=== PATIENT | female | born 1995 ===

== ENCOUNTER 2020-08-05 11:04 | Outpatient (REF) | payer MEDICAID, SELFPAY | END 2020-08-05 11:05 | disposition home or self-care (01) | LOC: HO.LAB 11:04 | PROVIDERS: Visit Provider Internal Medicine | DX: Z20.828 Contact with and (suspected) exposure to other viral communicable diseases (principal) | CPT/HCPCS: 87635 ==

== ENCOUNTER 2020-09-01 01:33 | Emergency (ER) | payer MEDICAID, SELFPAY ==
[2020-09-01 01:36] VITALS: BP 156/78; PULSE 78; RESP 18; TEMP 36.8; O2SAT 98; BMI 69.0
--- NOTE | 2020-09-01 01:43 | PC.NURSE ---
XRAY BEING OBTAINED AT BEDSIDE AT THIS TIME. AWAITING ED PROVIDER EVALUATION. ESCORTED TO ED BED 18 VIA WHEELCHAIR BY GABBY WHITESIDE. WILL CONTINUE TO MONITOR.
--- NOTE | 2020-09-01 01:45 | XR_ITS ---
EXAMINATION: XR ANKLE, RIGHT XR FOOT, RIGHT CLINICAL INFORMATION: Pain COMPARISON: None TECHNIQUE: 3 views of the right ankle. 3 views of the right foot. FINDINGS: There is anatomic alignment of the ankle and foot. No acute fracture is seen. There is soft tissue swelling at the ankle. XR/XR ankle RT min 3V IMPRESSION: No fracture identified. Soft tissue swelling at the ankle.
--- NOTE | 2020-09-01 01:46 | PC.NURSE ---
AT BEDSIDE FOR PRIMARY EVALUATION.
--- NOTE | 2020-09-01 01:50 | XR_ITS ---
EXAMINATION: XR ANKLE, RIGHT XR FOOT, RIGHT CLINICAL INFORMATION: Pain COMPARISON: None TECHNIQUE: 3 views of the right ankle. 3 views of the right foot. FINDINGS: There is anatomic alignment of the ankle and foot. No acute fracture is seen. There is soft tissue swelling at the ankle. XR/XR foot RT min 3V IMPRESSION: No fracture identified. Soft tissue swelling at the ankle.
--- NOTE | 2020-09-01 01:50 | ED.LOWEXIN ---
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) Injury: Right: ankle and foot Type of Injury: unknown (states she just moved it and felt a pop with pain) Place: home Severity: moderate Relieving factors: nothing Exacerbating factors: weight bearing and movement Context: other (states she moved it suddenly and felt a pop and it hurt) Associated symptoms: snap/pop sensation Other symptoms: none Related Data Home Medications Medication Instructions Recorded Confirmed albuterol sulfate 90 mcg/actuation 2 puff INHALATION Q6H PRN 07/14/20 07/14/20 aerosol inhaler atenolol 25 mg tablet 25 mg PO DAILY 07/14/20 07/14/20 blood sugar diagnostic #10 ea 07/14/20 07/14/20 enalapril maleate 20 mg tablet 25 mg PO DAILY tab 07/14/20 07/14/20 fluticasone propionate 110 1 puff INHALATION BID 07/14/20 07/14/20 mcg/actuation HFA aerosol inhaler lancets 28 gauge #100 ea 07/14/20 07/14/20 loratadine 10 mg tablet 10 mg PO DAILY 07/14/20 07/14/20 metformin 500 mg tablet 500 mg PO BID 07/14/20 07/14/20 omeprazole 20 mg capsule,delayed 20 mg PO DAILY 07/14/20 07/14/20 release Previous Rx's Medication Instructions Recorded cyclobenzaprine 10 mg PO TID PRN #14 tab 09/01/20 ibuprofen 600 mg PO Q6H PRN #30 tab 09/01/20 Allergies Allergy/AdvReac Type Severity Reaction Status Date / Time No Known Allergies Allergy Unverified 06/28/20 17:12 Review of Systems Review of Systems: Constitutional : No Fever, No Chills ENT/Mouth : No Ear Pain, No Hoarseness, No sore throat Eyes: No Eye Pain, No Swelling, No Redness, No Foreign Body Cardiovascular : No Chest Pain, No SOB Respiratory : No Cough, No Dyspnea Gastrointestinal : No Nausea, No Vomiting, No Diarrhea, No abdominal Pain Genitourinary : No Dysuria, No Hematuria Musculoskeletal : positive joint pain, No Myalgias, No Joint Swelling Skin : No Skin lacerations, No rash Neuro : No Weakness, No Numbness PMFSH Past Medical History Attestation statement: The following information was validated with the patient. Medical History Diabetes mellitus, type 2 Hypertension Social History Social History (Updated 09/01/20 @ 01:51 by Lilia Howard DO) Smoking Status: Never smoker Substance Use Type: Marijuana Advance Directives: No Physical Exam Vital Signs: Vital Signs: Last Vital Signs Temp 98.2 F 09/01/20 01:36 Pulse 78 09/01/20 01:36 Resp 18 09/01/20 01:36 BP 156/78 H 09/01/20 01:36 Pulse Ox 98 09/01/20 01:36 Body Mass Index 69.0 Appearance: Alert. Oriented X3. No acute distress. Eyes: Pupils equal, round and reactive to light. ENT: Pharynx normal. Neck: Normal inspection. Neck supple. CVS: Normal heart rate and rhythm. Pulses normal. Respiratory: No respiratory distress. Breath sounds normal. Abdomen: Soft and nontender. Skin: Skin warm and dry. Normal skin color. Normal skin turgor. Extremities: No lower extremity edema. No calf ttp R ankle ttp on lateral malleolus, ttp on dorrsum of foot mild swelling, no erythema, NV intact, BCR in all digits Neuro: Oriented X 3. No motor deficit. No sensory deficit. Procedures Orthopedic Splinting/Casting Injury #1: Side: right Lower Extremity Injury Location: ankle Lower Extremity Immobilizer: AirCast MDM - Extremity Injury (Lower) [facility] Narrative Medical decision making narrative: 25 yo female with RLE foot and ankle pain after moving it quickly and felt a pop - she is NV intact, xrays ordered, NSAIDs/flexeril air cast and crutches ordered Discharge Plan Discharge Clinical Impression: Ankle sprain and strain Foot sprain Qualifiers: Encounter type: initial encounter Laterality: right Qualified Code(s): S93.601A - Unspecified sprain of right foot, initial encounter Patient Disposition: Home, Self-Care Instructions: Foot Sprain (ED), Ankle Strain (ED) Additional Instructions: return to ED for any worsening symptoms or concerns use splint and crutches for the next 5 to 7 days, rest and ice area Prescriptions: New cyclobenzaprine 10 mg tablet 10 mg PO TID PRN (Reason: muscle spasm) Qty: 14 RF: 0 ibuprofen 600 mg tablet 600 mg PO Q6H PRN (Reason: pain) Qty: 30 RF: 0 No Action metformin 500 mg tablet 500 mg PO BID RF: 0 omeprazole 20 mg capsule,delayed release(DR/EC) 20 mg PO DAILY RF: 0 atenolol 25 mg tablet 25 mg PO DAILY RF: 0 loratadine [Claritin] 10 mg tablet 10 mg PO DAILY RF: 0 enalapril maleate 20 mg tablet 25 mg PO DAILY RF: 0 (DME) FreeStyle Lite Strips Strip See Rx Instructions .ROUTE .MEDSUPPLY Qty: 10 RF: 0 (DME) lancets [FreeStyle Lancets] 28 gauge misc See Rx Instructions .ROUTE .MEDSUPPLY Qty: 100 RF: 0 albuterol sulfate [ProAir HFA] 90 mcg/actuation HFA aerosol inhaler 2 puff inhalation Q6H PRNRF: 0 Flovent HFA 110 mcg/actuation HFA aerosol inhaler 1 puff inhalation BID RF: 0 Referrals: Physician,Unknown [Primary Care Provider] - 2 days (PCP if not better) Stand Alone Forms: Work/School Release
[2020-09-01] MEDS: Cyclobenzaprine HCl 10 MG TABLET PO (02:00)
[2020-09-01] MEDS: Ketorolac Tromethamine 60 MG/2 ML VIAL IM (02:01)
== END 2020-09-01 02:38 | disposition home or self-care (01) ==
LOC: HO.ED 01:55
PROVIDERS: Emergency Provider Emergency Medicine
DX: S93.401A Sprain of unspecified ligament of right ankle, initial encounter (principal); M25.571 Pain in right ankle and joints of right foot; F12.90 Cannabis use, unspecified, uncomplicated; I10 Essential (primary) hypertension; X50.1XXA Overexertion from prolonged static or awkward postures, initial encounter; Y93.9 Activity, unspecified; Y92.009 Unspecified place in unspecified non-institutional (private) residence as the place of occurrence of the external cause; Y99.9 Unspecified external cause status; Z79.899 Other long term (current) drug therapy
CPT/HCPCS: 29515; 73610; 73630; 96372; 99283; 99284; J1885

== ENCOUNTER 2020-09-24 22:04 | Emergency (ER) | payer MEDICAID, SELFPAY ==
[2020-09-24 22:06] VITALS: BP 158/86; PULSE 99; RESP 19; TEMP 36.8; O2SAT 98; BMI 69.0
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
[2020-09-24] MEDS: Acetaminophen 325 MG TABLET 975 MG PO (23:11)
== END 2020-09-24 23:58 | disposition home or self-care (01) ==
PROVIDERS: Emergency Provider Student in an Organized Health Care Education/Training Program
DX: S00.12XA Contusion of left eyelid and periocular area, initial encounter (principal); S01.112A Laceration without foreign body of left eyelid and periocular area, initial encounter; Y04.2XXA Assault by strike against or bumped into by another person, initial encounter; E11.9 Type 2 diabetes mellitus without complications; I10 Essential (primary) hypertension; F17.210 Nicotine dependence, cigarettes, uncomplicated; F12.90 Cannabis use, unspecified, uncomplicated; Y93.9 Activity, unspecified; Y92.9 Unspecified place or not applicable; Y99.9 Unspecified external cause status
CPT/HCPCS: 70486; 90471; 90715; 99284

== ENCOUNTER 2020-11-01 15:18 | Emergency (ER) | payer MEDICAID, SELFPAY ==
--- NOTE | 2020-11-01 15:25 | XR_ITS ---
EXAMINATION: XR CHEST CLINICAL INFORMATION: Chest wall pain COMPARISON: Chest radiographs 12/22/2019, 10/12/2019 TECHNIQUE: Portable upright AP view of the chest was obtained. FINDINGS: The lungs are clear. There is no pneumothorax, pleural reaction, airspace consolidation, or effusion. The heart is within limits of normal size. The hilar and mediastinal contours are normal. The vascularity is unremarkable. No visible acute bony abnormality. XR/XR chest 1V IMPRESSION: Unremarkable examination.
--- NOTE | 2020-11-01 15:25 | ECG_ITS ---
Test Reason : CHEST PAIN Blood Pressure : / mmHG Vent. Rate : 093 BPM Atrial Rate : 093 BPM P-R Int : 162 ms QRS Dur : 086 ms QT Int : 356 ms P-R-T Axes : 049 030 021 degrees QTc Int : 442 ms Normal sinus rhythm Normal ECG When compared with ECG of 04-FEB-2019 20:59, No significant change was found Referred By: Daron Humphrey Electronically Signed By:DEVIKA HENRY
[2020-11-01 15:29] VITALS: BP 164/94; BP 167/98; PULSE 100; PULSE 93; RESP 18; TEMP 36.9; O2SAT 100; O2SAT 97; BMI 69.0
--- NOTE | 2020-11-01 15:42 | ED.CHESTPAIN ---
HPI - Chest Pain General Chief Complaint: Chest Pain <Daron Humphrey NP - Last Filed: 11/01/20 20:40> Stated Complaint: chest pain anxiety <Daron Humphrey NP - Last Filed: 11/01/20 20:40> Time Seen by Provider: 11/01/20 15:25 <Daron Humphrey NP - Last Filed: 11/01/20 20:40> Source: EMS <Daron Humphrey NP - Last Filed: 11/01/20 20:40> Mode of arrival: EMS <Daron Humphrey NP - Last Filed: 11/01/20 20:40> Limitations: no limitations <Daron Humphrey NP - Last Filed: 11/01/20 20:40> History of Present Illness HPI narrative: Pleasant 25-year-old female with history of obesity, depression, anxiety, diabetes, hypertension, ADHD, history of costochondritis and chest pain who presents via EMS from home states since yesterday she has had this non producing left side chest pain with associated nausea. States she does have increase in her anxiety sometimes feels like her clonazepam does not work and unsure if the 2 are related but has had increased anxiety to nonspecific social stressors. She denies any recent illness, no cough, dizziness, palpitations, recent travel or prolonged stationary, no hormonal/ control use. <Daron Humphrey NP - Last Filed: 11/01/20 20:40> MD complaint: chest discomfort <Daron Humphrey NP - Last Filed: 11/01/20 20:40> Onset (ago): day(s) (1) <Daron Humphrey NP - Last Filed: 11/01/20 20:40> Timing of current episode: still present <Daron Humphrey NP - Last Filed: 11/01/20 20:40> Prior episodes: Yes <Daron Humphrey NP - Last Filed: 11/01/20 20:40> Quality: aching <Daron Humphrey NP - Last Filed: 11/01/20 20:40> Treatment prior to arrival: aspirin (She was given 324 aspirin by EMS) <Daron Humphrey NP - Last Filed: 11/01/20 20:40> Related Data Home Medications: Home Medications Medication Instructions Recorded Confirmed albuterol sulfate 90 mcg/actuation 2 puff INHALATION Q6H PRN 07/14/20 07/14/20 aerosol inhaler atenolol 25 mg tablet 25 mg PO DAILY 07/14/20 07/14/20 blood sugar diagnostic #10 ea 07/14/20 07/14/20 enalapril maleate 20 mg tablet 25 mg PO DAILY tab 07/14/20 07/14/20 fluticasone propionate 110 1 puff INHALATION BID 07/14/20 07/14/20 mcg/actuation HFA aerosol inhaler lancets 28 gauge #100 ea 07/14/20 07/14/20 loratadine 10 mg tablet 10 mg PO DAILY 07/14/20 07/14/20 metformin 500 mg tablet 500 mg PO BID 07/14/20 07/14/20 omeprazole 20 mg capsule,delayed 20 mg PO DAILY 07/14/20 07/14/20 release Previous Rx's Medication Instructions Recorded cyclobenzaprine 10 mg PO TID PRN #14 tab 09/01/20 ibuprofen 600 mg PO Q6H PRN #30 tab 09/01/20 <Daron Humphrey NP - Last Filed: 11/01/20 20:40> Allergies/Adverse Reactions: Allergies Allergy/AdvReac Type Severity Reaction Status Date / Time No Known Allergies Allergy Verified 11/01/20 15:33 <Daron Humphrey NP - Last Filed: 11/01/20 20:40> Review of Systems Review of Systems: Constitutional: No Weight loss, No Fever, No Chills, No Night Sweats, No Fatigue, No Malaise ENT/Mouth: No Hearing loss, No Ear Pain, No Nasal Congestion, No Sinus Pain, No Hoarseness, No sore throat, No Rhinorrhea, No Swallowing Difficulty Eyes: No Eye Pain, No Swelling, No Redness, No Foreign Body, No Discharge, No Vision Changes Cardiovascular: No SOB, No Dyspnea on Exertion, No Orthopnea, No Edema, No Palpitations Respiratory: No Cough, No Sputum, No Wheezing, No Smoke Exposure, No Dyspnea Gastrointestinal: + Nausea, No Vomiting, No Diarrhea, No Constipation, No abdominal Pain, No Hematochezia, No Melena Genitourinary: no irregular bleeding, No Dysuria, No Urinary Frequency, No Hematuria, No Urinary Incontinence, No Urgency, No Flank Pain, No Urinary Flow Changes, No Hesitancy Musculoskeletal: No joint pain, No Myalgias, No Joint Swelling Skin: No Skin Lesions, No rash Neuro: No Weakness, No Numbness, No Paresthesias, No Loss of Consciousness, No Dizziness, No Headache Psych: + Anxiety/Panic, No Depression, No SI/HI/AH/VH, No Social Issues Heme/Lymph: No Bruising, No Bleeding,No Lymphadenopathy Endocrine: No Polyuria, No Polydipsia, No Temperature Intolerance <Daron Humphrey NP - Last Filed: 11/01/20 20:40> Yes all other systems are reviewed and are negative <Daron Humphrey NP - Last Filed: 11/01/20 20:40> PMFSH Past Medical History Medical History: Medical History Diabetes mellitus, type 2 Hypertension <Daron Humphrey NP - Last Filed: 11/01/20 20:40> Social History Social History: Social History Alcohol intake: current Alcohol intake frequency: does not drink Smoking Status: Never smoker Substance Use Type: Marijuana Substance Use Frequency: Daily Advance Directives: No Advance Directives Information Provided: Yes <Daron Humphrey NP - Last Filed: 11/01/20 20:40> Physical Exam Vital Signs: Vital Signs: Last Vital Signs Temp 98.5 F 11/01/20 16:00 Pulse 89 11/01/20 16:00 Resp 16 11/01/20 16:00 BP 167/98 H 11/01/20 16:00 Pulse Ox 99 11/01/20 16:00 Body Mass Index 69.0 Reviewed <Daron Humphrey NP - Last Filed: 11/01/20 20:40> Vital Signs: Last Vital Signs Temp 98.5 F 11/01/20 16:00 Pulse 89 11/01/20 16:00 Resp 16 11/01/20 16:00 BP 167/98 H 11/01/20 16:00 Pulse Ox 99 11/01/20 16:00 Body Mass Index 69.0 <Zeke Escamilla MD - Last Filed: 11/12/20 16:51> Const: General: cooperative and healthy appearing; No acute distress or intoxicated appearing <Daron Humphrey NP - Last Filed: 11/01/20 20:40> Nutritional Appearance: average body habitus <Daron Humphrey NP - Last Filed: 11/01/20 20:40> Orientation/consciousness: patient oriented x3 <Daronglendy Humphrey NP - Last Filed: 11/01/20 20:40> HENMT: Head: Yes normal to inspection <[facility] VIRIDIANA Humphrey - Last Filed: 11/01/20 20:40> Ears: hearing grossly normal bilaterally <Daron VIRIDIANA Humphrey - Last Filed: 11/01/20 20:40> Eyes: General: appearance normal, both eyes and all related structures <Daronglendy Humphrey NP - Last Filed: 11/01/20 20:40> Visual Zendejas: normal visual zendejas by confrontation <Daronglendy Humphrey NP - Last Filed: 11/01/20 20:40> Neck: Neck: Yes normal visual inspection, No positive Brudzinski's sign, No positive Kernig's sign and No tender <Daronglendy Humphrey NP - Last Filed: 11/01/20 20:40> Thyroid: Thyroid normal <[facility] VIRIDIANA Humphrey - Last Filed: 11/01/20 20:40> Chest: Chest palpation & inspection: normal inspection of the chest <Daronglendy Humphrey NP - Last Filed: 11/01/20 20:40> Resp: Effort & Inspection: normal respiratory effort <Daronglendy Humphrey NP - Last Filed: 11/01/20 20:40> Auscultation: clear to auscultation bilaterally <Daron Humphrey NP - Last Filed: 11/01/20 20:40> Cardio: Jugular venous distension: no JVD <[facility] VIRIDIANA Humphrey - Last Filed: 11/01/20 20:40> Rate: regular rate <[facility] VIRIDIANA Humphrey - Last Filed: 11/01/20 20:40> Rhythm: regular rhythm <[facility] VIRIDIANA Humphrey - Last Filed: 11/01/20 20:40> Heart sounds: S1 normal heart sound present and S2 normal heart sound present <[facility] VIRIDIANA Humphrey - Last Filed: 11/01/20 20:40> GI: Inspection: Yes normal to inspection <Daronglendy Humphrey NP - Last Filed: 11/01/20 20:40> Percussion: Yes normal to percussion <Daron Humphrey NP - Last Filed: 11/01/20 20:40> Auscultation: normal bowel sounds <Daron Humphrey NP - Last Filed: 11/01/20 20:40> : General: Yes no CVA tenderness <Daron Humphrey NP - Last Filed: 11/01/20 20:40> Back/Spine/Pelvis: Back: no CVA tenderness <Daron Humphrey NP - Last Filed: 11/01/20 20:40> Skin: General skin exam: no rashes or lesions noted <Daron Humphrey NP - Last Filed: 11/01/20 20:40> Neuro: General: patient oriented x3 <Daron Humphrey NP - Last Filed: 11/01/20 20:40> Extrem: General: Yes normal to inspection <Daron Humphrey NP - Last Filed: 11/01/20 20:40> Course Course Course Narrative: I have reviewed the chart <Zeke Escamilla MD - Last Filed: 11/12/20 16:51> MDM - Chest Pain MDM Narrative Medical decision making narrative: Feels better after anti anxiety medication and GI cocktail. No pain or discomfort. Will continue taking her antianxiety medication follow-up with her primary care doctor for med adjustment. AP consistent with chest pain in setting of stressors which is consistent with her with question underlying GERD ran out of her PPI. Perc negative, heart score 1. Workup essentially unremarkable. Stable for discharge. <Daron Humphrey NP - Last Filed: 11/01/20 20:40> Differential Diagnosis Differential diagnosis: Likely atypical chest pain, costochondritis and chest pain; Unlikely fracture of rib, pneumothorax, stable angina, unstable angina pectoris, st elevation myocardial infarction and biliary colic <Daron Humphrey NP - Last Filed: 11/01/20 20:40> Medical Records Data Attestation: I reviewed the patient's medical records. <Daron Humphrey NP - Last Filed: 11/01/20 20:40> Lab Data Attestation: I reviewed the patient's lab results. <Daron Humphrey NP - Last Filed: 11/01/20 20:40> Result diagrams: : 11/01/20 15:46 11/01/20 15:46 <Daron HumphreyVIRIDIANA - Last Filed: 11/01/20 20:40> Labs: Lab Results 11/01/20 11/01/20 11/01/20 Range/Units 15:46 15:46 15:46 WBC 8.6 (4.8-10.8) X10*3/uL RBC 4.61 (4.20-5.50) X10*6/uL Hgb 12.5 (12.0-16.0) g/dl Hct 38.1 (37-47) % MCV 82.6 (80-98) fL MCH 27.1 (27.0-33.0) pg MCHC 32.8 (31.0-35.0) g/dl RDW 12.4 (11.0-16.0) % Plt Count 391 (160-400) X10*3/uL MPV 9.6 (9.4-12.3) fL Immature Gran % (Auto) 0.2 (0.0-0.4) % Neut % (Auto) 62.0 (45-73) % Lymph % (Auto) 30.5 (20-40) % Bailey % (Auto) 6.2 (2-11) % Eos % (Auto) 0.9 (0-4) % Baso % (Auto) 0.2 (0-2) % Lymph # (Auto) 2.6 (1.2-4.9) X10*3/uL Bailey # (Auto) 0.5 (0.1-1.2) X10*3/uL Eos # (Auto) 0.1 (0.0-0.4) X10*3/uL Baso # (Auto) 0.0 (0.0-0.2) X10*3/uL Abs Immat Gran (auto) 0.02 (0.00-0.03) X10*3/uL Absolute Neuts (auto) 5.3 (2.0-8.3) X10*3/uL Absolute Nucleated RBC 0.000 (0.0-0.012) X10*3/uL Nucleated RBC % (auto) 0.0 (0.0-0.2) /100WBC PT 11.8 (10.8-13.0) SEC INR 1.0 (0.9-1.1) APTT 35.8 (24.1-38.0) SEC Sodium 138 (135-145) mmol/L Potassium 4.2 (3.3-5.1) mmol/l Chloride 100 (96-108) mmol/L Carbon Dioxide 32 H (22-29) mmol/L Anion Gap 10 L (12-20) BUN 13 (9-16) mg/dL Creatinine 0.65 (0.5-1.4) mg/dL Estim Creat Clear Calc 211.6 Estimated GFR > 60 Random Glucose 206 H (60-115) mg/dL Calcium 9.4 (8.4-10.2) mg/dL Total Bilirubin < 0.2 (0.0-1.0) mg/dL AST 12 (5-31) U/L ALT 24 (0-31) U/L Alkaline Phosphatase 52 (39-117) U/L Troponin I High Sens (<3.5-17.0) ng/L Total Protein 7.1 (6.5-8.0) g/dL Albumin 4.2 (3.5-5.0) g/dL 11/01/20 Range/Units 15:46 WBC (4.8-10.8) X10*3/uL RBC (4.20-5.50) X10*6/uL Hgb (12.0-16.0) g/dl Hct (37-47) % MCV (80-98) fL MCH (27.0-33.0) pg MCHC (31.0-35.0) g/dl RDW (11.0-16.0) % Plt Count (160-400) X10*3/uL MPV (9.4-12.3) fL Immature Gran % (Auto) (0.0-0.4) % Neut % (Auto) (45-73) % Lymph % (Auto) (20-40) % Bailey % (Auto) (2-11) % Eos % (Auto) (0-4) % Baso % (Auto) (0-2) % Lymph # (Auto) (1.2-4.9) X10*3/uL Bailey # (Auto) (0.1-1.2) X10*3/uL Eos # (Auto) (0.0-0.4) X10*3/uL Baso # (Auto) (0.0-0.2) X10*3/uL Abs Immat Gran (auto) (0.00-0.03) X10*3/uL Absolute Neuts (auto) (2.0-8.3) X10*3/uL Absolute Nucleated RBC (0.0-0.012) X10*3/uL Nucleated RBC % (auto) (0.0-0.2) /100WBC PT (10.8-13.0) SEC INR (0.9-1.1) APTT (24.1-38.0) SEC Sodium (135-145) mmol/L Potassium (3.3-5.1) mmol/l Chloride (96-108) mmol/L Carbon Dioxide (22-29) mmol/L Anion Gap (12-20) BUN (9-16) mg/dL Creatinine (0.5-1.4) mg/dL Estim Creat Clear Calc Estimated GFR Random Glucose (60-115) mg/dL Calcium (8.4-10.2) mg/dL Total Bilirubin (0.0-1.0) mg/dL AST (5-31) U/L ALT (0-31) U/L Alkaline Phosphatase (39-117) U/L Troponin I High Sens 5.8 (<3.5-17.0) ng/L Total Protein (6.5-8.0) g/dL Albumin (3.5-5.0) g/dL <Daron Humphrey NP - Last Filed: 11/01/20 20:40> Lab Results 11/01/20 11/01/20 11/01/20 Range/Units 15:46 15:46 15:46 WBC 8.6 (4.8-10.8) X10*3/uL RBC 4.61 (4.20-5.50) X10*6/uL Hgb 12.5 (12.0-16.0) g/dl Hct 38.1 (37-47) % MCV 82.6 (80-98) fL MCH 27.1 (27.0-33.0) pg MCHC 32.8 (31.0-35.0) g/dl RDW 12.4 (11.0-16.0) % Plt Count 391 (160-400) X10*3/uL MPV 9.6 (9.4-12.3) fL Immature Gran % (Auto) 0.2 (0.0-0.4) % Neut % (Auto) 62.0 (45-73) % Lymph % (Auto) 30.5 (20-40) % Bailey % (Auto) 6.2 (2-11) % Eos % (Auto) 0.9 (0-4) % Baso % (Auto) 0.2 (0-2) % Lymph # (Auto) 2.6 (1.2-4.9) X10*3/uL Bailey # (Auto) 0.5 (0.1-1.2) X10*3/uL Eos # (Auto) 0.1 (0.0-0.4) X10*3/uL Baso # (Auto) 0.0 (0.0-0.2) X10*3/uL Abs Immat Gran (auto) 0.02 (0.00-0.03) X10*3/uL Absolute Neuts (auto) 5.3 (2.0-8.3) X10*3/uL Absolute Nucleated RBC 0.000 (0.0-0.012) X10*3/uL Nucleated RBC % (auto) 0.0 (0.0-0.2) /100WBC PT 11.8 (10.8-13.0) SEC INR 1.0 (0.9-1.1) APTT 35.8 (24.1-38.0) SEC Sodium 138 (135-145) mmol/L Potassium 4.2 (3.3-5.1) mmol/l Chloride 100 (96-108) mmol/L Carbon Dioxide 32 H (22-29) mmol/L Anion Gap 10 L (12-20) BUN 13 (9-16) mg/dL Creatinine 0.65 (0.5-1.4) mg/dL Estim Creat Clear Calc 211.6 Estimated GFR > 60 Random Glucose 206 H (60-115) mg/dL Calcium 9.4 (8.4-10.2) mg/dL Total Bilirubin < 0.2 (0.0-1.0) mg/dL AST 12 (5-31) U/L ALT 24 (0-31) U/L Alkaline Phosphatase 52 (39-117) U/L Troponin I High Sens (<3.5-17.0) ng/L Total Protein 7.1 (6.5-8.0) g/dL Albumin 4.2 (3.5-5.0) g/dL 11/01/20 Range/Units 15:46 WBC (4.8-10.8) X10*3/uL RBC (4.20-5.50) X10*6/uL Hgb (12.0-16.0) g/dl Hct (37-47) % MCV (80-98) fL MCH (27.0-33.0) pg MCHC (31.0-35.0) g/dl RDW (11.0-16.0) % Plt Count (160-400) X10*3/uL MPV (9.4-12.3) fL Immature Gran % (Auto) (0.0-0.4) % Neut % (Auto) (45-73) % Lymph % (Auto) (20-40) % Bailey % (Auto) (2-11) % Eos % (Auto) (0-4) % Baso % (Auto) (0-2) % Lymph # (Auto) (1.2-4.9) X10*3/uL Bailey # (Auto) (0.1-1.2) X10*3/uL Eos # (Auto) (0.0-0.4) X10*3/uL Baso # (Auto) (0.0-0.2) X10*3/uL Abs Immat Gran (auto) (0.00-0.03) X10*3/uL Absolute Neuts (auto) (2.0-8.3) X10*3/uL Absolute Nucleated RBC (0.0-0.012) X10*3/uL Nucleated RBC % (auto) (0.0-0.2) /100WBC PT (10.8-13.0) SEC INR (0.9-1.1) APTT (24.1-38.0) SEC Sodium (135-145) mmol/L Potassium (3.3-5.1) mmol/l Chloride (96-108) mmol/L Carbon Dioxide (22-29) mmol/L Anion Gap (12-20) BUN (9-16) mg/dL Creatinine (0.5-1.4) mg/dL Estim Creat Clear Calc Estimated GFR Random Glucose (60-115) mg/dL Calcium (8.4-10.2) mg/dL Total Bilirubin (0.0-1.0) mg/dL AST (5-31) U/L ALT (0-31) U/L Alkaline Phosphatase (39-117) U/L Troponin I High Sens 5.8 (<3.5-17.0) ng/L Total Protein (6.5-8.0) g/dL Albumin (3.5-5.0) g/dL <Zeke Escamilla MD - Last Filed: 11/12/20 16:51> Imaging Data Chest x-ray: Radiologist's impression: [address] [id number] ReportSigned Patient: Marium Ravi MMR#: [id number]: 1995Acct:[id number]/Sex: 25 / FADM Date: 11/01/20Loc: E[address] Dr: Ordering Physician: Daron Humphrey NP Date of Service: 11/01/20 Procedure(s): XR chest 1V Accession Number(s): [id number] cc: Daron Humphrey NP~ EXAMINATION: XR CHEST CLINICAL INFORMATION: Chest wall pain COMPARISON: Chest radiographs 12/22/2019, 10/12/2019 TECHNIQUE: Portable upright AP view of the chest was obtained. FINDINGS: The lungs are clear. There is no pneumothorax, pleural reaction, airspace consolidation, or effusion. The heart is within limits of normal size. The hilar and mediastinal contours are normal. The vascularity is unremarkable. No visible acute bony abnormality. XR/XR chest 1V IMPRESSION: Unremarkable examination. Dictated By:ZEKE ELIAS MDSigned By:<Electronically signed by ZEKE ELIAS MD in OV>11/01/20 1603 DD/ 1525TD/TT: Fish Smoker: GARCIA <Daron Humphrey NP - Last Filed: 11/01/20 20:40> ECG Data ECG #1: Interpretation: Normal sinus rhythm Normal ECG When compared with ECG of 04-FEB-2019 20:59, No significant change was found <Daron Humphrey NP - Last Filed: 11/01/20 20:40> Discharge Plan Discharge Clinical Impression: Atypical chest pain, Anxiety <Daron Humphrey NP - Last Filed: 11/01/20 20:40> Patient Disposition: Home, Self-Care <Daron Humphrey NP - Last Filed: 11/01/20 20:40> Instructions: Chest Pain (ED), Anxiety (ED) <Daron Humphrey NP - Last Filed: 11/01/20 20:40> Additional Instructions: Take medication prescribed [place] diet Stress reducing techniques as discussed Return if any concerns or symptoms otherwise follow up with her primary care doctor as discussed Thank you <Daron Humphrey NP - Last Filed: 11/01/20 20:40> Prescriptions: No Action cyclobenzaprine 10 mg tablet 10 mg PO TID PRN (Reason: muscle spasm) Qty: 14 RF: 0 ibuprofen 600 mg tablet 600 mg PO Q6H PRN (Reason: pain) Qty: 30 RF: 0 metformin 500 mg tablet 500 mg PO BID RF: 0 omeprazole 20 mg capsule,delayed release(DR/EC) 20 mg PO DAILY RF: 0 atenolol 25 mg tablet 25 mg PO DAILY RF: 0 loratadine [Claritin] 10 mg tablet 10 mg PO DAILY RF: 0 enalapril maleate 20 mg tablet 25 mg PO DAILY RF: 0 (DME) FreeStyle Lite Strips Strip See Rx Instructions .ROUTE .MEDSUPPLY Qty: 10 RF: 0 (DME) lancets [FreeStyle Lancets] 28 gauge misc See Rx Instructions .ROUTE .MEDSUPPLY Qty: 100 RF: 0 albuterol sulfate [ProAir HFA] 90 mcg/actuation HFA aerosol inhaler 2 puff inhalation Q6H PRNRF: 0 Flovent HFA 110 mcg/actuation HFA aerosol inhaler 1 puff inhalation BID RF: 0 <Daron Humphrey NP - Last Filed: 11/01/20 20:40> Referrals: Physician,Unknown [Primary Care Provider] - 1 week <Daron Humphrey NP - Last Filed: 11/01/20 20:40> Interventions: ED Discharge Assessment Last Done: 11/01/20 18:43 <Daron Humphrey NP - Last Filed: 11/01/20 20:40> Discharge Date/Time: 11/01/20 18:30 <Daron Humphrey NP - Last Filed: 11/01/20 20:40>
[2020-11-01] MEDS: ondansetron HCL 4 MG/2 ML VIAL IVPUSH (15:51)
[2020-11-01 15:52] LABS: Basophils Percent Auto 0.2 % (0-2); Eosinophils Absolute Auto 0.1 X10*3/uL (0.0-0.4); Eosinophils Percent Auto 0.9 % (0-4); Hematocrit 38.1 % (37-47); Hemoglobin 12.5 g/dl (12.0-16.0); Imm Gran Abs Auto 0.02 X10*3/uL (0.00-0.03); Imm Gran Pct Auto 0.2 % (0.0-0.4); Lymphocytes Absolute Auto 2.6 X10*3/uL (1.2-4.9); Lymphocytes Percent Auto 30.5 % (20-40); MANUAL DIFF FLAG NO; Mean Corpuscular HGB Conc 32.8 g/dl (31.0-35.0); Mean Corpuscular Hemoglobin 27.1 pg (27.0-33.0); Mean Corpuscular Volume 82.6 fL (80-98); Mean Platelet Volume 9.6 fL (9.4-12.3); Monocytes Absolute Auto 0.5 X10*3/uL (0.1-1.2); Monocytes Percent Auto 6.2 % (2-11); Neutrophils Absolute Auto 5.3 X10*3/uL (2.0-8.3); Platelet Count 391 X10*3/uL (160-400); Red Blood Count 4.61 X10*6/uL (4.20-5.50); Red Cell Distribution Width 12.4 % (11.0-16.0); White Blood Count 8.6 X10*3/uL (4.8-10.8)
[2020-11-01 16:00] VITALS: BP 167/98; PULSE 89; RESP 16; TEMP 36.9; O2SAT 99
[2020-11-01 16:18] LABS: Prothrombin Time 11.8 SEC (10.8-13.0)
[2020-11-01 16:21] LABS: Partial Thromboplastin Time 35.8 SEC (24.1-38.0)
[2020-11-01 16:23] LABS: Troponin-I High Sensitivity 5.8 ng/L (<3.5-17.0)
[2020-11-01 16:30] LABS: Alanine Aminotransferase 24 U/L (0-31); Albumin Level 4.2 g/dL (3.5-5.0); Alkaline Phosphatase 52 U/L (39-117); Anion Gap 10 (12-20); Aspartate Amino Transferase 12 U/L (5-31); Bilirubin Total < 0.2 mg/dL (0.0-1.0); Blood Urea Nitrogen 13 mg/dL (9-16); Calcium 9.4 mg/dL (8.4-10.2); Carbon Dioxide 32 mmol/L (22-29); Chloride 100 mmol/L (96-108); Creatinine Clr Calc Pharmacy 211.6; Estimated Glomerular Filt Rate > 60; Glucose Random 206 mg/dL (60-115); Potassium 4.2 mmol/l (3.3-5.1); Sodium 138 mmol/L (135-145); Total Protein 7.1 g/dL (6.5-8.0)
[2020-11-01] MEDS: Magnesium Hydrox/Alum Hydrox 30 ML ORAL.SUSP PO (17:27)
[2020-11-01] MEDS: Lidocaine HCl Viscous 2 % 15 ML SOLUTION 10 ML MUCOUS MEM (17:27)
--- NOTE | 2020-11-01 17:27 | PC.NURSE ---
PT REFUSING MOP. CP CURRENTLY DESCRIBED SUBSTERNAL BURNING PAIN. HX OF ACID REFLUX, NO LONGER TAKING PRILOSEC AT HOME. 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 PT MORE AGREEABLE TO RECEIVING ANTACIDS.
== END 2020-11-01 18:30 | disposition home or self-care (01) ==
PROVIDERS: Nurse Practitioner Primary Care; Emergency Provider Emergency Medicine
DX: R07.89 Other chest pain (principal); F41.1 Generalized anxiety disorder; F43.0 Acute stress reaction; Z79.899 Other long term (current) drug therapy
CPT/HCPCS: 36415; 71045; 80053; 84484; 85025; 85610; 85730; 93005; 96374; 96375; 99284; J2405

== ENCOUNTER 2020-12-14 10:37 | Outpatient (REF) | payer MEDICAID, SELFPAY | END 2020-12-14 10:38 | disposition home or self-care (01) | LOC: HO.LAB 10:37 | PROVIDERS: Visit Provider Internal Medicine | DX: Z20.822 Contact with and (suspected) exposure to COVID-19 (principal) | CPT/HCPCS: 36415; C9803; U0003; U0005 ==

== ENCOUNTER 2020-12-26 11:11 | Emergency (ER) | payer MEDICAID, SELFPAY ==
--- NOTE | ~2020-12-26 | XR_ITS ---
EXAMINATION: BILATERAL KNEES CLINICAL INFORMATION: Status post fall last night. Bilateral knee pain COMPARISON: None TECHNIQUE: 4 views each knee. FINDINGS: Left knee: There is mild.) Medial and lateral compartments with joint space maintain normal. There is no loose bodies, bony erosive changes or joint effusion seen. Right knee: There is mild loss of tricompartment joint space. Mild periarticular spurring of the medial and lateral compartment is visualized. No visible bodies or bony erosive changes seen. There is no joint effusion noted. XR/XR knee LT 4V IMPRESSION: Suspect mild early degenerative changes medial and lateral compartment both knees. There is no acute fracture, dislocation, bony erosive changes, loose bodies or joint effusion.
--- NOTE | ~2020-12-26 | XR_ITS ---
EXAMINATION: BILATERAL KNEES CLINICAL INFORMATION: Status post fall last night. Bilateral knee pain COMPARISON: None TECHNIQUE: 4 views each knee. FINDINGS: Left knee: There is mild.) Medial and lateral compartments with joint space maintain normal. There is no loose bodies, bony erosive changes or joint effusion seen. Right knee: There is mild loss of tricompartment joint space. Mild periarticular spurring of the medial and lateral compartment is visualized. No visible bodies or bony erosive changes seen. There is no joint effusion noted. XR/XR knee RT 4V IMPRESSION: Suspect mild early degenerative changes medial and lateral compartment both knees. There is no acute fracture, dislocation, bony erosive changes, loose bodies or joint effusion.
[2020-12-26 11:18] VITALS: BP 152/80; PULSE 100; RESP 16; TEMP 36.5; O2SAT 98; BMI 71.3
--- NOTE | 2020-12-26 12:52 | ED.LOWEXIN ---
HPI - Extremity Injury (Lower) General Chief Complaint: Extremity Injury, Lower Stated Complaint: toe numbness/knee pain Time Seen by Provider: 12/26/20 11:30 Source: patient Mode of arrival: ambulatory Limitations: no limitations History of Present Illness HPI Narrative: 25-year-old female with a past medical history of mental illness, depression, ADHD, obesity, sleep apnea, GERD, hyperlipidemia, hypertension and type 2 diabetes presenting to the ED after mechanical fall yesterday outside of her house where she tripped and fell landing on her bilateral knees with persistent pain to bilateral knees worse on the right than the left. Denies head injury or loss of consciousness or any other injuries complaints or concerns at this time. complaint: knee injury Onset (ago): day(s) (Yesterday) Type of Injury: blunt Place: home and street/outdoors Severity: moderate Relieving factors: nothing Exacerbating factors: weight bearing, movement and palpation Context: fall Associated symptoms: other (Pain) Other symptoms: none Related Data Home Medications Medication Instructions Recorded Confirmed albuterol sulfate 90 mcg/actuation 2 puff INHALATION Q6H PRN 07/14/20 07/14/20 aerosol inhaler atenolol 25 mg tablet 25 mg PO DAILY 07/14/20 07/14/20 blood sugar diagnostic #10 ea 07/14/20 07/14/20 enalapril maleate 20 mg tablet 25 mg PO DAILY tab 07/14/20 07/14/20 fluticasone propionate 110 1 puff INHALATION BID 07/14/20 07/14/20 mcg/actuation HFA aerosol inhaler lancets 28 gauge #100 ea 07/14/20 07/14/20 loratadine 10 mg tablet 10 mg PO DAILY 07/14/20 07/14/20 metformin 500 mg tablet 500 mg PO BID 07/14/20 07/14/20 omeprazole 20 mg capsule,delayed 20 mg PO DAILY 07/14/20 07/14/20 release Previous Rx's Medication Instructions Recorded cyclobenzaprine 10 mg PO TID PRN #14 tab 09/01/20 ibuprofen 600 mg PO Q6H PRN #30 tab 09/01/20 ibuprofen 800 mg PO Q8H PRN #14 tab 12/26/20 oxycodone-acetaminophen [Percocet] 1 tab PO Q6H PRN #10 tab 12/26/20 Allergies Allergy/AdvReac Type Severity Reaction Status Date / Time No Known Allergies Allergy Verified 11/01/20 15:33 Review of Systems Review of Systems: Constitutional : No changes in activity, No lethargy, No recent prior head injury, No agitation, No increased fussiness ENT/Mouth : No Ear Pain, No Nasal discharge/drainage Eyes: No Eye Pain, No Swelling, No Redness, No Foreign Body, No Vision Changes Cardiovascular : No Chest Pain, No SOB Respiratory : No Cough Gastrointestinal : No Nausea, No Vomiting, No abdominal Pain Genitourinary : No Dysuria, No Urinary Frequency, No Urinary Incontinence, No Urgency, No Flank Pain Musculoskeletal : + joint pain, No neck stiffness, No back pain/injury Skin : No lacerations Neuro : No unsteady gait, No Paresthesias, No Loss of Consciousness, No altered mental status, No Headache Yes all other systems are reviewed and are negative FOR[facility]LY [facility], [facility] Past Medical History Attestation statement: The following information was validated with the patient. Medical History Diabetes mellitus, type 2 Hypertension Social History Social History Alcohol intake: current Alcohol intake frequency: does not drink Smoking Status: Never smoker Substance Use Type: Marijuana Advance Directives: Yes Advance Directives Information Provided: Yes Advance Directives on File: No Physical Exam Vital Signs: Vital Signs: Last Vital Signs Temp 97.7 F 12/26/20 11:18 Pulse 100 12/26/20 11:18 Resp 16 12/26/20 11:18 BP 152/80 H 12/26/20 11:18 Pulse Ox 98 12/26/20 11:18 Body Mass Index 71.3 Vital signs have been reviewed as normal and appeared to be correct. Blood pressure normal. Heart rate normal. Respiration rate normal. Temperature normal. Oxygen saturation normal. Appearance: Alert. Orientedx3. No acute distress. Head: Normal external exam. Normocephalic. Atraumatic. Able to rotate head bilaterally. Eyes: PERRLA. EOMI. No nystagmus noted. Conjunctiva and sclera normal. Eyelids normal. Corneal reflex normal. ENT: Hearing normal. Pharynx normal. Uvula midline. tongue midline. Moist mucous membranes. Neck: Normal inspection. Neck supple. FROM. Nontender. CVS: Normal heart rate and rhythm. Heart sound normal. Pulses normal throughout. Respiratory: No respiratory distress. Painless inspiration. Breath sounds normal. No wheezes/rales/rhonchi noted. Chest nontender. Back: No tenderness noted. Full range of motion noted. Skin: Skin warm and dry. Normal skin color. Normal skin turgor. No rashes/lesions/lacerations noted. Extremities: Patient with tender to palpation to bilateral knees at the patellar aspect. No obvious deformities. No laxity noted. Full range of motion of bilateral knees. No signs of infection noted. Otherwise all other Extremities exhibit normal range of motion and nontender. Neuro: Oriented X 3. No motor deficit. No sensory deficit. Reflexes normal. Moving all extremities. No focal motor deficits. Speech normal. Gait normal. Strength 5/5 throughout. Muscle tone normal throughout. Course Course Course Narrative: 25-year-old female presenting to the ED after mechanical fall outside of her house yesterday injuring her bilateral knees. On exam patient has tender to palpation to patellar aspect of bilateral knees. No laxity noted. Normal steady gait. Will obtain x-rays if negative will DC home with symptomatic treatment along with instructions to return if any new or worsening symptoms to follow up with primary care provider. Patient understands agrees the plan. MDM - Extremity Injury (Lower) Medical Records Attestation: I reviewed the patient's medical records. Imaging Data Bilateral knees: Attestation: I personally reviewed and interpreted this imaging study as follows: Radiologist's impression: FINDINGS: Left knee: There is mild.) Medial and lateral compartments with joint space maintain normal. There is no loose bodies, bony erosive changes or joint effusion seen. Right knee: There is mild loss of tricompartment joint space. Mild periarticular spurring of the medial and lateral compartment is visualized. No visible bodies or bony erosive changes seen. There is no joint effusion noted. XR/XR knee LT 4V IMPRESSION: Suspect mild early degenerative changes medial and lateral compartment both knees. There is no acute fracture, dislocation, bony erosive changes, loose bodies or joint effusion. Discharge Plan Discharge Clinical Impression: Knee sprain, bilateral, Arthritis of knee Patient Disposition: Home, Self-Care Instructions: Knee Sprain (ED), Arthritis (ED) Prescriptions: New ibuprofen 800 mg tablet 800 mg PO Q8H PRN (Reason: pain) Qty: 14 RF: 0 oxycodone-acetaminophen [Percocet] 5-325 mg tablet 1 tab PO Q6H PRN (Reason: pain) Qty: 10 RF: 0 No Action cyclobenzaprine 10 mg tablet 10 mg PO TID PRN (Reason: muscle spasm) Qty: 14 RF: 0 ibuprofen 600 mg tablet 600 mg PO Q6H PRN (Reason: pain) Qty: 30 RF: 0 metformin 500 mg tablet 500 mg PO BID RF: 0 omeprazole 20 mg capsule,delayed release(DR/EC) 20 mg PO DAILY RF: 0 atenolol 25 mg tablet 25 mg PO DAILY RF: 0 loratadine [Claritin] 10 mg tablet 10 mg PO DAILY RF: 0 enalapril maleate 20 mg tablet 25 mg PO DAILY RF: 0 (DME) FreeStyle Lite Strips Strip See Rx Instructions .ROUTE .MEDSUPPLY Qty: 10 RF: 0 (DME) lancets [FreeStyle Lancets] 28 gauge misc See Rx Instructions .ROUTE .MEDSUPPLY Qty: 100 RF: 0 albuterol sulfate [ProAir HFA] 90 mcg/actuation HFA aerosol inhaler 2 puff inhalation Q6H PRNRF: 0 Flovent HFA 110 mcg/actuation HFA aerosol inhaler 1 puff inhalation BID RF: 0 Referrals: Physician,Unknown [Primary Care Provider] - 2 days (Your PCP) Print Language: Welsh
== END 2020-12-26 14:11 | disposition home or self-care (01) ==
PROVIDERS: Emergency Provider Internal Medicine
DX: S83.8X1A Sprain of other specified parts of right knee, initial encounter (principal); M25.562 Pain in left knee; M25.561 Pain in right knee; M17.0 Bilateral primary osteoarthritis of knee; F12.90 Cannabis use, unspecified, uncomplicated; W01.0XXA Fall on same level from slipping, tripping and stumbling without subsequent striking against object, initial encounter; Y93.01 Activity, walking, marching and hiking; Y92.009 Unspecified place in unspecified non-institutional (private) residence as the place of occurrence of the external cause; Y99.9 Unspecified external cause status; Z79.899 Other long term (current) drug therapy
CPT/HCPCS: 73564; 99284

== ENCOUNTER 2021-02-12 14:36 | Emergency (ER) | payer MEDICAID, SELFPAY ==
[2021-02-12 15:07] VITALS: BP 157/96; PULSE 104; RESP 18; TEMP 36.9; O2SAT 97; BMI 65.7
--- NOTE | 2021-02-12 16:04 | ED.SKABFB ---
HPI - Skin/Abscess/Foreign Bdy General Chief complaint: Skin/Abscess/Foreign Body Stated complaint: HAND INFECTION Time Seen by Provider: 02/12/21 16:04 Source: patient Mode of arrival: ambulatory Limitations: no limitations History of Present Illness HPI narrative: 25 y/o female with history of DM and obesity who presents to the ED with a guinea pig bite to her left pain that happened yesterday when she was trying to break up her guinea pigs fighting. She was bit a the base of her left index finger. She noticed this morning the area was red, swollen and she was able to drain pus from the wound. Given her history of DM she came to the ER for further evaluation. She has full ROM of her fingers and no redness streaking up her hand or arm. complaint: other (animal bite) Onset (ago): day(s) (1) Tetanus up to date: no Location: L hand Severity: moderate Severity scale (1-10): 5 Quality: aching Pain Consistency: intermittent Relieving factors: immobilization Exacerbating factors: palpation and movement Context: other (pet guinea pig bite) Treatments prior to arrival: attempted to drain pus at home Related Data Home Medications Medication Instructions Recorded Confirmed albuterol sulfate 90 mcg/actuation 2 puff INHALATION Q6H PRN 07/14/20 07/14/20 aerosol inhaler atenolol 25 mg tablet 25 mg PO DAILY 07/14/20 07/14/20 blood sugar diagnostic #10 ea 07/14/20 07/14/20 enalapril maleate 20 mg tablet 25 mg PO DAILY tab 07/14/20 07/14/20 fluticasone propionate 110 1 puff INHALATION BID 07/14/20 07/14/20 mcg/actuation HFA aerosol inhaler lancets 28 gauge #100 ea 07/14/20 07/14/20 loratadine 10 mg tablet 10 mg PO DAILY 07/14/20 07/14/20 metformin 500 mg tablet 500 mg PO BID 07/14/20 07/14/20 omeprazole 20 mg capsule,delayed 20 mg PO DAILY 07/14/20 07/14/20 release Previous Rx's Medication Instructions Recorded cyclobenzaprine 10 mg PO TID PRN #14 tab 09/01/20 ibuprofen 600 mg PO Q6H PRN #30 tab 09/01/20 ibuprofen 800 mg PO Q8H PRN #14 tab 12/26/20 oxycodone-acetaminophen [Percocet] 1 tab PO Q6H PRN #10 tab 12/26/20 amoxicillin-pot clavulanate 1 tab PO BID #14 tab 02/12/21 [Augmentin] ibuprofen 600 mg PO Q8H PRN #10 tab 02/12/21 Allergies Allergy/AdvReac Type Severity Reaction Status Date / Time No Known Allergies Allergy Verified 02/12/21 15:07 Review of Systems Review of Systems: Constitutional: No Fever, No Chills Cardiovascular: No Chest Pain, No SOB Respiratory: No Cough, No Sputum Gastrointestinal: No Nausea, No Vomiting Musculoskeletal: + joint pain, No Myalgias Skin: + Skin Lesions, No rash Neuro: No Weakness, No Numbness Heme/Lymph: No Bruising, No Lymphadenopathy PMFSH Past Medical History Attestation statement: The following information was validated with the patient. Medical History Diabetes mellitus, type 2 Hypertension Social History Social History Alcohol intake: never Smoking Status: Never smoker Substance Use Type: Marijuana Advance Directives: No Advance Directives Information Provided: No Physical Exam Vital Signs: Vital Signs: Last Vital Signs Temp 98.5 F 02/12/21 15:07 Pulse 104 H 02/12/21 15:07 Resp 18 02/12/21 15:07 BP 157/96 H 02/12/21 15:07 Pulse Ox 97 02/12/21 15:07 Body Mass Index 65.7 Appearance: Alert. Oriented X3. No acute distress. HEENT: normal inspection CVS: Normal heart rate and rhythm. Pulses normal. Respiratory: No respiratory distress. Skin: Skin warm and dry. Normal skin color. Normal skin turgor. No rashes. Extremities: left dorsal hand with 0.5cm puncture wound with mild surrounding erythema locally, unable to express any pus. normal ROM of the digits and wrist. NV intact distally. no red streaks. Neuro: Oriented X 3. No motor deficit. No sensory deficit. Course Course Course Narrative: 25 y/o female presenting with guinea pig bite 1 day ago. Reported drainge of pus at home. None here. Minimal redness on exam. Wound was cleaned with hydrogen peroxide. Doubt tenosynovitis given her reassuring examination. Will start PO abx and give TDAP now. Area was marked. She was instructed to come back to the ER if pain, swelling or redness worsen despite antibiotics. Stable for d/c. Discharge Plan Discharge Clinical Impression: Animal bite Patient Disposition: Home, Self-Care Instructions: Animal Bite (ED) Additional Instructions: Take the prescribed antibiotic as directed for 1 week. use Neosporin or Bacitracin to the area 2 times per day. Use warm compresses to the area several times per day. Follow up with your doctor this week. It is important to keep tight glucose control so your wound can heal properly. If you have worsening pain, redness, swelling or drainage of pus come back to the ER for further evaluation. Prescriptions: New amoxicillin-pot clavulanate [Augmentin] 875-125 mg tablet 1 tab PO BID Qty: 14 RF: 0 ibuprofen 600 mg tablet 600 mg PO Q8H PRN (Reason: pain) Qty: 10 RF: 0 No Action cyclobenzaprine 10 mg tablet 10 mg PO TID PRN (Reason: muscle spasm) Qty: 14 RF: 0 ibuprofen 600 mg tablet 600 mg PO Q6H PRN (Reason: pain) Qty: 30 RF: 0 ibuprofen 800 mg tablet 800 mg PO Q8H PRN (Reason: pain) Qty: 14 RF: 0 oxycodone-acetaminophen [Percocet] 5-325 mg tablet 1 tab PO Q6H PRN (Reason: pain) Qty: 10 RF: 0 metformin 500 mg tablet 500 mg PO BID RF: 0 omeprazole 20 mg capsule,delayed release(DR/EC) 20 mg PO DAILY RF: 0 atenolol 25 mg tablet 25 mg PO DAILY RF: 0 loratadine [Claritin] 10 mg tablet 10 mg PO DAILY RF: 0 enalapril maleate 20 mg tablet 25 mg PO DAILY RF: 0 (DME) FreeStyle Lite Strips Strip See Rx Instructions .ROUTE .MEDSUPPLY Qty: 10 RF: 0 (DME) lancets [FreeStyle Lancets] 28 gauge misc See Rx Instructions .ROUTE .MEDSUPPLY Qty: 100 RF: 0 albuterol sulfate [ProAir HFA] 90 mcg/actuation HFA aerosol inhaler 2 puff inhalation Q6H PRNRF: 0 Flovent HFA 110 mcg/actuation HFA aerosol inhaler 1 puff inhalation BID RF: 0 Interventions: ED Discharge Assessment Last Done: 02/12/21 16:45 Discharge Date/Time: 02/12/21 16:46
[2021-02-12] MEDS: Diphth,Pertus(ACell),Tet Adult 0.5 ML SYRINGE IM (16:37)
== END 2021-02-12 16:46 | disposition home or self-care (01) ==
PROVIDERS: Emergency Provider Emergency Medicine
DX: S61.452A Open bite of left hand, initial encounter (principal); W55.41XA Bitten by pig, initial encounter; Y93.9 Activity, unspecified; Y92.039 Unspecified place in apartment as the place of occurrence of the external cause; Y99.9 Unspecified external cause status
CPT/HCPCS: 90471; 90715; 99283; 99284

== ENCOUNTER 2021-09-08 16:04 | Emergency (ER) | payer MEDICAID, SELFPAY ==
--- NOTE | ~2021-09-08 | XR_ITS ---
EXAMINATION: XR CHEST CLINICAL INFORMATION: Upper respiratory infection. COMPARISON: Most recent chest radiograph dated 11/01/2020. TECHNIQUE: 2 views of the chest were obtained. FINDINGS: The lungs are clear. The cardiomediastinal silhouette is normal in size. There is no pleural effusion or pneumothorax. No acute osseous abnormality. XR/XR chest 2V IMPRESSION: No acute cardiopulmonary findings.
[2021-09-08 19:22] VITALS: BP 167/87; PULSE 96; RESP 20; TEMP 37.1; O2SAT 100; BMI 66.2
--- NOTE | 2021-09-08 19:53 | ED_ITS ---
HPI - General Adult General Chief complaint: General Medical Stated complaint: flu like Source: patient Mode of arrival: ambulatory Limitations: no limitations History of Present Illness HPI narrative: 26-year-old female presents with several days of upper respiratory symptoms, nasal congestion, cough, shortness of breath and headaches. She does have a history of asthma and ran out of her albuterol. Does not report any fevers, chills, or sick contacts. Onset (ago): day(s) (4) Location: head and chest Radiation: non-radiation Severity: moderate Severity scale (1-10): 5 Relieving factors: none Exacerbating factors: movement Associated symptoms: cough, headaches, malaise and shortness of breath Treatments prior to arrival: none Related Data Home Medications Medication Instructions Recorded Confirmed albuterol sulfate 90 mcg/actuation 2 puff INHALATION Q6H PRN 07/14/20 07/14/20 aerosol inhaler (ProAir HFA) atenolol 25 mg tablet 25 mg PO DAILY 07/14/20 07/14/20 blood sugar diagnostic (FreeStyle #10 ea 07/14/20 07/14/20 Lite Strips) enalapril maleate 20 mg tablet 25 mg PO DAILY tab 07/14/20 07/14/20 fluticasone propionate 110 1 puff INHALATION BID 07/14/20 07/14/20 mcg/actuation HFA aerosol inhaler (Flovent HFA) lancets 28 gauge (FreeStyle #100 ea 07/14/20 07/14/20 Lancets) loratadine 10 mg tablet (Claritin) 10 mg PO DAILY 07/14/20 07/14/20 metformin 500 mg tablet 500 mg PO BID 07/14/20 07/14/20 omeprazole 20 mg capsule,delayed 20 mg PO DAILY 07/14/20 07/14/20 release Previous Rx's Medication Instructions Recorded cyclobenzaprine 10 mg tablet 10 mg PO TID PRN #14 tab 09/01/20 ibuprofen 600 mg tablet 600 mg PO Q6H PRN #30 tab 09/01/20 ibuprofen 800 mg tablet 800 mg PO Q8H PRN #14 tab 12/26/20 oxycodone-acetaminophen 5 mg-325 1 tab PO Q6H PRN #10 tab 12/26/20 mg tablet (Percocet) amoxicillin 875 mg-potassium 1 tab PO BID #14 tab 02/12/21 clavulanate 125 mg tablet (Augmentin) ibuprofen 600 mg tablet 600 mg PO Q8H PRN #10 tab 02/12/21 albuterol sulfate 90 mcg/actuation 2 puff INHALATION Q4-6H PRN #8.5 g 09/08/21 aerosol inhaler Allergies Allergy/AdvReac Type Severity Reaction Status Date / Time No Known Allergies Allergy Verified 09/08/21 19:22 Review of Systems Review of Systems: Constitutional: No Fever, No Chills ENT/Mouth: No Hoarseness, No sore throat, No Rhinorrhea Eyes: No Redness, No Discharge, No Vision Changes Cardiovascular: No Chest Pain, positive SOB, positive Dyspnea on Exertion, No Edema Respiratory: positive Cough, No Sputum, positive Wheezing, Gastrointestinal: No Nausea, No Vomiting, No Diarrhea, No abdominal Pain Genitourinary: No Dysuria, No Hematuria Musculoskeletal: No joint pain, No Myalgias Skin: No rash Neuro: No Weakness, No Numbness, No Headache Psych: No anxiety, depression Heme/Lymph: No Bruising, No Bleeding Endocrine: No Polyuria, No Polydipsia Yes all other systems are reviewed and are negative [facility] Past Medical History Attestation statement: The following information was validated with the patient. Source: old records reviewed Medical History Diabetes mellitus, type 2 Hypertension Social History Social History Alcohol intake: never Substance Use Type: Marijuana Advance Directives: No Advance Directives Information Provided: No Physical Exam Vital Signs: Vital Signs: Last Vital Signs Temp 98.8 F 09/08/21 19:22 Pulse 96 09/08/21 19:22 Resp 20 09/08/21 19:22 BP 167/87 H 09/08/21 19:22 Pulse Ox 100 09/08/21 19:22 Body Mass Index 66.2 Appearance: Alert. Oriented X3. Mild distress. Eyes: Pupils equal, round and reactive to light. ENT: Pharynx normal. nasal congestion noted. Neck: Normal inspection. Neck supple. CVS: Normal heart rate and rhythm. Pulses normal. Respiratory: No respiratory distress. Expiratory wheezing noted throughout. Abdomen: Soft and nontender. Skin: Skin warm and dry. Normal skin color. Normal skin turgor. Extremities: No lower extremity edema. Neuro: No motor deficit. No sensory deficit. cranial nerves 2-12 intact. Course Course Course Narrative: 26-year-old female presents with upper respiratory symptoms. COVID test is pending. Will order x-ray. Will give albuterol and reassess. patient is COVID positive. X-rays are negative. Plan of care to discharge home with supportive measures. Patient verbalized understanding of and agrees plan of care discharge. Medical Decision Making Differential Diagnosis Differential Diagnosis: UR I, asthma exacerbation, pneumonia Medical Records Medical records reviewed: Yes I reviewed the patient's medical records. Lab Data Lab results reviewed: Yes I reviewed the patient's lab results. Labs: Lab Results 09/08/21 Range/Units 19:34 Influenza Type A (PCR) NEGATIVE (Negative) Influenza Type B (PCR) NEGATIVE (Negative) RSV RNA Qual (PCR) NEGATIVE (Negative) SARS-CoV-2 RNA (RT-PCR) POSITIVE A (Negative) Imaging Data Chest x-ray: Attestation: I personally reviewed and interpreted this imaging study as follows: Radiologist's impression: EXAMINATION: XR CHEST CLINICAL INFORMATION: Upper respiratory infection. COMPARISON: Most recent chest radiograph dated 11/01/2020. TECHNIQUE: 2 views of the chest were obtained. FINDINGS: The lungs are clear. The cardiomediastinal silhouette is normal in size. There is no pleural effusion or pneumothorax. No acute osseous abnormality. XR/XR chest 2V IMPRESSION: No acute cardiopulmonary findings. Discharge Plan Discharge Clinical Impression: Upper respiratory infection, viral, COVID-19 Patient Disposition: Home, Self-Care Instructions: Upper Respiratory Infection (ED), Viral Syndrome (ED), Wheezing (ED) Additional Instructions: you were evaluated for upper respiratory symptoms. Your COVID test results are pending. I will call you with your results. Thank you for choosing this emergency department for evaluation. Please follow-up with primary care physician as needed. Return to the emergency department for any new, concerning, or worsening symptoms. Prescriptions: New albuterol sulfate 90 mcg/actuation HFA aerosol inhaler 2 puff inhalation Q4-6H PRN (Reason: shortness of breath or wheezing) Qty: 8.5 RF: 0 No Action cyclobenzaprine 10 mg tablet 10 mg PO TID PRN (Reason: muscle spasm) Qty: 14 RF: 0 ibuprofen 600 mg tablet 600 mg PO Q6H PRN (Reason: pain) Qty: 30 RF: 0 ibuprofen 800 mg tablet 800 mg PO Q8H PRN (Reason: pain) Qty: 14 RF: 0 oxycodone-acetaminophen [Percocet] 5-325 mg tablet 1 tab PO Q6H PRN (Reason: pain) Qty: 10 RF: 0 amoxicillin-pot clavulanate [Augmentin] 875-125 mg tablet 1 tab PO BID Qty: 14 RF: 0 ibuprofen 600 mg tablet 600 mg PO Q8H PRN (Reason: pain) Qty: 10 RF: 0 metformin 500 mg tablet 500 mg PO BID RF: 0 omeprazole 20 mg capsule,delayed release(DR/EC) 20 mg PO DAILY RF: 0 atenolol 25 mg tablet 25 mg PO DAILY RF: 0 loratadine [Claritin] 10 mg tablet 10 mg PO DAILY RF: 0 enalapril maleate 20 mg tablet 25 mg PO DAILY RF: 0 (DME) FreeStyle Lite Strips Strip See Rx Instructions .ROUTE .MEDSUPPLY Qty: 10 RF: 0 (DME) lancets [FreeStyle Lancets] 28 gauge misc See Rx Instructions .ROUTE .MEDSUPPLY Qty: 100 RF: 0 albuterol sulfate [ProAir HFA] 90 mcg/actuation HFA aerosol inhaler 2 puff inhalation Q6H PRNRF: 0 Flovent HFA 110 mcg/actuation HFA aerosol inhaler 1 puff inhalation BID RF: 0 Stand Alone Forms: Work/School Release Interventions: ED Discharge Assessment Last Done: 09/08/21 21:04 Discharge Date/Time: 09/08/21 21:06
[2021-09-08 20:19] LABS: Influenza A PCR NEGATIVE (Negative); Influenza B PCR NEGATIVE (Negative); Resp Syncy Virus RNA Qual PCR NEGATIVE (Negative); SARS COV2 PCR INHOUSE POSITIVE (Negative)
[2021-09-08] MEDS: Albuterol Sulfate 90 MCG 8 GM INHALER 2 PUFF INHALE (20:59)
== END 2021-09-08 21:06 | disposition home or self-care (01) ==
PROVIDERS: Emergency Provider Internal Medicine; PCP Nurse Practitioner Family
DX: U07.1 COVID-19 (principal); J06.9 Acute upper respiratory infection, unspecified; E11.9 Type 2 diabetes mellitus without complications; I10 Essential (primary) hypertension; E78.5 Hyperlipidemia, unspecified; Z79.899 Other long term (current) drug therapy
CPT/HCPCS: 0241U; 36415; 71046; 99283; 99284

== ENCOUNTER 2021-11-21 13:18 | Outpatient (REF) | payer MEDICAID, SELFPAY ==
--- NOTE | ~2021-11-21 | US_ITS ---
EXAMINATION: US DIAGNOSTIC ULTRASOUND BREAST, RIGHT CLINICAL INFORMATION: 26-year-old with chronic burning symptoms inferior right breast. No erythema, palpable mass, or discharge. No prior breast imaging. COMPARISON: None. TECHNIQUE: Ultrasound right breast is targeted to the inferior breast 5:00 through 8:00 position. Grayscale imaging and color Doppler are performed without and with harmonics. FINDINGS: There is no focal suspicious finding. There is no cystic or solid mass, architectural abnormality, duct ectasia, or edema in the soft tissue planes. Results are discussed with the patient at time of visit. US/US breast RT limited IMPRESSION: Normal study. ASSESSMENT: BI-RADS 1: Negative RECOMMENDATION: 1. Patient's chronic inferior right breast pain should be managed based on the clinical impression. 2. Otherwise, routine annual screening mammography, beginning age 40, or earlier as clinical risk factors warrant.
== END 2021-11-21 13:19 | disposition home or self-care (01) ==
LOC: HO.MAMMO 13:18
PROVIDERS: Visit Provider Nurse Practitioner Family
DX: N64.4 Mastodynia (principal); N63.14 Unspecified lump in the right breast, lower inner quadrant
CPT/HCPCS: 76642

== ENCOUNTER 2021-12-20 14:02 | Emergency (ER) | payer MEDICAID, SELFPAY ==
--- NOTE | ~2021-12-20 | XR_ITS ---
EXAMINATION: XR CHEST CLINICAL INFORMATION: Left-sided chest wall pain. COMPARISON: Chest radiograph dated from 09/08/2021. TECHNIQUE: 2 views of the chest were obtained. FINDINGS: Stable cardiomediastinal silhouette. No focal airspace opacities, pleural effusions or pneumothorax. No acute osseous abnormalities. The visualized upper abdomen is within normal limits. XR/XR chest 2V IMPRESSION: No acute cardiopulmonary findings.
--- NOTE | 2021-12-20 14:15 | ECG_ITS ---
Test Reason : chest pain Blood Pressure : / mmHG Vent. Rate : 090 BPM Atrial Rate : 090 BPM P-R Int : 166 ms QRS Dur : 086 ms QT Int : 342 ms P-R-T Axes : 037 005 016 degrees QTc Int : 418 ms Normal sinus rhythm Normal ECG When compared with ECG of 01-NOV-2020 15:34, No significant change was found Referred By: Generic ED Physician Electronically Signed By:PEARL PARKS MD
[2021-12-20 14:20] VITALS: BP 148/80; PULSE 90; RESP 20; TEMP 37.2; O2SAT 98; BMI 65.5
--- NOTE | 2021-12-20 17:41 | ED.CHESTPAIN ---
HPI - Chest Pain General Chief Complaint: Chest Pain Stated Complaint: chest pain Time Seen by Provider: 12/20/21 17:24 Source: patient Limitations: no limitations History of Present Illness HPI narrative: This is a 26-year-old female whose girlfriend in other members of her household have been sick recently, her girlfriend has had the flu. The patient complains of some shortness of breath and lightheadedness when she takes a deep breath, as well as an intermittent headache, nausea, upper abdominal pain. Patient to go home COVID test that was negative. She has previously had COVID. She denies any pain or swelling in her legs, notes that her blood pressure and blood sugar have been under control. She denies any recent fever. Related Data Home Medications Medication Instructions Recorded Confirmed albuterol sulfate 90 mcg/actuation 2 puff INHALATION Q6H PRN 07/14/20 07/14/20 aerosol inhaler (ProAir HFA) atenolol 25 mg tablet 25 mg PO DAILY 07/14/20 07/14/20 blood sugar diagnostic (FreeStyle #10 ea 07/14/20 07/14/20 Lite Strips) enalapril maleate 20 mg tablet 25 mg PO DAILY tab 07/14/20 07/14/20 fluticasone propionate 110 1 puff INHALATION BID 07/14/20 07/14/20 mcg/actuation HFA aerosol inhaler (Flovent HFA) lancets 28 gauge (FreeStyle #100 ea 07/14/20 07/14/20 Lancets) loratadine 10 mg tablet (Claritin) 10 mg PO DAILY 07/14/20 07/14/20 metformin 500 mg tablet 500 mg PO BID 07/14/20 07/14/20 omeprazole 20 mg capsule,delayed 20 mg PO DAILY 07/14/20 07/14/20 release Previous Rx's Medication Instructions Recorded cyclobenzaprine 10 mg tablet 10 mg PO TID PRN #14 tab 09/01/20 ibuprofen 600 mg tablet 600 mg PO Q6H PRN #30 tab 09/01/20 ibuprofen 800 mg tablet 800 mg PO Q8H PRN #14 tab 12/26/20 oxycodone-acetaminophen 5 mg-325 1 tab PO Q6H PRN #10 tab 12/26/20 mg tablet (Percocet) amoxicillin 875 mg-potassium 1 tab PO BID #14 tab 02/12/21 clavulanate 125 mg tablet (Augmentin) ibuprofen 600 mg tablet 600 mg PO Q8H PRN #10 tab 02/12/21 albuterol sulfate 90 mcg/actuation 2 puff INHALATION Q4-6H PRN #8.5 g 09/08/21 aerosol inhaler albuterol sulfate 90 mcg/actuation 2 puff INHALATION Q4-6H PRN #8.5 g 12/20/21 aerosol inhaler ondansetron 4 mg disintegrating 4 mg PO Q6H PRN #10 tab 12/20/21 tablet Allergies Allergy/AdvReac Type Severity Reaction Status Date / Time No Known Allergies Allergy Verified 12/20/21 14:20 Review of Systems Review of Systems: Yes all other systems are reviewed and are negative Constitutional: Constitutional: Reports as per HPI, Denies fever(s) and Reports headache(s) Eyes: Eyes: Reports as per HPI and Reports no additional eye complaints ENT: Reports system reviewed and no additional complaints, except as documented, Reports as per HPI, Reports dizziness (Lightheaded), Reports headache(s), Denies nasal congestion, Denies nasal discharge and Denies sore throat Cardiovascular: Cardiovascular: Reports as per HPI, Reports chest pain and Reports dyspnea Respiratory: Respiratory: Reports as per HPI, Denies cough and Reports dyspnea Gastrointestinal: Gastrointestinal: Reports as per HPI, Reports abdominal pain, Reports diarrhea, Reports nausea and Denies vomiting Genitourinary: Genitourinary: Reports as per HPI, Denies hematuria, Denies urinary frequency and Denies dysuria Musculoskeletal: Musculoskeletal: Reports no additional musculoskeletal complaints and Denies numbness Integumentary/Breasts: Skin/Breast: Reports as per HPI and Denies rash Neurologic: Reports as per HPI, Reports dizziness (Lightheaded), Reports headache(s), Denies focal weakness and Denies numbness Psychiatric: Psychiatric: Reports no additional psychiatric complaints and Reports as per HPI Endocrine: Endocrine: Reports no additional endocrine complaints and Reports as per HPI Hematologic/Lymphatic: Hematologic/Lymphatic: Reports no additional hematologic/lymphatic complaints, Reports as per HPI and Reports other (No peripheral edema) PMFSH Past Medical History Medical History Diabetes mellitus, type 2 Hypertension Social History Social History Alcohol intake: never Substance Use Type: Marijuana Advance Directives: No Advance Directives Information Provided: No Physical Exam Vital Signs: Vital Signs: Last Vital Signs Temp 98.9 F 12/20/21 14:20 Pulse 90 12/20/21 14:20 Resp 20 12/20/21 14:20 BP 148/80 H 12/20/21 14:20 Pulse Ox 98 12/20/21 14:20 BMI result Body Mass Index 65.5 Const: Other: Patient morbidly obese, no distress, sitting up in the chair General: cooperative Orientation/consciousness: patient oriented x3 HENMT: Head: Yes normal to inspection Eyes: General: appearance normal, both eyes and all related structures Pupils: Equal, round and reactive pupils present Resp: Effort & Inspection: normal respiratory effort, able to speak in complete sentences, no audible wheezes and no cough Auscultation: clear to auscultation bilaterally Cardio: Rate: regular rate Rhythm: regular rhythm Heart sounds: S1 normal heart sound present, S2 normal heart sound present, no gallops, no murmurs and no rubs GI: Inspection: Yes obesity Palpation (GI): Soft to palpation and nontender Skin: Other: Warm and dry Neuro: General: patient oriented x3 Cranial nerves: Yes Equal, round and reactive pupils present Extrem: Other: No peripheral edema Psych: Appearance: grossly normal Speech and movement: Normal speech and movement present MDM - Chest Pain MDM Narrative Medical decision making narrative: Patient with multiple complaints including headache, abdominal pain, dizziness, shortness of breath. EKG normal. Chest x-ray normal. Vitals normal. Patient appears well clinically, sitting up, moving easily. Patient has had recent exposure to address with the flu. Patient has been symptomatic for a few weeks. Recommend supportive treatment Lab Data Attestation: I reviewed the patient's lab results. Imaging Data Chest x-ray: Attestation: I personally reviewed and interpreted this imaging study as follows: My impression: No acute pathology Radiologist's impression: No acute pathology ECG Data ECG #1: Attestation: I personally reviewed and interpreted this ECG as follows: ECG interpretation date: 12/20/21 ECG interpretation time: 17:49 Interpretation: Sinus rhythm with a rate of 90. No ST elevation or depression. Normal QRS axis. No ectopy. Normal EKG. Discharge Plan Discharge Clinical Impression: Post viral syndrome Patient Disposition: Home, Self-Care Instructions: Noncardiac Chest Pain (ED) Additional Instructions: Drink plenty of fluids. Use ondansetron as prescribed for nausea. If you have a cough cough, use your inhaler, and you can also use Robitussin DM as available at the pharmacy. Return for any new or worsened symptoms Prescriptions: New ondansetron 4 mg tablet,disintegrating 4 mg PO Q6H PRN (Reason: nausea and vomiting) Qty: 10 0RF albuterol sulfate 90 mcg/actuation HFA aerosol inhaler 2 puff inhalation Q4-6H PRN (Reason: shortness of breath or wheezing) Qty: 8.5 1RF No Action cyclobenzaprine 10 mg tablet 10 mg PO TID PRN (Reason: muscle spasm) Qty: 14 0RF ibuprofen 600 mg tablet 600 mg PO Q6H PRN (Reason: pain) Qty: 30 0RF ibuprofen 800 mg tablet 800 mg PO Q8H PRN (Reason: pain) Qty: 14 0RF oxycodone-acetaminophen [Percocet] 5-325 mg tablet 1 tab PO Q6H PRN (Reason: pain) Qty: 10 0RF amoxicillin-pot clavulanate [Augmentin] 875-125 mg tablet 1 tab PO BID Qty: 14 0RF ibuprofen 600 mg tablet 600 mg PO Q8H PRN (Reason: pain) Qty: 10 0RF albuterol sulfate 90 mcg/actuation HFA aerosol inhaler 2 puff inhalation Q4-6H PRN (Reason: shortness of breath or wheezing) Qty: 8.5 0RF metformin 500 mg tablet 500 mg PO BID 0RF omeprazole 20 mg capsule,delayed release(DR/EC) 20 mg PO DAILY 0RF atenolol 25 mg tablet 25 mg PO DAILY 0RF loratadine [Claritin] 10 mg tablet 10 mg PO DAILY 0RF enalapril maleate 20 mg tablet 25 mg PO DAILY 0RF (DME) FreeStyle Lite Strips Strip See Rx Instructions .ROUTE .MEDSUPPLY Qty: 10 0RF Rx Instructions: As directed (DME) lancets [FreeStyle Lancets] 28 gauge misc See Rx Instructions .ROUTE .MEDSUPPLY Qty: 100 0RF Rx Instructions: As directed albuterol sulfate [ProAir HFA] 90 mcg/actuation HFA aerosol inhaler 2 puff inhalation Q6H PRN0RF Flovent HFA 110 mcg/actuation HFA aerosol inhaler 1 puff inhalation BID 0RF Interventions: ED Discharge Assessment Last Done: 12/20/21 18:01 Discharge Date/Time: 12/20/21 18:01
== END 2021-12-20 18:01 | disposition home or self-care (01) ==
PROVIDERS: Emergency Provider Emergency Medicine
DX: G93.3 Postviral and related fatigue syndromes (principal); I10 Essential (primary) hypertension; E11.9 Type 2 diabetes mellitus without complications; E66.01 Morbid (severe) obesity due to excess calories
CPT/HCPCS: 71046; 93005; 99283

== ENCOUNTER 2022-02-18 07:42 | Emergency (ER) | payer MEDICAID, SELFPAY ==
[2022-02-18 07:58] VITALS: BP 144/80; PULSE 93; RESP 18; TEMP 36.8; O2SAT 98; BMI 67.4
--- NOTE | 2022-02-18 08:02 | ED.URI ---
HPI - URI/Sore Throat General Chief Complaint: Upper Respiratory Symptoms Stated Complaint: Cough/SOB Time Seen by Provider: 02/18/22 08:02 Source: patient Mode of arrival: ambulatory Limitations: no limitations History of Present Illness HPI Narrative: 2 days of URI symptoms, vaccinated MD elicited complaint: cough and sore throat Onset (ago): day(s) Consistency: constant Severity: mild Associated symptoms: cough Related Data Home Medications Medication Instructions Recorded Confirmed albuterol sulfate 90 mcg/actuation 2 puff INHALATION Q6H PRN 07/14/20 07/14/20 aerosol inhaler (ProAir HFA) atenolol 25 mg tablet 25 mg PO DAILY 07/14/20 07/14/20 blood sugar diagnostic (FreeStyle #10 ea 07/14/20 07/14/20 Lite Strips) enalapril maleate 20 mg tablet 25 mg PO DAILY tab 07/14/20 07/14/20 fluticasone propionate 110 1 puff INHALATION BID 07/14/20 07/14/20 mcg/actuation HFA aerosol inhaler (Flovent HFA) lancets 28 gauge (FreeStyle #100 ea 07/14/20 07/14/20 Lancets) loratadine 10 mg tablet (Claritin) 10 mg PO DAILY 07/14/20 07/14/20 metformin 500 mg tablet 500 mg PO BID 07/14/20 07/14/20 omeprazole 20 mg capsule,delayed 20 mg PO DAILY 07/14/20 07/14/20 release Previous Rx's Medication Instructions Recorded cyclobenzaprine 10 mg tablet 10 mg PO TID PRN #14 tab 09/01/20 ibuprofen 600 mg tablet 600 mg PO Q6H PRN #30 tab 09/01/20 ibuprofen 800 mg tablet 800 mg PO Q8H PRN #14 tab 12/26/20 oxycodone-acetaminophen 5 mg-325 1 tab PO Q6H PRN #10 tab 12/26/20 mg tablet (Percocet) amoxicillin 875 mg-potassium 1 tab PO BID #14 tab 02/12/21 clavulanate 125 mg tablet (Augmentin) ibuprofen 600 mg tablet 600 mg PO Q8H PRN #10 tab 02/12/21 albuterol sulfate 90 mcg/actuation 2 puff INHALATION Q4-6H PRN #8.5 g 09/08/21 aerosol inhaler albuterol sulfate 90 mcg/actuation 2 puff INHALATION Q4-6H PRN #8.5 g 12/20/21 aerosol inhaler ondansetron 4 mg disintegrating 4 mg PO Q6H PRN #10 tab 12/20/21 tablet fluticasone propionate 50 1 spray INTRANASAL BID #16 g 02/18/22 mcg/actuation nasal spray,suspension (Flonase Allergy Relief) Allergies Allergy/AdvReac Type Severity Reaction Status Date / Time No Known Allergies Allergy Verified 02/18/22 07:58 Review of Systems Constitutional: Constitutional: Reports no additional constitutional complaints Eyes: Eyes: Reports no additional eye complaints ENT: Denies dizziness Cardiovascular: Cardiovascular: Reports no additional cardiovascular complaints Respiratory: Respiratory: Reports as per HPI Gastrointestinal: Gastrointestinal: Reports no additional gastrointestinal complaints Genitourinary: Genitourinary: Reports no additional female genitourinary complaints Musculoskeletal: Musculoskeletal: Reports no additional musculoskeletal complaints Integumentary/Breasts: Skin/Breast: Denies rash Neurologic: Reports system reviewed and no additional complaints, except as documented, Denies dizziness and Denies Sensory deficit (Neuro) Psychiatric: Psychiatric: Denies anxiety [facility] Past Medical History Medical History Diabetes mellitus, type 2 Hypertension Social History Social History Alcohol intake: never Substance Use Type: Marijuana Advance Directives: No Advance Directives Information Provided: No Physical Exam Vital Signs: Vital Signs: Last Vital Signs Temp 98.3 F 02/18/22 07:58 Pulse 93 02/18/22 07:58 Resp 18 02/18/22 07:58 BP 144/80 H 02/18/22 07:58 Pulse Ox 98 02/18/22 07:58 BMI result Body Mass Index 67.4 Const: Other: obese, hirsut, coughing Orientation/consciousness: oriented to person and patient oriented x3 Limitations: no limitations HEENT: Head: Yes normal to inspection Ears: external ears normal General nose exam: Normal external nose present Mouth: Normal oral and palatal mucosa present and oropharynx normal Throat: Yes posterior oropharynx normal Eyes: General: appearance normal, both eyes and all related structures Neck: Other: supple Neck: Yes normal visual inspection Chest: Chest palpation & inspection: normal inspection of the chest Resp: Auscultation: clear to auscultation bilaterally Cardio: Jugular venous distension: no JVD Rate: regular rate Rhythm: regular rhythm Heart sounds: S1 normal heart sound present and S2 normal heart sound present GI: Other: obese Palpation (GI): Soft to palpation, nontender and No hepatosplenomegaly present Auscultation: normal bowel sounds : General: Yes no CVA tenderness Back/Spine/Pelvis: Back: no CVA tenderness Skin: General skin exam: no rashes or lesions noted Neuro: General: oriented to person and patient oriented x3 Cranial nerves: Yes CN's II-XII intact bilaterally Motor exam (neuro): 5/5 motor strength present throughout Sensory Exam: No Sensory deficit (Neuro) Extrem: General: Yes normal to inspection Psych: Appearance: grossly normal Course Reevaluation(s) Reevaluation #1: respiratory panel negative will dc on flonase Time: 09:37 MDM - URI/Sore Throat Lab Data Labs: Lab Results 02/18/22 Range/Units 08:26 Influenza Type A (PCR) NEGATIVE (Negative) Influenza Type B (PCR) NEGATIVE (Negative) RSV RNA Qual (PCR) NEGATIVE (Negative) SARS-CoV-2 RNA (RT-PCR) NEGATIVE (Negative) Discharge Plan Discharge Clinical Impression: Upper respiratory infection, Sinusitis Patient Disposition: Home, Self-Care Instructions: Sinusitis (ED), Upper Respiratory Infection (ED) Prescriptions: New fluticasone propionate [Flonase Allergy Relief] 50 mcg/actuation spray,suspension 1 spray intranasal BID Qty: 16 0RF Rx Instructions: administer into each nostril No Action cyclobenzaprine 10 mg tablet 10 mg PO TID PRN (Reason: muscle spasm) Qty: 14 0RF ibuprofen 600 mg tablet 600 mg PO Q6H PRN (Reason: pain) Qty: 30 0RF ibuprofen 800 mg tablet 800 mg PO Q8H PRN (Reason: pain) Qty: 14 0RF oxycodone-acetaminophen [Percocet] 5-325 mg tablet 1 tab PO Q6H PRN (Reason: pain) Qty: 10 0RF amoxicillin-pot clavulanate [Augmentin] 875-125 mg tablet 1 tab PO BID Qty: 14 0RF ibuprofen 600 mg tablet 600 mg PO Q8H PRN (Reason: pain) Qty: 10 0RF albuterol sulfate 90 mcg/actuation HFA aerosol inhaler 2 puff inhalation Q4-6H PRN (Reason: shortness of breath or wheezing) Qty: 8.5 0RF ondansetron 4 mg tablet,disintegrating 4 mg PO Q6H PRN (Reason: nausea and vomiting) Qty: 10 0RF albuterol sulfate 90 mcg/actuation HFA aerosol inhaler 2 puff inhalation Q4-6H PRN (Reason: shortness of breath or wheezing) Qty: 8.5 1RF metformin 500 mg tablet 500 mg PO BID 0RF omeprazole 20 mg capsule,delayed release(DR/EC) 20 mg PO DAILY 0RF atenolol 25 mg tablet 25 mg PO DAILY 0RF loratadine [Claritin] 10 mg tablet 10 mg PO DAILY 0RF enalapril maleate 20 mg tablet 25 mg PO DAILY 0RF (DME) FreeStyle Lite Strips Strip See Rx Instructions .ROUTE .MEDSUPPLY Qty: 10 0RF Rx Instructions: As directed (DME) lancets [FreeStyle Lancets] 28 gauge misc See Rx Instructions .ROUTE .MEDSUPPLY Qty: 100 0RF Rx Instructions: As directed albuterol sulfate [ProAir HFA] 90 mcg/actuation HFA aerosol inhaler 2 puff inhalation Q6H PRN0RF Flovent HFA 110 mcg/actuation HFA aerosol inhaler 1 puff inhalation BID 0RF Referrals: [facility] [Primary Care Provider] - 1 week
[2022-02-18 09:13] LABS: Influenza A PCR NEGATIVE (Negative); Influenza B PCR NEGATIVE (Negative); Resp Syncy Virus RNA Qual PCR NEGATIVE (Negative); SARS COV2 PCR INHOUSE NEGATIVE (Negative)
== END 2022-02-18 10:00 | disposition home or self-care (01) ==
PROVIDERS: Emergency Provider Emergency Medicine
DX: J06.9 Acute upper respiratory infection, unspecified (principal); J32.9 Chronic sinusitis, unspecified; R05.9 Cough, unspecified; R06.02 Shortness of breath; Z20.822 Contact with and (suspected) exposure to COVID-19; Z79.899 Other long term (current) drug therapy
CPT/HCPCS: 0241U; 99282; 99283

== ENCOUNTER 2022-04-28 20:32 | Emergency (ER) | payer MEDICAID, SELFPAY ==
[2022-04-28 21:06] VITALS: BP 135/67; BP 159/84; PULSE 102; PULSE 98; RESP 16; TEMP 36.4; O2SAT 97; O2SAT 99; BMI 66.4
--- NOTE | 2022-04-28 21:08 | ECG_ITS ---
Test Reason : OVERDOSE Blood Pressure : / mmHG Vent. Rate : 109 BPM Atrial Rate : 109 BPM P-R Int : 162 ms QRS Dur : 080 ms QT Int : 340 ms P-R-T Axes : 046 019 029 degrees QTc Int : 457 ms Sinus tachycardia Cannot rule out Anterior infarct , age undetermined Abnormal ECG When compared with ECG of 20-DEC-2021 14:13, No significant change was found Referred By: Shawna Wadsworth Electronically Signed By:Alfredo Cha
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
[2022-04-28 21:46] LABS: MANUAL DIFF FLAG NO
[2022-04-28 21:47] LABS: Basophils Percent Auto 0.3 % (0-2); Eosinophils Absolute Auto 0.1 X10*3/uL (0.0-0.4); Eosinophils Percent Auto 1.2 % (0-4); Hematocrit 38.9 % (37.0-47.0); Hemoglobin 12.8 g/dl (12.0-16.0); Imm Gran Abs Auto 0.04 X10*3/uL (0.00-0.03); Imm Gran Pct Auto 0.4 % (0.0-0.4); Lymphocytes Absolute Auto 2.5 X10*3/uL (1.2-4.9); Lymphocytes Percent Auto 26.7 % (20-40); Mean Corpuscular HGB Conc 32.9 g/dl (31.0-35.0); Mean Corpuscular Hemoglobin 26.4 pg (27.0-33.0); Mean Corpuscular Volume 80.4 fL (80.0-98.0); Mean Platelet Volume 9.9 fL (9.4-12.3); Monocytes Absolute Auto 0.6 X10*3/uL (0.1-1.2); Monocytes Percent Auto 6.5 % (2-11); Neutrophils Absolute Auto 6.1 x10*3/uL (2.0-8.3); Neutrophils Percent Auto 64.9 % (45-73); Platelet Count 399 X10*3/uL (160-400); Red Blood Count 4.84 X10*6/uL (4.20-5.50); Red Cell Distribution Width 12.8 % (11.0-16.0); White Blood Count 9.4 X10*3/uL (4.8-10.8)
[2022-04-28 21:50] VITALS: BP 124/71; PULSE 109; RESP 16; TEMP 36.9; O2SAT 96
[2022-04-28 22:14] LABS: COVID-19 Test Negative (Negative)
[2022-04-28 22:17] LABS: Acetaminophen LAB < 1 mcg/mL (<30); Alanine Aminotransferase 35 U/L (0-31); Albumin Level 4.3 g/dL (3.5-5.0); Alkaline Phosphatase 58 U/L (39-117); Anion Gap 18 (12-20); Aspartate Amino Transferase 22 U/L (5-31); Bilirubin Total < 0.2 mg/dL (0.0-1.0); Blood Urea Nitrogen 13 mg/dL (9-16); Calcium 9.5 mg/dL (8.4-10.2); Carbon Dioxide 20 mmol/L (22-29); Chloride 103 mmol/L (96-108); Creatinine Clr Calc Pharmacy 170.1; Estimated Glomerular Filt Rate > 60; Ethanol < 10 mg/dL; Glucose Random 323 mg/dL (60-115); Magnesium 1.6 mg/dL (1.6-2.6); Potassium 4.3 mmol/L (3.3-5.1); Salicylate < 5.0 mg/dL (15-30); Sodium 137 mmol/L (135-145); Total Protein 7.7 g/dL (6.5-8.0)
--- NOTE | 2022-04-28 22:38 | PHA.MEDREC ---
med rec complete, no issues Pharmacy Consult ? Medication Reconciliation Pharmacy has completed the medication reconciliation.
--- NOTE | 2022-04-28 23:05 | ECG_ITS ---
Test Reason : OVERDOSED Blood Pressure : / mmHG Vent. Rate : 096 BPM Atrial Rate : 096 BPM P-R Int : 166 ms QRS Dur : 086 ms QT Int : 350 ms P-R-T Axes : 042 016 016 degrees QTc Int : 442 ms Normal sinus rhythm Normal ECG When compared with ECG of 28-APR-2022 22:09, No significant change was found Referred By: Shawna Wadsworth Electronically Signed By:Alfredo Cha
[2022-04-28 23:44] VITALS: BP 155/93; PULSE 94; RESP 16; TEMP 36.7; O2SAT 98
[2022-04-29 01:31] LABS: MANUAL DIFF FLAG NO
[2022-04-29 01:32] LABS: Basophils Percent Auto 0.4 % (0-2); Eosinophils Absolute Auto 0.1 X10*3/uL (0.0-0.4); Hematocrit 38.7 % (37.0-47.0); Hemoglobin 12.8 g/dl (12.0-16.0); Imm Gran Abs Auto 0.05 X10*3/uL (0.00-0.03); Imm Gran Pct Auto 0.5 % (0.0-0.4); Lymphocytes Absolute Auto 2.3 X10*3/uL (1.2-4.9); Lymphocytes Percent Auto 23.9 % (20-40); Mean Corpuscular HGB Conc 33.1 g/dl (31.0-35.0); Mean Corpuscular Hemoglobin 26.8 pg (27.0-33.0); Mean Platelet Volume 9.7 fL (9.4-12.3); Monocytes Absolute Auto 0.6 X10*3/uL (0.1-1.2); Neutrophils Absolute Auto 6.5 x10*3/uL (2.0-8.3); Neutrophils Percent Auto 68.2 % (45-73); Platelet Count 394 X10*3/uL (160-400); Red Blood Count 4.78 X10*6/uL (4.20-5.50); Red Cell Distribution Width 12.8 % (11.0-16.0); White Blood Count 9.5 X10*3/uL (4.8-10.8)
[2022-04-29 01:46] VITALS: BP 151/100; PULSE 94; RESP 16; TEMP 36.8; O2SAT 97
[2022-04-29 01:58] LABS: Alanine Aminotransferase 35 U/L (0-31); Albumin Level 4.2 g/dL (3.5-5.0); Alkaline Phosphatase 62 U/L (39-117); Anion Gap 18 (12-20); Aspartate Amino Transferase 25 U/L (5-31); Bilirubin Total < 0.2 mg/dL (0.0-1.0); Blood Urea Nitrogen 14 mg/dL (9-16); Calcium 9.4 mg/dL (8.4-10.2); Carbon Dioxide 19 mmol/L (22-29); Chloride 103 mmol/L (96-108); Creatinine Clr Calc Pharmacy 176.9; Estimated Glomerular Filt Rate > 60; Glucose Random 305 mg/dL (60-115); Potassium 4.5 mmol/L (3.3-5.1); Sodium 135 mmol/L (135-145); Total Protein 7.7 g/dL (6.5-8.0)
[2022-04-29 03:48] VITALS: BP 148/71; PULSE 94; RESP 16; TEMP 36.9; O2SAT 97
--- NOTE | 2022-04-29 05:53 | PC.NURSE ---
pt on security monitor. sleeping comfortably on stretcher. equal chest rise and fall. no apparent distress. continuous monitoring in place. call farnsworth within reach
[2022-04-29 06:00] VITALS: BP 148/76; PULSE 98; RESP 16; TEMP 36.7; O2SAT 98
[2022-04-29 06:37] LABS: Appearance Urine HAZY; Color Urine STRAW; Glucose Urine UA >=1000 MG/DL (NEG); Leukocyte Esterase Urine TRACE (NEG); Nitrite Urine NEG (NEG); Specific Gravity - Urine 1.025 (1.005-1.025); UACC Culture Trigger NO; Urine Blood 3+ (NEG); Urine Ketones NEG (NEG); Urine Protein 2+ MG/DL (NEG-TRACE)
[2022-04-29 06:45] LABS: Amphetamine Screen Urine Not Detected (Not Detect); Barbiturates, Urine Not Detected (Not Detect); Benzodiazepines Screen Urine Not Detected (Not Detect); Cannabinoid Screen Urine POSITIVE (Not Detect); Cocaine Screen Urine Not Detected (Not Detect); Fentanyl, urine Not Detected (Not Detect); Opiate Screen Urine Not Detected (Not Detect); Phencyclidine Screen Urine Not Detected (Not Detect)
[2022-04-29] MEDS: Albuterol Sulfate 90 MCG 8 GM INHALER 2 PUFF INHALE (06:45)
[2022-04-29 06:56] LABS: Bacteria Urine TRACE /LPF; Squamous Epithelial Cell Urine 2+ /LPF; UACC CULT YES
[2022-04-29] MEDS: hydroCHLOROthiazide 25 MG TABLET PO (08:23)
[2022-04-29] MEDS: Perphenazine 2 MG TABLET PO (08:24)
[2022-04-29] MEDS: Enalapril Maleate 10 MG TABLET 20 MG PO (08:24)
[2022-04-29 08:28] LABS: Glucose, Whole Blood 277 mg/dL (60-115)
[2022-04-29] MEDS: Insulin Glargine,Hum.rec.anlog 100 UNIT/ML 10 ML VIAL 54 UNIT SUBCUT (08:41)
[2022-04-29] MEDS: Insulin Lispro 100 UNIT/ML 3 ML VIAL 23 UNIT SUBCUT (08:42)
[2022-04-29 08:51] VITALS: BP 140/80; PULSE 97; RESP 22; TEMP 36.7; O2SAT 96
[2022-04-29 13:48] LABS: Glucose, Whole Blood 248 mg/dL (60-115)
--- NOTE | 2022-04-29 15:04 | PC.NURSE ---
Pt seen this date for individual OT session. Upon approach, pt is visibly distraught, crying with reported SOB. Pt engaged in conversation and cues provided to engage in deep breathing techniques, focused on deescalating mood and decreasing anxiety, with good effect. Pt states that she has never done anything like this before and wishes to discharge to home as soon as possible. Pt provided with word finds, sensory activity, and coloring pages to occupy her time while in the ED awaiting POC.
--- NOTE | 2022-04-29 16:04 | P.CNPS_ITS ---
History of Present Illness Date of Service: 04/29/22 Chief Complaint: crisis/ si, od attempt Reason for Consult: post suicide attempt Requesting physician: Tamar Zarate Discussed with referring provider: Yes Sources of Information: patient interviewed, chart reviewed and crisis/core team assessment reviewed Additional Sources of Information: MotherSangeetha [phone] HPI Narrative: Ms. Ravi is a 26 y/o transgender f-to-m who was brought via EMS after she contacted her therapist who contacted crisis after pt disclosed intentional OD on about 20 tablets of 2mg of perphenazine. Utox was negative. No medical complications of OD. Today, pt presents as tearful, remorseful. Pt reports she broke up with GF and learned ex-GF with someone else. Pt reports it was impulsive, not plan when she decided to take OD on perphenazine. Pt reports she immediately called her therapist and asked for help. Pt adamantly denies suicidal or homicidal ideation. Pt reports she talked with therapist and hopes to see therapist more often. She denies HI. No psychosis or delusional content noted or reported. Collateral information from mother- who reports she does not think pt will try to harm herself again, mother lives in down stair apartment and agrees to stay with her until more stable. Pt agreed to do PHP. [facility] Medical History Diabetes mellitus, type 2 Hypertension Diagnostics Vital Signs (24Hr): Vital Signs - 24 hr 04/28/22 21:06 04/28/22 21:50 04/28/22 23:44 Temperature 97.6 F 98.5 F 98.0 F Pulse Rate 98 109 H 94 Respiratory Rate 16 16 16 Blood Pressure 135/67 124/71 155/93 H Pulse Oximetry 97 96 98 Oxygen Delivery Method Room Air Room Air Room Air 04/29/22 01:46 04/29/22 03:48 04/29/22 06:00 Temperature 98.2 F 98.5 F 98.0 F Pulse Rate 94 94 98 Respiratory Rate 16 16 16 Blood Pressure 151/100 H 148/71 H 148/76 H Pulse Oximetry 97 97 98 Oxygen Delivery Method Room Air Room Air Room Air 04/29/22 08:51 Temperature 98.1 F Pulse Rate 97 Respiratory Rate 22 H Blood Pressure 140/80 H Pulse Oximetry 96 Oxygen Delivery Method Room Air BMI result Body Mass Index 66.4 Labs Results: 04/29/22 01:25 04/29/22 01:25 Labs: Laboratory Results - last 48 hr 04/28/22 04/28/22 04/28/22 21:42 21:42 21:42 WBC 9.4 RBC 4.84 Hgb 12.8 Hct 38.9 MCV 80.4 MCH 26.4 L MCHC 32.9 RDW 12.8 Plt Count 399 MPV 9.9 Immature Gran % (Auto) 0.4 Neut % (Auto) 64.9 Lymph % (Auto) 26.7 [place] % (Auto) 6.5 Eos % (Auto) 1.2 Baso % (Auto) 0.3 Lymph # (Auto) 2.5 [place] # (Auto) 0.6 Eos # (Auto) 0.1 Baso # (Auto) 0.0 Abs Immat Gran (auto) 0.04 H Absolute Neuts (auto) 6.1 Absolute Nucleated RBC 0.000 Nucleated RBC % (auto) 0.0 Sodium 137 Potassium 4.3 Chloride 103 Carbon Dioxide 20 L Anion Gap 18 BUN 13 Creatinine 0.78 Estim Creat Clear Calc 170.1 Estimated GFR > 60 POC Glucose Random Glucose 323 H Calcium 9.5 Magnesium 1.6 Total Bilirubin < 0.2 AST 22 D ALT 35 H Alkaline Phosphatase 58 Total Protein 7.7 Albumin 4.3 Urine Color Urine Appearance Urine pH Ur Specific [place] Urine Protein Urine Glucose (UA) Urine Ketones Urine Blood Urine Nitrite Ur Leukocyte Esterase Urine RBC Urine WBC Ur Squamous Epith Cells Urine Bacteria Salicylates < 5.0 L Urine Opiates Screen Urine Fentanyl Screen Acetaminophen < 1 Ur Barbiturates Screen Ur Phencyclidine Scrn Ur Amphetamines Screen U Benzodiazepines Scrn Urine Cocaine Screen U Marijuana (THC) Screen Ethyl Alcohol < 10 COVID-19 ([facility]) Negative COVID-19 Clin Com See Note 04/29/22 04/29/22 04/29/22 01:25 01:25 06:22 WBC 9.5 RBC 4.78 Hgb 12.8 Hct 38.7 MCV 81.0 MCH 26.8 L MCHC 33.1 RDW 12.8 Plt Count 394 MPV 9.7 Immature Gran % (Auto) 0.5 H Neut % (Auto) 68.2 Lymph % (Auto) 23.9 [place] % (Auto) 6.0 Eos % (Auto) 1.0 Baso % (Auto) 0.4 Lymph # (Auto) 2.3 [place] # (Auto) 0.6 Eos # (Auto) 0.1 Baso # (Auto) 0.0 Abs Immat Gran (auto) 0.05 H Absolute Neuts (auto) 6.5 Absolute Nucleated RBC 0.000 Nucleated RBC % (auto) 0.0 Sodium 135 Potassium 4.5 Chloride 103 Carbon Dioxide 19 L Anion Gap 18 BUN 14 Creatinine 0.75 Estim Creat Clear Calc 176.9 Estimated GFR > 60 POC Glucose Random Glucose 305 H Calcium 9.4 Magnesium Total Bilirubin < 0.2 AST 25 ALT 35 H Alkaline Phosphatase 62 Total Protein 7.7 Albumin 4.2 Urine Color STRAW Urine Appearance HAZY Urine pH 6.0 Ur Specific [place] 1.025 Urine Protein 2+ H Urine Glucose (UA) >=1000 H Urine Ketones NEG Urine Blood 3+ H Urine Nitrite NEG Ur Leukocyte Esterase TRACE H Urine RBC 10-14 H Urine WBC 5-9 H Ur Squamous Epith Cells 2+ Urine Bacteria TRACE Salicylates Urine Opiates Screen Urine Fentanyl Screen Acetaminophen Ur Barbiturates Screen Ur Phencyclidine Scrn Ur Amphetamines Screen U Benzodiazepines Scrn Urine Cocaine Screen U Marijuana (THC) Screen Ethyl Alcohol COVID-19 ([facility]) COVID-19 Clin Com 04/29/22 04/29/22 04/29/22 06:22 08:24 13:44 WBC RBC Hgb Hct MCV MCH MCHC RDW Plt Count MPV Immature Gran % (Auto) Neut % (Auto) Lymph % (Auto) [place] % (Auto) Eos % (Auto) Baso % (Auto) Lymph # (Auto) [place] # (Auto) Eos # (Auto) Baso # (Auto) Abs Immat Gran (auto) Absolute Neuts (auto) Absolute Nucleated RBC Nucleated RBC % (auto) Sodium Potassium Chloride Carbon Dioxide Anion Gap BUN Creatinine Estim Creat Clear Calc Estimated GFR POC Glucose 277 H 248 H Random Glucose Calcium Magnesium Total Bilirubin AST ALT Alkaline Phosphatase Total Protein Albumin Urine Color Urine Appearance Urine pH Ur Specific [place] Urine Protein Urine Glucose (UA) Urine Ketones Urine Blood Urine Nitrite Ur Leukocyte Esterase Urine RBC Urine WBC Ur Squamous Epith Cells Urine Bacteria Salicylates Urine Opiates Screen Not Detected Urine Fentanyl Screen Not Detected Acetaminophen Ur Barbiturates Screen Not Detected Ur Phencyclidine Scrn Not Detected Ur Amphetamines Screen Not Detected U Benzodiazepines Scrn Not Detected Urine Cocaine Screen Not Detected U Marijuana (THC) Screen POSITIVE H Ethyl Alcohol COVID-19 ([facility]) COVID-19 Clin Com Mental Status Exam Mental Status Exam Narrative: Appearance: MO, wearing hospital gown, in NAD Behavior: cooperative Psychomotor: no agitation or retardation noted Speech: clear, normal rate/rhythm/volume, spontaneous TP: linear TC: no psychosis, wanting to go home, adamantly denies SI Mood: better Affect: congruent SI: denies HI: denies AH/VH: none Delusions: none Insight/judgment: fair x 2. Memory/cog: alert, oriented x 3. grossly intact to conversational testing. Medications Medications Current Medications Albuterol Sulfate (Albuterol Sulfate 90 Mcg 8 Gm Inhaler) 2 puff INHALE 6XD [facility] Last Admin: 04/29/22 06:45 Dose: 2 puff Atorvastatin Calcium (Atorvastatin Calcium 10 Mg Tablet) 10 mg PO BEDTIME [facility] Clonazepam (Clonazepam 1 Mg Tablet) 1 mg PO BID [facility] Last Admin: 04/29/22 08:24 Dose: Not Given Enalapril Maleate (Enalapril Maleate 10 Mg Tablet) 20 mg PO DAILY [facility]; Protocol Last Admin: 04/29/22 08:24 Dose: 20 mg Hydrochlorothiazide (Hydrochlorothiazide 25 Mg Tablet) 25 mg PO DAILY [facility]; Protocol Last Admin: 04/29/22 08:23 Dose: 25 mg Hydroxyzine HCl (Hydroxyzine Hcl 25 Mg Tablet) 25 - 50 mg PO Q6H PRN PRN Reason: anxiety Insulin Glargine (Insulin Glargine,Hum.Rec.Anlog 100 Unit/Ml 10 Ml Vial) 54 unit SUBCUT BID [facility] Last Admin: 04/29/22 08:41 Dose: 54 unit Insulin Human Lispro (Insulin Lispro 100 Unit/Ml 3 Ml Vial) 23 unit SUBCUT BID [facility] Last Admin: 04/29/22 08:42 Dose: 23 unit Ondansetron HCl (Ondansetron Odt 4 Mg Tab.Rapdis) 4 mg TRANSLINGU Q6H PRN PRN Reason: nausea and vomiting Perphenazine (Perphenazine 2 Mg Tablet) 2 mg PO BID [facility] Last Admin: 04/29/22 08:24 Dose: 2 mg Pharmacy Consult (Consult Rx Perform Med Rec) 1 each MISCELLANE ONCE PRN PRN Reason: Consult order Allergies Allergies Allergy/AdvReac Type Severity Reaction Status Date / Time No Known Allergies Allergy Verified 02/18/22 07:58 Assessment & Plan Assessment & Plan (1) Bipolar 2 disorder, major depressive episode: Status: Acute Code(s): F31.81 - Bipolar II disorder Plan Ms. Ravi is a 26 year-old brought via EMS after intentional OD on 20 tablets of perphenazine of 2mg. Utox negative. No medical complications. Adamantly denies SI. Agrees to step down to PHP and I spent __25____ minutes with the patient and/or on the patient floor today, greater than?50% of which was spent counseling/coordinating care.
--- NOTE | 2022-05-01 16:16 | MHC.CARE ---
Follow up call to patient, she stated she is doing well with some anxiety that she is trying to manage but is not in crisis. Declined referral to PHP but said she will reach out to them tomorrow. Knows to call [facility] or come back to the ED if necessary.
== END 2022-04-29 17:49 | disposition home or self-care (01) ==
PROVIDERS: Physician Assistant; Emergency Provider Internal Medicine
DX: T43.3X2A Poisoning by phenothiazine antipsychotics and neuroleptics, intentional self-harm, initial encounter (principal); Y92.9 Unspecified place or not applicable; R45.851 Suicidal ideations; F12.90 Cannabis use, unspecified, uncomplicated; I10 Essential (primary) hypertension; Z20.822 Contact with and (suspected) exposure to COVID-19; Z79.899 Other long term (current) drug therapy
CPT/HCPCS: 36415; 80053; 80143; 80179; 80307; 81001; 82077; 82947; 83735; 85025; 87086; 87147; 87635; 93005; 99285

== ENCOUNTER 2022-05-26 07:08 | Emergency (ER) | payer MEDICAID, SELFPAY ==
--- NOTE | ~2022-05-26 | XR_ITS ---
EXAMINATION: XR ANKLE, RIGHT CLINICAL INFORMATION: Pain, no injury. COMPARISON: Right foot and ankle radiographs dated 09/01/2020. TECHNIQUE: AP, lateral, and mortise views of the right ankle. FINDINGS: Mild to moderate soft tissue swelling is seen. The ankle joint and mortise are intact. There is no acute fracture or dislocation. Minimal distal tibial periarticular marginal osteophyte formation. Small joint effusion. The tarsal bones are normally aligned. XR/XR ankle RT 2V IMPRESSION: Small joint effusion and minimal distal tibial degenerative osteophyte formation. No overt acute osseous abnormality. Mild to moderate surrounding soft tissue swelling. These findings are similar to 09/01/2020 radiographs. Given the chronicity of these findings as well as the patient's relative young age, right ankle MRI should be considered.
[2022-05-26 07:10] VITALS: BP 185/103; PULSE 100; RESP 19; TEMP 36.6; O2SAT 98; BMI 65.5
--- NOTE | 2022-05-26 08:00 | ED.LOWEXIN ---
HPI - Extremity Injury (Lower) General Chief Complaint: Extremity Injury, Lower Stated Complaint: R swollen ankle x2 days Time Seen by Provider: 05/26/22 08:00 Source: patient Mode of arrival: ambulatory Limitations: no limitations History of Present Illness MD complaint: other (ankle pain) Onset (ago): day(s) (2) Injury: Right: ankle Type of Injury: unknown Place: home Severity: moderate Relieving factors: immobilization Exacerbating factors: weight bearing, movement and palpation Context: other (woke up like this) Associated symptoms: swelling Other symptoms: none Treatments prior to arrival: cold therapy Related Data Home Medications Medication Instructions Recorded Confirmed blood sugar diagnostic (FreeStyle #10 ea 07/14/20 07/14/20 Lite Strips) enalapril maleate 20 mg tablet 20 mg PO DAILY 07/14/20 04/28/22 lancets 28 gauge (FreeStyle #100 ea 07/14/20 07/14/20 Lancets) atorvastatin 10 mg tablet 10 mg PO BEDTIME 04/28/22 04/28/22 clonazepam 1 mg tablet 1 mg PO BID 04/28/22 04/28/22 hydrochlorothiazide 25 mg tablet 25 mg PO DAILY 04/28/22 04/28/22 hydroxyzine HCl 25 mg tablet 1 - 2 tab PO Q6H PRN anxiety 04/28/22 04/28/22 insulin lispro protamine-lispro 90 unit subcut BID 04/28/22 04/28/22 100 unit/mL (75-25) subcutaneous pen (Humalog Mix 75-25 KwikPen) perphenazine 2 mg tablet 2 mg PO BID 04/28/22 04/28/22 Previous Rx's Medication Instructions Recorded albuterol sulfate 90 mcg/actuation 2 puff inhalation Q4-6H PRN 09/08/21 aerosol inhaler shortness of breath or wheezing #8.5 grams ondansetron 4 mg disintegrating 4 mg PO Q6H PRN nausea and 12/20/21 tablet vomiting #10 tabs cephalexin 500 mg capsule 500 mg PO QID 5 days #20 caps 05/02/22 cyclobenzaprine 10 mg tablet 10 mg PO TID PRN muscle spasm #14 05/26/22 tabs diclofenac sodium 1 % topical gel 2 g topical QID #100 grams 05/26/22 (Voltaren Arthritis Pain) Allergies Allergy/AdvReac Type Severity Reaction Status Date / Time No Known Allergies Allergy Verified 02/18/22 07:58 Review of Systems Review of Systems: Constitutional : No Fever, No Chills ENT/Mouth : No Ear Pain, No Hoarseness, No sore throat Eyes: No Eye Pain, No Swelling, No Redness, No Foreign Body Cardiovascular : No Chest Pain, No SOB Respiratory : No Cough, No Dyspnea Gastrointestinal : No Nausea, No Vomiting, No Diarrhea, No abdominal Pain Genitourinary : No Dysuria, No Hematuria Musculoskeletal : positive joint pain, No Myalgias, pos Joint Swelling Skin : No Skin lacerations, No rash Neuro : No Weakness, No Numbness, No Loss of Consciousness, No Dizziness, No Headache PMF Past Medical History Attestation statement: The following information was validated with the patient. Medical History Diabetes mellitus, type 2 Hypertension Social History Social History (Updated 05/26/22 @ 08:00 by Tresa Howard DO) Alcohol intake: never Patient Tobacco Use Status: Never used Tobacco Substance Use Type: Marijuana Advance Directives: No Advance Directives Information Provided: No Physical Exam Vital Signs: Vital Signs: Last Vital Signs Temp 98 F 05/26/22 07:10 Pulse 100 05/26/22 07:10 Resp 19 05/26/22 07:10 BP 185/103 H 05/26/22 07:10 Pulse Ox 98 05/26/22 07:10 O2 Del Method 05/26/22 07:10 BMI result Body Mass Index 65.5 Appearance: Alert. Oriented X3. No acute distress. Eyes: Pupils equal, round and reactive to light. ENT: Pharynx normal. Neck: Normal inspection. Neck supple. CVS: Pulses normal. Respiratory: No respiratory distress. Abdomen: Soft and non-tender. Skin: Skin warm and dry. Normal skin color. Extremities: No lower extremity edema. R ankle and anterior tibia ttp distal NV intact Neuro: Oriented X 3. No motor deficit. No sensory deficit. MDM - Extremity Injury (Lower) MDM Narrative Medical decision making narrative: 26 yo female with hx of DM HLD, asthma here with c/o R ankle pain unknown injury - distal NV intact at this time will obtain xrays. No obvious injury - could be arthritis, no calf ttp or swelling to suggest DVT pain is isolated anterior and to the ankle - dispo per results and findings. Procedures Orthopedic Splinting/Casting Injury #1: Side: right Lower Extremity Injury Location: ankle Lower Extremity Immobilizer: AirCast Other Orthopedic Equipment: crutches Discharge Plan Discharge Clinical Impression: Ankle sprain and strain, Ankle effusion Osteophyte Qualifiers: Osteophyte location: ankle Laterality: right Qualified Code(s): M25.771 - Osteophyte, right ankle Patient Disposition: Home, Self-Care Instructions: Ankle Stirrup Splint (ED), Swollen Ankle Joint (ED) Additional Instructions: return to ED for any worsening symptoms or concerns wear a splint for 7 days and weight bearing as tolerated YOU NEED MRI WITH YOUR DOCTOR FINDINGS: Mild to moderate soft tissue swelling is seen. The ankle joint and mortise are intact. There is no acute fracture or dislocation. Minimal distal tibial periarticular marginal osteophyte formation. Small joint effusion. The tarsal bones are normally aligned.? XR/XR ankle RT 2V IMPRESSION: Small joint effusion and minimal distal tibial degenerative osteophyte formation. No overt acute osseous abnormality. Mild to moderate surrounding soft tissue swelling. These findings are similar to 09/01/2020 radiographs. Given the chronicity of these findings as well as the patient's relative young age, right ankle MRI should be considered. Prescriptions: New cyclobenzaprine 10 mg tablet 10 mg PO TID PRN (Reason: muscle spasm) Qty: 14 0RF diclofenac sodium [Voltaren Arthritis Pain] 1 % gel 2 g topical QID Qty: 100 0RF Rx Instructions: apply to single elbow, wrist or hand; for hand includes palm/fingers/back of hand No Action clonazepam 1 mg Tablet 1 mg PO BID hydroxyzine HCl 25 mg tablet 1 - 2 tab PO Q6H PRN (Reason: anxiety) hydrochlorothiazide 25 mg Tablet 25 mg PO DAILY insulin lispro protamin-lispro [Humalog Mix 75-25 KwikPen] 100 unit/mL (75-25) Insulin Pen 90 unit SUBCUT BID perphenazine 2 mg Tablet 2 mg PO BID atorvastatin 10 mg Tablet 10 mg PO BEDTIME cephalexin 500 mg capsule 500 mg PO QID 5 Days Qty: 20 0RF albuterol sulfate 90 mcg/actuation HFA aerosol inhaler 2 puff inhalation Q4-6H PRN (Reason: shortness of breath or wheezing) Qty: 8.5 0RF ondansetron 4 mg tablet,disintegrating 4 mg PO Q6H PRN (Reason: nausea and vomiting) Qty: 10 0RF enalapril maleate 20 mg tablet 20 mg PO DAILY (DME) FreeStyle Lite Strips Strip See Rx Instructions .ROUTE .MEDSUPPLY Qty: 10 Rx Instructions: As directed (DME) lancets [FreeStyle Lancets] 28 gauge misc See Rx Instructions .ROUTE .MEDSUPPLY Qty: 100 Rx Instructions: As directed Referrals: [facility] [Primary Care Provider] - 2 days Stand Alone Forms: Work/School Release
== END 2022-05-26 09:25 | disposition home or self-care (01) ==
PROVIDERS: Emergency Provider Emergency Medicine
DX: M25.771 Osteophyte, right ankle (principal); S93.401A Sprain of unspecified ligament of right ankle, initial encounter; S96.911A Strain of unspecified muscle and tendon at ankle and foot level, right foot, initial encounter; X58.XXXA Exposure to other specified factors, initial encounter; M25.471 Effusion, right ankle; M25.571 Pain in right ankle and joints of right foot; Y93.9 Activity, unspecified; Y92.9 Unspecified place or not applicable; Y99.9 Unspecified external cause status
CPT/HCPCS: 73600; 99282; 99283

== ENCOUNTER 2022-06-25 11:10 | Emergency (ER) | payer MEDICAID, SELFPAY ==
[2022-06-25 12:13] VITALS: BP 174/93; PULSE 95; RESP 16; TEMP 36.6; O2SAT 97; BMI 65.5
== END 2022-06-25 16:48 | disposition left against medical advice (07) ==
PROVIDERS: Emergency Provider Emergency Medicine
DX: R51.9 Headache, unspecified (principal); M79.10 Myalgia, unspecified site
CPT/HCPCS: 99281

== ENCOUNTER 2022-07-02 06:42 | Emergency (ER) | payer MEDICAID, SELFPAY ==
--- NOTE | ~2022-07-02 | XR_ITS ---
EXAMINATION: XR CHEST CLINICAL INFORMATION: Cough. COMPARISON: 12/20/2021 chest radiographs. TECHNIQUE: Frontal view of the chest was obtained. FINDINGS: No significant abnormality is noted involving the heart, lungs, mediastinum, bony thorax or soft tissues. XR/XR chest 1V IMPRESSION: No acute cardiopulmonary process.
[2022-07-02 06:49] VITALS: BP 183/91; PULSE 98; RESP 20; TEMP 36.3; O2SAT 96; BMI 66.4
--- NOTE | 2022-07-02 07:20 | ED.SOB ---
HPI - SOB/Dyspnea General Chief Complaint: Dyspnea Stated Complaint: diff breathing asthma Time Seen by Provider: 07/02/22 07:20 Source: patient Mode of arrival: ambulatory Limitations: no limitations History of Present Illness HPI Narrative: 27 yo female with hx of asthma, depression, HTN, DM, HLD notes 2 days of runny nose, cough, wheezing not responding to INH at home. She did take a COVID test at home that was negative. MD elicited complaint: shortness of breath and cough Pertinent past history: asthma Onset (ago): day(s) (2) Timing: intermittent Severity: moderate Exacerbating factors: exertion and coughing Relieving factors: nothing Known history of: asthma Associated symptoms: cough and other (rhinorrhea) Treatment prior to arrival: bronchodilator Related Data Home Medications Medication Instructions Recorded Confirmed blood sugar diagnostic (FreeStyle #10 ea 07/14/20 07/14/20 Lite Strips) enalapril maleate 20 mg tablet 20 mg PO DAILY 07/14/20 04/28/22 lancets 28 gauge (FreeStyle #100 ea 07/14/20 07/14/20 Lancets) atorvastatin 10 mg tablet 10 mg PO BEDTIME 04/28/22 04/28/22 clonazepam 1 mg tablet 1 mg PO BID 04/28/22 04/28/22 hydrochlorothiazide 25 mg tablet 25 mg PO DAILY 04/28/22 04/28/22 hydroxyzine HCl 25 mg tablet 1 - 2 tab PO Q6H PRN anxiety 04/28/22 04/28/22 insulin lispro protamine-lispro 90 unit subcut BID 04/28/22 04/28/22 100 unit/mL (75-25) subcutaneous pen (Humalog Mix 75-25 KwikPen) perphenazine 2 mg tablet 2 mg PO BID 04/28/22 04/28/22 Previous Rx's Medication Instructions Recorded albuterol sulfate 90 mcg/actuation 2 puff inhalation Q4-6H PRN 09/08/21 aerosol inhaler shortness of breath or wheezing #8.5 grams ondansetron 4 mg disintegrating 4 mg PO Q6H PRN nausea and 12/20/21 tablet vomiting #10 tabs cephalexin 500 mg capsule 500 mg PO QID 5 days #20 caps 05/02/22 cyclobenzaprine 10 mg tablet 10 mg PO TID PRN muscle spasm #14 05/26/22 tabs diclofenac sodium 1 % topical gel 2 g topical QID #100 grams 05/26/22 (Voltaren Arthritis Pain) Allergies Allergy/AdvReac Type Severity Reaction Status Date / Time No Known Allergies Allergy Verified 02/18/22 07:58 Review of Systems Review of Systems: Constitutional : No Fever, No Chills ENT/Mouth : No Hoarseness, No sore throat, pos Rhinorrhea Eyes: No Redness, No Discharge, No Vision Changes Cardiovascular : No Chest Pain, positive SOB, positive Dyspnea on Exertion, No Edema Respiratory : positive Cough, No Sputum, positive Wheezing, Gastrointestinal : No Nausea, No Vomiting, No Diarrhea, No abdominal Pain Genitourinary : No Dysuria, No Hematuria Musculoskeletal : No joint pain, No Myalgias Skin : No rash Neuro : No Weakness, No Numbness, No Headache Psych : No anxiety, depression Heme/Lymph: No Bruising, No Bleeding Endocrine : No Polyuria, No Polydipsia All other systems reviewed and are negative [facility] Past Medical History Attestation statement: The following information was validated with the patient. Medical History Bipolar 2 disorder, major depressive episode Diabetes mellitus, type 2 GERD (gastroesophageal reflux disease) Hyperlipidemia Hypertension Sleep apnea Social History Social History Alcohol intake: never Patient Tobacco Use Status: Never used Tobacco Substance Use Type: Marijuana Advance Directives: No Advance Directives Information Provided: No Physical Exam Vital Signs: Vital Signs: Last Vital Signs Temp 97.3 F 07/02/22 06:49 Pulse 86 07/02/22 07:38 Resp 18 07/02/22 07:38 BP 183/91 H 07/02/22 06:49 Pulse Ox 96 07/02/22 06:49 O2 Del Method 07/02/22 06:49 BMI result Body Mass Index 66.4 Appearance: Alert. Oriented X3. No acute distress. Eyes: Pupils equal, round and reactive to light. ENT: Pharynx normal. Nasally congested Neck: Normal inspection. Neck supple. CVS: Normal heart rate and rhythm. Pulses normal. Respiratory: No respiratory distress. Breath sounds slightly diminished with tight sounding cough Abdomen: Soft and non-tender. Skin: Skin warm and dry. Normal skin color. Normal skin turgor. Extremities: No lower extremity edema. No calf ttp Neuro: Oriented X 3. No motor deficit. No sensory deficit. Course Course Course Narrative: no hypoxia, will give one dose of dexamethasone referral sent through to [facility] for mAb does not want paxlovid MDM - SOB/Dyspnea MDM Narrative Medical decision making narrative: 27 yo female with hx of asthma, depression, HTN, DM, HLD here with c/o URI symptoms x 2 days with cough at this time will obtain COVID swab, CXR and give neb treatment. Possible bronchitis - not very tight or wheezy may hold off steroids given DM dx. Dispo per results and findings. Lab Data Labs: Lab Results 07/02/22 Range/Units 07:29 COVID-19 ([facility]) Positive A (Negative) COVID-19 Clin Com See Note Discharge Plan Discharge Clinical Impression: COVID-19, Asthma Patient Disposition: Home, Self-Care Instructions: Asthma (ED), COVID-19 (Coronavirus Disease 2019) (ED) Additional Instructions: return to ED for any worsening symptoms or concerns you were given a dose of steroids in the department that should help over the next few days - monitor your blood sugars, continue to use your inhaler. Your CHEST xray was clear a referral was sent to [facility] for infusion therapy they will contact you at home and offer treatment stay at home, quarantine, protect other if you become so short of breath you cannot walk to your own bathroom seek medical care Prescriptions: No Action clonazepam 1 mg Tablet 1 mg PO BID hydroxyzine HCl 25 mg tablet 1 - 2 tab PO Q6H PRN (Reason: anxiety) hydrochlorothiazide 25 mg Tablet 25 mg PO DAILY insulin lispro protamin-lispro [Humalog Mix 75-25 KwikPen] 100 unit/mL (75-25) Insulin Pen 90 unit SUBCUT BID perphenazine 2 mg Tablet 2 mg PO BID atorvastatin 10 mg Tablet 10 mg PO BEDTIME cephalexin 500 mg capsule 500 mg PO QID 5 Days Qty: 20 0RF cyclobenzaprine 10 mg tablet 10 mg PO TID PRN (Reason: muscle spasm) Qty: 14 0RF diclofenac sodium [Voltaren Arthritis Pain] 1 % gel 2 g topical QID Qty: 100 0RF Rx Instructions: apply to single elbow, wrist or hand; for hand includes palm/fingers/back of hand albuterol sulfate 90 mcg/actuation HFA aerosol inhaler 2 puff inhalation Q4-6H PRN (Reason: shortness of breath or wheezing) Qty: 8.5 0RF ondansetron 4 mg tablet,disintegrating 4 mg PO Q6H PRN (Reason: nausea and vomiting) Qty: 10 0RF enalapril maleate 20 mg tablet 20 mg PO DAILY (DME) FreeStyle Lite Strips Strip See Rx Instructions .ROUTE .MEDSUPPLY Qty: 10 Rx Instructions: As directed (DME) lancets [FreeStyle Lancets] 28 gauge misc See Rx Instructions .ROUTE .MEDSUPPLY Qty: 100 Rx Instructions: As directed Stand Alone Forms: Work/School Release
[2022-07-02] MEDS: Benzonatate 100 MG CAPSULE PO (07:35)
[2022-07-02] MEDS: Albuterol/Iprat 2.5/0.5MG 3 ML AMPUL.NEB INHALE (07:37)
[2022-07-02 07:38] VITALS: PULSE 86; RESP 18; O2SAT 97
[2022-07-02 07:41] LABS: COVID-19 Test Positive (Negative); IDNOW Serial# 16C4AD1C
[2022-07-02 08:38] VITALS: BP 132/85; PULSE 105; RESP 20; TEMP 36.3; O2SAT 98
[2022-07-02] MEDS: dexAMETHasone sod phosphate 10 MG/ML VIAL PO (08:50)
== END 2022-07-02 08:54 | disposition home or self-care (01) ==
PROVIDERS: Emergency Provider Emergency Medicine
DX: U07.1 COVID-19 (principal); J45.909 Unspecified asthma, uncomplicated; R06.02 Shortness of breath; I10 Essential (primary) hypertension; E11.9 Type 2 diabetes mellitus without complications; E78.5 Hyperlipidemia, unspecified; E66.9 Obesity, unspecified; Z68.44 Body mass index [BMI] 60.0-69.9, adult; Z79.02 Long term (current) use of antithrombotics/antiplatelets; Z79.899 Other long term (current) drug therapy
CPT/HCPCS: 71045; 87635; 94640; 99284; J1100

== ENCOUNTER → 2022-07-10 10:47 | Outpatient (BNVA) | payer MEDICAID, SELFPAY | PROVIDERS: Visit Provider Physician Assistant | DX: M21.41 Flat foot [pes planus] (acquired), right foot (principal); M21.42 Flat foot [pes planus] (acquired), left foot | CPT/HCPCS: 99202 ==

== ENCOUNTER 2022-09-30 14:00 | Outpatient (RCR) | payer MEDICAID, SELFPAY ==
--- NOTE | 2022-09-12 15:04 | MHC.PT.EP ---
[facility] [place] Office [place] [facility] [place] Office [address] Chucho Leach [address] [phone] F: [phone] F: [phone] F: [phone] F: [phone] Physical Therapy Plan of Care Date of Evaluation: Date of Surgery: N/A Diagnosis: flat foot, right foot flat foot, left foot Assessment: Pt is a pleasant 27yo who presents to PT with chronic R foot pain. She presents to PT with current impairments in pain, decreased B ankle ROM, decreased ankle strength, decreased gastroc/soleus length, decreased intrinsic strength, decreased balance and impaired gait. She is limited functionally by prolonged standing, prolonged walking, and stair navigation. She is a good candidate for skilled PT in order to address current impairments to facilitate return to PLOF. She is recommended to be seen 2x/week for 4 weeks and will be reassessed at that time. Frequency and Duration: The patient will be seen 2x/week for 4 weeks Short Term Goals: Pt will be I with HEP to promote self management of symptoms Pt will increase R DF by at least 5 degrees Nursing Home Goals: Pt will achieve full ROM and strength all planes of R ankle with minimal to no pain Pt will tolerate standing and walking > 60 min with minimal to no pain Pt will demonstrate improvements in functional mobility as evidenced by statistically significant improvement in LEFI outcome measure Treatment Plan: Modalities to reduce pain, spasms and effusion. Manual therapy to restore motion and function. Therapeutic exercise to improve strength and flexibility. Neuromuscular re-education for posture and balance. Therapeutic activities to return to functional activities of daily living. Electronically signed by: Katiana Varela, PT, DPT Please sign and return to therapist. Thank you for your referral.
--- NOTE | 2022-10-07 10:09 | MHC.PT.DC ---
[facility] [place] [facility] [place] [facility] [place] Office [address] Chucho Leach [address] [phone] F: [phone] F: [phone] F: [phone] F: [phone] Physical Therapy Discharge Report Diagnosis: flat foot, right foot flat foot, left foot Date of Surgery: N/A Date of Evaluation: 09/11/22 Date of Discharge: 10/07/22 Treatments to Date: 3 Cancellations to Date: No Shows to Date: 4 Discharge Status: Visit Non-compliance Discharge Summary: Pt was seen for PT from 09/11/22-09/30/22. Her last attended appointment was 09/30/22. She has had 4 no-show appointments since SOC. Pt is being D/C from skilled PT per [facility] attendance policy and visit non-compliance. Pt current level of function unknown at this time. Electronically signed by: Katiana Varela, PT, DPT Please sign and return to therapist. Thank you for your referral.
== END 2022-10-07 10:09 | disposition home or self-care (01) ==
LOC: HO.PT 14:00
PROVIDERS: Visit Provider Physician Assistant
DX: M21.42 Flat foot [pes planus] (acquired), left foot (principal); M21.41 Flat foot [pes planus] (acquired), right foot
CPT/HCPCS: 97110; 97162

== ENCOUNTER 2022-11-24 09:10 | Emergency (ER) | payer MEDICAID, SELFPAY ==
[2022-11-24 09:36] VITALS: BP 137/77; PULSE 96; RESP 18; O2SAT 99; BMI 61.2
[2022-11-24 09:54] LABS: MANUAL DIFF FLAG NO
--- NOTE | 2022-11-24 10:01 | ED_ITS ---
HPI - General Adult General Chief complaint: Abdominal Pain Stated complaint: abd pain Time Seen by Provider: 11/24/22 09:58 Source: patient Mode of arrival: ambulatory Limitations: no limitations History of Present Illness HPI narrative: Patient is a 27 year old assigned female at with a history of ADHD and DM presenting to the emergency department today with left flank pain. Patient states that over the last few days she has had left sided flank pain. Patient states that it hurts worse when she moves and when she pushes on it. Patient denies any dizziness, lightheadedness, abdominal pain, nausea, vomiting, fever, chills, blurry vision, double vision, loss of vision, chest pain, difficulty breathing, shortness of breath, night sweats, pain with urination, increased urinary frequency, increased urinary urgency, blood in her urine or stool, syncope or a near syncopal episode, recent trauma or falls, bowel incontinence, bladder incontinence, bowel retention, bladder retention, or any other complaint s at this time. Onset (ago): day(s) Location: left (flank) Severity: mild Severity scale (1-10): 2 Relieving factors: none Exacerbating factors: none Associated symptoms: denies other symptoms Treatments prior to arrival: none Related Data Home Medications Medication Instructions Recorded Confirmed blood sugar diagnostic (FreeStyle #10 ea 07/14/20 07/14/20 Lite Strips) enalapril maleate 20 mg tablet 20 mg PO DAILY 07/14/20 04/28/22 lancets 28 gauge (FreeStyle #100 ea 07/14/20 07/14/20 Lancets) atorvastatin 10 mg tablet 10 mg PO BEDTIME 04/28/22 04/28/22 clonazepam 1 mg tablet 1 mg PO BID 04/28/22 04/28/22 hydrochlorothiazide 25 mg tablet 25 mg PO DAILY 04/28/22 04/28/22 hydroxyzine HCl 25 mg tablet 1 - 2 tab PO Q6H PRN anxiety 04/28/22 04/28/22 insulin lispro protamine-lispro 90 unit subcut BID 04/28/22 04/28/22 100 unit/mL (75-25) subcutaneous pen (Humalog Mix 75-25 KwikPen) perphenazine 2 mg tablet 2 mg PO BID 04/28/22 04/28/22 empagliflozin 10 mg tablet 10 mg PO QAM 07/10/22 (Jardiance) metformin 500 mg tablet 1,000 mg PO BID 07/10/22 spironolactone 25 mg tablet 25 mg PO DAILY 07/10/22 Previous Rx's Medication Instructions Recorded albuterol sulfate 90 mcg/actuation 2 puff inhalation Q4-6H PRN 09/08/21 aerosol inhaler shortness of breath or wheezing #8.5 grams ondansetron 4 mg disintegrating 4 mg PO Q6H PRN nausea and 12/20/21 tablet vomiting #10 tabs cyclobenzaprine 10 mg tablet 10 mg PO TID PRN muscle spasm #14 05/26/22 tabs diclofenac sodium 1 % topical gel 2 g topical QID #100 grams 05/26/22 (Voltaren Arthritis Pain) albuterol sulfate 0.63 mg/3 mL 0.63 mg (3 mL) inhalation QID PRN 07/04/22 solution for nebulization shortness of breath or wheezing #75 mL albuterol sulfate 90 mcg/actuation 1 inh inhalation QID PRN shortness 07/04/22 aerosol inhaler of breath or wheezing #8.5 grams nebulizers (AeroEclipse II #1 ea 07/04/22 Nebulizer) prednisone 20 mg tablet 40 mg PO DAILY rash 5 days #10 tabs 07/04/22 cyclobenzaprine 5 mg tablet 5 mg PO TID PRN muscle spasm 7 11/24/22 days #21 tabs Allergies Allergy/AdvReac Type Severity Reaction Status Date / Time No Known Allergies Allergy Verified 07/10/22 11:06 Review of Systems Constitutional: Constitutional: Reports no additional constitutional complaints, Denies chills, Denies fever(s) and Denies night sweats Eyes: Eyes: Reports no additional eye complaints, Denies blurry vision, Denies change in vision, Denies diplopia, Denies eye discharge, Denies loss of vision and Denies eye pain ENT: Denies dizziness Cardiovascular: Cardiovascular: Reports no additional cardiovascular complaints, Denies chest pain, Denies lightheadedness, Denies Loss of Consciousness and Denies dyspnea Respiratory: Respiratory: Reports no additional respiratory complaints and Denies dyspnea Gastrointestinal: Gastrointestinal: Reports no additional gastrointestinal complaints, Denies abdominal pain, Denies melena, Denies hematochezia, Denies change in bowel habits and Denies change in stool character Comments: left sided flank pain Genitourinary: Genitourinary: Denies hematuria, Denies urinary frequency, Denies dysuria, Denies urinary incontinence, Denies urinary hesitancy and Denies urinary urgency Musculoskeletal: Musculoskeletal: Reports no additional musculoskeletal complaints, Denies numbness and Denies tingling Neurologic: Denies dizziness, Denies loss of vision, Denies numbness and Denies tingling Psychiatric: Psychiatric: Reports no additional psychiatric complaints Endocrine: Endocrine: Reports no additional endocrine complaints Hematologic/Lymphatic: Hematologic/Lymphatic: Reports no additional h ematologic/lymphatic complaints Allergic/Immunologic: Allergic/Immunologic: Reports no additional allergic/immunologic complaints PMFSH Past Medical History Attestation statement: The following information was validated with the patient. 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 Physical Exam ED Vital Signs: Vital Signs - 24 hr 11/24/22 09:36 11/24/22 10:40 Pulse Rate 96 83 Respiratory Rate 18 18 Blood Pressure 137/77 150/85 H Pulse Oximetry 99 97 Oxygen Delivery Method Room Air Room Air BMI result Body Mass Index 61.2 Const General: cooperative, no acute distress, alert and awake Nutritional Appearance: well nourished Orientation/consciousness: patient oriented x3 Limitations: no limitations [facility] Head: Yes normal to inspection and Yes atraumatic Ears: hearing grossly normal bilaterally and external ears normal General nose exam: Normal external nose present, no nasal discharge noted and no epistaxis Face and sinus: Yes normal facial exam, No abrasion and No laceration Mouth: Normal oral and palatal mucosa present, no drooling and no muffled voice Eyes General: appearance normal, both eyes and all related structures Periorbital: periorbital findings normal Eyelids: Yes eyelids normal Conjunctivae: conjunctivae normal Pupils: Equal, round and reactive pupils present EOM: EOMs intact bilaterally Neck Neck: Yes normal visual inspection, Yes full ROM and Yes no lymphadenopathy Chest Chest palpation & inspection: normal inspection of the chest Resp Effort & Inspection: normal respiratory effort and able to speak in complete sentences Auscultation: clear to auscultation bilaterally Cardio Rate: regular rate Rhythm: regular rhythm GI Inspection: Yes normal to inspection Palpation (GI): Soft to palpation, not firm, nontender, no guarding and not rigid Other: pain with palpation of the left flank area Neuro General: patient oriented x3 and moves all extremities Cranial nerves: Yes Equal, round and reactive pupils present Cognition (Neuro): normal cognition Motor exam (neuro): 5/5 motor strength present throughout Sensory Exam: Normal double simultaneous stimulation for sensation Coordination: [id number] test normal Extrem General: Yes normal to inspection, Yes full ROM and Yes capillary refill normal Psych Appearance: grossly normal Mental Status: mental status grossly normal Affect: normal affect Attitude: cooperative Thought process: Normal thought process present Thought content: Normal thought content present Insight: Good insight present (Psych) Medications Administered Discontinued Medications Generic Name Dose Route Start Last Admin Trade Name Tito PRN Reason Stop Dose Admin Cyclobenzaprine HCl 5 mg 11/24/22 10:46 11/24/22 11:05 Cyclobenzaprine Hcl 5 Mg Tablet PO 11/24/22 10:47 5 mg ONCE ONE Administration Ketorolac Tromethamine 15 mg 11/24/22 10:46 11/24/22 11:05 Ketorolac Tromethamine 15 Mg/Ml Vial IM 11/24/22 10:47 15 mg ONCE ONE Administration Medical Decision Making Medical Decision Making [facility] Narrative: Patient is a 27 year old assigned female at with a history of ADHD presenting to the emergency department today with left sided flank pain. Patient's physical exam was unremarkable. Patient's blood work was unremarkable. Patient's urine showed no acute process. I explained my physical exam findings as well as all test results to the patient. I answered all questions asked by the patient. Patient received PO Flexeril and IM Toradol which she stated helped her symptoms significantly. I stressed the importance of the patient taking her medication as prescribed. I stressed the importance of the patient following up with her primary care provider. I stressed the importance of the patient returning to the emergency department immediately if her symptoms were to worsen or if she were to develop any dizziness, shortness of breath, difficulty berhane thing, chest pain, blurry vision, loss of vision, nausea, vomiting, abdominal pain, fever, chills, back pain, or any other complaints. Patient verbalized agreement and understanding with this treatment plan and discharge. Differential Diagnosis Differential Diagnoses: The differential diagnosis associated with the presentation includes left flank pain, muscle sprain, muscle strain Lab Data MDM Lab Attestation statement: I reviewed the patient's lab results. 11/24/22 09:50 11/24/22 09:50 Labs: Lab Results 11/24/22 11/24/22 11/24/22 Range/Units 09:50 09:50 09:56 WBC 10.5 (4.8-10.8) X10*3/uL RBC 4.43 (4.20-5.50) X10*6/uL Hgb 11.8 L (12.0-16.0) g/dl Hct 36.3 L (37.0-47.0) % MCV 81.9 (80.0-98.0) fL MCH 26.6 L (27.0-33.0) pg MCHC 32.5 (31.0-35.0) g/dl RDW 12.5 (11.0-16.0) % Plt Count 404 H (160-400) X10*3/uL MPV 9.6 (9.4-12.3) fL Immature Gran % (Auto) 0.4 (0.0-0.4) % Neut % (Auto) 74.4 H (45-73) % Lymph % (Auto) 19.1 L (20-40) % [place] % (Auto) 4.9 (2-11) % Eos % (Auto) 0.9 (0-4) % Baso % (Auto) 0.3 (0-2) % Lymph # (Auto) 2.0 (1.2-4.9) X10*3/uL [place] # (Auto) 0.5 (0.1-1.2) X10*3/uL Eos # (Auto) 0.1 (0.0-0.4) X10*3/uL Baso # (Auto) 0.0 (0.0-0.2) X10*3/uL Abs Immat Gran (auto) 0.04 H (0.00-0.03) X10*3/uL Absolute Neuts (auto) 7.8 (2.0-8.3) x10*3/uL Absolute Nucleated RBC 0.000 (0.0-0.012) X10*3/uL Nucleated RBC % (auto) 0.0 (0.0-0.2) /100WBC Sodium 140 (135-145) mmol/L Potassium 3.7 (3.3-5.1) mmol/L Chloride 104 (96-108) mmol/L Carbon Dioxide 27 (22-29) mmol/L Anion Gap 13 (12-20) BUN 14 (9-16) mg/dL Creatinine 0.60 (0.5-1.4) mg/dL Estim Creat Clear Calc 207.6 Estimated GFR > 60 Random Glucose 142 H (60-115) mg/dL Calcium 9.7 (8.4-10.2) mg/dL Total Bilirubin 0.3 (0.0-1.0) mg/dL Direct Bilirubin < 0.2 (0.0-0.5) mg/dL AST 19 (5-31) U/L ALT 33 H (0-31) U/L Alkaline Phosphatase 59 (39-117) U/L Total Protein 7.1 (6.5-8.0) g/dL Albumin 4.3 (3.5-5.0) g/dL Lipase 56 (8-78) U/L Urine Color Yellow Urine Appearance Clear Urine pH 6.0 (5.0-9.0) Ur Specific [place] 1.020 (1.005-1.025) Urine Protein 30 (1+) H (Neg-Trace) mg/dL Urine Glucose (UA) Negative (Negative) mg/dL Urine Ketones Negative (Negative) mg/dL Urine Blood Negative (Negative) Urine Nitrite Negative (Negative) Ur Leukocyte Esterase Negative (Negative) Urine RBC 0-2 (0-2) /HPF Urine WBC 0-5 (0-5) /HPF Ur Squamous Epith Cells 0-2 (0-2) /HPF Urine Bacteria None Seen (None Seen) Hyaline Casts 0-2 (0-2) /LPF Discharge Plan Discharge Clinical Impression: Acute flank pain Patient Disposition: Home, Self-Care Instructions: Flank Pain (ED) Additional Instructions: Follow up with your primary care provider. Return to the emergency department immediately if your symptoms worsen or if you develop any dizziness, shortness of breath, difficulty breathing, chest pain, blurry vision, loss of vision, nausea, vomiting, abdominal pain, fever, chills, back pain, or any other complaints. Prescriptions: New cyclobenzaprine 5 mg tablet 5 mg PO TID PRN (Reason: muscle spasm) 7 Days Qty: 21 0RF No Action clonazepam 1 mg Tablet 1 mg PO BID hydroxyzine HCl 25 mg tablet 1 - 2 tab PO Q6H PRN (Reason: anxiety) hydrochlorothiazide 25 mg Tablet 25 mg PO DAILY insulin lispro protamin-lispro [Humalog Mix 75-25 KwikPen] 100 unit/mL (75-25) Insulin Pen 90 unit SUBCUT BID perphenazine 2 mg Tablet 2 mg PO BID atorvastatin 10 mg Tablet 10 mg PO BEDTIME cyclobenzaprine 10 mg tablet 10 mg PO TID PRN (Reason: muscle spasm) Qty: 14 0RF diclofenac sodium [Voltaren Arthritis Pain] 1 % gel 2 g topical QID Qty: 100 0RF Rx Instructions: apply to single elbow, wrist or hand; for hand includes palm/fingers/back of hand albuterol sulfate 90 mcg/actuation HFA aerosol inhaler 2 puff inhalation Q4-6H PRN (Reason: shortness of breath or wheezing) Qty: 8.5 0RF ondansetron 4 mg tablet,disintegrating 4 mg PO Q6H PRN (Reason: nausea and vomiting) Qty: 10 0RF (DME) nebulizers [AeroEclipse II Nebulizer] Misc See Rx Instructions .ROUTE .MEDSUPPLY Qty: 1 0RF Rx Instructions: As directed albuterol sulfate 0.63 mg/3 mL solution for nebulization 0.63 mg inhalation QID PRN (Reason: shortness of breath or wheezing) Qty: 75 0RF albuterol sulfate 90 mcg/actuation HFA aerosol inhaler 1 inh inhalation QID PRN (Reason: shortness of breath or wheezing) Qty: 8.5 0RF prednisone 20 mg tablet 40 mg PO DAILY 5 Days Qty: 10 0RF enalapril maleate 20 mg tablet 20 mg PO DAILY (DME) FreeStyle Lite Strips Strip See Rx Instructions .ROUTE .MEDSUPPLY Qty: 10 Rx Instructions: As directed (DME) lancets [FreeStyle Lancets] 28 gauge misc See Rx Instructions .ROUTE .MEDSUPPLY Qty: 100 Rx Instructions: As directed metformin 500 mg tablet 1,000 mg PO BID Jardiance 10 mg tablet 10 mg PO QAM spironolactone 25 mg tablet 25 mg PO DAILY Referrals: [facility] [Primary Care Provider] - Stand Alone Forms: Work/School Release Interventions: ED Discharge Assessment Last Done: 11/24/22 11:11 Discharge Date/Time: 11/24/22 11:12 Print Language: [place]an
--- OUTSIDE RECORDS SUMMARY | 2022-11-24 10:02 | XMS_ITS | Continuity of Care Document ---
:1995 Author Organization [facility] Address [address] [place] [id number] Care Team Providers Name Role Phone Pelon [employer], Vanessa Price Primary Care Physician [place] [facility] [place]): [place]21 [facility] [address] [place] [id number] Attending Physician: Rodrick Robins Admitting Physician: Rodrick Robins Referring Physician: trRodrick Allergies, Adverse Reactions, Alerts No Known Allergies Medications Abilify 5 mg oral tablet 1 tablet = 5 mg, By Mouth, Daily, # 30 tablet, 0 Refills, Maintenance, Tablet Start Date: 01/05/12 Status: Orderedalbuterol 0.083% inhalation solution 6 mL = 5 mg, Inhalation, Every 6 hours, PRN for wheezing, # 60 each, 11 Refills, Maintenance, 11/26/17 14:23:35, Solution Start Date: 11/26/17 Status: OrderedAlbuterol solution Albuterol solution, Refills 0, Maintenance, prn, 11/26/17 14:10:15, Compound Start Date: 11/26/17 Status: OrderedARIPiprazole 5 mg oral tablet Refills 0, Maintenance, 12/22/18 11:19:11 EDT Start Date: 12/22/18 Status: Orderedatorvastatin 20 mg oral tablet 1 tablet = 20 mg, By Mouth, Daily, # 90 tablet, 5 Refills, Maintenance, 08/08/19 10:17:54 EDT, Tablet Start Date: 08/08/19 Status: OrderedBD UF ORIG PEN NDL 12.0PVK49C BD UF ORIG PEN NDL 12.2OVT70E, 0 Refills, Maintenance, 12/22/18 11:19:59 EDT Start Date: 12/22/18 Status: Orderedbudesonide 0.5 mg/2 mL inhalation suspension 0.5 mg, 2, mL, Neb, 2 times a day, # 120 mL, Refills 11, Tot. Refills 11, Maintenance, 11/26/17 14:23:51, Suspension, Route to Pharmacy Electronically, [id number], [facility]/pharmacy #[id number] Start Date: 11/26/17 Status: Orderedenalapril 20 mg oral tablet 1 tablet = 20 mg, By Mouth, Daily, # 30 tablet, 5 Refills, Maintenance, 01/22/17 15:56:55, Tablet Start Date: 01/22/17 Status: Orderedenalapril 20 mg oral tablet 0 Refills, Maintenance, 12/22/18 11:19:26 EDT Start Date: 12/22/18 Status: OrderedFreestyle Lancets See Instructions, # 100 each, Refills 11, Tot. Refills 11, Maintenance, TO CHECK 2 X A DAY GLUCOSE, 12/22/18 12:10:05 EDT, Compound Start Date: 12/22/18 Status: OrderedFreestyle Lite Monitor See Instructions, # 1 each, Refills 1, Tot. Refills 1, Maintenance, TO USE TO TEST GLUCOSE 2 XA DAY., 12/22/18 11:51:37 EDT, E11.65, PLEASE SET DATE AND TIME ON METER BEFORE GIVING TO PATIENT., Compound Start Date: 12/22/18 Status: OrderedFREESTYLE LITE TEST STRIP FREESTYLE LITE TEST STRIP, 0 Refills, Maintenance, 12/22/18 11:19:03 EDT Start Date: 12/22/18 Status: OrderedFreestyle Lite Test Strips See Instructions, # 100 each, Refills 11, Tot. Refills 11, Maintenance, TO TEST 2 X A DAY GLUCOSE, 12/22/18 11:51:41 EDT, E11.65, Compound Start Date: 12/22/18 Status: OrderedFreestyle Lite Test Strips See Instructions, # 100 each, Refills 11, Tot. Refills 11, Maintenance, 3 x a day glucose checks., 04/21/18 9:35:38 EDT, E11.65, Compound Start Date: 04/21/18 Status: OrderedHumaLOG Mix 75/25 KwikPen subcutaneous suspension See Instructions, 90 UNITS BEFORE BREAKFAST, 90 UNITS BEFORE DINNER., # 70 mL, 6 Refills, Maintenance, 04/16/21 14:17:00 EDT, [facility]/pharmacy #[id number], e11.65;, 90 UNITS BEFORE BREAKFAST, 90 UNITS BEFORE DINNER., 159.3, cm, 04/16/21 13:48:00 EDT, Height, 17... Start Date: 04/16/21 Status: OrderedHYDROCHLOROTHIAZIDE HYDROCHLOROTHIAZIDE, 25 mg, By Mouth, Daily, Refills 0, Maintenance, 12/11/15 14:43:30, Compound Start Date: 12/11/15 Status: Orderedhydrochlorothiazide 25 mg oral tablet 25 mg, 1, tablet, By Mouth, Daily, # 30 tablet, Refills 5, Tot. Refills 5, Maintenance, 01/22/17 15:56:56, Route to Pharmacy Electronically, [id number], [facility]/pharmacy #[id number] Start Date: 01/22/17 Status: OrderedInsulin Syringe, BD Ultra-Fine 1 cc 30 G x 12.7 mm (1/2in) See Instructions, # 100 each, Refills 6, Tot. Refills 6, Maintenance, please use to take once insulin daily, 04/16/21 14:16:00 EDT, Supply, 159.3, cm, 04/16/21 13:48:00 EDT, Height, 176.7, kg, 08/08/1910:03:00 EDT, Dry Weight Start Date: 04/16/21 Status: OrderedKlonoPIN 1 mg oral tablet 1 tablet = 1 mg, By Mouth, 3 times a day, bid prn, 0 Refills, Maintenance, 08/26/16 17:02:23 Start Date: 08/26/16 Status: OrderedLamictal 100 mg oral tablet 1 tablet = 100 mg, By Mouth, Daily, 0 Refills, Maintenance Start Date: 07/06/12 Status: OrderedLamictal Tablet 50 mg, By Mouth, 2 times a day, Maintenance, 12/11/15 14:47:21 Start Date: 12/11/15 Status: OrderedLexapro 10 mg oral tablet 1 tablet = 10 mg, By Mouth, Daily, 0 Refills, Maintenance, 12/22/18 11:21:27 EDT Start Date: 12/22/18 Status: OrderedmetFORMIN 500 mg oral tablet 1 tablet = 500 mg, By Mouth, 2 times a day, # 180 tablet, 0 Refills, Maintenance, 08/26/16 17:00:09,Tablet Start Date: 08/26/16 Status: OrderedmetFORMIN 500 mg oral tablet, extended release 2 tablet = 1,000 mg, By Mouth, 2 times a day with meals, # 360 tablet, 3 Refills, Maintenance, 06/14/20 12:08:00 EDT, ER Tablet, [facility]/pharmacy #[id number], E11.65, 159.3, cm, 08/08/19 10:03:00 EDT, Height, 176.7, kg, 08/08/19 10:03:00 EDT, Dry Weight Start Date: 06/14/20 Stop Date: 06/09/21 Status: OrderedMETFORMIN HCL ER 500 MG TABLET METFORMIN HCL ER 500 MG TABLET, 0 Refills, Maintenance, 12/22/18 11:18:59 EDT Start Date: 12/22/18 Status: OrderedNuLYTELY with Flavor Packs oral powder for reconstitution 240 mL, By Mouth, Every 10 minutes, # 4,000 mL, 0 Refills, Maintenance, 12/11/15 15:12:18, 240 mL ByMouth Every 10 minutes Start Date: 12/11/15 Status: Orderedomeprazole 20 mg oral enteric coated capsule 1 capsule = 20 mg, By Mouth, Daily, # 30 capsule, 0 Refills, Maintenance, 08/26/16 17:00:36, EC Capsule Start Date: 08/26/16 Status: OrderedPen Dexter, 29 G x 12.7 mm BD Ultra Fine See Instructions, # 100 each, Refills 11, Tot. Refills 11, Maintenance, 2 X A DAY INJECTIONS, 12/22/18 12:07:41 EDT, e11.65, Compound Start Date: 12/22/18 Stop Date: 12/17/19 Status: Orderedprazosin 2 mg oral capsule 1 capsule = 2 mg, By Mouth, 3 times a day, 0 Refills, Maintenance, 12/22/18 11:21:09 EDT Start Date: 12/22/18 Status: OrderedProAir HFA 90 mcg/inh inhalation aerosol with adapter 2, puffs, Inhalation, Every 4 hours, PRN, use with spacer chamber, # 1 each, Refills 3, Tot. Refills3, Maintenance, 07/09/17 15:16:21, Route to Pharmacy Electronically, [id number], [facility]/pharmacy #[id number] Start Date: 07/09/17 Stop Date: 11/06/17 Status: OrderedPulmicort Respules 0.5 mg/2 mL inhalation suspension 0.5 mg, 2, mL, Neb, 2 times a day, # 120 mL, Refills 3, Tot. Refills 3, Maintenance, 07/09/17 15:15:53, Inhalation Suspension, Route to Pharmacy Electronically, [id number], [facility]/pharmacy #[id number] Start Date: 07/09/17 Stop Date: 11/06/17 Status: OrderedPulmicort Respules 0.5 mg/2 mL inhalation suspension Refills 0, Maintenance, 12/22/18 11:20:14 EDT Start Date: 12/22/18 Status: Ordered Problem List Condition Effective Dates Status Health Status Informant Abdominal pain(Confirmed) Active Anxiety Disorder NOS(Confirmed) 07/21/12 Active Apnea, sleep(Confirmed) Active Bipolar disorder(Confirmed) Active Depression(Confirmed) Active Diabetes mellitus type 2 in Active obese(Confirmed) Passage of loose stools(Confirmed) Active 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) Dysphagia(Confirmed) Active Epigastric pain(Confirmed) Active Encounter for diagnostic colonoscopy Active due to change in bowel habits(Confirmed) Heartburn symptom(Confirmed) Active H/O nausea(Confirmed) Active Hypertension(Confirmed) Active Learning disability not otherwise 07/21/12 Active specified(Confirmed) Metabolic syndrome(Confirmed) Active Morbid obesity(Confirmed) Active Medical non-compliance(Confirmed) Active PCOS - Polycystic ovarian Active syndrome(Confirmed) PCOS (polycystic ovarian Active syndrome)(Confirmed) PTSD (post-traumatic stress 12/17/10 Active disorder)(Confirmed) Odynophagia(Confirmed) Active Social History Social History Type Response Smoking Status Former smoker; Tobacco user in household: No; Other: pt states she is a sometime marijuana smoker; entered on: 11/26/17 Sex
--- OUTSIDE RECORDS SUMMARY | 2022-11-24 10:02 | XMS_ITS | Continuity of Care Document ---
:1994 Author Organization [facility] Address [address] [place] [address]- Care Team Providers Name Role Phone Seema KEMP, Alana Primary Care Physician Encounter [facility] [place] Date(s): 12/12/21 - 01/11/22 [facility] [address] [place] [address]- Attending Physician: Rodrick Robins Admitting Physician: Rodrick Robins Referring Physician: AdmtrRodrick Allergies, Adverse Reactions, Alerts No Known Allergies [...] 08/08/19 Status: OrderedBD UF ORIG PEN NDL 12.2KGX49G BD UF ORIG PEN NDL 12.3LZA22C, 0 Refills, Maintenance, 12/22/18 11:19:59 EDT Start Date: 12/22/18 Status: Orderedbudesonide 0.5 mg/2 mL inhalation suspension 0.5 mg, 2, mL, Neb, 2 times a day, # 120 mL, Refills 11, Tot. Refills 11, Maintenance, 11/26/17 14:23:51, Suspension, Route to Pharmacy Electronically, [id number], [facility]/pharmacy #[id number] Start Date: 11/26/17 Status: Orderedenalapril 20 mg [...] 90 UNITS BEFORE DINNER., # 70 mL, 4 Refills, Maintenance, 11/22/21 13:42:00 EST, [facility]/pharmacy #[id number], e11.65;, 90 UNITS BEFORE BREAKFAST, 90 UNITS BEFORE DINNER., 159.3, cm, 04/16/21 13:48:00 EDT, Height Start Date: 11/22/21 Status: OrderedHYDROCHLOROTHIAZIDE HYDROCHLOROTHIAZIDE, 25 mg, By Mouth, Daily, Refills 0, Maintenance, 12/11/15 14:43:30, Compound Start Date: 12/11/15 Status: Orderedhydrochlorothiazide 25 mg oral tablet 25 mg, 1, tablet, By Mouth, Daily, # 30 tablet, Refills 5, Tot. Refills 5, Maintenance, 01/22/17 15:56:56, Route to Pharmacy Electronically, [id number], [facility]/pharmacy #[id number] Start Date: 01/22/17 Status: OrderedInsulin [...] Refills, Maintenance, 06/14/20 12:08:00 EDT, ER Tablet, [facility]/pharmacy #[id number], E11.65, 159.3, cm, 08/08/19 10:03:00 [...] EC Capsule Start Date: 08/26/16 Status: OrderedPen [place], 29 G x 12.7 mm BD Ultra [...] Maintenance, 07/09/17 15:16:21, Route to Pharmacy Electronically, [id number], [facility]/pharmacy #[id number] Start Date: 07/09/17 Stop Date: 11/06/17 Status: OrderedPulmicort Respules 0.5 mg/2 mL inhalation suspension 0.5 mg, 2, mL, Neb, 2 times a day, # 120 mL, Refills 3, Tot. Refills 3, Maintenance, 07/09/17 15:15:53, Inhalation Suspension, Route to Pharmacy Electronically, [id number], [facility]/pharmacy #[id number] Start Date: 07/09/17 Stop Date: [...]
--- OUTSIDE RECORDS SUMMARY | 2022-11-24 10:02 | XMS_ITS | Continuity of Care Document ---
:1994 Author Organization [facility] Address [address] [place] [phone]- Care Team Providers Name Role Phone Seema KEMP, Alana Primary Care Physician Encounter [facility] [place] Date(s): 07/07/22 - 08/06/22 [facility] [address] [address]- Allergies, Adverse Reactions, Alerts No Known Allergies [...] 08/08/19 Status: OrderedBD UF ORIG PEN NDL 12.5ADW78T BD UF ORIG PEN NDL 12.5EAS06E, 0 Refills, Maintenance, 12/22/18 11:19:59 EDT Start Date: 12/22/18 Status: Orderedbudesonide 0.5 mg/2 mL inhalation suspension 0.5 mg, 2, mL, Neb, 2 times a day, # 120 mL, Refills 11, Tot. Refills 11, Maintenance, 11/26/17 14:23:51, Suspension, Route to Pharmacy Electronically, [id number], [facility]/pharmacy #[id number] Start Date: 11/26/17 Status: Orderedenalapril 20 mg [...] 12:10:05 EDT, Compound Start Date: 12/22/18 Status: OrderedFreeStyle Dontae 2 Monitor See Instructions, # 1 each, Refills 0, Tot. Refills 0, Maintenance, [place] for FreeStyle Dontae 2, 07/28/22 6:51:00 EDT, Supply, 159.3, cm, 07/15/22 10:49:00 EDT, Height Start Date: 07/28/22 Status: OrderedFreeStyle Dontae 2 Sensors See Instructions, # 6 each, Refills 2, Tot. Refills 2, Maintenance, Use one sensor every 14 days, 07/28/22 6:52:00 EDT, Supply, 159.3, cm, 07/15/22 10:49:00 EDT, Height Start Date: 07/28/22 Status: OrderedFreestyle Lite Monitor See Instructions, # 1 each, Refills 0, Tot. Refills 0, Maintenance, TO USE TO TEST GLUCOSE 2 X A DAY., 07/16/22 9:28:00 EDT, E11.65, PLEASE SET DATE AND TIME ON METER BEFORE GIVING TO PATIENT., Compound, 159.3, cm, 07/15/22 10:49:00 EDT, Height Start Date: 07/16/22 Status: OrderedFREESTYLE LITE TEST STRIP FREESTYLE LITE TEST STRIP, 0 Refills, Maintenance, 12/22/18 11:19:03 EDT Start Date: 12/22/18 Status: OrderedFreestyle Lite Test Strips See Instructions, # 100 each, Refills 11, Tot. Refills 11, Maintenance, 3 x a day glucose checks., 04/21/18 9:35:38 EDT, E11.65, Compound Start Date: 04/21/18 Status: OrderedFreestyle Lite Test Strips See Instructions, # 100 each, Refills 11, Tot. Refills 11, Maintenance, TO TEST 2 X A DAY GLUCOSE, 07/16/22 9:30:00 EDT, E11.65, Compound, 159.3, cm, 07/15/22 10:49:00 EDT, Height Start Date: 07/16/22 Status: OrderedHumaLOG Mix 75/25 KwikPen subcutaneous suspension See Instructions, INJECT 90 UNITS SUBCUTANEOUSLY BEFORE breakfast AND 90 UNITS SUBCUTANEOUSLY BEFOREdinner DX E11.9, # 75 mL, 3 Refills, Maintenance, 07/16/22 9:34:00 EDT, [facility], 41, INJECT 90 UNITS SUBCUTANEOUSLY BEFORE b... Start Date: 07/16/22 Status: OrderedHYDROCHLOROTHIAZIDE HYDROCHLOROTHIAZIDE, 25 mg, By Mouth, Daily, Refills 0, Maintenance, 12/11/15 14:43:30, Compound Start Date: 12/11/15 Status: Orderedhydrochlorothiazide 25 mg oral tablet 25 mg, 1, tablet, By Mouth, Daily, # 30 tablet, Refills 5, Tot. Refills 5, Maintenance, 01/22/17 15:56:56, Route to Pharmacy Electronically, [id number], [facility]/pharmacy #[id number] Start Date: 01/22/17 Status: OrderedInsulin Syringe, BD [...] 2 times a day with meals, # 120 tablet, 3 Refills, Maintenance, 07/16/22 9:39:00 EDT, ER Tablet, [facility], E11.65, 159.3, cm, 07/15/22 10:49:00 EDT,Height Start Date: 07/16/22 Stop Date: 11/13/22 Status: OrderedMETFORMIN HCL ER 500 MG TABLET [...] EC Capsule Start Date: 08/26/16 Status: OrderedPen [place], 29 G x 12.7 mm BD Ultra Fine See Instructions, # 100 each, Refills 11, Tot. Refills 11, Maintenance, 2 X A DAY INJECTIONS, 07/16/22 9:37:00 EDT, e11.65, Compound, 159.3, cm, 07/15/22 10:49:00 EDT, Height Start Date: 07/16/22 Stop Date: 07/11/23 Status: Orderedprazosin 2 mg oral capsule 1 capsule = 2 mg, By Mouth, 3 times a day, 0 Refills, Maintenance, 12/22/18 11:21:09 EDT Start Date: 12/22/18 Status: OrderedProAir HFA 90 mcg/inh inhalation aerosol with adapter 2, puffs, Inhalation, Every 4 hours, PRN, use with spacer chamber, # 1 each, Refills 3, Tot. Refills3, Maintenance, 07/09/17 15:16:21, Route to Pharmacy Electronically, [id number], [facility]/pharmacy #[id number] Start Date: 07/09/17 Stop Date: 11/06/17 Status: OrderedPulmicort Respules 0.5 mg/2 mL inhalation suspension 0.5 mg, 2, mL, Neb, 2 times a day, # 120 mL, Refills 3, Tot. Refills 3, Maintenance, 07/09/17 15:15:53, Inhalation Suspension, Route to Pharmacy Electronically, [id number], [facility]/pharmacy #[id number] Start Date: 07/09/17 Stop Date: 11/06/17 Status: OrderedPulmicort Respules 0.5 mg/2 mL inhalation suspension Refills 0, Maintenance, 12/22/18 11:20:14 EDT Start Date: 12/22/18 Status: Ordered Problem List Condition Confirmation Course Effective Dates Status Health Stat us Informant Abdominal pain Confirmed Active Anxiety Disorder Confirmed 07/21/12 Active NOS Apnea, sleep Confirmed Active Bipolar disorder Confirmed Active Depression Confirmed Active Diabetes mellitus Confirmed Active type 2 in obese Passage of loose Confirmed Active stools 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 Dysphagia Confirmed Active Epigastric pain Confirmed Active Encounter for Confirmed Active diagnostic colonoscopy due to change in bowel habits Heartburn symptom Confirmed Active H/O nausea Confirmed Active Hypertension Confirmed Active Learning disability Confirmed 07/21/12 Active not otherwise specified Metabolic syndrome Confirmed Active Morbid obesity Confirmed Active Medical Confirmed Active non-compliance PCOS - Polycystic Confirmed Active ovarian syndrome PCOS (polycystic Confirmed Active ovarian syndrome) PCOS (polycystic Confirmed Active ovarian syndrome) PTSD Confirmed 12/17/10 Active (post-traumatic stress disorder) Severe obesity Confirmed Active Odynophagia Confirmed Active Social History Social History Type Response Smoking Status Former smoker; Tobacco user in household: No; Other: pt states she is a sometime marijuana smoker; entered on: 11/26/17 Sex Patient Care team information PersonnelName: Alana Stephenson NP Address: Address: [address] [place], [place] [address]
--- OUTSIDE RECORDS SUMMARY | 2022-11-24 10:02 | XMS_ITS | Continuity of Care Document ---
:1994 Author Organization [facility] Address [address] [place] [phone]- Care Team Providers Name Role Phone Tiffani KEMP, [employer] Primary Care Physician Encounter [facility] [place] Date(s): 11/09/20 - 12/09/20 [facility] [address] [place] [phone]- Allergies, Adverse Reactions, Alerts Substance Reaction Severity Status NKA Active Medications Abilify 5 mg oral tablet 1 [...] 08/08/19 Status: OrderedBD UF ORIG PEN NDL 12.6BAQ84S BD UF ORIG PEN NDL 12.7ZYL96O, 0 Refills, Maintenance, 12/22/18 11:19:59 EDT Start Date: 12/22/18 Status: Orderedbudesonide 0.5 mg/2 mL inhalation suspension 0.5 mg, 2, mL, Neb, 2 times a day, # 120 mL, Refills 11, Tot. Refills 11, Maintenance, 11/26/17 14:23:51, Suspension, Route to Pharmacy Electronically, [id number], [facility]/pharmacy #[id number] Start Date: 11/26/17 Status: Orderedenalapril 20 mg [...] 90 UNITS BEFORE DINNER., # 70 mL, 0 Refills, Maintenance, 09/13/20 11:20:00 EST, [facility]/pharmacy #[id number], e11.65;, 90 UNITS BEFORE BREAKFAST, 90 UNITS BEFORE DINNER., 159.3, cm, 08/08/19 10:03:00 EDT, Height, 17... Start Date: 09/13/20 Status: OrderedHYDROCHLOROTHIAZIDE HYDROCHLOROTHIAZIDE, 25 mg, By Mouth, Daily, Refills 0, Maintenance, 12/11/15 14:43:30, Compound Start Date: 12/11/15 Status: Orderedhydrochlorothiazide 25 mg oral tablet 25 mg, 1, tablet, By Mouth, Daily, # 30 tablet, Refills 5, Tot. Refills 5, Maintenance, 01/22/17 15:56:56, Route to Pharmacy Electronically, [id number], [facility]/pharmacy #[id number] Start Date: 01/22/17 Status: OrderedKlonoPIN 1 mg oral tablet 1 [...] Refills, Maintenance, 06/14/20 12:08:00 EDT, ER Tablet, [facility]/pharmacy #[id number], E11.65, 159.3, cm, 08/08/19 10:03:00 [...] EC Capsule Start Date: 08/26/16 Status: OrderedPen [place], 29 G x 12.7 mm BD Ultra [...] Maintenance, 07/09/17 15:16:21, Route to Pharmacy Electronically, [id number], [facility]/pharmacy #[id number] Start Date: 07/09/17 Stop Date: 11/06/17 Status: OrderedPulmicort Respules 0.5 mg/2 mL inhalation suspension 0.5 mg, 2, mL, Neb, 2 times a day, # 120 mL, Refills 3, Tot. Refills 3, Maintenance, 07/09/17 15:15:53, Inhalation Suspension, Route to Pharmacy Electronically, [id number], [facility]/pharmacy #[id number] Start Date: 07/09/17 Stop Date: 11/06/17 Status: [...]
--- OUTSIDE RECORDS SUMMARY | 2022-11-24 10:02 | XMS_ITS | Continuity of Care Document ---
:1994 Author Organization [facility] Address [address] [place] [phone]- Care Team Providers Name Role Phone Tiffani KEMP, [employer] Primary Care Physician Encounter [facility] [place] Date(s): 01/18/20 - 01/28/20 [facility] [address] [place] [phone]- [facility] Attending Physician: Admmagalis, Mark8 Admitting Physician: AdmtrRodrick Referring Physician: Admtr, Ar8 Allergies, Adverse Reactions, Alerts Substance Reaction Severity [...] 08/08/19 Status: OrderedBD UF ORIG PEN NDL 12.7MRM59P BD UF ORIG PEN NDL 12.7CLG98S, 0 Refills, Maintenance, 12/22/18 11:19:59 EDT Start Date: 12/22/18 Status: Orderedbudesonide 0.5 mg/2 mL inhalation suspension 0.5 mg, 2, mL, Neb, 2 times a day, # 120 mL, Refills 11, Tot. Refills 11, Maintenance, 11/26/17 14:23:51, Suspension, Route to Pharmacy Electronically, [id number], [facility]/pharmacy #[id number] Start Date: 11/26/17 Status: Orderedenalapril 20 mg [...] 90 UNITS BEFORE DINNER., # 70 mL, 11 Refills, Maintenance, 12/22/18 12:06:14 EDT, e11.65, 90 UNITS BEFORE BREAKFAST, 90 UNITS BEFORE DINNER. Start Date: 12/22/18 Status: OrderedHYDROCHLOROTHIAZIDE HYDROCHLOROTHIAZIDE, 25 mg, By Mouth, Daily, Refills 0, Maintenance, 12/11/15 14:43:30, Compound Start Date: 12/11/15 Status: Orderedhydrochlorothiazide 25 mg oral tablet 25 mg, 1, tablet, By Mouth, Daily, # 30 tablet, Refills 5, Tot. Refills 5, Maintenance, 01/22/17 15:56:56, Route to Pharmacy Electronically, [id number], [facility]/pharmacy #[id number] Start Date: 01/22/17 Status: OrderedKlonoPIN 1 mg [...] Refills, Maintenance, 06/14/20 12:08:00 EDT, ER Tablet, [facility]/pharmacy #[id number], E11.65, 159.3, cm, 08/08/19 10:03:00 EDT, Height, 176.7, kg, 08/08/19 10:03:00 EDT, Dry Weight Start Date: 06/14/20 Stop Date: 06/09/21 Status: OrderedmetFORMIN 500 mg oral tablet, extended release 1 tablet = 500 mg, By Mouth, 2 times a day with meals, for 90 days, # 180 tablet, 5 Refills, Hard Stop 06/14/20 12:08:01 EDT, 12/22/18 12:08:01 EDT, ER Tablet, [facility]/pharmacy #[id number], E11.65 Start Date: 12/22/18 Stop Date: 06/14/20 Status: OrderedMETFORMIN HCL ER 500 MG TABLET [...] EC Capsule Start Date: 08/26/16 Status: OrderedPen [place], 29 G x 12.7 mm BD Ultra [...] Maintenance, 07/09/17 15:16:21, Route to Pharmacy Electronically, [id number], [facility]/pharmacy #[id number] Start Date: 07/09/17 Stop Date: 11/06/17 Status: OrderedPulmicort Respules 0.5 mg/2 mL inhalation suspension 0.5 mg, 2, mL, Neb, 2 times a day, # 120 mL, Refills 3, Tot. Refills 3, Maintenance, 07/09/17 15:15:53, Inhalation Suspension, Route to Pharmacy Electronically, [id number], [facility]/pharmacy #[id number] Start Date: 07/09/17 Stop Date: 11/06/17 [...]
--- OUTSIDE RECORDS SUMMARY | 2022-11-24 10:02 | XMS_ITS | Continuity of Care Document ---
:1994 Author Organization [facility] Address [address] [place] [address]- Care Team Providers Name Role Phone Seema KEMP, Alana Primary Care Physician Encounter [facility] Date(s): 12/31/21 - 01/30/22 [facility] [address] [place] [phone]- Attending Physician: Rodrick Robins Admitting Physician: Rodrick [...] 08/08/19 Status: OrderedBD UF ORIG PEN NDL 12.8DSH62M BD UF ORIG PEN NDL 12.5WSF29Y, 0 Refills, Maintenance, 12/22/18 11:19:59 EDT Start Date: 12/22/18 Status: Orderedbudesonide 0.5 mg/2 mL inhalation suspension 0.5 mg, 2, mL, Neb, 2 times a day, # 120 mL, Refills 11, Tot. Refills 11, Maintenance, 11/26/17 14:23:51, Suspension, Route to Pharmacy Electronically, [id number], [facility]/pharmacy #[id number] Start Date: 11/26/17 Status: Orderedenalapril 20 mg [...] mL, 4 Refills, Maintenance, 11/22/21 13:42:00 EST, [facility]/pharmacy #[id number], e11.65;, 90 UNITS BEFORE BREAKFAST, 90 [...] Maintenance, 01/22/17 15:56:56, Route to Pharmacy Electronically, [id number], [facility]/pharmacy #[id number] Start Date: 01/22/17 Status: OrderedInsulin Syringe, [...] Refills, Maintenance, 06/14/20 12:08:00 EDT, ER Tablet, [facility]/pharmacy #[id number], E11.65, 159.3, cm, 08/08/19 [...] EC Capsule Start Date: 08/26/16 Status: OrderedPen [place], 29 G x 12.7 mm BD Ultra [...] Maintenance, 07/09/17 15:16:21, Route to Pharmacy Electronically, [id number], [facility]/pharmacy #[id number] Start Date: 07/09/17 Stop Date: 11/06/17 Status: OrderedPulmicort Respules 0.5 mg/2 mL inhalation suspension 0.5 mg, 2, mL, Neb, 2 times a day, # 120 mL, Refills 3, Tot. Refills 3, Maintenance, 07/09/17 15:15:53, Inhalation Suspension, Route to Pharmacy Electronically, [id number], [facility]/pharmacy #[id number] Start Date: 07/09/17 Stop [...]
--- OUTSIDE RECORDS SUMMARY | 2022-11-24 10:02 | XMS_ITS | Continuity of Care Document ---
:1994 Author Organization [facility] Address [address] [place] [phone]- Care Team Providers Name Role Phone Pelon TRANSPORTATION ASSISTANT, Vanessa Price Primary Care Physician Encounter [facility] Date(s): 02/11/21 - 03/13/21 [facility] [address] [address]- Attending Physician: Rodrick Robins Admitting Physician: Rodrick Robins Referring Physician: Rodrick Robins Allergies, Adverse Reactions, Alerts Substance Reaction Severity [...] 08/08/19 Status: OrderedBD UF ORIG PEN NDL 12.4OWY45U BD UF ORIG PEN NDL 12.8JAB82F, 0 Refills, Maintenance, 12/22/18 11:19:59 EDT Start Date: 12/22/18 Status: Orderedbudesonide 0.5 mg/2 mL inhalation suspension 0.5 mg, 2, mL, Neb, 2 times a day, # 120 mL, Refills 11, Tot. Refills 11, Maintenance, 11/26/17 14:23:51, Suspension, Route to Pharmacy Electronically, [id number], [facility]/pharmacy #[id number] Start Date: 11/26/17 Status: Orderedenalapril 20 mg [...] mL, 0 Refills, Maintenance, 09/13/20 11:20:00 EST, [facility]/pharmacy #[id number], e11.65;, 90 UNITS BEFORE BREAKFAST, [...] Maintenance, 01/22/17 15:56:56, Route to Pharmacy Electronically, [id number], [facility]/pharmacy #[id number] Start Date: 01/22/17 Status: OrderedKlonoPIN [...] Refills, Maintenance, 06/14/20 12:08:00 EDT, ER Tablet, [facility]/pharmacy #[id number], E11.65, 159.3, cm, 08/08/19 10:03:00 [...] EC Capsule Start Date: 08/26/16 Status: OrderedPen [place], 29 G x 12.7 mm BD Ultra [...] Maintenance, 07/09/17 15:16:21, Route to Pharmacy Electronically, [id number], [facility]/pharmacy #[id number] Start Date: 07/09/17 Stop Date: 11/06/17 Status: OrderedPulmicort Respules 0.5 mg/2 mL inhalation suspension 0.5 mg, 2, mL, Neb, 2 times a day, # 120 mL, Refills 3, Tot. Refills 3, Maintenance, 07/09/17 15:15:53, Inhalation Suspension, Route to Pharmacy Electronically, [id number], [facility]/pharmacy #[id number] Start Date: 07/09/17 Stop Date: 11/06/17 [...]
--- OUTSIDE RECORDS SUMMARY | 2022-11-24 10:02 | XMS_ITS | Continuity of Care Document ---
:1994 Author Organization [facility] Address [address] [place] [phone]- Care Team Providers Name Role Phone Seema KEMP, Alana Primary Care Physician [place] [facility] [place] 11[place]25[place] - 03/19/22 [facility] [address] [place] [phone]- Attending Physician: Emre Mariscal MD Admitting Physician: Emre Mariscal MD Referring Physician: Alana Stephenson NP Allergies, Adverse Reactions, Alerts No Known Allergies [...] 08/08/19 Status: OrderedBD UF ORIG PEN NDL 12.3YHO52K BD UF ORIG PEN NDL 12.9CHS42E, 0 Refills, Maintenance, 12/22/18 11:19:59 EDT Start Date: 12/22/18 Status: Orderedbudesonide 0.5 mg/2 mL inhalation suspension 0.5 mg, 2, mL, Neb, 2 times a day, # 120 mL, Refills 11, Tot. Refills 11, Maintenance, 11/26/17 14:23:51, Suspension, Route to Pharmacy Electronically, [id number], [facility]/pharmacy #[id number] Start Date: 11/26/17 Status: Orderedenalapril 20 mg [...] mL, 4 Refills, Maintenance, 11/22/21 13:42:00 EST, [facility]/pharmacy #[id number], e11.65;, 90 UNITS BEFORE BREAKFAST, 90 [...] Maintenance, 01/22/17 15:56:56, Route to Pharmacy Electronically, [id number], [facility]/pharmacy #[id number] Start Date: 01/22/17 Status: OrderedInsulin Syringe, [...] Refills, Maintenance, 06/14/20 12:08:00 EDT, ER Tablet, [facility]/pharmacy #[id number], E11.65, 159.3, cm, 08/08/19 10:03:00 EDT, [...] EC Capsule Start Date: 08/26/16 Status: OrderedPen [place], 29 G x 12.7 mm BD Ultra [...] Maintenance, 07/09/17 15:16:21, Route to Pharmacy Electronically, [id number], [facility]/pharmacy #[id number] Start Date: 07/09/17 Stop Date: 11/06/17 Status: OrderedPulmicort Respules 0.5 mg/2 mL inhalation suspension 0.5 mg, 2, mL, Neb, 2 times a day, # 120 mL, Refills 3, Tot. Refills 3, Maintenance, 07/09/17 15:15:53, Inhalation Suspension, Route to Pharmacy Electronically, [id number], [facility]/pharmacy #[id number] Start Date: 07/09/17 Stop Date: 11/06/17 [...]
--- OUTSIDE RECORDS SUMMARY | 2022-11-24 10:03 | XMS_ITS | Continuity of Care Document ---
:1994 Author Organization [facility] Address [address] [place] [phone]- Care Team Providers Name Role Phone Tiffani KEMP, [employer] Primary Care Physician Encounter [facility] Date(s): 09/11/20 - 10/11/20 [facility] [address] [place] [phone]- Allergies, Adverse Reactions, Alerts Substance Reaction Severity [...] 08/08/19 Status: OrderedBD UF ORIG PEN NDL 12.6SZQ43O BD UF ORIG PEN NDL 12.7WGI70E, 0 Refills, Maintenance, 12/22/18 11:19:59 EDT Start Date: 12/22/18 Status: Orderedbudesonide 0.5 mg/2 mL inhalation suspension 0.5 mg, 2, mL, Neb, 2 times a day, # 120 mL, Refills 11, Tot. Refills 11, Maintenance, 11/26/17 14:23:51, Suspension, Route to Pharmacy Electronically, [id number], [facility]/pharmacy #[id number] Start Date: 11/26/17 Status: Orderedenalapril 20 mg [...] mL, 0 Refills, Maintenance, 09/13/20 11:20:00 EST, [facility]/pharmacy #[id number], e11.65;, 90 UNITS BEFORE [...] Maintenance, 01/22/17 15:56:56, Route to Pharmacy Electronically, [id number], [facility]/pharmacy #[id number] Start Date: 01/22/17 Status: OrderedKlonoPIN 1 [...] EC Capsule Start Date: 08/26/16 Status: [place], 29 G x 12.7 mm BD Ultra [...] Maintenance, 07/09/17 15:16:21, Route to Pharmacy Electronically, [id number], [facility]/pharmacy #[id number] Start Date: 07/09/17 Stop Date: 11/06/17 Status: OrderedPulmicort Respules 0.5 mg/2 mL inhalation suspension 0.5 mg, 2, mL, Neb, 2 times a day, # 120 mL, Refills 3, Tot. Refills 3, Maintenance, 07/09/17 15:15:53, Inhalation Suspension, Route to Pharmacy Electronically, [id number], [facility]/pharmacy #[id number] Start Date: 07/09/17 [...]
--- OUTSIDE RECORDS SUMMARY | 2022-11-24 10:03 | XMS_ITS | Continuity of Care Document ---
:1994 Author Organization [facility] Address [address] [place] [address]- Care Team Providers Name Role Phone Seema KEMP, Alana Primary Care Physician Encounter [facility] Date(s): 11/22/21 - 12/22/21 [facility]ology [facility] Diabetes [address] [place] [address]- Allergies, Adverse Reactions, Alerts No Known Allergies [...] 08/08/19 Status: OrderedBD UF ORIG PEN NDL 12.0BFD31Q BD UF ORIG PEN NDL 12.4DZL74F, 0 Refills, Maintenance, 12/22/18 11:19:59 EDT Start Date: 12/22/18 Status: Orderedbudesonide 0.5 mg/2 mL inhalation suspension 0.5 mg, 2, mL, Neb, 2 times a day, # 120 mL, Refills 11, Tot. Refills 11, Maintenance, 11/26/17 14:23:51, Suspension, Route to Pharmacy Electronically, [id number], [facility]/pharmacy #[id number] Start Date: 11/26/17 Status: Orderedenalapril 20 mg [...] mL, 4 Refills, Maintenance, 11/22/21 13:42:00 EST, [facility]/pharmacy #[id number], e11.65;, 90 UNITS BEFORE BREAKFAST, 90 [...] Maintenance, 01/22/17 15:56:56, Route to Pharmacy Electronically, [id number], [facility]/pharmacy #207 Start Date: 01/22/17 Status: OrderedInsulin Syringe, BD [...] Refills, Maintenance, 06/14/20 12:08:00 EDT, ER Tablet, [facility]/pharmacy #2071, E11.65, 159.3, cm, 08/08/19 10:03:00 EDT, [...] EC Capsule Start Date: 08/26/16 Status: OrderedPen [place], 29 G x 12.7 mm BD Ultra [...] Maintenance, 07/09/17 15:16:21, Route to Pharmacy Electronically, [id number], [facility]/pharmacy #[id number] Start Date: 07/09/17 Stop Date: 11/06/17 Status: OrderedPulmicort Respules 0.5 mg/2 mL inhalation suspension 0.5 mg, 2, mL, Neb, 2 times a day, # 120 mL, Refills 3, Tot. Refills 3, Maintenance, 07/09/17 15:15:53, Inhalation Suspension, Route to Pharmacy Electronically, [id number], [facility]/pharmacy #[id number] Start Date: 07/09/17 Stop Date: 11/06/17 [...]
--- OUTSIDE RECORDS SUMMARY | 2022-11-24 10:03 | XMS_ITS | Continuity of Care Document ---
:1994 Author Organization [facility] Address [address] [place] [address]- Care Team Providers Name Role Phone Grupo Nixon NP Primary Care Physician Encounter [facility] Date(s): 08/16/19 - 12/14/19 [facility] Endocrinology and Diabetes [address] [place] [address]- [facility] Attending Physician: Emre Mariscal MD Admitting Physician: Emre Mariscal MD Referring Physician: Grupo Nixon NP Allergies, Adverse Reactions, Alerts Substance Reaction Severity [...] 08/08/19 Status: OrderedBD UF ORIG PEN NDL 12.1HHO13S BD UF ORIG PEN NDL 12.2EAX20Z, 0 Refills, Maintenance, 12/22/18 11:19:59 EDT Start Date: 12/22/18 Status: Orderedbudesonide 0.5 mg/2 mL inhalation suspension 0.5 mg, 2, mL, Neb, 2 times a day, # 120 mL, Refills 11, Tot. Refills 11, Maintenance, 11/26/17 14:23:51, Suspension, Route to Pharmacy Electronically, [id number], [facility]/pharmacy #[id number] Start Date: 11/26/17 Status: Orderedenalapril 20 mg [...] Maintenance, 01/22/17 15:56:56, Route to Pharmacy Electronically, [id number], [facility]/pharmacy #[id number] Start Date: 01/22/17 Status: OrderedKlonoPIN 1 mg [...] 2 times a day with meals, # 180 tablet, 5 Refills, Maintenance, 12/22/18 12:08:01 EDT, ER Tablet, E11.65 Start Date: 12/22/18 Stop Date: 06/14/20 [...] EC Capsule Start Date: 08/26/16 Status: OrderedPen [place], 29 G x 12.7 mm BD Ultra [...] Maintenance, 07/09/17 15:16:21, Route to Pharmacy Electronically, [id number], [facility]/pharmacy #[id number] Start Date: 07/09/17 Stop Date: 11/06/17 Status: OrderedPulmicort Respules 0.5 mg/2 mL inhalation suspension 0.5 mg, 2, mL, Neb, 2 times a day, # 120 mL, Refills 3, Tot. Refills 3, Maintenance, 07/09/17 15:15:53, Inhalation Suspension, Route to Pharmacy Electronically, [id number], [facility]/pharmacy #[id number] Start Date: 07/09/17 Stop Date: [...]
--- OUTSIDE RECORDS SUMMARY | 2022-11-24 10:03 | XMS_ITS | Continuity of Care Document ---
:1994 Author Organization [facility] Address [address] [place] [address]- Care Team Providers Name Role Phone Tiffani KEMP, Grupo Parra Primary Care Physician Encounter [facility] Date(s): 11/12/20 - 12/13/20 [facility] Endocrinology and Diabetes [address] [place] [address]- Attending Physician: Emre Mariscal MD Admitting Physician: [...] 08/08/19 Status: OrderedBD UF ORIG PEN NDL 12.1MWQ77B BD UF ORIG PEN NDL 12.8OMH46E, 0 Refills, Maintenance, 12/22/18 11:19:59 EDT Start Date: 12/22/18 Status: Orderedbudesonide 0.5 mg/2 mL inhalation suspension 0.5 mg, 2, mL, Neb, 2 times a day, # 120 mL, Refills 11, Tot. Refills 11, Maintenance, 11/26/17 14:23:51, Suspension, Route to Pharmacy Electronically, [id number], [facility]/pharmacy #[id number] Start Date: 11/26/17 Status: Orderedenalapril 20 mg [...] mL, 0 Refills, Maintenance, 09/13/20 11:20:00 EST, [facility]/pharmacy #2071, e11.65;, 90 UNITS BEFORE BREAKFAST, [...] Maintenance, 01/22/17 15:56:56, Route to Pharmacy Electronically, [id number], [facility]/pharmacy #[id number] Start Date: 01/22/17 Status: OrderedKlonoPIN [...] Maintenance, 06/14/20 12:08:00 EDT, ER Tablet, [facility]/pharmacy #2071, E11.65, 159.3, cm, 08/08/19 10:03:00 [...] EC Capsule Start Date: 08/26/16 Status: OrderedPen [place], 29 G x 12.7 mm BD Ultra [...] Maintenance, 07/09/17 15:16:21, Route to Pharmacy Electronically, [id number], [facility]/pharmacy #[id number] Start Date: 07/09/17 Stop Date: 11/06/17 Status: OrderedPulmicort Respules 0.5 mg/2 mL inhalation suspension 0.5 mg, 2, mL, Neb, 2 times a day, # 120 mL, Refills 3, Tot. Refills 3, Maintenance, 07/09/17 15:15:53, Inhalation Suspension, Route to Pharmacy Electronically, [id number], [facility]/pharmacy #[id number] Start Date: 07/09/17 Stop Date: [...]
--- OUTSIDE RECORDS SUMMARY | 2022-11-24 10:03 | XMS_ITS | Continuity of Care Document ---
:1994 Author Organization [facility] Address [address] [place] [address]- Care Team Providers Name Role Phone Seema KEMP, Alana Primary Care Physician [place] [facility] [place] 07/25/22 - 08/24/22 [facility] Endocrinology and Diabetes [address] [place] [address]- Allergies, Adverse Reactions, Alerts No Known Allergies [...] 08/08/19 Status: OrderedBD UF ORIG PEN NDL 12.2JZS06W BD UF ORIG PEN NDL 12.8QXE96I, 0 Refills, Maintenance, 12/22/18 11:19:59 EDT Start Date: 12/22/18 Status: Orderedbudesonide 0.5 mg/2 mL inhalation suspension 0.5 mg, 2, mL, Neb, 2 times a day, # 120 mL, Refills 11, Tot. Refills 11, Maintenance, 11/26/17 14:23:51, Suspension, Route to Pharmacy Electronically, [id number], [facility]/pharmacy #[id number] Start Date: 11/26/17 Status: Orderedenalapril 20 mg [...] each, Refills 0, Tot. Refills 0, Maintenance, [place] for FreeStyle Dontae 2, 07/28/22 6:51:00 EDT, [...] mL, 3 Refills, Maintenance, 07/16/22 9:34:00 EDT, [facility], 41, INJECT 90 UNITS SUBCUTANEOUSLY BEFORE b... Start Date: 07/16/22 Status: OrderedHYDROCHLOROTHIAZIDE HYDROCHLOROTHIAZIDE, 25 mg, By Mouth, Daily, Refills 0, Maintenance, 12/11/15 14:43:30, Compound Start Date: 12/11/15 Status: Orderedhydrochlorothiazide 25 mg oral tablet 25 mg, 1, tablet, By Mouth, Daily, # 30 tablet, Refills 5, Tot. Refills 5, Maintenance, 01/22/17 15:56:56, Route to Pharmacy Electronically, [id number], [facility]/pharmacy #[id number] Start Date: 01/22/17 Status: OrderedInsulin Syringe, BD [...] Refills, Maintenance, 07/16/22 9:39:00 EDT, ER Tablet, [facility], E11.65, 159.3, cm, 07/15/22 10:49:00 [...] EC Capsule Start Date: 08/26/16 Status: OrderedPen [place], 29 G x 12.7 mm BD Ultra [...] Maintenance, 07/09/17 15:16:21, Route to Pharmacy Electronically, [id number], [facility]/pharmacy #[id number] Start Date: 07/09/17 Stop Date: 11/06/17 Status: OrderedPulmicort Respules 0.5 mg/2 mL inhalation suspension 0.5 mg, 2, mL, Neb, 2 times a day, # 120 mL, Refills 3, Tot. Refills 3, Maintenance, 07/09/17 15:15:53, Inhalation Suspension, Route to Pharmacy Electronically, [id number], [facility]/pharmacy #[id number] Start Date: 07/09/17 Stop Date: 11/06/17 [...] on: 11/26/17 Sex Patient Care team information Care Team PersonnelName: Sheryl Lyons RN Position: S RN Member Role: Primary Care Nurse Name: Bess Boykin RN Position: S RN Member Role: Primary Care Nurse Care Team Related PersonsName: JHONY INOCENCIACHARISSA Address: home [address] [place] [address] Name: SERVANDO NEHEMIAS Address: home [address] [place] [address]
--- OUTSIDE RECORDS SUMMARY | 2022-11-24 10:03 | XMS_ITS | Continuity of Care Document ---
:1994 Author Organization [facility] Endocrinology and D reggie Address [address] [place] [address]- Care Team Providers Name Role Phone Seema KEMP, Alana Primary Care Physician Encounter [facility] Date(s): 02/20/22 - 03/22/22 [facility] Endocrinology and Diabetes [address] [place] [address]- Attending Physician: Rodrick Robins Admitting Physician: Rodrick [...] 08/08/19 Status: OrderedBD UF ORIG PEN NDL 12.3IHV91Y BD UF ORIG PEN NDL 12.0FOP16Q, 0 Refills, Maintenance, 12/22/18 11:19:59 EDT Start Date: 12/22/18 Status: Orderedbudesonide 0.5 mg/2 mL inhalation suspension 0.5 mg, 2, mL, Neb, 2 times a day, # 120 mL, Refills 11, Tot. Refills 11, Maintenance, 11/26/17 14:23:51, Suspension, Route to Pharmacy Electronically, [id number], [facility]/pharmacy #[id number] Start Date: 11/26/17 Status: Orderedenalapril 20 mg [...] mL, 4 Refills, Maintenance, 11/22/21 13:42:00 EST, [facility]/pharmacy #[id number], e11.65;, 90 UNITS BEFORE [...] Maintenance, 01/22/17 15:56:56, Route to Pharmacy Electronically, [id number], [facility]/pharmacy #[id number] Start Date: 01/22/17 Status: [...] Refills, Maintenance, 06/14/20 12:08:00 EDT, ER Tablet, [facility]/pharmacy #[id number], E11.65, 159.3, cm, 08/08/19 [...] EC Capsule Start Date: 08/26/16 Status: OrderedPen [place], 29 G x 12.7 mm BD Ultra [...] Maintenance, 07/09/17 15:16:21, Route to Pharmacy Electronically, [id number], [facility]/pharmacy #[id number] Start Date: 07/09/17 Stop Date: 11/06/17 Status: OrderedPulmicort Respules 0.5 mg/2 mL inhalation suspension 0.5 mg, 2, mL, Neb, 2 times a day, # 120 mL, Refills 3, Tot. Refills 3, Maintenance, 07/09/17 15:15:53, Inhalation Suspension, Route to Pharmacy Electronically, [id number], [facility]/pharmacy #[id number] Start Date: 07/09/17 Stop [...]
--- OUTSIDE RECORDS SUMMARY | 2022-11-24 10:03 | XMS_ITS | Continuity of Care Document ---
:1994 Author Organization [facility] Address [address] [place] [address]- Care Team Providers Name Role Phone Seema KEMP, Alana [id number]15[facility] - 10/15/22 [facility] [address] [address]- Attending Physician: Rodrick Robins Admitting Physician: Rodrick Robins Referring Physician: Rodrick Robins Allergies, Adverse Reactions, Alerts No Known Allergies [...] 08/08/19 Status: OrderedBD UF ORIG PEN NDL 12.0WUT93O BD UF ORIG PEN NDL 12.0DXF43U, 0 Refills, Maintenance, 12/22/18 11:19:59 EDT Start Date: 12/22/18 Status: Orderedbudesonide 0.5 mg/2 mL inhalation suspension 0.5 mg, 2, mL, Neb, 2 times a day, # 120 mL, Refills 11, Tot. Refills 11, Maintenance, 11/26/17 14:23:51, Suspension, Route to Pharmacy Electronically, [id number], [facility]/pharmacy #[id number] Start Date: 11/26/17 Status: Orderedenalapril 20 mg [...] each, Refills 0, Tot. Refills 0, Maintenance, [place] for FreeStyle Dontae 2, 07/28/22 6:51:00 EDT, [...] mL, 3 Refills, Maintenance, 07/16/22 9:34:00 EDT, [facility], 41, INJECT 90 UNITS SUBCUTANEOUSLY BEFORE b... Start Date: 07/16/22 Status: OrderedHYDROCHLOROTHIAZIDE HYDROCHLOROTHIAZIDE, 25 mg, By Mouth, Daily, Refills 0, Maintenance, 12/11/15 14:43:30, Compound Start Date: 12/11/15 Status: Orderedhydrochlorothiazide 25 mg oral tablet 25 mg, 1, tablet, By Mouth, Daily, # 30 tablet, Refills 5, Tot. Refills 5, Maintenance, 01/22/17 15:56:56, Route to Pharmacy Electronically, [id number], [facility]/pharmacy #[id number] Start Date: 01/22/17 Status: OrderedInsulin Syringe, BD [...] Refills, Maintenance, 07/16/22 9:39:00 EDT, ER Tablet, [facility], E11.65, 159.3, cm, 07/15/22 10:49:00 [...] EC Capsule Start Date: 08/26/16 Status: OrderedPen [place], 29 G x 12.7 mm BD Ultra [...] Maintenance, 07/09/17 15:16:21, Route to Pharmacy Electronically, [id number], [facility]/pharmacy #[id number] Start Date: 07/09/17 Stop Date: 11/06/17 Status: OrderedPulmicort Respules 0.5 mg/2 mL inhalation suspension 0.5 mg, 2, mL, Neb, 2 times a day, # 120 mL, Refills 3, Tot. Refills 3, Maintenance, 07/09/17 15:15:53, Inhalation Suspension, Route to Pharmacy Electronically, [id number], [facility]/pharmacy #[id number] Start Date: 07/09/17 Stop Date: 11/06/17 [...] Care Team PersonnelName: Sheryl Lyons RN Position: [facility] RN Member Role: Primary Care Nurse Name: Bess Boykin RN Position: KYLIES RN Member Role: Primary Care Nurse Care Team Related PersonsName: JAYESH BOOKER Address: home [address] [place] [address] Name: SERVANDO NEHEMIAS Address: home [address] [place] [address]
--- OUTSIDE RECORDS SUMMARY | 2022-11-24 10:03 | XMS_ITS | Continuity of Care Document ---
:1994 Author Organization [facility] Endocrinology and D reggie Address [address] [place] [address]- Care Team Providers Name Role Phone Tiffani KEMP, Grupo Parra Primary Care Physician [place] [facility] 11/14[place] - 11/24/19 [facility] Endocrinology and Diabetes [address] [place] [address]- [facility] Attending Physician: Admmagalis, Mark8 Admitting Physician: AdmtrRodrick [...] 08/08/19 Status: OrderedBD UF ORIG PEN NDL 12.6ENE36A BD UF ORIG PEN NDL 12.8QOZ28Z, 0 Refills, Maintenance, 12/22/18 11:19:59 EDT Start Date: 12/22/18 Status: Orderedbudesonide 0.5 mg/2 mL inhalation suspension 0.5 mg, 2, mL, Neb, 2 times a day, # 120 mL, Refills 11, Tot. Refills 11, Maintenance, 11/26/17 14:23:51, Suspension, Route to Pharmacy Electronically, [id number], [facility]/pharmacy #[id number] Start Date: 11/26/17 Status: Orderedenalapril 20 mg [...] Maintenance, 01/22/17 15:56:56, Route to Pharmacy Electronically, [id number], [facility]/pharmacy #[id number] Start Date: 01/22/17 Status: OrderedKlonoPIN 1 mg [...] EC Capsule Start Date: 08/26/16 Status: OrderedPen [place], 29 G x 12.7 mm BD Ultra [...] Maintenance, 07/09/17 15:16:21, Route to Pharmacy Electronically, [id number], [facility]/pharmacy #[id number] Start Date: 07/09/17 Stop Date: 11/06/17 Status: OrderedPulmicort Respules 0.5 mg/2 mL inhalation suspension 0.5 mg, 2, mL, Neb, 2 times a day, # 120 mL, Refills 3, Tot. Refills 3, Maintenance, 07/09/17 15:15:53, Inhalation Suspension, Route to Pharmacy Electronically, [id number], [facility]/pharmacy #2079 Start Date: 07/09/17 Stop Date: 11/06/17 Status: [...]
--- OUTSIDE RECORDS SUMMARY | 2022-11-24 10:03 | XMS_ITS | Continuity of Care Document ---
:1994 Author Organization [facility] Endocrinology and D reggie Address [address] [place] [address]- Care Team Providers Name Role Phone Grupo Nixon NP Primary Care Physician Encounter [facility] [place] Date(s): 09/13/20 - 10/13/20 [facility] Endocrinology and Diabetes [address] [place] [address] Allergies, Adverse Reactions, Alerts Substance Reaction Severity [...] 08/08/19 Status: OrderedBD UF ORIG PEN NDL 12.8ADC11F BD UF ORIG PEN NDL 12.4NCD02G, 0 Refills, Maintenance, 12/22/18 11:19:59 EDT Start Date: 12/22/18 Status: Orderedbudesonide 0.5 mg/2 mL inhalation suspension 0.5 mg, 2, mL, Neb, 2 times a day, # 120 mL, Refills 11, Tot. Refills 11, Maintenance, 11/26/17 14:23:51, Suspension, Route to Pharmacy Electronically, [id number], [facility]/pharmacy #[id number] Start Date: 11/26/17 Status: Orderedenalapril 20 mg [...] mL, 0 Refills, Maintenance, 09/13/20 11:20:00 EST, [facility]/pharmacy #2071, e11.65;, 90 UNITS BEFORE [...] Maintenance, 01/22/17 15:56:56, Route to Pharmacy Electronically, [id number], [facility]/pharmacy #[id number] Start Date: 01/22/17 Status: [...] Refills, Maintenance, 06/14/20 12:08:00 EDT, ER Tablet, [facility]/pharmacy #2071, E11.65, 159.3, cm, 08/08/19 [...] EC Capsule Start Date: 08/26/16 Status: OrderedPen [place], 29 G x 12.7 mm BD Ultra [...] Maintenance, 07/09/17 15:16:21, Route to Pharmacy Electronically, [id number], [facility]/pharmacy #[id number] Start Date: 07/09/17 Stop Date: 11/06/17 Status: OrderedPulmicort Respules 0.5 mg/2 mL inhalation suspension 0.5 mg, 2, mL, Neb, 2 times a day, # 120 mL, Refills 3, Tot. Refills 3, Maintenance, 07/09/17 15:15:53, Inhalation Suspension, Route to Pharmacy Electronically, [id number], [facility]/pharmacy #[id number] Start Date: 07/09/17 Stop [...]
--- OUTSIDE RECORDS SUMMARY | 2022-11-24 10:03 | XMS_ITS | Continuity of Care Document ---
:1994 Author Organization [facility] Address [address] [place] [address]- Care Team Providers Name Role Phone Seema KEMP, Alana [id number] - 10/15/[facility] [address] [address]- Attending Physician: Shira Pugh MD Admitting Physician: Shira Pugh MD Allergies, Adverse Reactions, Alerts No Known Allergies [...] 08/08/19 Status: OrderedBD UF ORIG PEN NDL 12.8KZO53F BD UF ORIG PEN NDL 12.2XQZ54D, 0 Refills, Maintenance, 12/22/18 11:19:59 EDT Start Date: 12/22/18 Status: Orderedbudesonide 0.5 mg/2 mL inhalation suspension 0.5 mg, 2, mL, Neb, 2 times a day, # 120 mL, Refills 11, Tot. Refills 11, Maintenance, 11/26/17 14:23:51, Suspension, Route to Pharmacy Electronically, [id number], [facility]/pharmacy #[id number] Start Date: 11/26/17 Status: Orderedenalapril 20 mg [...] each, Refills 0, Tot. Refills 0, Maintenance, [place] for FreeStyle Dontae 2, 07/28/22 6:51:00 EDT, [...] mL, 3 Refills, Maintenance, 07/16/22 9:34:00 EDT, [facility], 41, INJECT 90 UNITS SUBCUTANEOUSLY BEFORE b... Start Date: 07/16/22 Status: OrderedHYDROCHLOROTHIAZIDE HYDROCHLOROTHIAZIDE, 25 mg, By Mouth, Daily, Refills 0, Maintenance, 12/11/15 14:43:30, Compound Start Date: 12/11/15 Status: Orderedhydrochlorothiazide 25 mg oral tablet 25 mg, 1, tablet, By Mouth, Daily, # 30 tablet, Refills 5, Tot. Refills 5, Maintenance, 01/22/17 15:56:56, Route to Pharmacy Electronically, [id number], [facility]/pharmacy #[id number] Start Date: 01/22/17 Status: OrderedInsulin Syringe, BD [...] Refills, Maintenance, 07/16/22 9:39:00 EDT, ER Tablet, [facility], E11.65, 159.3, cm, 07/15/22 10:49:00 [...] EC Capsule Start Date: 08/26/16 Status: OrderedPen [place], 29 G x 12.7 mm BD Ultra [...] Maintenance, 07/09/17 15:16:21, Route to Pharmacy Electronically, [id number], [facility]/pharmacy #[id number] Start Date: 07/09/17 Stop Date: 11/06/17 Status: OrderedPulmicort Respules 0.5 mg/2 mL inhalation suspension 0.5 mg, 2, mL, Neb, 2 times a day, # 120 mL, Refills 3, Tot. Refills 3, Maintenance, 07/09/17 15:15:53, Inhalation Suspension, Route to Pharmacy Electronically, [id number], [facility]/pharmacy #[id number] Start Date: 07/09/17 Stop [...] Primary Care Nurse Care Team Related PersonsName: INOCENCIA BOOKERCHARISSA Address: home [address] [place] [address] Name: SERVANDOFADIANEHEMIAS Address: home [address] [place] [address]
--- OUTSIDE RECORDS SUMMARY | 2022-11-24 10:03 | XMS_ITS | Continuity of Care Document ---
:1994 Author Organization [facility] Address [address] [place] [address]- Care Team Providers Name Role Phone Pelon CAN SLIDER, Vanessa Price Primary Care Physician Encounter [facility] R [id number] Date(s): 03/01/21 - 04/05/[address] [address]- Attending Physician: Shira Pugh MD Admitting Physician: Shira Pugh MD Referring Physician: Shira Pugh MD Allergies, Adverse Reactions, Alerts Substance Reaction Severity [...] 08/08/19 Status: OrderedBD UF ORIG PEN NDL 12.1THG03W BD UF ORIG PEN NDL 12.8MGL94B, 0 Refills, Maintenance, 12/22/18 11:19:59 EDT Start Date: 12/22/18 Status: Orderedbudesonide 0.5 mg/2 mL inhalation suspension 0.5 mg, 2, mL, Neb, 2 times a day, # 120 mL, Refills 11, Tot. Refills 11, Maintenance, 11/26/17 14:23:51, Suspension, Route to Pharmacy Electronically, [id number], [facility]/pharmacy #[id number] Start Date: 11/26/17 Status: Orderedenalapril 20 mg [...] mL, 0 Refills, Maintenance, 09/13/20 11:20:00 EST, [facility]/pharmacy #[id number], e11.65;, 90 UNITS BEFORE BREAKFAST, 90 [...] Maintenance, 01/22/17 15:56:56, Route to Pharmacy Electronically, [id number], [facility]/pharmacy #[id number] Start Date: 01/22/17 Status: OrderedKlonoPIN 1 [...] Refills, Maintenance, 06/14/20 12:08:00 EDT, ER Tablet, [facility]/pharmacy #[id number], E11.65, 159.3, cm, 08/08/19 10:03:00 EDT, [...] EC Capsule Start Date: 08/26/16 Status: OrderedPen [place], 29 G x 12.7 mm BD Ultra [...] Maintenance, 07/09/17 15:16:21, Route to Pharmacy Electronically, [id number], [facility]/pharmacy #[id number] Start Date: 07/09/17 Stop Date: 11/06/17 Status: OrderedPulmicort Respules 0.5 mg/2 mL inhalation suspension 0.5 mg, 2, mL, Neb, 2 times a day, # 120 mL, Refills 3, Tot. Refills 3, Maintenance, 07/09/17 15:15:53, Inhalation Suspension, Route to Pharmacy Electronically, [id number], [facility]/pharmacy #[id number] Start Date: 07/09/17 Stop [...]
--- OUTSIDE RECORDS SUMMARY | 2022-11-24 10:03 | XMS_ITS | Continuity of Care Document ---
:1995 Author Organization [facility] Address [address] [place] [address]- Care Team Providers Name Role Phone Pelon CHIEF SAFETY OFFICER, Vanessa Price Primary Care Physician Encounter [facility] [place] Date(s): 07/18/21 - 08/23/[address] [address]- Attending Physician: Shira Pugh MD Admitting Physician: [...] 08/08/19 Status: OrderedBD UF ORIG PEN NDL 12.9FMK70D BD UF ORIG PEN NDL 12.8NLG75L, 0 Refills, Maintenance, 12/22/18 11:19:59 EDT Start Date: 12/22/18 Status: Orderedbudesonide 0.5 mg/2 mL inhalation suspension 0.5 mg, 2, mL, Neb, 2 times a day, # 120 mL, Refills 11, Tot. Refills 11, Maintenance, 11/26/17 14:23:51, Suspension, Route to Pharmacy Electronically, [id number], [facility]/pharmacy #[id number] Start Date: 11/26/17 Status: Orderedenalapril 20 mg [...] mL, 6 Refills, Maintenance, 04/16/21 14:17:00 EDT, [facility]/pharmacy #[id number], e11.65;, 90 UNITS BEFORE [...] Maintenance, 01/22/17 15:56:56, Route to Pharmacy Electronically, [id number], [facility]/pharmacy #[id number] Start Date: 01/22/17 Status: [...] Maintenance, 06/14/20 12:08:00 EDT, ER Tablet, [facility]/pharmacy #[id number], E11.65, 159.3, cm, 08/08/19 [...] EC Capsule Start Date: 08/26/16 Status: OrderedPen [place], 29 G x 12.7 mm BD Ultra [...] Maintenance, 07/09/17 15:16:21, Route to Pharmacy Electronically, [id number], [facility]/pharmacy #[id number] Start Date: 07/09/17 Stop Date: 11/06/17 Status: OrderedPulmicort Respules 0.5 mg/2 mL inhalation suspension 0.5 mg, 2, mL, Neb, 2 times a day, # 120 mL, Refills 3, Tot. Refills 3, Maintenance, 07/09/17 15:15:53, Inhalation Suspension, Route to Pharmacy Electronically, [id number], [facility]/pharmacy #[id number] Start Date: 07/09/17 Stop [...]
--- OUTSIDE RECORDS SUMMARY | 2022-11-24 10:03 | XMS_ITS | Continuity of Care Document ---
:1994 Author Organization [facility]inology [facility] Address [address] [place] [address]- Care Team Providers Name Role Phone Seema KEMP, Alana Primary Care Physician Encounter [facility] [place] ACCT R [id number] Date(s): 12/18/21 - 03/22/22 [facility]ocrinology and Diabetes [address] [place] [address]- Attending Physician: Carlos Roberts MD Admitting Physician: Carlos Roberts MD Referring Physician: Alana Stephenson NP Allergies, [...] 08/08/19 Status: OrderedBD UF ORIG PEN NDL 12.7LLY57T BD UF ORIG PEN NDL 12.1VFH93Q, 0 Refills, Maintenance, 12/22/18 11:19:59 EDT Start Date: 12/22/18 Status: Orderedbudesonide 0.5 mg/2 mL inhalation suspension 0.5 mg, 2, mL, Neb, 2 times a day, # 120 mL, Refills 11, Tot. Refills 11, Maintenance, 11/26/17 14:23:51, Suspension, Route to Pharmacy Electronically, [id number], [facility]/pharmacy #[id number] Start Date: 11/26/17 Status: Orderedenalapril 20 mg [...] mL, 4 Refills, Maintenance, 11/22/21 13:42:00 EST, [facility]/pharmacy #[id number], e11.65;, 90 UNITS BEFORE BREAKFAST, [...] Maintenance, 01/22/17 15:56:56, Route to Pharmacy Electronically, [id number], [facility]/pharmacy #207 Start Date: 01/22/17 Status: OrderedInsulin Syringe, [...] Refills, Maintenance, 06/14/20 12:08:00 EDT, ER Tablet, [facility]/pharmacy #[id number], E11.65, 159.3, cm, 08/08/19 10:03:00 [...] EC Capsule Start Date: 08/26/16 Status: OrderedPen [place], 29 G x 12.7 mm BD Ultra [...] Maintenance, 07/09/17 15:16:21, Route to Pharmacy Electronically, [id number], [facility]/pharmacy #[id number] Start Date: 07/09/17 Stop Date: 11/06/17 Status: OrderedPulmicort Respules 0.5 mg/2 mL inhalation suspension 0.5 mg, 2, mL, Neb, 2 times a day, # 120 mL, Refills 3, Tot. Refills 3, Maintenance, 07/09/17 15:15:53, Inhalation Suspension, Route to Pharmacy Electronically, [id number], [facility]/pharmacy #[id number] Start Date: 07/09/17 Stop Date: [...]
--- OUTSIDE RECORDS SUMMARY | 2022-11-24 10:03 | XMS_ITS | Continuity of Care Document ---
:1994 Author Organization [facility] Address [address] [place] [address]- Care Team Providers Name Role Phone Seema KEMP, Alana Primary Care Physician Encounter [facility] [place] Date(s): 07/11/22 - 08/10/22 [facility] Endocrinology and Diabetes [address] [place] [address]- Allergies, Adverse Reactions, Alerts No Known Allergies [...] 08/08/19 Status: OrderedBD UF ORIG PEN NDL 12.6WUR44L BD UF ORIG PEN NDL 12.7GTC64U, 0 Refills, Maintenance, 12/22/18 11:19:59 EDT Start Date: 12/22/18 Status: Orderedbudesonide 0.5 mg/2 mL inhalation suspension 0.5 mg, 2, mL, Neb, 2 times a day, # 120 mL, Refills 11, Tot. Refills 11, Maintenance, 11/26/17 14:23:51, Suspension, Route to Pharmacy Electronically, [id number], [facility]/pharmacy #[id number] Start Date: 11/26/17 Status: Orderedenalapril 20 mg [...] each, Refills 0, Tot. Refills 0, Maintenance, [place] [facility] [place] 2, 07/28/22 6:51:00 EDT, [...] mL, 3 Refills, Maintenance, 07/16/22 9:34:00 EDT, [facility], 41, INJECT 90 UNITS SUBCUTANEOUSLY BEFORE b... Start Date: 07/16/22 Status: OrderedHYDROCHLOROTHIAZIDE HYDROCHLOROTHIAZIDE, 25 mg, By Mouth, Daily, Refills 0, Maintenance, 12/11/15 14:43:30, Compound Start Date: 12/11/15 Status: Orderedhydrochlorothiazide 25 mg oral tablet 25 mg, 1, tablet, By Mouth, Daily, # 30 tablet, Refills 5, Tot. Refills 5, Maintenance, 01/22/17 15:56:56, Route to Pharmacy Electronically, [id number], [facility]/pharmacy #[id number] Start Date: 01/22/17 Status: OrderedInsulin Syringe, BD [...] Refills, Maintenance, 07/16/22 9:39:00 EDT, ER Tablet, [facility], E11.65, 159.3, cm, 07/15/22 10:49:00 [...] EC Capsule Start Date: 08/26/16 Status: OrderedPen [place], 29 G x 12.7 mm BD Ultra [...] Maintenance, 07/09/17 15:16:21, Route to Pharmacy Electronically, [id number], [facility]/pharmacy #[id number] Start Date: 07/09/17 Stop Date: 11/06/17 Status: OrderedPulmicort Respules 0.5 mg/2 mL inhalation suspension 0.5 mg, 2, mL, Neb, 2 times a day, # 120 mL, Refills 3, Tot. Refills 3, Maintenance, 07/09/17 15:15:53, Inhalation Suspension, Route to Pharmacy Electronically, [id number], [facility]/pharmacy #[id number] [...] PersonnelName: Alana Stephenson NP Address: Address: [address], [place] [address]
--- OUTSIDE RECORDS SUMMARY | 2022-11-24 10:04 | XMS_ITS | Continuity of Care Document ---
:1994 Author Organization [facility] Address [address] [place] [address]- Care Team Providers Name Role Phone Tiffani KEMP, Grupo Parra Primary Care Physician Encounter [facility] [place] Date(s): 11/13/20 - 12/13/20 [facility] Endocrinology and Diabetes [address] [place] [address]- Allergies, Adverse Reactions, Alerts Substance Reaction Severity [...] 08/08/19 Status: OrderedBD UF ORIG PEN NDL 12.8LHI98L BD UF ORIG PEN NDL 12.5XIV85J, 0 Refills, Maintenance, 12/22/18 11:19:59 EDT Start Date: 12/22/18 Status: Orderedbudesonide 0.5 mg/2 mL inhalation suspension 0.5 mg, 2, mL, Neb, 2 times a day, # 120 mL, Refills 11, Tot. Refills 11, Maintenance, 11/26/17 14:23:51, Suspension, Route to Pharmacy Electronically, [id number], [facility]/pharmacy #[id number] Start Date: 11/26/17 Status: Orderedenalapril 20 mg [...] mL, 0 Refills, Maintenance, 09/13/20 11:20:00 EST, [facility]/pharmacy #2071, e11.65;, 90 UNITS BEFORE [...] Maintenance, 01/22/17 15:56:56, Route to Pharmacy Electronically, [id number], [facility]/pharmacy #[id number] Start Date: 01/22/17 Status: [...] Refills, Maintenance, 06/14/20 12:08:00 EDT, ER Tablet, [facility]/pharmacy #2071, E11.65, 159.3, cm, 08/08/19 [...] EC Capsule Start Date: 08/26/16 Status: OrderedPen [place], 29 G x 12.7 mm BD Ultra [...] Maintenance, 07/09/17 15:16:21, Route to Pharmacy Electronically, [id number], [facility]/pharmacy #[id number] Start Date: 07/09/17 Stop Date: 11/06/17 Status: OrderedPulmicort Respules 0.5 mg/2 mL inhalation suspension 0.5 mg, 2, mL, Neb, 2 times a day, # 120 mL, Refills 3, Tot. Refills 3, Maintenance, 07/09/17 15:15:53, Inhalation Suspension, Route to Pharmacy Electronically, [id number], [facility]/pharmacy #[id number] Start Date: 07/09/17 Stop Date: 11/06/17 Status: [...]
--- OUTSIDE RECORDS SUMMARY | 2022-11-24 10:04 | XMS_ITS | Continuity of Care Document ---
:1994 Author Organization [facility] Address [address] [place] [address]- Care Team Providers Name Role Phone Pelon FIELD TECHNICAL SUPPORT CONSULTANT, Vanessa Price Primary Care Physician Encounter [facility] [place] Date(s): 01/09/21 - 04/07/21 [facility] [address] [place] [address]- Attending Physician: Ruben Harris MD Admitting Physician: Ruben Harris MD Referring Physician: Grupo Nixon NP Allergies, [...] 08/08/19 Status: OrderedBD UF ORIG PEN NDL 12.6VFO55O BD UF ORIG PEN NDL 12.4ZKE30C, 0 Refills, Maintenance, 12/22/18 11:19:59 EDT Start Date: 12/22/18 Status: Orderedbudesonide 0.5 mg/2 mL inhalation suspension 0.5 mg, 2, mL, Neb, 2 times a day, # 120 mL, Refills 11, Tot. Refills 11, Maintenance, 11/26/17 14:23:51, Suspension, Route to Pharmacy Electronically, [id number], [facility]/pharmacy #[id number] Start Date: 11/26/17 Status: Orderedenalapril 20 mg [...] Refills, Maintenance, 09/13/20 11:20:00 EST, [facility]/pharmacy #2071, e11.65;, 90 UNITS BEFORE BREAKFAST, 90 [...] Maintenance, 01/22/17 15:56:56, Route to Pharmacy Electronically, [id number], [facility]/pharmacy #[id number] Start Date: 01/22/17 Status: OrderedKlonoPIN 1 [...] day, # 180 tablet, 0 Refills, Maintenance, 11/15/16 17:00:09,Tablet Start Date: 08/26/16 Status: OrderedmetFORMIN 500 mg oral tablet, extended release 2 tablet = 1,000 mg, By Mouth, 2 times a day with meals, # 360 tablet, 3 Refills, Maintenance, 06/14/20 12:08:00 EDT, ER Tablet, [facility]/pharmacy #2071, E11.65, 159.3, cm, 08/08/19 10:03:00 EDT, [...] EC Capsule Start Date: 08/26/16 Status: OrderedPen [place], 29 G x 12.7 mm BD Ultra [...] Maintenance, 07/09/17 15:16:21, Route to Pharmacy Electronically, [id number], [facility]/pharmacy #[id number] Start Date: 07/09/17 Stop Date: 11/06/17 Status: OrderedPulmicort Respules 0.5 mg/2 mL inhalation suspension 0.5 mg, 2, mL, Neb, 2 times a day, # 120 mL, Refills 3, Tot. Refills 3, Maintenance, 07/09/17 15:15:53, Inhalation Suspension, Route to Pharmacy Electronically, [id number], [facility]/pharmacy #[id number] Start Date: 07/09/17 Stop Date: 11/06/17 [...]
--- OUTSIDE RECORDS SUMMARY | 2022-11-24 10:04 | XMS_ITS | Continuity of Care Document ---
:1994 Author Organization [facility] Address [address] [place] [address]- Care Team Providers Name Role Phone Pelon KEMP, Vanessa Price Primary Care Physician Encounter [facility] [place] ACCT R [id number] Date(s): 07/03/21 - 10/31/21 [facility] Endocrinology and Diabetes [address] [place] [address]- Attending Physician: Emre Mariscal MD Admitting Physician: Davey DESIR, Emre Referring Physician: Vanessa Bird NP Allergies, Adverse Reactions, Alerts No Known [...] 08/08/19 Status: OrderedBD UF ORIG PEN NDL 12.6PML75Y BD UF ORIG PEN NDL 12.9NWZ27P, 0 Refills, Maintenance, 12/22/18 11:19:59 EDT Start Date: 12/22/18 Status: Orderedbudesonide 0.5 mg/2 mL inhalation suspension 0.5 mg, 2, mL, Neb, 2 times a day, # 120 mL, Refills 11, Tot. Refills 11, Maintenance, 11/26/17 14:23:51, Suspension, Route to Pharmacy Electronically, [id number], [facility]/pharmacy #[id number] Start Date: 11/26/17 Status: Orderedenalapril 20 mg [...] mL, 6 Refills, Maintenance, 04/16/21 14:17:00 EDT, [facility]/pharmacy #[id number], e11.65;, 90 UNITS [...] Maintenance, 01/22/17 15:56:56, Route to Pharmacy Electronically, [id number], [facility]/pharmacy #207 Start Date: 01/22/17 Status: OrderedInsulin [...] EC Capsule Start Date: 08/26/16 Status: OrderedPen [place], 29 G x 12.7 mm BD Ultra [...] Maintenance, 07/09/17 15:16:21, Route to Pharmacy Electronically, [id number], [facility]/pharmacy #[id number] Start Date: 07/09/17 Stop Date: 11/06/17 Status: OrderedPulmicort Respules 0.5 mg/2 mL inhalation suspension 0.5 mg, 2, mL, Neb, 2 times a day, # 120 mL, Refills 3, Tot. Refills 3, Maintenance, 07/09/17 15:15:53, Inhalation Suspension, Route to Pharmacy Electronically, [id number], [facility]/pharmacy #[id number] Start Date: 07/09/17 Stop Date: [...]
--- OUTSIDE RECORDS SUMMARY | 2022-11-24 10:04 | XMS_ITS | Continuity of Care Document ---
:1994 Author Organization [facility] Address [address] [place] [address]- Care Team Providers Name Role Phone Seema KEMP, Alana Primary Care Physician Encounter [facility] [place] ACCT R [id number] Date(s): 12/30/21 - 01/30/22 [facility] Endocrinology and Diabetes [address] [place] [address]- Attending Physician: Emre Mariscal MD Admitting Physician: [...] 08/08/19 Status: OrderedBD UF ORIG PEN NDL 12.6VBJ70T BD UF ORIG PEN NDL 12.4EGH78D, 0 Refills, Maintenance, 12/22/18 11:19:59 EDT Start Date: 12/22/18 Status: Orderedbudesonide 0.5 mg/2 mL inhalation suspension 0.5 mg, 2, mL, Neb, 2 times a day, # 120 mL, Refills 11, Tot. Refills 11, Maintenance, 11/26/17 14:23:51, Suspension, Route to Pharmacy Electronically, [id number], [facility]/pharmacy #[id number] Start Date: 11/26/17 Status: Orderedenalapril 20 mg [...] mL, 4 Refills, Maintenance, 11/22/21 13:42:00 EST, [facility]/pharmacy #[id number], e11.65;, 90 UNITS BEFORE [...] Maintenance, 01/22/17 15:56:56, Route to Pharmacy Electronically, [id number], [facility]/pharmacy #[id number] Start Date: 01/22/17 Status: [...] Refills, Maintenance, 06/14/20 12:08:00 EDT, ER Tablet, [facility]/pharmacy #[id number], E11.65, 159.3, cm, 08/08/19 [...] EC Capsule Start Date: 08/26/16 Status: OrderedPen [place], 29 G x 12.7 mm BD Ultra [...] Maintenance, 07/09/17 15:16:21, Route to Pharmacy Electronically, [id number], [facility]/pharmacy #[id number] Start Date: 07/09/17 Stop Date: 11/06/17 Status: OrderedPulmicort Respules 0.5 mg/2 mL inhalation suspension 0.5 mg, 2, mL, Neb, 2 times a day, # 120 mL, Refills 3, Tot. Refills 3, Maintenance, 07/09/17 15:15:53, Inhalation Suspension, Route to Pharmacy Electronically, [id number], [facility]/pharmacy #[id number] Start Date: 07/09/17 Stop [...]
--- OUTSIDE RECORDS SUMMARY | 2022-11-24 10:04 | XMS_ITS | Continuity of Care Document ---
:1994 Author Organization [facility] Address [address] [place] [address]- Care Team Providers Name Role Phone Seema KEMP, Alana Primary Care Physician [place] [facility] [place] 02/[place]22 - 03/22/22 [facility] Endocrinology and Diabetes [address] [place] [address]- Allergies, Adverse Reactions, Alerts No Known Allergies [...] 08/08/19 Status: OrderedBD UF ORIG PEN NDL 12.2EMJ88A BD UF ORIG PEN NDL 12.5GTJ66F, 0 Refills, Maintenance, 12/22/18 11:19:59 EDT Start Date: 12/22/18 Status: Orderedbudesonide 0.5 mg/2 mL inhalation suspension 0.5 mg, 2, mL, Neb, 2 times a day, # 120 mL, Refills 11, Tot. Refills 11, Maintenance, 11/26/17 14:23:51, Suspension, Route to Pharmacy Electronically, [id number], [facility]/pharmacy #[id number] Start Date: 11/26/17 Status: Orderedenalapril 20 mg [...] mL, 4 Refills, Maintenance, 11/22/21 13:42:00 EST, [facility]/pharmacy #[id number], e11.65;, 90 UNITS BEFORE BREAKFAST, 90 [...] Maintenance, 01/22/17 15:56:56, Route to Pharmacy Electronically, [id number], [facility]/pharmacy #207 Start Date: 01/22/17 Status: OrderedInsulin Syringe, [...] Refills, Maintenance, 06/14/20 12:08:00 EDT, ER Tablet, [facility]/pharmacy #[id number], E11.65, 159.3, cm, 08/08/19 10:03:00 EDT, [...] EC Capsule Start Date: 08/26/16 Status: OrderedPen [place], 29 G x 12.7 mm BD Ultra [...] Maintenance, 07/09/17 15:16:21, Route to Pharmacy Electronically, [id number], [facility]/pharmacy #[id number] Start Date: 07/09/17 Stop Date: 11/06/17 Status: OrderedPulmicort Respules 0.5 mg/2 mL inhalation suspension 0.5 mg, 2, mL, Neb, 2 times a day, # 120 mL, Refills 3, Tot. Refills 3, Maintenance, 07/09/17 15:15:53, Inhalation Suspension, Route to Pharmacy Electronically, [id number], [facility]/pharmacy #[id number] Start Date: 07/09/17 Stop Date: 11/06/17 [...]
--- OUTSIDE RECORDS SUMMARY | 2022-11-24 10:04 | XMS_ITS | Continuity of Care Document ---
:1994 Author Organization [facility] Address [address] [place] [address]- Care Team Providers Name Role Phone Gurpo Nixon NP Primary Care Physician [place] [facility] [place]14[place] 02/17/20 [facility] Endocrinology and Diabetes [address] [place] [address]- [facility] Attending Physician: Emre Mariscal MD Admitting Physician: [...] 08/08/19 Status: OrderedBD UF ORIG PEN NDL 12.0MZU74D BD UF ORIG PEN NDL 12.0VTF89J, 0 Refills, Maintenance, 12/22/18 11:19:59 EDT Start Date: 12/22/18 Status: Orderedbudesonide 0.5 mg/2 mL inhalation suspension 0.5 mg, 2, mL, Neb, 2 times a day, # 120 mL, Refills 11, Tot. Refills 11, Maintenance, 11/26/17 14:23:51, Suspension, Route to Pharmacy Electronically, [id number], [facility]/pharmacy #[id number] Start Date: 11/26/17 Status: Orderedenalapril 20 mg [...] Maintenance, 01/22/17 15:56:56, Route to Pharmacy Electronically, [id number], [facility]/pharmacy #[id number] Start Date: 01/22/17 Status: OrderedKlonoPIN 1 mg [...] Refills, Maintenance, 06/14/20 12:08:00 EDT, ER Tablet, [facility]/pharmacy #[id number], E11.65, 159.3, cm, 08/08/19 10:03:00 EDT, Height, 176.7, kg, 08/08/19 10:03:00 EDT, Dry Weight Start Date: 06/14/20 Stop Date: 06/09/21 Status: OrderedmetFORMIN 500 mg oral tablet, extended release 1 tablet = 500 mg, By Mouth, 2 times a day with meals, for 90 days, # 180 tablet, 5 Refills, Hard Stop 06/14/20 12:08:01 EDT, 12/22/18 12:08:01 EDT, ER Tablet, [facility]/pharmacy #2071, E11.65 Start Date: 12/22/18 Stop Date: [...] EC Capsule Start Date: 08/26/16 Status: OrderedPen [place], 29 G x 12.7 mm BD Ultra [...] Maintenance, 07/09/17 15:16:21, Route to Pharmacy Electronically, [id number], [facility]/pharmacy #[id number] Start Date: 07/09/17 Stop Date: 11/06/17 Status: OrderedPulmicort Respules 0.5 mg/2 mL inhalation suspension 0.5 mg, 2, mL, Neb, 2 times a day, # 120 mL, Refills 3, Tot. Refills 3, Maintenance, 07/09/17 15:15:53, Inhalation Suspension, Route to Pharmacy Electronically, [id number], [facility]/pharmacy #[id number] Start Date: 07/09/17 Stop Date: 11/06/17 [...]
--- OUTSIDE RECORDS SUMMARY | 2022-11-24 10:04 | XMS_ITS | Continuity of Care Document ---
:1994 Author Organization [facility] Address [address] [place] [address]- Care Team Providers Name Role Phone Pelon KEMP, Vanessa Price Primary Care Physician En[place] [facility] [place] Date(s): 03/08/21 - 04/07/21 [facility] [address] [place] [address]- Attending Physician: Rodrick Robins Admitting Physician: Rodrick Robins Referring Physician: AdmtrRodrick Allergies, Adverse Reactions, Alerts Substance Reaction Severity [...] 08/08/19 Status: OrderedBD UF ORIG PEN NDL 12.3HKK03F BD UF ORIG PEN NDL 12.0MMI20Z, 0 Refills, Maintenance, 12/22/18 11:19:59 EDT Start Date: 12/22/18 Status: Orderedbudesonide 0.5 mg/2 mL inhalation suspension 0.5 mg, 2, mL, Neb, 2 times a day, # 120 mL, Refills 11, Tot. Refills 11, Maintenance, 11/26/17 14:23:51, Suspension, Route to Pharmacy Electronically, [id number], [facility]/pharmacy #[id number] Start Date: 11/26/17 Status: Orderedenalapril 20 mg [...] mL, 0 Refills, Maintenance, 09/13/20 11:20:00 EST, [facility]/pharmacy #[id number], e11.65;, 90 UNITS BEFORE BREAKFAST, 90 [...] Maintenance, 01/22/17 15:56:56, Route to Pharmacy Electronically, [id number], [facility]/pharmacy #[id number] Start Date: 01/22/17 Status: OrderedKlonoPIN 1 [...] Refills, Maintenance, 06/14/20 12:08:00 EDT, ER Tablet, [facility]/pharmacy #[id number], E11.65, 159.3, cm, 08/08/19 10:03:00 EDT, [...] EC Capsule Start Date: 08/26/16 Status: OrderedPen [place], 29 G x 12.7 mm BD Ultra [...] Maintenance, 07/09/17 15:16:21, Route to Pharmacy Electronically, [id number], [facility]/pharmacy #[id number] Start Date: 07/09/17 Stop Date: 11/06/17 Status: OrderedPulmicort Respules 0.5 mg/2 mL inhalation suspension 0.5 mg, 2, mL, Neb, 2 times a day, # 120 mL, Refills 3, Tot. Refills 3, Maintenance, 07/09/17 15:15:53, Inhalation Suspension, Route to Pharmacy Electronically, [id number], [facility]/pharmacy #[id number] Start Date: 07/09/17 Stop Date: 11/06/17 [...]
--- OUTSIDE RECORDS SUMMARY | 2022-11-24 10:04 | XMS_ITS | Continuity of Care Document ---
:1995 Author Organization [facility] Endocrinology and D [facility] Address [address] [place] [id number]- Care Team Providers Name Role Phone Seema KEMP, Alana Primary Care Physician [place] [facility] [place] 06/04/22 - 07/04/22 [facility] Endocrinology and Diabetes [address] [place] [id number]- Allergies, Adverse Reactions, Alerts No Known Allergies [...] 08/08/19 Status: OrderedBD UF ORIG PEN NDL 12.0CWM69O BD UF ORIG PEN NDL 12.3QTN92F, 0 Refills, Maintenance, 12/22/18 11:19:59 EDT Start Date: 12/22/18 Status: Orderedbudesonide 0.5 mg/2 mL inhalation suspension 0.5 mg, 2, mL, Neb, 2 times a day, # 120 mL, Refills 11, Tot. Refills 11, Maintenance, 11/26/17 14:23:51, Suspension, Route to Pharmacy Electronically, [id number], [facility]/pharmacy #[id number] Start Date: 11/26/17 Status: Orderedenalapril 20 mg [...] mL, 4 Refills, Maintenance, 11/22/21 13:42:00 EST, [facility]/pharmacy #[id number], e11.65;, 90 UNITS BEFORE BREAKFAST, [...] Maintenance, 01/22/17 15:56:56, Route to Pharmacy Electronically, [id number], [facility]/pharmacy #[id number] Start Date: 01/22/17 Status: OrderedInsulin [...] Refills, Maintenance, 06/14/20 12:08:00 EDT, ER Tablet, [facility]/pharmacy #[id number], E11.65, 159.3, cm, 08/08/19 10:03:00 [...] EC Capsule Start Date: 08/26/16 Status: OrderedPen [place], 29 G x 12.7 mm BD Ultra [...] Maintenance, 07/09/17 15:16:21, Route to Pharmacy Electronically, [id number], [facility]/pharmacy #[id number] Start Date: 07/09/17 Stop Date: 11/06/17 Status: OrderedPulmicort Respules 0.5 mg/2 mL inhalation suspension 0.5 mg, 2, mL, Neb, 2 times a day, # 120 mL, Refills 3, Tot. Refills 3, Maintenance, 07/09/17 15:15:53, Inhalation Suspension, Route to Pharmacy Electronically, [id number], [facility]/pharmacy #[id number] Start Date: 07/09/17 Stop Date: [...] is a sometime marijuana smoker; entered on: 2/15/18 Sex Care Team PersonnelName: Alana Stephenson NP Address: [address], [place] [address]
--- OUTSIDE RECORDS SUMMARY | 2022-11-24 10:04 | XMS_ITS | Continuity of Care Document ---
:1995 Author Organization [facility] Endocrinology and D [facility] Address [address] [place] [phone]- Care Team Providers Name Role Phone Pelon HANDLE ATTACHER, Vanessa Price Primary Care Physician [place] [facility] [place]16[place]21 - 05/16/21 [facility] Endocrinology and Diabetes [address] [place] [id number]- Attending Physician: Emre Mariscal MD Admitting Physician: [...] 08/08/19 Status: OrderedBD UF ORIG PEN NDL 12.4QNP72M BD UF ORIG PEN NDL 12.2ROS63V, 0 Refills, Maintenance, 12/22/18 11:19:59 EDT Start Date: 12/22/18 Status: Orderedbudesonide 0.5 mg/2 mL inhalation suspension 0.5 mg, 2, mL, Neb, 2 times a day, # 120 mL, Refills 11, Tot. Refills 11, Maintenance, 11/26/17 14:23:51, Suspension, Route to Pharmacy Electronically, [id number], [facility]/pharmacy #[id number] Start Date: 11/26/17 Status: Orderedenalapril 20 mg [...] Refills, Maintenance, 04/16/21 14:17:00 EDT, [facility]/pharmacy #[id number], e11.65;, 90 UNITS BEFORE BREAKFAST, [...] Maintenance, 01/22/17 15:56:56, Route to Pharmacy Electronically, [id number], [facility]/pharmacy #[id number] Start Date: 01/22/17 Status: OrderedInsulin [...] 06/14/20 12:08:00 EDT, ER Tablet, [facility]/pharmacy #[id number], E11.65, 159.3, cm, 08/08/19 10:03:00 [...] EC Capsule Start Date: 08/26/16 Status: OrderedPen [place], 29 G x 12.7 mm BD Ultra [...] Maintenance, 07/09/17 15:16:21, Route to Pharmacy Electronically, [id number], [facility]/pharmacy #[id number] Start Date: 07/09/17 Stop Date: 11/06/17 Status: OrderedPulmicort Respules 0.5 mg/2 mL inhalation suspension 0.5 mg, 2, mL, Neb, 2 times a day, # 120 mL, Refills 3, Tot. Refills 3, Maintenance, 07/09/17 15:15:53, Inhalation Suspension, Route to Pharmacy Electronically, [id number], [facility]/pharmacy #[id number] Start Date: 07/09/17 Stop Date: [...]
[2022-11-24 10:05] LABS: Basophils Percent Auto 0.3 % (0-2); Eosinophils Absolute Auto 0.1 X10*3/uL (0.0-0.4); Eosinophils Percent Auto 0.9 % (0-4); Hematocrit 36.3 % (37.0-47.0); Hemoglobin 11.8 g/dl (12.0-16.0); Imm Gran Abs Auto 0.04 X10*3/uL (0.00-0.03); Imm Gran Pct Auto 0.4 % (0.0-0.4); Lymphocytes Percent Auto 19.1 % (20-40); Mean Corpuscular HGB Conc 32.5 g/dl (31.0-35.0); Mean Corpuscular Hemoglobin 26.6 pg (27.0-33.0); Mean Corpuscular Volume 81.9 fL (80.0-98.0); Mean Platelet Volume 9.6 fL (9.4-12.3); Monocytes Absolute Auto 0.5 X10*3/uL (0.1-1.2); Monocytes Percent Auto 4.9 % (2-11); Neutrophils Absolute Auto 7.8 x10*3/uL (2.0-8.3); Neutrophils Percent Auto 74.4 % (45-73); Platelet Count 404 X10*3/uL (160-400); Red Blood Count 4.43 X10*6/uL (4.20-5.50); Red Cell Distribution Width 12.5 % (11.0-16.0); White Blood Count 10.5 X10*3/uL (4.8-10.8)
[2022-11-24 10:07] LABS: Appearance Urine Clear; Color Urine Yellow; Glucose Urine UA Negative (Negative); Leukocyte Esterase Urine Negative (Negative); Nitrite Urine Negative (Negative); UMIC TRIGGER UACC YES; Urine Blood Negative (Negative); Urine Ketones Negative (Negative); Urine Protein 30 (1+) mg/dL (Neg-Trace)
[2022-11-24 10:09] LABS: Bacteria Urine None Seen (None Seen); Hyaline Casts Urine 0-2 /LPF (0-2); RBC Urine 0-2 /HPF (0-2); Squamous Epithelial Cell Urine 0-2 /HPF (0-2); WBC Urine 0-5 /HPF (0-5)
[2022-11-24 10:11] LABS: Alanine Aminotransferase 33 U/L (0-31); Albumin Level 4.3 g/dL (3.5-5.0); Alkaline Phosphatase 59 U/L (39-117); Anion Gap 13 (12-20); Aspartate Amino Transferase 19 U/L (5-31); Bilirubin Direct < 0.2 mg/dL (0.0-0.5); Bilirubin Total 0.3 mg/dL (0.0-1.0); Blood Urea Nitrogen 14 mg/dL (9-16); Calcium 9.7 mg/dL (8.4-10.2); Carbon Dioxide 27 mmol/L (22-29); Chloride 104 mmol/L (96-108); Creatinine Clr Calc Pharmacy 207.6; Estimated Glomerular Filt Rate > 60; Glucose Random 142 mg/dL (60-115); Lipase 56 U/L (8-78); Potassium 3.7 mmol/L (3.3-5.1); Sodium 140 mmol/L (135-145); Total Protein 7.1 g/dL (6.5-8.0)
[2022-11-24 10:40] VITALS: BP 150/85; PULSE 83; RESP 18; O2SAT 97
[2022-11-24] MEDS: Ketorolac Tromethamine 15 MG/ML VIAL IM (11:05)
[2022-11-24] MEDS: Cyclobenzaprine HCl 5 MG TABLET PO (11:05)
== END 2022-11-24 11:12 | disposition home or self-care (01) ==
PROVIDERS: Emergency Provider Emergency Medicine
DX: R10.9 Unspecified abdominal pain (principal); E11.9 Type 2 diabetes mellitus without complications; I10 Essential (primary) hypertension; E78.5 Hyperlipidemia, unspecified; F12.90 Cannabis use, unspecified, uncomplicated; Z79.02 Long term (current) use of antithrombotics/antiplatelets; Z79.4 Long term (current) use of insulin; Z79.899 Other long term (current) drug therapy
CPT/HCPCS: 36415; 80053; 81001; 81003; 82248; 83690; 85025; 99283; 99284; J1885

== ENCOUNTER 2023-02-22 12:12 | Emergency (ER) | payer MEDICAID, SELFPAY ==
--- NOTE | ~2023-02-22 | CT_ITS ---
EXAMINATION: CT ABDOMEN AND PELVIS WITHOUT CONTRAST CLINICAL INFORMATION: Abdominal pain. COMPARISON: CT of the abdomen and pelvis done on 11/07/2015. TECHNIQUE: Multidetector volumetric imaging was performed from the superior aspect of the liver through the pubic symphysis. Sagittal and coronal reformatted images were obtained on the technologist's workstation. This CT examination was performed using dose optimization techniques as appropriate, variously including the following: *Automated exposure control *Adjustment of mA and/or kV according to patient size (this includes techniques or standardized protocols for targeted exams where dose is matched to indication/reason for exam; i.e. extremities or head) *Use of iterative reconstruction technique DLP: 1354 mGy-cm FINDINGS: LUNG BASES: The visualized lung bases are unremarkable. LIVER, GALLBLADDER, AND BILIARY TREE: The liver is normal in size, shape, and attenuation. No focal hepatic lesion or biliary ductal dilatation is present. The gallbladder is unremarkable with no evidence of radiopaque gallstones, gallbladder wall thickening, or obvious pericholecystic inflammatory changes. PANCREAS: Unremarkable. SPLEEN: Unremarkable. ADRENAL GLANDS: Unremarkable. KIDNEYS AND URETERS: The kidneys are normal in size, shape, and attenuation. No hydronephrosis, hydroureter, or calculi seen. No perinephric stranding. BLADDER: Unremarkable. GASTROINTESTINAL TRACT: The small and large bowel are unremarkable. The appendix is unremarkable. Normal appendix. ABDOMINAL WALL: No significant hernia is appreciated. LYMPH NODES: Previously documented periaortic, periportal lymph nodes appear stable. There are no retroperitoneal, pelvic and/or groin lymphadenopathy present, unchanged. VASCULAR: Unremarkable. PELVIC VISCERA: No pelvic mass present. No evidence of any free fluid and/or free air. OSSEOUS STRUCTURES: Interval development of moderate degenerative disc disease at L5-S1. CT/CT abdomen pelvis wo IV con IMPRESSION: No CT evidence of any acute intra-abdominal and/or intrapelvic pathology is present. Previously documented multiple periaortic, periportal lymph nodes appear stable. Interval development of moderate degenerative disc disease at L5-S1. Fleischner guidelines were followed.
--- NOTE | 2023-02-22 12:21 | ED_ITS ---
HPI - General Adult General Chief complaint: Abdominal Pain Stated complaint: stomach virus Time Seen by Provider: 02/22/23 12:42 Source: patient and RN notes reviewed Mode of arrival: ambulatory Limitations: no limitations History of Present Illness HPI narrative: This is a 27-year-old female, with a past medical history of diabetes and high blood pressure, who presents emergency department today with complaints of nausea, diarrhea, abdominal pain, and night sweats x 2 days. Patient reports that she was with her brother culture did several nights ago Later that evening she developed lower abdominal diarrhea. She states since the onset of her symptoms she has had very frequent diarrheal episodes, she states that she is unable to eat anything without immediately returning to the restroom and a bowel movement. She states that the diarrhea is watery, green/yellow in color. She has history she denies any chest pain or shortness breath. She denies dysuria, she does report urinary frequency but this is chronic for her. She reports that she believes that her menses has not started yet reports irregular. She does not frequently tract them. She is monogamous with 1 female partner denies any risk of STIs or . Patient reports that her family is at home sick with similar symptoms. She reports that she has been checking her blood glucose levels which have been elevated over the last several days. No other complaints or concerns at this time. MD complaint: Nausea, diarrhea, abdominal pain Onset (ago): day(s) Related Data Home Medications Medication Instructions Recorded Confirmed blood sugar diagnostic (FreeStyle #10 ea 07/14/20 07/14/20 Lite Strips) enalapril maleate 20 mg tablet 20 mg PO DAILY 07/14/20 04/28/22 lancets 28 gauge (FreeStyle #100 ea 07/14/20 07/14/20 Lancets) atorvastatin 10 mg tablet 10 mg PO BEDTIME 04/28/22 04/28/22 clonazepam 1 mg tablet 1 mg PO BID 04/28/22 04/28/22 hydrochlorothiazide 25 mg tablet 25 mg PO DAILY 04/28/22 04/28/22 hydroxyzine HCl 25 mg tablet 1 - 2 tab PO Q6H PRN anxiety 04/28/22 04/28/22 insulin lispro protamine-lispro 90 unit subcut BID 04/28/22 04/28/22 100 unit/mL (75-25) subcutaneous pen (Humalog Mix 75-25 KwikPen) perphenazine 2 mg tablet 2 mg PO BID 04/28/22 04/28/22 empagliflozin 10 mg tablet 10 mg PO QAM 07/10/22 (Jardiance) metformin 500 mg tablet 1,000 mg PO BID 07/10/22 spironolactone 25 mg tablet 25 mg PO DAILY 07/10/22 Previous Rx's Medication Instructions Recorded albuterol sulfate 90 mcg/actuation 2 puff inhalation Q4-6H PRN 09/08/21 aerosol inhaler shortness of breath or wheezing #8.5 grams ondansetron 4 mg disintegrating 4 mg PO Q6H PRN nausea and 12/20/21 tablet vomiting #10 tabs cyclobenzaprine 10 mg tablet 10 mg PO TID PRN muscle spasm #14 05/26/22 tabs diclofenac sodium 1 % topical gel 2 g topical QID #100 grams 05/26/22 (Voltaren Arthritis Pain) albuterol sulfate 0.63 mg/3 mL 0.63 mg (3 mL) inhalation QID PRN 07/04/22 solution for nebulization shortness of breath or wheezing #75 mL albuterol sulfate 90 mcg/actuation 1 inh inhalation QID PRN shortness 07/04/22 aerosol inhaler of breath or wheezing #8.5 grams nebulizers (AeroEclipse II #1 ea 07/04/22 Nebulizer) prednisone 20 mg tablet 40 mg PO DAILY rash 5 days #10 tabs 07/04/22 cyclobenzaprine 5 mg tablet 5 mg PO TID PRN muscle spasm 7 11/24/22 days #21 tabs ibuprofen 600 mg tablet 600 mg PO Q6H PRN pain #30 tabs 02/22/23 ondansetron 4 mg disintegrating 4 mg PO Q8H PRN nausea and 02/22/23 tablet vomiting #14 tabs Allergies Allergy/AdvReac Type Severity Reaction Status Date / Time No Known Allergies Allergy Verified 07/10/22 11:06 Review of Systems Review of Systems: Constitutional: No Weight loss, No Fever, No Chills, No Night Sweats, No Fatigue, No Malaise ENT/Mouth: No Hearing loss, No Ear Pain, No Nasal Congestion, No Sinus Pain, No Hoarseness, No sore throat, No Rhinorrhea, No Swallowing Difficulty Eyes: No Eye Pain, No Swelling, No Redness, No Foreign Body, No Discharge, No Vision Changes Cardiovascular: No Chest Pain, No SOB, No Dyspnea on Exertion, No Orthopnea, No Edema, No Palpitations Respiratory: No Cough, No Sputum, No Wheezing, No Smoke Exposure, No Dyspnea Gastrointestinal: + Nausea, No Vomiting, + Diarrhea, No Constipation, + Abdominal pain, No Hematochezia, No Melena Genitourinary: No irregular bleeding, No Dysuria, No Urinary Frequency, No Hematuria, No Urinary Incontinence/retention, No Urgency, No Flank Pain, No Urinary Flow Changes, No Hesitancy Musculoskeletal: No joint pain, No Myalgias, No Joint Swelling Skin: No Skin Lesions, No rash Neuro: No Weakness, No Numbness, No Paresthesias, No Loss of Consciousness, No Dizziness, No Headache Psych: No Anxiety/Panic, No Depression, No SI/HI/AH/VH, No Social Issues, Heme/Lymph: No Bruising, No Bleeding,No Lymphadenopathy Endocrine: No Polyuria, No Polydipsia, No Temperature Intolerance Yes all other systems are reviewed and are negative Constitutional: Constitutional: Reports as per HPI [facility] Past Medical History Medical History Bipolar 2 disorder, major depressive episode Diabetes mellitus, type 2 GERD (gastroesophageal reflux disease) High blood cholesterol Hyperlipidemia Hypertension Sleep apnea Social History Social History Alcohol intake: current Alcohol intake frequency: holidays/special occasions only Patient Tobacco Use Status: Never used Tobacco Smoked in Last 30 Days: No Use of substances other than those prescribed or required for medical reasons: Yes Substance Use Type: Marijuana Advance Directives: No Advance Directives Information Provided: No Current occupational status: unemployed 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 Physical Exam ED Vital Signs: Vital Signs - 24 hr 02/22/23 12:22 02/22/23 14:37 02/22/23 15:20 Temperature 98.1 F 98.2 F Pulse Rate 104 H 98 Respiratory Rate 16 19 Blood Pressure 158/89 H 148/88 H Pulse Oximetry 99 99 Oxygen Delivery Method Room Air Room Air BMI result Body Mass Index 64.6 Const General: cooperative, comfortable and no acute distress Nutritional Appearance: obese Orientation/consciousness: patient oriented x3 Limitations: no limitations [facility] Head: Yes normal to inspection, Yes normocephalic and Yes atraumatic Ears: hearing grossly normal bilaterally General nose exam: Normal external nose present Face and sinus: Yes normal facial exam Mouth: Normal oral and palatal mucosa present, oropharynx normal and moist mucous membranes Throat: Yes posterior oropharynx normal Eyes General: appearance normal, both eyes and all related structures Eyelids: Yes eyelids normal Conjunctivae: conjunctivae normal Sclerae: sclerae normal Pupils: Equal, round and reactive pupils present EOM: EOMs intact bilaterally Neck Neck: Yes normal visual inspection, Yes full ROM and Yes no lymphadenopathy Lymphatic: no lymphadenopathy noted Chest Chest palpation & inspection: normal inspection of the chest Resp Effort & Inspection: normal respiratory effort and able to speak in complete sentences Auscultation: clear to auscultation bilaterally, no crackles, no rales, no rhonchi and no wheezes Cardio Rate: regular rate Rhythm: regular rhythm Heart sounds: S1 normal heart sound present and S2 normal heart sound present GI Other: Abdomen is soft, diffusely tender throughout entire abdomen with no specific point tenderness. No rebound or guarding. Normoactive bowel sounds. Inspection: Yes normal to inspection Skin General skin exam: no rashes or lesions noted Trauma: no lacerations or abrasions Wounds: no wounds Neuro General: patient oriented x3 and moves all extremities Cranial nerves: Yes Equal, round and reactive pupils present Extrem General: Yes normal to inspection Right upper extremity: normal to inspection Left upper extremity: normal to inspection Right lower extremity: normal to inspection Left lower extremity: normal to inspection Course Course Course Narrative: RME performed by Bronwyn Mukherjee PA-C. Patient is a 27 year old assigned female at presenting to the emergency department with nausea, diarrhea, and cramping abdominal pain. Patient states that 2 days ago she began having nausea, diarrhea, and lower abdominal cramping. Patient states that the family in her house is also sick with these symptoms. Labs ordered. Patient placed back in the waiting room pending room availability and results. Reevaluation(s) Reevaluation #1: Patient re-evaluated, requesting to go home as she is feeling better but also reports that her anxiety has been exacerbated which is why she would like to be discharged. The CT scan is still pending at this time and would like to have this reviewed prior to her discharge. Patient is agreeable, declines any medications to treat her anxiety. Patient remains stable. Time: 14:12 Reevaluation #2: CT abdomen returns and is unremarkable. UA pending. Blood glucose 275. Time: 14:44 Reevaluation #3: UA negative for infection. Discussed with patient the importance of sticking to a bland diet over the next couple days and staying well hydrated. Advised patient to follow-up with primary care physician especially if diarrhea still continues. Patient reports that over symptoms have resolved and she is eager to be discharged. Patient leaving prior to giving stool sample. Patient discharged on Zofran patient also requested ibuprofen for headaches. Patient is stable for discharge. Time: 16:01 Medications Administered Discontinued Medications Generic Name Dose Route Start Last Admin Trade Name Freq PRN Reason Stop Dose Admin Sodium Chloride 1,000 mls @ 999 mls/hr 02/22/23 12:59 02/22/23 14:41 Ns IV 02/22/23 13:59 Infused .Q1H1M ONE Infusion Magnesium Sulfate/Dextrose 1 gm in 100 mls @ 100 mls/hr 02/22/23 13:02 02/22/23 14:34 Magnesium Sulfate/D5w IV 02/22/23 14:01 Infused ONCE ONE Infusion Insulin Human Regular 5 unit 02/22/23 13:08 02/22/23 13:29 Insulin Regular, Human 100 Unit/Ml 3 Ml Vial IVPUSH 02/22/23 13:09 5 unit ONCE ONE Administration Ketorolac Tromethamine 30 mg 02/22/23 13:04 02/22/23 13:16 Ketorolac Tromethamine 30 Mg/Ml Vial IVPUSH 02/22/23 13:05 30 mg ONCE ONE Administration Ondansetron HCl 4 mg 02/22/23 13:04 02/22/23 13:16 Ondansetron Hcl 4 Mg/2 Ml Vial IVPUSH 02/22/23 13:05 4 mg ONCE ONE Administration Medical Decision Making Medical Decision Making MDM Narrative: This is a 27-year-old female, with a past medical history of diabetes and high blood pressure, who presents emergency department today with complaints of nausea, diarrhea, abdominal pain, and night sweats x 2 days. On examination, abdomen is diffusely tender without any point, no guarding normal vital signs within normal limits patient is normotensive afebrile. Patient without le ukocytosis magnesium 1.4 repleted with 1 g of magnesium IV, glucose 342, medicated with he will a 5 mg IV, repeat blood glucose 279. all other labs unremarkable. The patient's symptoms likely due to food-borne illness or norovirus. Patient discharged on Zofran. Patient also requesting IV open pre scription I think this is reasonable. Patient given warning signs of when to return. Patient stable for discharge Differential Diagnosis Differential Diagnoses: The differential diagnosis associated with the presentation includes Gastroenteritis, diverticulitis, diverticulosis, gastritis, food-borne illness Admission/Observation Consideration of admission/observation: Escalation of care including admission/observation considered Lab Data MDM Lab Attestation statement: I reviewed the patient's lab results. 02/22/23 12:31 02/22/23 12:31 Labs: Lab Results 02/22/23 02/22/23 02/22/23 Range/Units 12:31 12:31 14:43 WBC 8.0 (4.8-10.8) X10*3/uL RBC 4.54 (4.20-5.50) X10*6/uL Hgb 12.1 (12.0-16.0) g/dl Hct 37.0 (37.0-47.0) % MCV 81.5 (80.0-98.0) fL MCH 26.7 L (27.0-33.0) pg MCHC 32.7 (31.0-35.0) g/dl RDW 12.4 (11.0-16.0) % Plt Count 360 (160-400) X10*3/uL MPV 9.1 L (9.4-12.3) fL Immature Gran % (Auto) 0.5 H (0.0-0.4) % Neut % (Auto) 77.4 H (45-73) % Lymph % (Auto) 16.5 L (20-40) % [place] % (Auto) 5.2 (2-11) % Eos % (Auto) 0.0 (0-4) % Baso % (Auto) 0.4 (0-2) % Lymph # (Auto) 1.3 (1.2-4.9) X10*3/uL [place] # (Auto) 0.4 (0.1-1.2) X10*3/uL Eos # (Auto) 0.0 (0.0-0.4) X10*3/uL Baso # (Auto) 0.0 (0.0-0.2) X10*3/uL Abs Immat Gran (auto) 0.04 H (0.00-0.03) X10*3/uL Absolute Neuts (auto) 6.2 (2.0-8.3) x10*3/uL Absolute Nucleated RBC 0.000 (0.0-0.012) X10*3/uL Nucleated RBC % (auto) 0.0 (0.0-0.2) /100WBC Sodium 136 (135-145) mmol/L Potassium 3.7 (3.3-5.1) mmol/L Chloride 101 (96-108) mmol/L Carbon Dioxide 23 (22-29) mmol/L Anion Gap 16 (12-20) BUN 11 (9-16) mg/dL Creatinine 0.81 (0.5-1.4) mg/dL Estim Creat Clear Calc 159.4 Estimated GFR > 60 POC Glucose 275 H (60-115) mg/dL Random Glucose 342 H (60-115) mg/dL Calcium 9.0 D (8.4-10.2) mg/dL Magnesium 1.4 L* (1.6-2.6) mg/dL Total Bilirubin 0.3 (0.0-1.0) mg/dL AST 14 (5-31) U/L ALT 27 (0-31) U/L Alkaline Phosphatase 59 (39-117) U/L Total Protein 6.8 (6.5-8.0) g/dL Albumin 3.9 (3.5-5.0) g/dL Lipase 22 (8-78) U/L Beta HCG, Quant < 2 mIU/mL Urine Color Urine Appearance Urine pH (5.0-9.0) Ur Specific Wenden (1.005-1.025) Urine Protein (Neg-Trace) mg/dL Urine Glucose (UA) (Negative) mg/dL Urine Ketones (Negative) mg/dL Urine Blood (Negative) Urine Nitrite (Negative) Ur Leukocyte Esterase (Negative) Urine RBC (0-2) /HPF Urine WBC (0-5) /HPF Ur Squamous Epith Cells (0-2) /HPF Urine Bacteria (None Seen) Hyaline Casts (0-2) /LPF Urine Test (NEGATIVE) 02/22/23 02/22/23 Range/Units 15:05 15:05 WBC (4.8-10.8) X10*3/uL RBC (4.20-5.50) X10*6/uL Hgb (12.0-16.0) g/dl Hct (37.0-47.0) % MCV (80.0-98.0) fL MCH (27.0-33.0) pg MCHC (31.0-35.0) g/dl RDW (11.0-16.0) % Plt Count (160-400) X10*3/uL MPV (9.4-12.3) fL Immature Gran % (Auto) (0.0-0.4) % Neut % (Auto) (45-73) % Lymph % (Auto) (20-40) % [place] % (Auto) (2-11) % Eos % (Auto) (0-4) % Baso % (Auto) (0-2) % Lymph # (Auto) (1.2-4.9) X10*3/uL [place] # (Auto) (0.1-1.2) X10*3/uL Eos # (Auto) (0.0-0.4) X10*3/uL Baso # (Auto) (0.0-0.2) X10*3/uL Abs Immat Gran (auto) (0.00-0.03) X10*3/uL Absolute Neuts (auto) (2.0-8.3) x10*3/uL Absolute Nucleated RBC (0.0-0.012) X10*3/uL Nucleated RBC % (auto) (0.0-0.2) /100WBC Sodium (135-145) mmol/L Potassium (3.3-5.1) mmol/L Chloride (96-108) mmol/L Carbon Dioxide (22-29) mmol/L Anion Gap (12-20) BUN (9-16) mg/dL Creatinine (0.5-1.4) mg/dL Estim Creat Clear Calc Estimated GFR POC Glucose (60-115) mg/dL Random Glucose (60-115) mg/dL Calcium (8.4-10.2) mg/dL Magnesium (1.6-2.6) mg/dL Total Bilirubin (0.0-1.0) mg/dL AST (5-31) U/L ALT (0-31) U/L Alkaline Phosphatase (39-117) U/L Total Protein (6.5-8.0) g/dL Albumin (3.5-5.0) g/dL Lipase (8-78) U/L Beta HCG, Quant mIU/mL Urine Color Yellow Urine Appearance Cloudy Urine pH 5.5 (5.0-9.0) Ur Specific Wenden >= 1.030 H (1.005-1.025) Urine Protein 100 (2+) H (Neg-Trace) mg/dL Urine Glucose (UA) >=1000 H (Negative) mg/dL Urine Ketones Negative (Negative) mg/dL Urine Blood Trace H (Negative) Urine Nitrite Negative (Negative) Ur Leukocyte Esterase Negative (Negative) Urine RBC 0-2 (0-2) /HPF Urine WBC 0-5 (0-5) /HPF Ur Squamous Epith Cells 0-2 (0-2) /HPF Urine Bacteria None Seen (None Seen) Hyaline Casts 0-2 (0-2) /LPF Urine Test NEGATIVE (NEGATIVE) Radiology Impression Discussion of test interpretation with radiology: I have reviewed the radiologist's reading. External Record Review External record reviewed: Inpatient record, Office record, Outpatient record, Prior outpatient labs, Prior outpatient radiology, Primary care record and Outside ED record Discharge Plan Discharge Clinical Impression: Abdominal pain, Diarrhea, Nausea Patient Disposition: Home, Self-Care Instructions: Abdominal Pain (ED) Additional Instructions: Your abdominal CT showed no abnormalities. Please monitor your blood glucose levels closely as your blood glucose levels were elevated today. Please stick to a bland diet over the next couple of days, avoid spicy or acidic foods. Sticking to a bland diet will help heal your gut, such foods include bananas, rice, applesauce, tea, toast, lactose-free yogurt. If your diarrhea persist for over 1 week you may need to follow-up with your primary care physician as the need to do stool studies. Please return to the emergency department if he developed any worsening abdominal pain, fevers, chills, chest pain shortness of breath, or any other new or worsening symptoms. Prescriptions: New ondansetron 4 mg tablet,disintegrating 4 mg PO Q8H PRN (Reason: nausea and vomiting) Qty: 14 0RF ibuprofen 600 mg tablet 600 mg PO Q6H PRN (Reason: pain) Qty: 30 0RF No Action clonazepam 1 mg Tablet 1 mg PO BID hydroxyzine HCl 25 mg tablet 1 - 2 tab PO Q6H PRN (Reason: anxiety) hydrochlorothiazide 25 mg Tablet 25 mg PO DAILY insulin lispro protamin-lispro [Humalog Mix 75-25 KwikPen] 100 unit/mL (75-25) Insulin Pen 90 unit SUBCUT BID perphenazine 2 mg Tablet 2 mg PO BID atorvastatin 10 mg Tablet 10 mg PO BEDTIME cyclobenzaprine 10 mg tablet 10 mg PO TID PRN (Reason: muscle spasm) Qty: 14 0RF diclofenac sodium [Voltaren Arthritis Pain] 1 % gel 2 g topical QID Qty: 100 0RF Rx Instructions: apply to single elbow, wrist or hand; for hand includes palm/fingers/back of hand albuterol sulfate 90 mcg/actuation HFA aerosol inhaler 2 puff inhalation Q4-6H PRN (Reason: shortness of breath or wheezing) Qty: 8.5 0RF ondansetron 4 mg tablet,disintegrating 4 mg PO Q6H PRN (Reason: nausea and vomiting) Qty: 10 0RF (DME) nebulizers [AeroEclipse II Nebulizer] Misc See Rx Instructions .ROUTE .MEDSUPPLY Qty: 1 0RF Rx Instructions: As directed albuterol sulfate 0.63 mg/3 mL solution for nebulization 0.63 mg inhalation QID PRN (Reason: shortness of breath or wheezing) Qty: 75 0RF albuterol sulfate 90 mcg/actuation HFA aerosol inhaler 1 inh inhalation QID PRN (Reason: shortness of breath or wheezing) Qty: 8.5 0RF prednisone 20 mg tablet 40 mg PO DAILY 5 Days Qty: 10 0RF cyclobenzaprine 5 mg tablet 5 mg PO TID PRN (Reason: muscle spasm) 7 Days Qty: 21 0RF enalapril maleate 20 mg tablet 20 mg PO DAILY (DME) FreeStyle Lite Strips Strip See Rx Instructions .ROUTE .MEDSUPPLY Qty: 10 Rx Instructions: As directed (DME) lancets [FreeStyle Lancets] 28 gauge misc See Rx Instructions .ROUTE .MEDSUPPLY Qty: 100 Rx Instructions: As directed metformin 500 mg tablet 1,000 mg PO BID Jardiance 10 mg tablet 10 mg PO QAM spironolactone 25 mg tablet 25 mg PO DAILY Interventions: ED Discharge Assessment Last Done: 02/22/23 15:57 Discharge Date/Time: 02/22/23 15:58
[2023-02-22 12:22] VITALS: BP 158/89; PULSE 104; RESP 16; O2SAT 99; BMI 64.6
[2023-02-22 12:35] LABS: MANUAL DIFF FLAG NO
[2023-02-22 12:38] LABS: Basophils Percent Auto 0.4 % (0-2); Hemoglobin 12.1 g/dl (12.0-16.0); Imm Gran Abs Auto 0.04 X10*3/uL (0.00-0.03); Imm Gran Pct Auto 0.5 % (0.0-0.4); Lymphocytes Absolute Auto 1.3 X10*3/uL (1.2-4.9); Lymphocytes Percent Auto 16.5 % (20-40); Mean Corpuscular HGB Conc 32.7 g/dl (31.0-35.0); Mean Corpuscular Hemoglobin 26.7 pg (27.0-33.0); Mean Corpuscular Volume 81.5 fL (80.0-98.0); Mean Platelet Volume 9.1 fL (9.4-12.3); Monocytes Absolute Auto 0.4 X10*3/uL (0.1-1.2); Monocytes Percent Auto 5.2 % (2-11); Neutrophils Absolute Auto 6.2 x10*3/uL (2.0-8.3); Neutrophils Percent Auto 77.4 % (45-73); Platelet Count 360 X10*3/uL (160-400); Red Blood Count 4.54 X10*6/uL (4.20-5.50); Red Cell Distribution Width 12.4 % (11.0-16.0)
[2023-02-22 13:03] LABS: Alanine Aminotransferase 27 U/L (0-31); Albumin Level 3.9 g/dL (3.5-5.0); Alkaline Phosphatase 59 U/L (39-117); Anion Gap 16 (12-20); Aspartate Amino Transferase 14 U/L (5-31); Bilirubin Total 0.3 mg/dL (0.0-1.0); Blood Urea Nitrogen 11 mg/dL (9-16); Carbon Dioxide 23 mmol/L (22-29); Chloride 101 mmol/L (96-108); Creatinine Clr Calc Pharmacy 159.4; Estimated Glomerular Filt Rate > 60; Glucose Random 342 mg/dL (60-115); HCG Quantitative < 2 mIU/mL; Lipase 22 U/L (8-78); Magnesium 1.4 mg/dL (1.6-2.6); Potassium 3.7 mmol/L (3.3-5.1); Sodium 136 mmol/L (135-145); Total Protein 6.8 g/dL (6.5-8.0)
--- OUTSIDE RECORDS SUMMARY | 2023-02-22 13:05 | XMS_ITS | Continuity of Care Document ---
Author Name Unknown Organization [facility] Address [address] [place] [phone]- Care Team Providers Care Scientist Name Role Phone Seema KEMP, Alana Primary Care Physician Encounter [facility] [place] Date(s): 11/04/22 - 12/04/22 [facility] [address] [place] [id number]- Allergies, Adverse Reactions, Alerts No Known Allergies Medications Abilify 5 mg oral tablet 1 tablet = 5 mg, By Mouth, Daily, # 30 tablet, 0 Refills, Maintenance, Tablet Start Date: 01/05/12 Status: Ordered albuterol 0.083% inhalation solution 6 mL = 5 mg, Inhalation, Every 6 hours, PRN for wheezing, # 60 each, 11 Refills, Maintenance, 11/26/17 14:23:35, Solution Start Date: 11/26/17 Status: Ordered Albuterol solution Albuterol solution, Refills 0, Maintenance, prn, 11/26/17 14:10:15, Compound Start Date: 11/26/17 Status: Ordered ARIPiprazole 5 mg oral tablet Refills 0, Maintenance, 12/22/18 11:19:11 EDT Start Date: 12/22/18 Status: Ordered atorvastatin 20 mg oral tablet 1 tablet = 20 mg, By Mouth, Daily, # 90 tablet, 5 Refills, Maintenance, 08/08/19 10:17:54 EDT, Tablet Start Date: 08/08/19 Status: Ordered BD UF ORIG PEN NDL 12.6KHH66H BD UF ORIG PEN NDL 12.0ODU07A, 0 Refills, Maintenance, 12/22/18 11:19:59 EDT Start Date: 12/22/18 Status: Ordered budesonide 0.5 mg/2 mL inhalation suspension 0.5 mg, 2, mL, Neb, 2 times a day, # 120 mL, Refills 11, Tot. Refills 11, Maintenance, 11/26/17 14:23:51, Suspension, Route to Pharmacy Electronically, [id number], [facility]/pharmacy #[id number] Start Date: 11/26/17 Status: Ordered enalapril 20 mg oral tablet 1 tablet = 20 mg, By Mouth, Daily, # 30 tablet, 5 Refills, Maintenance, 01/22/17 15:56:55, Tablet Start Date: 01/22/17 Status: Ordered enalapril 20 mg oral tablet 0 Refills, Maintenance, 12/22/18 11:19:26 EDT Start Date: 12/22/18 Status: Ordered Freestyle Lancets See Instructions, # 100 each, Refills 11, Tot. Refills 11, Maintenance, TO CHECK 2 X A DAY GLUCOSE,12/22/18 12:10:05 EDT, Compound Start Date: 12/22/18 Status: Ordered FreeStyle Dontae 2 Monitor See Instructions, # 1 each, Refills 0, Tot. Refills 0, Maintenance, [place] for FreeStyle Dontae 2, 07/28/22 6:51:00 EDT, Supply, 159.3, cm, 07/15/22 10:49:00 EDT, Height Start Date: 07/28/22 Status: Ordered FreeStyle Dontae 2 Sensors See Instructions, # 6 each, Refills 2, Tot. Refills 2, Maintenance, Use one sensor every 14 days, 07/28/22 6:52:00 EDT, Supply, 159.3, cm, 07/15/22 10:49:00 EDT, Height Start Date: 07/28/22 Status: Ordered Freestyle Lite Monitor See Instructions, # 1 each, Refills 0, Tot. Refills 0, Maintenance, TO USE TO TEST GLUCOSE 2 X A DAY., 07/16/22 9:28:00 EDT, E11.65, PLEASE SET DATE AND TIME ON METER BEFORE GIVING TO PATIENT., Compound, 159.3, cm, 07/15/22 10:49:00 EDT, Height Start Date: 07/16/22 Status: Ordered FREESTYLE LITE TEST STRIP FREESTYLE LITE TEST STRIP, 0 Refills, Maintenance, 12/22/18 11:19:03 EDT Start Date: 12/22/18 Status: Ordered Freestyle Lite Test Strips See Instructions, # 100 each, Refills 11, Tot. Refills 11, Maintenance, 3 x a day glucose checks., 04/21/18 9:35:38 EDT, E11.65, Compound Start Date: 04/21/18 Status: Ordered Freestyle Lite Test Strips See Instructions, # 100 each, Refills 11, Tot. Refills 11, Maintenance, TO TEST 2 X A DAY GLUCOSE, 07/16/22 9:30:00 EDT, E11.65, Compound, 159.3, cm, 07/15/22 10:49:00 EDT, Height Start Date: 07/16/22 Status: Ordered HumaLOG Mix 75/25 KwikPen subcutaneous suspension See Instructions, INJECT 90 UNITS SUBCUTANEOUSLY BEFORE breakfast AND 90 UNITS SUBCUTANEOUSLY BEFORE dinner DX E11.9, # 75 mL, 3 Refills, Maintenance, 07/16/22 9:34:00 EDT, [facility], 41, INJECT 90 UNITS SUBCUTANEOUSLY BEFORE b... Start Date: 07/16/22 Status: Ordered HYDROCHLOROTHIAZIDE HYDROCHLOROTHIAZIDE, 25 mg, By Mouth, Daily, Refills 0, Maintenance, 12/11/15 14:43:30, Compound Start Date: 12/11/15 Status: Ordered hydrochlorothiazide 25 mg oral tablet 25 mg, 1, tablet, By Mouth, Daily, # 30 tablet, Refills 5, Tot. Refills 5, Maintenance, 01/22/17 15:56:56, Route to Pharmacy Electronically, [id number], [facility]/pharmacy #[id number] Start Date: 01/22/17 Status: Ordered Insulin Syringe, BD Ultra-Fine 1 cc 30 G x 12.7 mm (1/2in) See Instructions, # 100 each, Refills 6, Tot. Refills 6, Maintenance, please use to take once insulin daily, 04/16/21 14:16:00 EDT, Supply, 159.3, cm, 04/16/21 13:48:00 EDT, Height, 176.7, kg, 08/08/19 10:03:00 EDT, Dry Weight Start Date: 04/16/21 Status: Ordered KlonoPIN 1 mg oral tablet 1 tablet = 1 mg, By Mouth, 3 times a day, bid prn, 0 Refills, Maintenance, 08/26/16 17:02:23 Start Date: 08/26/16 Status: Ordered Lamictal 100 mg oral tablet 1 tablet = 100 mg, By Mouth, Daily, 0 Refills, Maintenance Start Date: 07/06/12 Status: Ordered Lamictal Tablet 50 mg, By Mouth, 2 times a day, Maintenance, 12/11/15 14:47:21 Start Date: 12/11/15 Status: Ordered Lexapro 10 mg oral tablet 1 tablet = 10 mg, By Mouth, Daily, 0 Refills, Maintenance, 12/22/18 11:21:27 EDT Start Date: 12/22/18 Status: Ordered metFORMIN 500 mg oral tablet, extended release 2 tablet = 1,000 mg, By Mouth, 2 times a day with meals, # 120 tablet, 4 Refills, Maintenance, 11/04/22 9:30:00 EST, ER Tablet, [facility], E11.65, 159.3, cm, 07/15/22 10:49:00 EDT, Height Start Date: 11/04/22 Stop Date: 04/03/23 Status: Ordered METFORMIN HCL ER 500 MG TABLET METFORMIN HCL ER 500 MG TABLET, 0 Refills, Maintenance, 12/22/18 11:18:59 EDT Start Date: 12/22/18 Status: Ordered NuLYTELY with Flavor Packs oral powder for reconstitution 240 mL, By Mouth, Every 10 minutes, # 4,000 mL, 0 Refills, Maintenance, 12/11/15 15:12:18, 240 mL By Mouth Every 10 minutes Start Date: 12/11/15 Status: Ordered omeprazole 20 mg oral enteric coated capsule 1 capsule = 20 mg, By Mouth, Daily, # 30 capsule, 0 Refills, Maintenance, 08/26/16 17:00:36, EC Capsule Start Date: 08/26/16 Status: Ordered Pen [place], 29 G x 12.7 mm BD Ultra Fine See Instructions, # 100 each, Refills 11, Tot. Refills 11, Maintenance, 2 X A DAY INJECTIONS, 07/16/22 9:37:00 EDT, e11.65, Compound, 159.3, cm, 07/15/22 10:49:00 EDT, Height Start Date: 07/16/22 Stop Date: 07/11/23 Status: Ordered prazosin 2 mg oral capsule 1 capsule = 2 mg, By Mouth, 3 times a day, 0 Refills, Maintenance, 12/22/18 11:21:09 EDT Start Date: 12/22/18 Status: Ordered ProAir HFA 90 mcg/inh inhalation aerosol with adapter 2, puffs, Inhalation, Every 4 hours, PRN, use with spacer chamber, # 1 each, Refills 3, Tot. Refills 3, Maintenance, 07/09/17 15:16:21, Route to Pharmacy Electronically, [id number], [facility]/pharmacy #[id number] Start Date: 07/09/17 Stop Date: 11/06/17 Status: Ordered Pulmicort Respules 0.5 mg/2 mL inhalation suspension 0.5 mg, 2, mL, Neb, 2 times a day, # 120 mL, Refills 3, Tot. Refills 3, Maintenance, 07/09/17 15:15:53, Inhalation Suspension, Route to Pharmacy Electronically, [id number], [facility]/pharmacy #[id number] Start Date: 07/09/17 Stop Date: 11/06/17 Status: Ordered Pulmicort Respules 0.5 mg/2 mL inhalation suspension Refills 0, Maintenance, 12/22/18 11:20:14 EDT Start Date: 12/22/18 Status: Ordered Problem List Condition Confirmation Course Effective Dates Status Health St atus Informant Abdominal pain Confirmed Active Anxiety Disorder NOS Confirmed 07/21/12 Active Apnea, sleep Confirmed Active Bipolar disorder Confirmed Active Depression Confirmed Active Diabetes mellitus type 2 in obese Confirmed Active Passage of loose stools Confirmed Active 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 Dysphagia Confirmed Active Epigastric pain Confirmed Active Encounter for diagnostic colonoscopy due to change in bowel habits Confirmed Active Heartburn symptom Confirmed Active H/O nausea Confirmed Active Hypertension Confirmed Active Learning disability not otherwise specified Confirmed 07/21/12 Active Metabolic syndrome Confirmed Active Morbid obesity Confirmed Active Medical non-compliance Confirmed Active PCOS - Polycystic ovarian syndrome Confirmed Active PCOS (polycystic ovarian syndrome) Confirmed Active PCOS (polycystic ovarian syndrome) Confirmed Active PTSD (post-traumatic stress disorder) Confirmed 12/17/10 Active Severe obesity Confirmed Active Odynophagia Confirmed Active Social History Social History Type Response Smoking Status Former smoker; Tobac co user in household: No; Other: pt states she is a sometime marijuana smoker; entered on: 11/26/17 Sex Patient Care team information Care Team Personnel Name: Sheryl Lyons RN Position: [facility] RN Member Role: Primary Care Nurse Name: Bess Boykin RN Position: [facility] RN Member Role: Primary Care Nurse Care Team Related Persons Name: JHONY INOCENCIACHARISSA Address: home [address] [place] [address] Name: NEHEMIAS AL Address: home [address] [place] [address]
--- OUTSIDE RECORDS SUMMARY | 2023-02-22 13:05 | XMS_ITS | Continuity of Care Document ---
Author Name Unknown Organization [facility] Address [address] [place] [phone]- Care Team Providers Care Anesthetist Name Role Phone Seema KEMP, Alana Primary Care Physician Encounter [facility] [place] Date(s): 11/27/22 - 12/27/22 [facility] [address] [place] [phone]- Attending Physician: Rodrick Robins Admitting Physician: Rodrick Robins Referring Physician: AdmtrRodrick Allergies, Adverse Reactions, Alerts No Known Allergies Medications Durable Medical Equipment Maintenance, 12/25/22 14:54:00 EDT, Supply Start Date: 12/25/22 Status: Ordered enalapril 20 mg oral tablet 0 Refills, Maintenance, 12/22/18 11:19:26 EDT Start Date: 12/22/18 Status: Ordered FreeStyle Dontae 2 Monitor See Instructions, # 1 each, Refills 0, Tot. Refills 0, Maintenance, [place] for FreeStyle Dontae 2, 07/28/22 6:51:00 EDT, Supply, 159.3, cm, 07/15/22 10:49:00 EDT, Height Start Date: 07/28/22 Status: Ordered FreeStyle Dontae 2 Sensors See Instructions, # 6 each, Refills 2, Tot. Refills 2, Maintenance, Use one sensor every 14 days, 07/28/22 6:52:00 EDT, Supply, 159.3, cm, 07/15/22 10:49:00 EDT, Height Start Date: 07/28/22 Status: Ordered HumaLOG Mix 75/25 KwikPen subcutaneous suspension See Instructions, INJECT 90 UNITS SUBCUTANEOUSLY BEFORE breakfast AND 90 UNITS SUBCUTANEOUSLY BEFORE dinner DX E11.9, # 75 mL, 3 Refills, Maintenance, 07/16/22 9:34:00 EDT, [facility], 41, INJECT 90 UNITS SUBCUTANEOUSLY BEFORE b... Start Date: 07/16/22 Status: Ordered hydrochlorothiazide 25 mg oral tablet 25 mg, 1, tablet, By Mouth, Daily, # 30 tablet, Refills 5, Tot. Refills 5, Maintenance, 01/22/17 15:56:56, Route to Pharmacy Electronically, [id number], [facility]/pharmacy #[id number] Start Date: 01/22/17 Status: Ordered KlonoPIN 1 mg oral tablet 1 tablet = 1 mg, By Mouth, 2 times a day, 0 Refills, Maintenance, 08/26/16 17:02:23 EST Start Date: 08/26/16 Status: Ordered metFORMIN 500 mg oral tablet, extended release 2 tablet = 1,000 mg, By Mouth, 2 times a day with meals, # 120 tablet, 4 Refills, Maintenance, 11/04/22 9:30:00 EST, ER Tablet, [facility], E11.65, 159.3, cm, 07/15/22 10:49:00 EDT, Height Start Date: 11/04/22 Stop Date: 04/03/23 Status: Ordered Pen [place], 29 G x 12.7 mm BD Ultra Fine See Instructions, # 100 each, Refills 11, Tot. Refills 11, Maintenance, 2 X A DAY INJECTIONS, 07/16/22 9:37:00 EDT, e11.65, Compound, 159.3, cm, 07/15/22 10:49:00 EDT, Height Start Date: 07/16/22 Stop Date: 07/11/23 Status: Ordered perphenazine 4 mg oral tablet 4 mg, 1, tablet, By Mouth, 3 times a day, Refills 0, Maintenance, 12/25/22 14:54:00 EDT, Partial fill upon patient request if the prescription is for a schedule II opioid drug. Start Date: 12/25/22 Status: Ordered ProAir HFA 90 mcg/inh inhalation aerosol with adapter 2, puffs, Inhalation, Every 4 hours, PRN, use with spacer chamber, # 1 each, Refills 3, Tot. Refills 3, Maintenance, 07/09/17 15:16:21, Route to Pharmacy Electronically, [id number], [facility]/pharmacy #[id number] Start Date: 07/09/17 Stop Date: 11/06/17 Status: Ordered Problem List Condition Confirmation Course [...] History Social History Type Response Smoking Status Never (less than 100 in lifetime) entered on: 12/25/22 Sex Patient Care team information Care Team Personnel Name: Sheryl Lyons RN Position: [facility] RN Member Role: Primary Care Nurse Name: Bess Boykin RN Position: [facility] RN Member Role: Primary Care Nurse Care Team Related Persons Name: JAYESH BOOKER Address: home [address] [place] [address] Name: FADIA ALMEN Address: home [address] [place] [address]
--- OUTSIDE RECORDS SUMMARY | 2023-02-22 13:05 | XMS_ITS | Continuity of Care Document ---
Author Name Unknown Organization [facility] Address [address] [place] [address]- Care Team Providers Care Sql Developer Name Role Phone Seema KEMP, Alana Primary Care Physician [phone] Encounter [facility] [place] Date(s): 11/25/22 - 12/25/22 [facility] [address] [place] [address]- Allergies, Adverse Reactions, Alerts No Known Allergies Medications Durable Medical Equipment Maintenance, 12/25/22 14:54:00 EDT, Supply Start Date: 12/25/22 Status: Ordered enalapril 20 mg oral tablet 0 Refills, Maintenance, 12/22/18 11:19:26 EDT Start Date: 12/22/18 Status: Ordered FreeStyle Dontae 2 Monitor See Instructions, # 1 each, Refills 0, Tot. Refills 0, Maintenance, [place] for FreeStyle Dontae 2, 07/28/22 6:51:00 EDT, [...] mL, 3 Refills, Maintenance, 07/16/22 9:34:00 EDT, [facility], 41, INJECT 90 UNITS SUBCUTANEOUSLY BEFORE b... Start Date: 07/16/22 Status: Ordered hydrochlorothiazide 25 mg oral tablet 25 mg, 1, tablet, By Mouth, Daily, # 30 tablet, Refills 5, Tot. Refills 5, Maintenance, 01/22/17 15:56:56, Route to Pharmacy Electronically, [id number], [facility]/pharmacy #[id number] Start Date: 01/22/17 Status: Ordered KlonoPIN 1 mg oral tablet 1 tablet = 1 mg, By Mouth, 2 times a day, 0 Refills, Maintenance, 08/26/16 17:02:23 EST Start Date: 08/26/16 Status: Ordered metFORMIN 500 mg oral tablet, extended release 2 tablet = 1,000 mg, By Mouth, 2 times a day with meals, # 120 tablet, 4 Refills, Maintenance, 11/04/22 9:30:00 EST, ER Tablet, [facility], E11.65, 159.3, cm, 07/15/22 10:49:00 EDT, Height Start Date: 11/04/22 Stop Date: 04/03/23 Status: Ordered Pen [place], 29 G x 12.7 mm BD Ultra [...] Maintenance, 07/09/17 15:16:21, Route to Pharmacy Electronically, [id number], [facility]/pharmacy #[id number] Start Date: 07/09/17 Stop Date: [...] Care team information Care Team Personnel Name: Eloy PIERRE, Sheryl Robertson Position: [facility] RN Member Role: Primary Care Nurse Name: Bess Boykin RN Position: [facility] RN Member Role: Primary Care Nurse Care Team Related Persons Name: INOCENCIA BOOKERCHARISSA Address: home [address] [address] Name: NEHEMIAS AL Address: home [address] [facility] [address] [place] [address]
--- OUTSIDE RECORDS SUMMARY | 2023-02-22 13:06 | XMS_ITS | Continuity of Care Document ---
Author Name Unknown Organization [facility] Address [address] [place] [phone]- Care Team Providers Care Warm In Worker Name Role Phone Seema KEMP, Alana Primary Care Physician Encounter [facility] [place] Date(s): 08/29/22 - 12/27/22 [facility] [address] [place] [address]- Attending Physician: Cheri Vaca MD Admitting Physician: Cheri Vaca MD Referring Physician: Alana Stephenson NP Allergies, Adverse Reactions, Alerts No Known Allergies Medications Durable Medical Equipment Maintenance, 12/25/22 14:54:00 EDT, Supply Start Date: 12/25/22 Status: Ordered enalapril 20 mg oral tablet 0 Refills, Maintenance, 12/22/18 11:19:26 EDT Start Date: 12/22/18 Status: Ordered FreeStyle Dontae 2 Monitor See Instructions, # 1 each, Refills 0, Tot. Refills 0, Maintenance, [place] for FreeStyle Dontae 2, 07/28/22 6:51:00 EDT, [...] mL, 3 Refills, Maintenance, 07/16/22 9:34:00 EDT, [facility], 41, INJECT 90 UNITS SUBCUTANEOUSLY BEFORE b... Start Date: 07/16/22 Status: Ordered hydrochlorothiazide 25 mg oral tablet 25 mg, 1, tablet, By Mouth, Daily, # 30 tablet, Refills 5, Tot. Refills 5, Maintenance, 01/22/17 15:56:56, Route to Pharmacy Electronically, [id number], [facility]/pharmacy #[id number] Start Date: 01/22/17 Status: Ordered KlonoPIN 1 mg oral tablet 1 tablet = 1 mg, By Mouth, 2 times a day, 0 Refills, Maintenance, 08/26/16 17:02:23 EST Start Date: 08/26/16 Status: Ordered metFORMIN 500 mg oral tablet, extended release 2 tablet = 1,000 mg, By Mouth, 2 times a day with meals, # 120 tablet, 4 Refills, Maintenance, 11/04/22 9:30:00 EST, ER Tablet, [facility], E11.65, 159.3, cm, 07/15/22 10:49:00 EDT, Height Start Date: 11/04/22 Stop Date: 04/03/23 Status: Ordered Pen [place], 29 G x 12.7 mm BD Ultra [...] Maintenance, 07/09/17 15:16:21, Route to Pharmacy Electronically, [id number], [facility]/pharmacy #[id number] Start Date: 07/09/17 Stop Date: [...] Care Nurse Care Team Related Persons Name: JHONY, INOCENICACHARISSA Address: home [address] [place] [address] Name: NEHEMIAS AL Address: home [address] [place] [address] [place] [address]
[2023-02-22] MEDS: Ketorolac Tromethamine 30 MG/ML VIAL IVPUSH (13:16)
[2023-02-22] MEDS: 0.9 % Sodium Chloride 1,000 ML 999 ML IV (13:16)
[2023-02-22] MEDS: ondansetron HCL 4 MG/2 ML VIAL IVPUSH (13:16)
[2023-02-22] MEDS: Magnesium Sulfate/D5W 1 GM/100 ML PIGGYBACK IV (13:17)
[2023-02-22] MEDS: Insulin Regular, Human 100 UNIT/ML 3 ML VIAL IVPUSH (13:29)
[2023-02-22 14:37] VITALS: TEMP 36.7
[2023-02-22 14:53] LABS: Glucose, Whole Blood 275 mg/dL (60-115)
[2023-02-22 15:15] LABS: UPreg QC Valid YES
[2023-02-22 15:16] LABS: Appearance Urine Cloudy; Color Urine Yellow; Glucose Urine UA >=1000 mg/dL (Negative); Leukocyte Esterase Urine Negative (Negative); Nitrite Urine Negative (Negative); PH 5.5 (5.0-9.0); Specific Gravity - Urine >= 1.030 (1.005-1.025); UMIC TRIGGER UACC YES; Urine Blood Trace (Negative); Urine Ketones Negative (Negative); Urine Protein 100 (2+) mg/dL (Neg-Trace)
[2023-02-22 15:20] VITALS: BP 148/88; PULSE 98; RESP 19; TEMP 36.8; O2SAT 99
[2023-02-22 15:20] LABS: Urine Pregnancy NEGATIVE (NEGATIVE)
[2023-02-22 15:21] LABS: Bacteria Urine None Seen (None Seen); Hyaline Casts Urine 0-2 /LPF (0-2); RBC Urine 0-2 /HPF (0-2); Squamous Epithelial Cell Urine 0-2 /HPF (0-2); WBC Urine 0-5 /HPF (0-5)
== END 2023-02-22 15:58 | disposition home or self-care (01) ==
PROVIDERS: Physician Assistant Medical; Emergency Provider Emergency Medicine
DX: R10.30 Lower abdominal pain, unspecified (principal); R11.2 Nausea with vomiting, unspecified; R25.2 Cramp and spasm; R35.0 Frequency of micturition; R19.7 Diarrhea, unspecified; Z79.899 Other long term (current) drug therapy
CPT/HCPCS: 36415; 74176; 80053; 81001; 81025; 82947; 83690; 83735; 84702; 85025; 96374; 96375; 99284; 99285; J1885; J2405; J3475

== ENCOUNTER 2023-07-22 07:47 | Emergency (ER) | payer MEDICAID, SELFPAY ==
[2023-07-22 07:55] VITALS: BP 119/68; PULSE 106; RESP 20; TEMP 36.7; O2SAT 98; BMI 65.5
--- NOTE | 2023-07-22 08:11 | ED.URI ---
HPI - URI/Sore Throat General Chief Complaint: Upper Respiratory Symptoms Stated Complaint: ? Bronchitis Time Seen by Provider: 07/22/23 07:58 History of Present Illness HPI Narrative: Patient is a 28-year-old female presents today with having coughing upper respiratory symptoms that is been ongoing for about 2 weeks. Took 2 home COVID testing were negative. Positive history of diabetes, hypertension. Patient is home. Related Data Home Medications Medication Instructions Recorded Confirmed blood sugar diagnostic (FreeStyle #10 ea 07/14/20 07/14/20 Lite Strips) enalapril maleate 20 mg tablet 20 mg PO DAILY 07/14/20 04/28/22 lancets 28 gauge (FreeStyle #100 ea 07/14/20 07/14/20 Lancets) atorvastatin 10 mg tablet 10 mg PO BEDTIME 04/28/22 04/28/22 clonazepam 1 mg tablet 1 mg PO BID 04/28/22 04/28/22 hydrochlorothiazide 25 mg tablet 25 mg PO DAILY 04/28/22 04/28/22 hydroxyzine HCl 25 mg tablet 1 - 2 tab PO Q6H PRN anxiety 04/28/22 04/28/22 insulin lispro protamine-lispro 90 unit subcut BID 04/28/22 04/28/22 100 unit/mL (75-25) subcutaneous pen (Humalog Mix 75-25 KwikPen) perphenazine 2 mg tablet 2 mg PO BID 04/28/22 04/28/22 empagliflozin 10 mg tablet 10 mg PO QAM 07/10/22 (Jardiance) metformin 500 mg tablet 1,000 mg PO BID 07/10/22 spironolactone 25 mg tablet 25 mg PO DAILY 07/10/22 Previous Rx's Medication Instructions Recorded albuterol sulfate 90 mcg/actuation 2 puff inhalation Q4-6H PRN 09/08/21 aerosol inhaler shortness of breath or wheezing #8.5 grams ondansetron 4 mg disintegrating 4 mg PO Q6H PRN nausea and 12/20/21 tablet vomiting #10 tabs cyclobenzaprine 10 mg tablet 10 mg PO TID PRN muscle spasm #14 05/26/22 tabs diclofenac sodium 1 % topical gel 2 g topical QID #100 grams 05/26/22 (Voltaren Arthritis Pain) albuterol sulfate 0.63 mg/3 mL 0.63 mg (3 mL) inhalation QID PRN 07/04/22 solution for nebulization shortness of breath or wheezing #75 mL albuterol sulfate 90 mcg/actuation 1 inh inhalation QID PRN shortness 07/04/22 aerosol inhaler of breath or wheezing #8.5 grams nebulizers (AeroEclipse II #1 ea 07/04/22 Nebulizer) prednisone 20 mg tablet 40 mg (2 x 20 mg) PO DAILY rash 5 07/04/22 days #10 tabs cyclobenzaprine 5 mg tablet 5 mg PO TID PRN muscle spasm 7 11/24/22 days #21 tabs ibuprofen 600 mg tablet 600 mg PO Q6H PRN pain #30 tabs 02/22/23 ondansetron 4 mg disintegrating 4 mg PO Q8H PRN nausea and 02/22/23 tablet vomiting #14 tabs doxycycline hyclate 100 mg capsule 100 mg PO BID cough 7 days #14 caps 07/22/23 Allergies Allergy/AdvReac Type Severity Reaction Status Date / Time No Known Allergies Allergy Verified 07/10/22 11:06 Review of Systems Review of Systems: Positive coughing congestion upper Yes all other systems are reviewed and are negative PMFSH Past Medical History Attestation statement: The following information was validated with the patient. 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 Oriented X3. No acute distress. Eyes: Pupils equal, round and reactive to light. ENT: Pharynx normal. Neck: Normal inspection. Neck supple. No lymph nodes noted. No crepitus CVS: Normal heart rate and rhythm. Pulses normal. Normal S1 and S2 Respiratory: No respiratory distress. Breath sounds normal. No Wheezing. No rales Abdomen: Soft and nontender. No rigidity. No distention. good BS x4 Skin: Skin warm and dry. Normal skin color. Normal skin turgor. Extremities: No lower extremity edema. Neurovascular intact to all extremities. No Lacerations. No Rash Neuro: Oriented X 3. No motor deficit. No sensory deficit. Moving all extermities. No slurred speech Medical Decision Making Medical Decision Making [facility] Narrative: My interpretation the patient's chest x-ray was grossly negative for any acute evidence of pneumonia. No pneumothorax no rib fracture. Patient complaining of coughing upper respiratory symptoms that is been ongoing for 2 weeks. Flu RSV COVID were all negative. Well-appearing O2 sat is greater than 98%. In no distress. test was negative. Will discharge patient home on doxycycline and cough medication follow up on an outpatient basis. Differential Diagnosis Differential Diagnoses: The differential diagnosis associated with the presentation includes Pneumonia pneumothorax Admission/Observation Consideration of admission/observation: Escalation of care including admission/observation considered No need for admission patient's O2 sat is normal Lab Data [facility] Lab Attestation statement: I reviewed the patient's lab results. Labs: Lab Results 07/22/23 Range/Units 08:22 Urine Test NEGATIVE (NEGATIVE) Influenza Type A (PCR) NEGATIVE (Negative) Influenza Type B (PCR) NEGATIVE (Negative) RSV RNA Qual (PCR) NEGATIVE (Negative) SARS-CoV-2 RNA (RT-PCR) NEGATIVE (Negative) Independent Interpretation I performed an independent interpretation of an: Plain X-Ray (Chest x-ray negative for pneumonia pneumothorax) Radiology Impression Discussion of test interpretation with radiology: I have reviewed the radiologist's reading. Prescription Management I considered prescription management with: Antibiotic Chronic Conditions Patient?s care impacted by: Diabetes and Hypertension Discharge Plan Discharge Clinical Impression: Upper respiratory infection Patient Disposition: Home, Self-Care Instructions: Upper Respiratory Infection (ED) Prescriptions: New doxycycline hyclate 100 mg capsule 100 mg PO BID 7 Days Qty: 14 0RF No Action clonazepam 1 mg Tablet 1 mg PO BID hydroxyzine HCl 25 mg tablet 1 - 2 tab PO Q6H PRN (Reason: anxiety) hydrochlorothiazide 25 mg Tablet 25 mg PO DAILY insulin lispro protamin-lispro [Humalog Mix 75-25 KwikPen] 100 unit/mL (75-25) Insulin Pen 90 unit SUBCUT BID perphenazine 2 mg Tablet 2 mg PO BID atorvastatin 10 mg Tablet 10 mg PO BEDTIME cyclobenzaprine 10 mg tablet 10 mg PO TID PRN (Reason: muscle spasm) Qty: 14 0RF diclofenac sodium [Voltaren Arthritis Pain] 1 % gel 2 g topical QID Qty: 100 0RF Rx Instructions: apply to single elbow, wrist or hand; for hand includes palm/fingers/back of hand albuterol sulfate 90 mcg/actuation HFA aerosol inhaler 2 puff inhalation Q4-6H PRN (Reason: shortness of breath or wheezing) Qty: 8.5 0RF ondansetron 4 mg tablet,disintegrating 4 mg PO Q6H PRN (Reason: nausea and vomiting) Qty: 10 0RF (DME) nebulizers [AeroEclipse II Nebulizer] Misc See Rx Instructions .ROUTE .MEDSUPPLY Qty: 1 0RF Rx Instructions: As directed albuterol sulfate 0.63 mg/3 mL solution for nebulization 0.63 mg inhalation QID PRN (Reason: shortness of breath or wheezing) Qty: 75 0RF albuterol sulfate 90 mcg/actuation HFA aerosol inhaler 1 inh inhalation QID PRN (Reason: shortness of breath or wheezing) Qty: 8.5 0RF prednisone 20 mg tablet 40 mg PO DAILY 5 Days Qty: 10 0RF cyclobenzaprine 5 mg tablet 5 mg PO TID PRN (Reason: muscle spasm) 7 Days Qty: 21 0RF ondansetron 4 mg tablet,disintegrating 4 mg PO Q8H PRN (Reason: nausea and vomiting) Qty: 14 0RF ibuprofen 600 mg tablet 600 mg PO Q6H PRN (Reason: pain) Qty: 30 0RF enalapril maleate 20 mg tablet 20 mg PO DAILY (DME) FreeStyle Lite Strips Strip See Rx Instructions .ROUTE .MEDSUPPLY Qty: 10 Rx Instructions: As directed (DME) lancets [FreeStyle Lancets] 28 gauge misc See Rx Instructions .ROUTE .MEDSUPPLY Qty: 100 Rx Instructions: As directed metformin 500 mg tablet 1,000 mg PO BID Jardiance 10 mg tablet 10 mg PO QAM spironolactone 25 mg tablet 25 mg PO DAILY Referrals: [facility] [Primary Care Provider] - 07/24/23
== END 2023-07-22 09:42 | disposition home or self-care (01) ==
PROVIDERS: Emergency Provider Emergency Medicine Emergency Medical Services
DX: J06.9 Acute upper respiratory infection, unspecified (principal); R05.9 Cough, unspecified; I10 Essential (primary) hypertension; E11.9 Type 2 diabetes mellitus without complications; Z20.822 Contact with and (suspected) exposure to COVID-19; Z20.828 Contact with and (suspected) exposure to other viral communicable diseases; Z79.899 Other long term (current) drug therapy
CPT/HCPCS: 0241U; 71045; 81025; 99283; 99284

== ENCOUNTER 2023-07-30 06:42 | Emergency (ER) | payer MEDICAID, SELFPAY ==
--- NOTE | 2023-07-30 07:17 | ED_ITS ---
HPI - General Adult General Chief complaint: General Medical Stated complaint: possible pulled muscle from coughing Time Seen by Provider: 07/30/23 07:17 Source: patient Mode of arrival: ambulatory Limitations: no limitations History of Present Illness HPI narrative: Patient is a 28 year old assigned female at with a history of asthma and DM presenting to the emergency department today with right sided pain. Patient states that she has been coughing for a little over a week and now her right side hurts when she coughs. Patient denies any dizziness, lightheadedness, abdominal pain, nausea, vomiting, fever, chills, blurry vision, double vision, loss of vision, chest pain, difficulty breathing, shortness of breath, back pain, night sweats, pain with urination, increased urinary frequency, increased urinary urgency, blood in her urine or stool, syncope or a near syncopal episode, recent trauma or falls, bowel incontinence, bladder incontinence, bowel retention, bladder retention, or any other complaints at this time. Onset (ago): day(s) Radiation: non-radiation Severity: mild Severity scale (1-10): 3 Quality: dull Pain Consistency: intermittent Relieving factors: none Exacerbating factors: other (coughing) Associated symptoms: cough Treatments prior to arrival: none Related Data Home Medications Medication Instructions Recorded Confirmed blood sugar diagnostic (FreeStyle #10 ea 07/14/20 07/14/20 Lite Strips) enalapril maleate 20 mg tablet 20 mg PO DAILY 07/14/20 04/28/22 lancets 28 gauge (FreeStyle #100 ea 07/14/20 07/14/20 Lancets) atorvastatin 10 mg tablet 10 mg PO BEDTIME 04/28/22 04/28/22 clonazepam 1 mg tablet 1 mg PO BID 04/28/22 04/28/22 hydrochlorothiazide 25 mg tablet 25 mg PO DAILY 04/28/22 04/28/22 hydroxyzine HCl 25 mg tablet 1 - 2 tab PO Q6H PRN anxiety 04/28/22 04/28/22 insulin lispro protamine-lispro 90 unit subcut BID 04/28/22 04/28/22 100 unit/mL (75-25) subcutaneous pen (Humalog Mix 75-25 KwikPen) perphenazine 2 mg tablet 2 mg PO BID 04/28/22 04/28/22 empagliflozin 10 mg tablet 10 mg PO QAM 07/10/22 (Jardiance) metformin 500 mg tablet 1,000 mg PO BID 07/10/22 spironolactone 25 mg tablet 25 mg PO DAILY 07/10/22 Previous Rx's Medication Instructions Recorded albuterol sulfate 90 mcg/actuation 2 puff inhalation Q4-6H PRN 09/08/21 aerosol inhaler shortness of breath or wheezing #8.5 grams ondansetron 4 mg disintegrating 4 mg PO Q6H PRN nausea and 12/20/21 tablet vomiting #10 tabs cyclobenzaprine 10 mg tablet 10 mg PO TID PRN muscle spasm #14 05/26/22 tabs diclofenac sodium 1 % topical gel 2 g topical QID #100 grams 05/26/22 (Voltaren Arthritis Pain) albuterol sulfate 0.63 mg/3 mL 0.63 mg (3 mL) inhalation QID PRN 07/04/22 solution for nebulization shortness of breath or wheezing #75 mL albuterol sulfate 90 mcg/actuation 1 inh inhalation QID PRN shortness 07/04/22 aerosol inhaler of breath or wheezing #8.5 grams nebulizers (AeroEclipse II #1 ea 07/04/22 Nebulizer) prednisone 20 mg tablet 40 mg (2 x 20 mg) PO DAILY rash 5 07/04/22 days #10 tabs cyclobenzaprine 5 mg tablet 5 mg PO TID PRN muscle spasm 7 11/24/22 days #21 tabs ibuprofen 600 mg tablet 600 mg PO Q6H PRN pain #30 tabs 02/22/23 ondansetron 4 mg disintegrating 4 mg PO Q8H PRN nausea and 02/22/23 tablet vomiting #14 tabs doxycycline hyclate 100 mg capsule 100 mg PO BID cough 7 days #14 caps 07/22/23 benzonatate 100 mg capsule 100 mg PO BID PRN cough 7 days #14 07/30/23 caps cyclobenzaprine 5 mg tablet 5 mg PO TID PRN muscle spasm 7 07/30/23 days #21 tabs Allergies Allergy/AdvReac Type Severity Reaction Status Date / Time No Known Allergies Allergy Verified 07/10/22 11:06 Review of Systems Constitutional: Constitutional: Reports no additional constitutional complaints, Denies chills, Denies fever(s) and Denies night sweats Eyes: Eyes: Reports no additional eye complaints, Denies blurry vision, Denies change in vision, Denies diplopia, Denies eye discharge, Denies loss of vision and Denies eye pain ENT: Denies dizziness Cardiovascular: Cardiovascular: Reports no additional cardiovascular complaints, Denies chest pain, Denies lightheadedness, Denies Loss of Consciousness and Denies dyspnea Respiratory: Respiratory: Reports no additional respiratory complaints, Reports cough and Denies dyspnea Gastrointestinal: Gastrointestinal: Reports no additional gastrointestinal complaints, Denies abdominal pain, Denies melena, Denies hematochezia, Denies change in bowel habits and Denies change in stool character Genitourinary: Genitourinary: Denies hematuria, Denies urinary frequency, Den ies dysuria, Denies urinary incontinence, Denies urinary hesitancy and Denies urinary urgency Musculoskeletal: Musculoskeletal: Reports no additional musculoskeletal complaints, Denies numbness and Denies tingling Comments: right sided pain with coughing Neurologic: Denies dizziness, Denies loss of vision, Denies numbness and Denies tingling Psychiatric: Psychiatric: Reports no additional psychiatric complaints Endocrine: Endocrine: Reports no additional endocrine complaints Hematologic/Lymphatic: Hematologic/Lymphatic: Reports no additional hematologic/lymphatic complaints Allergic/Immunologic: Allergic/Immunologic: Reports no additional allergic/immunologic complaints [facility] Past Medical History Attestation statement: The following information was validated with the patient. Source: old records reviewed and nursing notes reviewed Medical History Hypertension Depression Apnea, sleep PTSD (post-traumatic stress disorder) (12/17/10) PCOS (polycystic ovarian syndrome) Metabolic syndrome Dysphagia Diabetes mellitus type 2 in obese Bipolar disorder Cough Asthma Intentional perphenazine overdose Suicidal ideation COVID-19 High blood cholesterol Bipolar 2 disorder, major depressive episode Sleep apnea GERD (gastroesophageal reflux disease) Hyperlipidemia Hypertension Diabetes mellitus, type 2 Social History Social History Alcohol intake: current Alcohol intake frequency: does not drink Patient Tobacco Use Status: Never used Tobacco Substance Use Type: Marijuana Advance Directives: No Current occupational status: unemployed 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 Physical Exam ED Vital Signs: Vital Signs - 24 hr 07/30/23 07:18 Temperature 97.9 F Pulse Rate 90 Respiratory Rate 16 Blood Pressure 145/83 H Pulse Oximetry 99 Oxygen Delivery Method Room Air BMI result Body Mass Index 67.3 Const General: cooperative, no acute distress, alert and awake Nutritional Appearance: well nourished Orientation/consciousness: patient oriented x3 Limitations: no limitations HENMT Head: Yes normal to inspection and Yes atraumatic Ears: hearing grossly normal bilaterally and external ears normal General nose exam: Normal external nose present, no nasal discharge noted and no epistaxis Face and sinus: Yes normal facial exam, No abrasion and No laceration Mouth: Normal oral and palatal mucosa present, no drooling and no muffled voice Eyes General: appearance normal, both eyes and all related structures Periorbital: periorbital findings normal Eyelids: Yes eyelids normal Conjunctivae: conjunctivae normal Pupils: Equal, round and reactive pupils present EOM: EOMs intact bilaterally Neck Neck: Yes normal visual inspection, Yes full ROM and Yes no lymphadenopathy Chest Chest palpation & inspection: normal inspection of the chest Resp Effort & Inspection: normal respiratory effort and able to speak in complete sentences Auscultation: clear to auscultation bilaterally Cardio Rate: regular rate Rhythm: regular rhythm GI Inspection: Yes normal to inspection Neuro General: patient oriented x3 and moves all extremities Cranial nerves: Yes Equal, round and reactive pupils present Cognition (Neuro): normal cognition Motor exam (neuro): 5/5 motor strength present throughout Sensory Exam: Normal double simultaneous stimulation for sensation Coordination: [id number] test normal Extrem General: Yes normal to inspection, Yes full ROM and Yes capillary refill normal Psych Appearance: grossly normal Mental Status: mental status grossly normal Affect: normal affect Attitude: cooperative Thought process: Normal thought process present Thought content: Normal thought content present Insight: Good insight present (Psych) Medical Decision Making Medical Decision Making MDM Narrative: Patient is a 28 year old assigned female at with a history of DM and Asthma presenting to the emergency department today with right sided pain with coughing. Patient's physical exam was unremarkable. I explained my physical exam findings to the patient. I answered all questions asked by the patient. Patient received IM Toradol, PO Flexeril, and PO Tessalon pearls which she stated helped her symptoms significantly. I stressed the importance of the patient taking her medication as prescribed. I stressed the importance of the patient following up with her primary care provider. I stressed the importance of the patient returning to the emergency department immediately if her symptoms were to worsen or if she were to develop any dizziness, shortness of breath, difficulty breathing, chest pain, blurry vision, loss of vision, nausea, vomiting, abdominal pain, fever, chills, back pain, or any other complaints. Patient verbalized agreement and understanding with this treatment plan and discharge. Differential Diagnosis Differential Diagnoses: The differential diagnosis associated with the presentation includes Muscle spasm Cough Discharge Plan Discharge Clinical Impression: Muscle spasm, Cough Patient Disposition: Home, Self-Care Instructions: Muscle Spasm (ED), Acute Cough (ED) Additional Instructions: Follow up with your primary care provider. Return to the emergency department immediately if your symptoms worsen or if you develop any dizziness, shortness of breath, difficulty breathing, chest pain, blurry vision, loss of vision, nausea, vomiting, abdominal pain, fever, chills, back pain, or any other complaints. Prescriptions: New benzonatate 100 mg capsule 100 mg PO BID PRN (Reason: cough) 7 Days Qty: 14 0RF cyclobenzaprine 5 mg tablet 5 mg PO TID PRN (Reason: muscle spasm) 7 Days Qty: 21 0RF No Action clonazepam 1 mg Tablet 1 mg PO BID hydroxyzine HCl 25 mg tablet 1 - 2 tab PO Q6H PRN (Reason: anxiety) hydrochlorothiazide 25 mg Tablet 25 mg PO DAILY insulin lispro protamin-lispro [Humalog Mix 75-25 KwikPen] 100 unit/mL (75-25) Insulin Pen 90 unit SUBCUT BID perphenazine 2 mg Tablet 2 mg PO BID atorvastatin 10 mg Tablet 10 mg PO BEDTIME cyclobenzaprine 10 mg tablet 10 mg PO TID PRN (Reason: muscle spasm) Qty: 14 0RF diclofenac sodium [Voltaren Arthritis Pain] 1 % gel 2 g topical QID Qty: 100 0RF Rx Instructions: apply to single elbow, wrist or hand; for hand includes palm/fingers/back of hand albuterol sulfate 90 mcg/actuation HFA aerosol inhaler 2 puff inhalation Q4-6H PRN (Reason: shortness of breath or wheezing) Qty: 8.5 0RF ondansetron 4 mg tablet,disintegrating 4 mg PO Q6H PRN (Reason: nausea and vomiting) Qty: 10 0RF (DME) nebulizers [AeroEclipse II Nebulizer] Misc See Rx Instructions .ROUTE .MEDSUPPLY Qty: 1 0RF Rx Instructions: As directed albuterol sulfate 0.63 mg/3 mL solution for nebulization 0.63 mg inhalation QID PRN (Reason: shortness of breath or wheezing) Qty: 75 0RF albuterol sulfate 90 mcg/actuation HFA aerosol inhaler 1 inh inhalation QID PRN (Reason: shortness of breath or wheezing) Qty: 8.5 0RF prednisone 20 mg tablet 40 mg PO DAILY 5 Days Qty: 10 0RF cyclobenzaprine 5 mg tablet 5 mg PO TID PRN (Reason: muscle spasm) 7 Days Qty: 21 0RF ondansetron 4 mg tablet,disintegrating 4 mg PO Q8H PRN (Reason: nausea and vomiting) Qty: 14 0RF ibuprofen 600 mg tablet 600 mg PO Q6H PRN (Reason: pain) Qty: 30 0RF doxycycline hyclate 100 mg capsule 100 mg PO BID 7 Days Qty: 14 0RF enalapril maleate 20 mg tablet 20 mg PO DAILY (DME) FreeStyle Lite Strips Strip See Rx Instructions .ROUTE .MEDSUPPLY Qty: 10 Rx Instructions: As directed (DME) lancets [FreeStyle Lancets] 28 gauge misc See Rx Instructions .ROUTE .MEDSUPPLY Qty: 100 Rx Instructions: As directed metformin 500 mg tablet 1,000 mg PO BID Jardiance 10 mg tablet 10 mg PO QAM spironolactone 25 mg tablet 25 mg PO DAILY Referrals: [facility] [place] Family Medicine [Provider Group] (Call to establish and follow up with a primary care provider. If you already have a primary care provider, please follow up with them.) [facility] Primary Care, Izzy [Provider Group] (Call to establish and follow up with a primary care provider. If you already have a primary care provider, please follow up with them.) [facility] Primary Care,Teresita [Provider Group] (Call to establish and follow up with a primary care provider. If you already have a primary care provider, please follow up with them.) Stand Alone Forms: Work/School Release Print Language: Nauruan
[2023-07-30 07:18] VITALS: BP 145/83; PULSE 90; RESP 16; TEMP 36.6; O2SAT 99; BMI 67.3
[2023-07-30] MEDS: Ketorolac Tromethamine 15 MG/ML VIAL IM (07:32)
[2023-07-30] MEDS: Cyclobenzaprine HCl 5 MG TABLET PO (07:32)
[2023-07-30] MEDS: Benzonatate 100 MG CAPSULE PO (07:33)
== END 2023-07-30 07:39 | disposition home or self-care (01) ==
PROVIDERS: Emergency Provider Emergency Medicine Emergency Medical Services
DX: M62.838 Other muscle spasm (principal); R05.9 Cough, unspecified; E11.9 Type 2 diabetes mellitus without complications; I10 Essential (primary) hypertension; E66.01 Morbid (severe) obesity due to excess calories; Z68.44 Body mass index [BMI] 60.0-69.9, adult
CPT/HCPCS: 96372; 99284; J1885

== ENCOUNTER 2023-09-21 07:42 | Emergency (ER) | payer MEDICAID, SELFPAY ==
--- NOTE | ~2023-09-21 | XR_ITS ---
EXAMINATION: XR ELBOW, RIGHT CLINICAL INFORMATION: Pain COMPARISON: None available. TECHNIQUE: AP, lateral, and oblique views of the right elbow. FINDINGS: The bones and soft tissues are normal. No fracture or joint effusion. Alignment is anatomic. Joint spaces are maintained. XR/XR elbow RT min 3V IMPRESSION: No bony abnormality.
[2023-09-21 07:49] VITALS: BP 182/100; PULSE 95; RESP 20; TEMP 35.8; O2SAT 98; BMI 66.3
--- OUTSIDE RECORDS SUMMARY | 2023-09-21 08:06 | XMS_ITS | Continuity of Care Document ---
Author Name Unknown Organization [facility] Address [address] [place] [phone]- Care Team Providers Care Hammer Operator Name Role Phone Seema KEMP, Alana Primary Care Physician [phone] Encounter [facility] Date(s): 07/27/23 - 08/26/23 [facility] [address] [place] [address]- Allergies, Adverse Reactions, Alerts No Known Allergies Medications Durable Medical Equipment Maintenance, 12/25/22 14:54:00 EDT, Supply Start Date: 12/25/22 Status: Ordered enalapril 20 mg oral tablet 0 Refills, Maintenance, 12/22/18 11:19:26 EDT Start Date: 12/22/18 Status: Ordered FreeStyle Dontae 2 Monitor See Instructions, # 1 each, Refills 0, Tot. Refills 0, Maintenance, [place] for FreeStyle Dontae 2, 07/28/22 6:51:00 EDT, Supply, 159.3, cm, 07/15/22 10:49:00 EDT, Height Start Date: 07/28/22 Status: Ordered FreeStyle Dontae 2 [place] FreeStyle Dontae 2 [place], See Instructions, # 1 each, Refills 0, Tot. Refills 0, Maintenance, for testing glucose levels; E11.65; ([facility]: [address]-42), 07/27/23 12:17:00 EDT, Supply, 160, cm, 12/25/22 14:39:00 EDT, Height Start Date: 07/27/23 Status: Ordered FreeStyle Dontae 2 Sensor kit FreeStyle Dontae 2 Sensor kit, 0 Refills, Maintenance, 07/27/23 12:11:00 EDT Start Date: 07/27/23 Status: Ordered FreeStyle Dontae 2 Sensor kit FreeStyle Dontae 2 Sensor kit, See Instructions, # 2 kit, 1 Refills, Maintenance, USE DIRECTED. CHANGE EVERY 14 DAYS, 08/14/23 7:49:00 EDT, 160, cm, 08/13/23 11:07:00 EDT, Height Start Date: 08/14/23 Status: Ordered FreeStyle Dontae 2 Sensors See Instructions, # 6 each, Refills 0, Tot. Refills 0, Maintenance, Use one sensor every 14 days, 05/26/23 12:59:00 EDT, Supply, 160, cm, 12/25/22 14:39:00 EDT, Height Start Date: 05/26/23 Status: Ordered FreeStyle Lite Strips FreeStyle Lite Strips, 0 Refills, Maintenance, 07/27/23 12:12:00 EDT Start Date: 07/27/23 Status: Ordered hydrochlorothiazide 25 mg oral tablet 25 mg, 1, tablet, By Mouth, Daily, # 30 tablet, Refills 5, Tot. Refills 5, Maintenance, 01/22/17 15:56:56, Route to Pharmacy Electronically, [id number], [facility]/pharmacy #[id number] Start Date: 01/22/17 Status: Ordered Insulin Lispro Protamine-Insulin Lispro Mix75/25 KwikPen subcutaneous suspension See Instructions, INJECT 90 UNITS SUBCUTANEOUSLY BEFORE BREAKFAST AND 90 UNITS BEFORE SUPPER, # 75 mL, 5 Refills, Maintenance, 08/16/23 22:21:00 EST, [facility], 160, cm, 08/13/2311:07:00 EDT, Height Start Date: 08/16/23 Status: Ordered Jardiance 10 mg oral tablet 0 Refills, Maintenance, 07/27/23 12:12:00 EDT, Partial fill upon patient request if the prescription is for a schedule II opioid drug. Start Date: 07/27/23 Status: Ordered KlonoPIN 1 mg oral tablet 1 tablet = 1 mg, By Mouth, 2 times a day, 0 Refills, Maintenance, 08/26/16 17:02:23 EST Start Date: 08/26/16 Status: Ordered MetFORMIN (Eqv-Glucophage XR) 500 mg oral tablet, extended release 2 tablet, By Mouth, 2 times a day with meals, # 120 tablet, 5 Refills, Maintenance, 08/16/23 22:20:00 EST, [facility], 160, cm, 08/13/23 11:07:00 EDT, Height Start Date: 08/16/23 Status: Ordered Pen [place], 29 G x 12.7 mm BD Ultra [...] Maintenance, 07/09/17 15:16:21, Route to Pharmacy Electronically, [id number], [facility]/pharmacy #[id number] Start Date: 07/09/17 Stop Date: 11/06/17 Status: Ordered Trulicity Pen 0.75 mg/0.5 mL subcutaneous solution = 0.75 mg, Subcutaneous Infusion, Every week, # 2 mL, 6 Refills, Maintenance, 08/13/23 11:32:00 EDT, [facility], 160, cm, 08/13/23 11:07:00 EDT, Height Start Date: 08/13/23 Status: Ordered Problem List Condition Confirmation Course [...] Team Personnel Name: Sheryl Lyons RN Position: [facility] AMB Nurse Member Role: Primary Care Nurse Name: Bess Boykin RN Position: [facility] ED RN W/OE and Tasks Member Role: Primary Care Nurse Care Team Related Persons Name: JHONY, INOCENCIACHARISSA Address: home [address] [place] [address] Name: NEHEMIAS AL Address: home [address] [place] [address] [place] [address]
--- OUTSIDE RECORDS SUMMARY | 2023-09-21 08:06 | XMS_ITS | Continuity of Care Document ---
Author Name Unknown Organization [facility] Address [address] [place] [address]- Care Team Providers Care Predictive Maintenance Technician Name Role Phone Seema KEMP, Alana Primary Care Physician [phone] [place] [facility] [place] 07/08/23 - 08/07/23 [facility] [address] [place] [address]- Attending Physician: Rodrick Robins Admitting Physician: Rodrick [...] each, Refills 0, Tot. Refills 0, Maintenance, [place] for FreeStyle Dontae 2, 07/28/22 6:51:00 EDT, Supply, 159.3, cm, 07/15/22 10:49:00 EDT, Height Start Date: 07/28/22 Status: Ordered FreeStyle Dontae 2 [place] FreeStyle Dontae 2 [place], See Instructions, # 1 each, Refills 0, Tot. Refills 0, Maintenance, for testing glucose levels; E11.65; ([facility]: [address]-34), 07/27/23 12:17:00 EDT, Supply, 160, cm, 12/25/22 14:39:00 EDT, Height Start Date: 07/27/23 Status: Ordered FreeStyle Dontae 2 Sensor kit FreeStyle Dontae 2 Sensor kit, 0 Refills, Maintenance, 07/27/23 12:11:00 EDT Start Date: 07/27/23 Status: Ordered FreeStyle Dontae 2 Sensors See [...] Maintenance, 01/22/17 15:56:56, Route to Pharmacy Electronically, [id number], [facility]/pharmacy #[id number] Start Date: 01/22/17 Status: Ordered Insulin Lispro Protamine-Insulin Lispro Mix75/25 KwikPen subcutaneous suspension See Instructions, INJECT 90 UNITS SUBCUTANEOUSLY BEFORE BREAKFAST AND 90 UNITS BEFORE SUPPER, # 75 mL, 5 Refills, Maintenance, 03/16/23 13:44:00 EDT, [facility], 160, cm, 12/25/2313:39:00 EDT, Height Start Date: 03/16/23 Status: Ordered Jardiance 10 mg oral tablet [...] meals, # 120 tablet, 5 Refills, Maintenance, 03/05/23 10:53:00 EDT, [facility], 160, cm, 12/25/22 14:39:00 EDT, Height Start Date: 03/05/23 Status: Ordered Pen [place], 29 G x 12.7 mm BD Ultra [...] Maintenance, 07/09/17 15:16:21, Route to Pharmacy Electronically, [id number], [facility]/pharmacy #[id number] Start Date: 07/09/17 Stop Date: 11/06/17 Status: [...] Team Personnel Name: Sheryl Lyons RN Position: [facility] AMB Nurse Member Role: Primary Care Nurse Name: Bess Boykin RN Position: [facility] ED RN W/OE and Tasks Member Role: Primary Care Nurse Care Team Related Persons Name: JAYESH BOOKER Address: home [address] [place] [phone] Name: NEHEMIAS AL Address: home [address] [place] [address] [place] [address]
--- OUTSIDE RECORDS SUMMARY | 2023-09-21 08:07 | XMS_ITS | Continuity of Care Document ---
Author Name Unknown Organization [facility] Address [address] [place] [address]- Care Team Providers Care Cellophane Press Operator Name Role Phone Seema KEMP, Alana Primary Care Physician Encounter [facility] Date(s): 08/14/23 - 09/13/23 [facility] [address] [place] [address]- Allergies, Adverse Reactions, Alerts No Known Allergies Medications Durable Medical Equipment Maintenance, 12/25/22 14:54:00 EDT, Supply Start Date: 12/25/22 Status: Ordered enalapril 20 mg oral tablet 0 Refills, Maintenance, 12/22/18 11:19:26 EDT Start Date: 12/22/18 Status: Ordered FreeStyle Dontae 2 Monitor See Instructions, # 1 each, Refills 0, Tot. Refills 0, Maintenance, [place] for FreeStyle Dontae 2, 07/28/22 6:51:00 EDT, Supply, 159.3, cm, 07/15/22 10:49:00 EDT, Height Start Date: 07/28/22 Status: Ordered FreeStyle Dontae 2 [place] FreeStyle Dontae 2 [place], See Instructions, # 1 each, Refills 0, Tot. Refills 0, Maintenance, for testing glucose levels; E11.65; ([facility]: [address]-39), 07/27/23 12:17:00 EDT, Supply, 160, cm, 12/25/22 [...] Maintenance, 01/22/17 15:56:56, Route to Pharmacy Electronically, [id number], [facility]/pharmacy #[id number] Start Date: 01/22/17 Status: Ordered Insulin Lispro Protamine-Insulin Lispro Mix75/25 KwikPen subcutaneous suspension See Instructions, INJECT 90 UNITS SUBCUTANEOUSLY BEFORE BREAKFAST AND 90 UNITS BEFORE SUPPER, # 75 mL, 5 Refills, Maintenance, 08/16/23 22:21:00 EST, [facility], 160, cm, 08/13/2311:07:00 EDT, Height [...] tablet, 5 Refills, Maintenance, 08/16/23 22:20:00 EST, [facility], 160, cm, 08/13/23 11:07:00 EDT, Height Start Date: 08/16/23 Status: Ordered Pen [place], 29 G x 12.7 mm BD Ultra [...] Maintenance, 07/09/17 15:16:21, Route to Pharmacy Electronically, [id number], [facility]/pharmacy #[id number] Start Date: 07/09/17 Stop Date: 11/06/17 Status: Ordered Trulicity Pen 0.75 mg/0.5 mL subcutaneous solution = 0.75 mg, Subcutaneous Infusion, Every week, # 2 mL, 6 Refills, Maintenance, 08/13/23 11:32:00 EDT, [facility], 160, cm, 08/13/23 11:07:00 EDT, [...] Team Personnel Name: Sheryl Lyons RN Position: [facility] AMB Nurse Member Role: Primary Care Nurse Name: Bess Boykin RN Position: [facility] ED RN W/OE and Tasks Member Role: Primary Care Nurse Care Team Related Persons Name: JHONY, INOCENCIACHARISSA Address: home [address] [place] [address] Name: NEHEMIAS AL Address: home [address] [place] [address] [place] [address]
--- OUTSIDE RECORDS SUMMARY | 2023-09-21 08:07 | XMS_ITS | Continuity of Care Document ---
Author Name Unknown Organization [facility] Address [address] [place] [address]- Care Team Providers Care Stock Receiver Name Role Phone Seema KEMP, Alana Primary Care Physician [phone] Encounter [facility] Date(s): 07/27/23 - 08/26/23 [facility] [address] [place] [address]- Allergies, Adverse Reactions, Alerts No Known Allergies Medications Durable Medical Equipment Maintenance, 12/25/22 14:54:00 EDT, Supply Start Date: 12/25/22 Status: Ordered enalapril 20 mg oral tablet 0 Refills, Maintenance, 12/22/18 11:19:26 EDT Start Date: 12/22/18 Status: Ordered FreeStyle Dontae 2 Monitor See Instructions, # 1 each, Refills 0, Tot. Refills 0, Maintenance, [place] for FreeStyle Dontae 2, 07/28/22 6:51:00 EDT, Supply, 159.3, cm, 07/15/22 10:49:00 EDT, Height Start Date: 07/28/22 Status: Ordered FreeStyle Dontae 2 [place] FreeStyle Dontae 2 [place], See Instructions, # 1 each, Refills 0, Tot. Refills 0, Maintenance, for testing glucose levels; E11.65; ([facility]: [id number]), 07/27/23 12:17:00 EDT, Supply, 160, cm, 12/25/22 [...] Maintenance, 01/22/17 15:56:56, Route to Pharmacy Electronically, [id number], [facility]/pharmacy #[id number] Start Date: 01/22/17 Status: Ordered Insulin Lispro Protamine-Insulin Lispro Mix75/25 KwikPen subcutaneous suspension See Instructions, INJECT 90 UNITS SUBCUTANEOUSLY BEFORE BREAKFAST AND 90 UNITS BEFORE SUPPER, # 75 mL, 5 Refills, Maintenance, 08/16/23 22:21:00 EST, [facility], 160, cm, 08/13/2311:07:00 EDT, Height Start [...] tablet, 5 Refills, Maintenance, 08/16/23 22:20:00 EST, [facility], 160, cm, 08/13/23 11:07:00 EDT, Height Start Date: 08/16/23 Status: Ordered Pen [place], 29 G x 12.7 mm BD Ultra [...] Maintenance, 07/09/17 15:16:21, Route to Pharmacy Electronically, [id number], [facility]/pharmacy #[id number] Start Date: 07/09/17 Stop Date: 11/06/17 Status: Ordered Trulicity Pen 0.75 mg/0.5 mL subcutaneous solution = 0.75 mg, Subcutaneous Infusion, Every week, # 2 mL, 6 Refills, Maintenance, 08/13/23 11:32:00 EDT, [facility], 160, cm, 08/13/23 11:07:00 EDT, Height [...] Team Personnel Name: Sheryl Lyons RN Position: [facility] AMB Nurse Member Role: Primary Care Nurse Name: Bess Boykin RN Position: [facility] ED RN W/OE and Tasks Member Role: Primary Care Nurse Care Team Related Persons Name: JHONY, INOCENCIACHARISSA Address: home [address] [place] [address] Name: NEHEMIAS AL Address: home [address] [place] [address] [place] [address]
--- OUTSIDE RECORDS SUMMARY | 2023-09-21 08:08 | XMS_ITS | Continuity of Care Document ---
Author Name Unknown Organization [facility] Address [address] [place] [address]- Care Team Providers Care Supervisor Salvage Name Role Phone Seema KEMP, Alana Primary Care Physician [phone] Encounter [facility] Date(s): 08/17/23 - 09/16/[address] [address]- Attending Physician: Rodrick Robins Admitting Physician: Rodrick Robins Referring Physician: AdmtrRodrick Allergies, Adverse Reactions, Alerts No Known Allergies Medications Durable Medical Equipment Maintenance, 12/25/22 14:54:00 EDT, Supply Start Date: 12/25/22 Status: Ordered enalapril 20 mg oral tablet 0 Refills, Maintenance, 12/22/18 11:19:26 EDT Start Date: 12/22/18 Status: Ordered FreeStyle Dontae 2 Monitor See Instructions, # 1 each, Refills 0, Tot. Refills 0, Maintenance, [place] for FreeStyle Dontae 2, 07/28/22 6:51:00 EDT, Supply, 159.3, cm, 07/15/22 10:49:00 EDT, Height Start Date: 07/28/22 Status: Ordered FreeStyle Dontae 2 [place] FreeStyle Dontae 2 [place], See Instructions, # 1 each, Refills 0, Tot. Refills 0, Maintenance, for testing glucose levels; E11.65; ([facility]: [address]-34), 07/27/23 12:17:00 EDT, Supply, 160, cm, 12/25/22 [...] Maintenance, 01/22/17 15:56:56, Route to Pharmacy Electronically, [id number], [facility]/pharmacy #[id number] Start Date: 01/22/17 Status: Ordered Insulin Lispro Protamine-Insulin Lispro Mix75/25 KwikPen subcutaneous suspension See Instructions, INJECT 90 UNITS SUBCUTANEOUSLY BEFORE BREAKFAST AND 90 UNITS BEFORE SUPPER, # 75 mL, 5 Refills, Maintenance, 08/16/23 22:21:00 EST, [facility], 160, cm, 08/13/2311:07:00 EDT, Height Start [...] tablet, 5 Refills, Maintenance, 08/16/23 22:20:00 EST, [facility], 160, cm, 08/13/23 11:07:00 EDT, Height Start Date: 08/16/23 Status: Ordered Pen [place], 29 G x 12.7 mm BD Ultra [...] Maintenance, 07/09/17 15:16:21, Route to Pharmacy Electronically, [id number], [facility]/pharmacy #[id number] Start Date: 07/09/17 Stop Date: 11/06/17 Status: Ordered Trulicity Pen 0.75 mg/0.5 mL subcutaneous solution = 0.75 mg, Subcutaneous Infusion, Every week, # 2 mL, 6 Refills, Maintenance, 08/13/23 11:32:00 EDT, [facility], 160, cm, 08/13/23 11:07:00 EDT, Height Start Date: 08/13/23 Status: Ordered Problem List Condition Confirmation Course Effective Dates Status [facility]us Informant Abdominal pain Confirmed Active [...] Personnel Name: Eloy PIERRE, Sheryl Robertson Position: [facility] AMB Nurse Member Role: Primary Care Nurse Name: Bess Boykin RN Position: [facility] ED RN W/OE and Tasks Member Role: Primary Care Nurse Care Team Related Persons Name: INOCENCIA BOOKERARAMAida Address: home [address] [place] [phone] Name: NEHEMIAS AL Address: home [address] [place] [address]
--- NOTE | 2023-09-21 08:11 | ED.EXTPRO ---
HPI - Extremity Problem General Chief complaint: Extremity Injury, Upper Stated complaint: R elbow pain Time Seen by Provider: 09/21/23 08:04 Source: patient, RN notes reviewed and old records reviewed Mode of arrival: ambulatory History of Present Illness HPI Narrative: 28-year-old female with a past medical history of HTN, depression, PTSD, PCOS, diabetes, bipolar, HLD, GERD, presenting to the ED complaining of atraumatic right elbow pain since yesterday. Reports decreased arm secondary to pain. Denies fever/chills, numbness, tingling, weakness, CP Related Data Home Medications Medication Instructions Recorded Confirmed blood sugar diagnostic (FreeStyle #10 ea 07/14/20 07/14/20 Lite Strips) enalapril maleate 20 mg tablet 20 mg PO DAILY 07/14/20 04/28/22 lancets 28 gauge (FreeStyle #100 ea 07/14/20 07/14/20 Lancets) atorvastatin 10 mg tablet 10 mg PO BEDTIME 04/28/22 04/28/22 clonazepam 1 mg tablet 1 mg PO BID 04/28/22 04/28/22 hydrochlorothiazide 25 mg tablet 25 mg PO DAILY 04/28/22 04/28/22 hydroxyzine HCl 25 mg tablet 1 - 2 tab PO Q6H PRN anxiety 04/28/22 04/28/22 insulin lispro protamine-lispro 90 unit subcut BID 04/28/22 04/28/22 100 unit/mL (75-25) subcutaneous pen (Humalog Mix 75-25 KwikPen) perphenazine 2 mg tablet 2 mg PO BID 04/28/22 04/28/22 empagliflozin 10 mg tablet 10 mg PO QAM 07/10/22 (Jardiance) metformin 500 mg tablet 1,000 mg PO BID 07/10/22 spironolactone 25 mg tablet 25 mg PO DAILY 07/10/22 Previous Rx's Medication Instructions Recorded albuterol sulfate 90 mcg/actuation 2 puff inhalation Q4-6H PRN 09/08/21 aerosol inhaler shortness of breath or wheezing #8.5 grams ondansetron 4 mg disintegrating 4 mg PO Q6H PRN nausea and 12/20/21 tablet vomiting #10 tabs cyclobenzaprine 10 mg tablet 10 mg PO TID PRN muscle spasm #14 05/26/22 tabs diclofenac sodium 1 % topical gel 2 g topical QID #100 grams 05/26/22 (Voltaren Arthritis Pain) albuterol sulfate 0.63 mg/3 mL 0.63 mg (3 mL) inhalation QID PRN 07/04/22 solution for nebulization shortness of breath or wheezing #75 mL albuterol sulfate 90 mcg/actuation 1 inh inhalation QID PRN shortness 07/04/22 aerosol inhaler of breath or wheezing #8.5 grams nebulizers (AeroEclipse II #1 ea 07/04/22 Nebulizer) prednisone 20 mg tablet 40 mg (2 x 20 mg) PO DAILY rash 5 07/04/22 days #10 tabs cyclobenzaprine 5 mg tablet 5 mg PO TID PRN muscle spasm 7 11/24/22 days #21 tabs ibuprofen 600 mg tablet 600 mg PO Q6H PRN pain #30 tabs 02/22/23 ondansetron 4 mg disintegrating 4 mg PO Q8H PRN nausea and 02/22/23 tablet vomiting #14 tabs doxycycline hyclate 100 mg capsule 100 mg PO BID cough 7 days #14 caps 07/22/23 benzonatate 100 mg capsule 100 mg PO BID PRN cough 7 days #14 07/30/23 caps cyclobenzaprine 5 mg tablet 5 mg PO TID PRN muscle spasm 7 07/30/23 days #21 tabs acetaminophen 500 mg tablet 500 mg PO Q6H PRN fever or pain 09/21/23 (Tylenol Extra Strength) #14 tabs naproxen 500 mg tablet 500 mg PO BID PRN pain 10 days #20 09/21/23 tabs Allergies Allergy/AdvReac Type Severity Reaction Status Date / Time No Known Allergies Allergy Verified 09/21/23 07:53 Review of Systems Review of Systems: Constitutional: No Fever, No Chills ENT/Mouth: No Ear Pain, No Nasal Congestion, No sore throat, No Rhinorrhea, No Swallowing Difficulty Cardiovascular: No Chest Pain, No SOB Respiratory: No Cough, No Sputum Gastrointestinal: No Nausea, No Vomiting, No Abdominal pain Musculoskeletal: + joint pain, No Myalgias, No Joint Swelling Skin: No Skin Lesions, No rash Neuro: No Weakness, No Numbness, No Paresthesias Yes all other systems are reviewed and are negative Constitutional: Constitutional: Reports as per [facility] Past Medical History Attestation statement: The following information was validated with the patient. Source: old records reviewed Medical History Hypertension Depression Apnea, sleep PTSD (post-traumatic stress disorder) (12/17/10) PCOS (polycystic ovarian syndrome) Metabolic syndrome Dysphagia Diabetes mellitus type 2 in obese Bipolar disorder Cough Asthma Intentional perphenazine overdose Suicidal ideation COVID-19 High blood cholesterol Bipolar 2 disorder, major depressive episode Sleep apnea GERD (gastroesophageal reflux disease) Hyperlipidemia Hypertension Diabetes mellitus, type 2 Social History Social History Alcohol intake: current Alcohol intake frequency: does not drink Patient Tobacco Use Status: Never used Tobacco Substance Use Type: Marijuana Advance Directives: No Current occupational status: unemployed 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 Physical Exam Vital Signs: Vital Signs: Last Vital Signs Temp 96.5 F L 09/21/23 07:49 Pulse 95 09/21/23 07:49 Resp 20 09/21/23 07:49 BP 182/100 H 09/21/23 07:49 Pulse Ox 98 09/21/23 07:49 O2 Del Method Room Air 09/21/23 07:49 BMI result Body Mass Index 66.3 Const: General: cooperative, healthy appearing and no acute distress Orientation/consciousness: patient oriented x3 Limitations: no limitations HEENT: Head: Yes normal to inspection and Yes atraumatic Ears: hearing grossly normal bilaterally General nose exam: Normal external nose present Face and sinus: Yes normal facial exam Eyes: General: appearance normal, both eyes and all related structures EOM: EOMs intact bilaterally Neck: Neck: Yes normal visual inspection and Yes no meningeal signs Resp: Effort & Inspection: normal respiratory effort and no respiratory distress Cardio: Rate: regular rate Skin: Rashes: no rashes Wounds: no wounds Neuro: General: patient oriented x3, tone normal and no meningeal signs Cranial nerves: Yes CN's II-XII intact bilaterally Gait exam (Neuro): Normal gait present Extrem: Other: Right elbow without noted deformity. No erythema/warmth. Diffusely tender to palpation. Limited full flexion and extension secondary to pain. Pronation/supination intact. Neurovascular intact distally. No crepitus. No pitting edema General: Yes normal to inspection Course Course Course Narrative: XR elbow RT min 3V IMPRESSION: No bony abnormality. Results discussed with patient including worrisome signs and symptoms and strict return precautions, and when to return to the emergency department. They verbalized understanding and feel safe for discharge at this time. Medications Administered Discontinued Medications Generic Name Dose Route Start Last Admin Trade Name Freq PRN Reason Stop Dose Admin Ketorolac Tromethamine 30 mg 09/21/23 08:20 09/21/23 08:38 Ketorolac Tromethamine 30 Mg/Ml Vial IM 09/21/23 08:21 30 mg ONCE ONE Administration Medical Decision Making Medical Decision Making MDM Narrative: 28-year-old female with a past medical history of HTN, depression, PTSD, PCOS, diabetes, bipolar, HLD, GERD, presenting to the ED complaining of atraumatic right elbow pain since yesterday. On exam hypertensive, NAD, nontoxic appearing, physical exam as noted above. Concern for MSK pain vs tendon/ligamental injury/strain vs fracture. No evidence of septic joint/arthritis. Lower suspicion for fracture or ACS Plan: X-ray, pain control Please refer to course for remaining clinical decision making, interpretation of labs/imaging results, and discussions with consultants and/or family members. Differential Diagnosis Differential Diagnoses: The differential diagnosis associated with the presentation includes As above Independent Interpretation I performed an independent interpretation of an: Plain X-Ray Radiology Impression Discussion of test interpretation with radiology: I have reviewed the radiologist's reading. External Record Review External record reviewed: Inpatient record, Office record, Outpatient record, Prior outpatient labs, Prior outpatient radiology, Primary care record and Outside ED record Tests considered The following testing was considered but not selected: As above Prescription Management I considered prescription management with: Pain Medication Chronic Conditions Patient?s care impacted by: Diabetes and Hypertension Discharge Plan Discharge Clinical Impression: Pain in right elbow Patient Disposition: Home, Self-Care Instructions: Elbow Sprain (ED) Additional Instructions: Your x-ray is unremarkable Naproxen as an anti-inflammatory/pain medicine take with food In addition take Tylenol Ice and heat Follow-up with Orthopedics in your doctor If symptoms resistant worsen return to the ED Prescriptions: New acetaminophen [Tylenol Extra Strength] 500 mg tablet 500 mg PO Q6H PRN (Reason: fever or pain) Qty: 14 0RF naproxen 500 mg tablet 500 mg PO BID PRN (Reason: pain) 10 Days Qty: 20 0RF No Action clonazepam 1 mg Tablet 1 mg PO BID hydroxyzine HCl 25 mg tablet 1 - 2 tab PO Q6H PRN (Reason: anxiety) hydrochlorothiazide 25 mg Tablet 25 mg PO DAILY insulin lispro protamin-lispro [Humalog Mix 75-25 KwikPen] 100 unit/mL (75-25) Insulin Pen 90 unit SUBCUT BID perphenazine 2 mg Tablet 2 mg PO BID atorvastatin 10 mg Tablet 10 mg PO BEDTIME cyclobenzaprine 10 mg tablet 10 mg PO TID PRN (Reason: muscle spasm) Qty: 14 0RF diclofenac sodium [Voltaren Arthritis Pain] 1 % gel 2 g topical QID Qty: 100 0RF Rx Instructions: apply to single elbow, wrist or hand; for hand includes palm/fingers/back of hand albuterol sulfate 90 mcg/actuation HFA aerosol inhaler 2 puff inhalation Q4-6H PRN (Reason: shortness of breath or wheezing) Qty: 8.5 0RF ondansetron 4 mg tablet,disintegrating 4 mg PO Q6H PRN (Reason: nausea and vomiting) Qty: 10 0RF (DME) nebulizers [AeroEclipse II Nebulizer] Misc See Rx Instructions .ROUTE .MEDSUPPLY Qty: 1 0RF Rx Instructions: As directed albuterol sulfate 0.63 mg/3 mL solution for nebulization 0.63 mg inhalation QID PRN (Reason: shortness of breath or wheezing) Qty: 75 0RF albuterol sulfate 90 mcg/actuation HFA aerosol inhaler 1 inh inhalation QID PRN (Reason: shortness of breath or wheezing) Qty: 8.5 0RF prednisone 20 mg tablet 40 mg PO DAILY 5 Days Qty: 10 0RF cyclobenzaprine 5 mg tablet 5 mg PO TID PRN (Reason: muscle spasm) 7 Days Qty: 21 0RF ondansetron 4 mg tablet,disintegrating 4 mg PO Q8H PRN (Reason: nausea and vomiting) Qty: 14 0RF ibuprofen 600 mg tablet 600 mg PO Q6H PRN (Reason: pain) Qty: 30 0RF doxycycline hyclate 100 mg capsule 100 mg PO BID 7 Days Qty: 14 0RF benzonatate 100 mg capsule 100 mg PO BID PRN (Reason: cough) 7 Days Qty: 14 0RF cyclobenzaprine 5 mg tablet 5 mg PO TID PRN (Reason: muscle spasm) 7 Days Qty: 21 0RF enalapril maleate 20 mg tablet 20 mg PO DAILY (DME) FreeStyle Lite Strips Strip See Rx Instructions .ROUTE .MEDSUPPLY Qty: 10 Rx Instructions: As directed (DME) lancets [FreeStyle Lancets] 28 gauge misc See Rx Instructions .ROUTE .MEDSUPPLY Qty: 100 Rx Instructions: As directed metformin 500 mg tablet 1,000 mg PO BID Jardiance 10 mg tablet 10 mg PO QAM spironolactone 25 mg tablet 25 mg PO DAILY Referrals: [facility] [Provider Group] [facility] [Primary Care Provider] - Stand Alone Forms: Work/School Release Interventions: ED Discharge Assessment Last Done: 09/21/23 09:26 Discharge Date/Time: 09/21/23 09:53
[2023-09-21] MEDS: Ketorolac Tromethamine 30 MG/ML VIAL IM (08:38)
== END 2023-09-21 09:53 | disposition home or self-care (01) ==
PROVIDERS: Emergency Provider Emergency Medicine
DX: M25.521 Pain in right elbow (principal); E11.9 Type 2 diabetes mellitus without complications; I10 Essential (primary) hypertension; E78.5 Hyperlipidemia, unspecified; Z79.4 Long term (current) use of insulin; Z79.899 Other long term (current) drug therapy; Z79.02 Long term (current) use of antithrombotics/antiplatelets; F12.90 Cannabis use, unspecified, uncomplicated
CPT/HCPCS: 73080; 96372; 99283; 99284; J1885

== ENCOUNTER 2023-09-29 10:32 | Outpatient (REF) | payer MEDICAID, SELFPAY ==
[2023-09-29 12:14] LABS: Creatinine Urine 89.65 mg/dL; Microalbum/Creatinine Ratio Ur 528.7 ug/mg cr (<30)
[2023-09-29 12:23] LABS: Alanine Aminotransferase 45 U/L (0-31); Albumin Level 4.3 g/dL (3.5-5.0); Alkaline Phosphatase 62 U/L (39-117); Anion Gap 14 (12-20); Aspartate Amino Transferase 28 U/L (5-31); Bilirubin Total 0.3 mg/dL (0.0-1.0); Blood Urea Nitrogen 12 mg/dL (9-16); Calcium 9.9 mg/dL (8.4-10.2); Carbon Dioxide 27 mmol/L (22-29); Chloride 102 mmol/L (96-108); Cholesterol 227 mg/dL (<200); Estimated Glomerular Filt Rate > 60; Glucose Random 241 mg/dL (60-115); HDL Cholesterol 53 mg/dL (>40); LDL Cholesterol Calculated 150 mg/dL (<100); Potassium 3.7 mmol/L (3.3-5.1); Sodium 139 mmol/L (135-145); Total Protein 7.9 g/dL (6.5-8.0); Triglycerides 122 mg/dL (<150)
[2023-09-29 13:15] LABS: TSH reflex Free T4 1.12 uIU/mL (0.32-4.0)
== END 2023-09-29 10:33 | disposition home or self-care (01) ==
LOC: HO.LAB 10:32
PROVIDERS: Visit Provider Physician Assistant Medical
DX: E11.9 Type 2 diabetes mellitus without complications (principal)
CPT/HCPCS: 36415; 80053; 80061; 82043; 82570; 84443

== ENCOUNTER 2023-11-02 07:44 | Emergency (ER) | payer MEDICAID, SELFPAY ==
[2023-11-02 07:46] VITALS: BP 142/84; PULSE 104; RESP 22; TEMP 36.6; O2SAT 97; BMI 69.5
--- NOTE | 2023-11-02 08:00 | ED.URI ---
HPI - URI/Sore Throat General Chief Complaint: Upper Respiratory Symptoms Stated Complaint: Chest tightness/Sore throat/Eye redness Time Seen by Provider: 11/02/23 07:54 Source: patient Mode of arrival: ambulatory Limitations: no limitations History of Present Illness HPI Narrative: Girlfriend diagnosed with RSV last week, started to get sick on . Continued with nasal congestion and left eye irriatation MD elicited complaint: cough, rhinorrhea and other (eye pain and injection) Onset (ago): day(s) Consistency: constant Severity: mild Related Data Home Medications Medication Instructions Recorded Confirmed blood sugar diagnostic (FreeStyle #10 ea 07/14/20 07/14/20 Lite Strips) enalapril maleate 20 mg tablet 20 mg PO DAILY 07/14/20 04/28/22 lancets 28 gauge (FreeStyle #100 ea 07/14/20 07/14/20 Lancets) atorvastatin 10 mg tablet 10 mg PO BEDTIME 04/28/22 04/28/22 clonazepam 1 mg tablet 1 mg PO BID 04/28/22 04/28/22 hydrochlorothiazide 25 mg tablet 25 mg PO DAILY 04/28/22 04/28/22 hydroxyzine HCl 25 mg tablet 1 - 2 tab PO Q6H PRN anxiety 04/28/22 04/28/22 insulin lispro protamine-lispro 90 unit subcut BID 04/28/22 04/28/22 100 unit/mL (75-25) subcutaneous pen (Humalog Mix 75-25 KwikPen) perphenazine 2 mg tablet 2 mg PO BID 04/28/22 04/28/22 empagliflozin 10 mg tablet 10 mg PO QAM 07/10/22 (Jardiance) metformin 500 mg tablet 1,000 mg PO BID 07/10/22 spironolactone 25 mg tablet 25 mg PO DAILY 07/10/22 Previous Rx's Medication Instructions Recorded albuterol sulfate 90 mcg/actuation 2 puff inhalation Q4-6H PRN 09/08/21 aerosol inhaler shortness of breath or wheezing #8.5 grams ondansetron 4 mg disintegrating 4 mg PO Q6H PRN nausea and 12/20/21 tablet vomiting #10 tabs cyclobenzaprine 10 mg tablet 10 mg PO TID PRN muscle spasm #14 05/26/22 tabs diclofenac sodium 1 % topical gel 2 g topical QID #100 grams 05/26/22 (Voltaren Arthritis Pain) albuterol sulfate 0.63 mg/3 mL 0.63 mg (3 mL) inhalation QID PRN 07/04/22 solution for nebulization shortness of breath or wheezing #75 mL albuterol sulfate 90 mcg/actuation 1 inh inhalation QID PRN shortness 07/04/22 aerosol inhaler of breath or wheezing #8.5 grams nebulizers (AeroEclipse II #1 ea 07/04/22 Nebulizer) prednisone 20 mg tablet 40 mg (2 x 20 mg) PO DAILY rash 5 07/04/22 days #10 tabs cyclobenzaprine 5 mg tablet 5 mg PO TID PRN muscle spasm 7 11/24/22 days #21 tabs ibuprofen 600 mg tablet 600 mg PO Q6H PRN pain #30 tabs 02/22/23 ondansetron 4 mg disintegrating 4 mg PO Q8H PRN nausea and 02/22/23 tablet vomiting #14 tabs doxycycline hyclate 100 mg capsule 100 mg PO BID cough 7 days #14 caps 07/22/23 benzonatate 100 mg capsule 100 mg PO BID PRN cough 7 days #14 07/30/23 caps cyclobenzaprine 5 mg tablet 5 mg PO TID PRN muscle spasm 7 07/30/23 days #21 tabs acetaminophen 500 mg tablet 500 mg PO Q6H PRN fever or pain 09/21/23 (Tylenol Extra Strength) #14 tabs naproxen 500 mg tablet 500 mg PO BID PRN pain 10 days #20 09/21/23 tabs Allergies Allergy/AdvReac Type Severity Reaction Status Date / Time No Known Allergies Allergy Verified 11/02/23 07:46 Review of Systems Review of Systems: Yes all other systems are reviewed and are negative Neurologic: Denies Sensory deficit (Neuro) PMFSH Past Medical History Onset Date is defined in the Problem List Problems that require an onset date and time if occurred within 24 hrs of arrival to the ED Aortic Dissection and Rupture; Neurologic impairment; Cardiopulmonary Arrest; Endotracheal Intubation; Insertion or Replacement of Mechanical Circulatory Assist Device Medical History Hypertension Depression Apnea, sleep PTSD (post-traumatic stress disorder) (12/17/10) PCOS (polycystic ovarian syndrome) Metabolic syndrome Dysphagia Diabetes mellitus type 2 in obese Bipolar disorder Cough Asthma Intentional perphenazine overdose Suicidal ideation COVID-19 High blood cholesterol Bipolar 2 disorder, major depressive episode Sleep apnea GERD (gastroesophageal reflux disease) Hyperlipidemia Hypertension Diabetes mellitus, type 2 Social History Social History Alcohol intake: current Alcohol intake frequency: holidays/special occasions only Patient Tobacco Use Status: Never used Tobacco Smoked in Last 30 Days: No Substance Use Type: Marijuana Advance Directives: No Advance Directives Information Provided: No Patient : No Current occupational status: unemployed 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 Physical Exam Vital Signs: Vital Signs: Last Vital Signs Temp 98 F 11/02/23 07:46 Pulse 104 H 11/02/23 07:46 Resp 20 11/02/23 08:07 BP 142/84 H 11/02/23 07:46 Pulse Ox 97 11/02/23 08:09 O2 Del Method Room Air 11/02/23 08:09 BMI result Body Mass Index 69.5 Const: Other: morbidly obese, hirsuit Orientation/consciousness: oriented to person and patient oriented x3 Limitations: no limitations HEENT: Head: Yes normal to inspection Ears: external ears normal General nose exam: Normal external nose present Mouth: Normal oral and palatal mucosa present and oropharynx normal Throat: Yes posterior oropharynx normal Eyes: Other: left eye with injection and drainage Neck: Other: supple Neck: Yes normal visual inspection Chest: Chest palpation & inspection: normal inspection of the chest Resp: Auscultation: clear to auscultation bilaterally Cardio: Jugular venous distension: no JVD Rate: regular rate Rhythm: regular rhythm Heart sounds: S1 normal heart sound present and S2 normal heart sound present GI: Inspection: Yes normal to inspection Palpation (GI): Soft to palpation, nontender and No hepatosplenomegaly present Auscultation: normal bowel sounds : General: Yes no CVA tenderness Back/Spine/Pelvis: Back: no CVA tenderness Skin: General skin exam: no rashes or lesions noted Neuro: General: oriented to person and patient oriented x3 Cranial nerves: Yes CN's II-XII intact bilaterally Motor exam (neuro): 5/5 motor strength present throughout Sensory Exam: No Sensory deficit (Neuro) Extrem: General: Yes normal to inspection Psych: Appearance: grossly normal Course Reevaluation(s) Reevaluation #1: Currently out of RSV reagent, covid and influenza negative, will treat for conjunctivitis Time: 08:56 Medical Decision Making Differential Diagnosis Differential Diagnoses: The differential diagnosis associated with the presentation includes (Covid, influenza, rSV, conjuctivitis, pneumonia) Lab Data MDM Lab Attestation statement: I reviewed the patient's lab results. Labs: Lab Results 11/02/23 Range/Units 07:51 COVID-19 ([facility]) Negative (Negative) COVID-19 Clin Com See Note Influenza Type A ([facility]) Negative (Negative) Influenza Type B ([facility]) Negative (Negative) Influenza A & B Note See Note External Record Review External record reviewed: Outpatient record Tests considered The following testing was considered but not selected: CXR considered but patient with no rales or wheezing, afebrile, and not hypoxic Chronic Conditions Patient?s care impacted by: Diabetes and Hypertension Discharge Plan Discharge Clinical Impression: Acute bronchitis, viral, Acute bacterial conjunctivitis of left eye Prescriptions: No Action clonazepam 1 mg Tablet 1 mg PO BID hydroxyzine HCl 25 mg tablet 1 - 2 tab PO Q6H PRN (Reason: anxiety) hydrochlorothiazide 25 mg Tablet 25 mg PO DAILY insulin lispro protamin-lispro [Humalog Mix 75-25 KwikPen] 100 unit/mL (75-25) Insulin Pen 90 unit SUBCUT BID perphenazine 2 mg Tablet 2 mg PO BID atorvastatin 10 mg Tablet 10 mg PO BEDTIME cyclobenzaprine 10 mg tablet 10 mg PO TID PRN (Reason: muscle spasm) Qty: 14 0RF diclofenac sodium [Voltaren Arthritis Pain] 1 % gel 2 g topical QID Qty: 100 0RF Rx Instructions: apply to single elbow, wrist or hand; for hand includes palm/fingers/back of hand albuterol sulfate 90 mcg/actuation HFA aerosol inhaler 2 puff inhalation Q4-6H PRN (Reason: shortness of breath or wheezing) Qty: 8.5 0RF ondansetron 4 mg tablet,disintegrating 4 mg PO Q6H PRN (Reason: nausea and vomiting) Qty: 10 0RF (DME) nebulizers [AeroEclipse II Nebulizer] Misc See Rx Instructions .ROUTE .MEDSUPPLY Qty: 1 0RF Rx Instructions: As directed albuterol sulfate 0.63 mg/3 mL solution for nebulization 0.63 mg inhalation QID PRN (Reason: shortness of breath or wheezing) Qty: 75 0RF albuterol sulfate 90 mcg/actuation HFA aerosol inhaler 1 inh inhalation QID PRN (Reason: shortness of breath or wheezing) Qty: 8.5 0RF prednisone 20 mg tablet 40 mg PO DAILY 5 Days Qty: 10 0RF cyclobenzaprine 5 mg tablet 5 mg PO TID PRN (Reason: muscle spasm) 7 Days Qty: 21 0RF ondansetron 4 mg tablet,disintegrating 4 mg PO Q8H PRN (Reason: nausea and vomiting) Qty: 14 0RF ibuprofen 600 mg tablet 600 mg PO Q6H PRN (Reason: pain) Qty: 30 0RF doxycycline hyclate 100 mg capsule 100 mg PO BID 7 Days Qty: 14 0RF benzonatate 100 mg capsule 100 mg PO BID PRN (Reason: cough) 7 Days Qty: 14 0RF cyclobenzaprine 5 mg tablet 5 mg PO TID PRN (Reason: muscle spasm) 7 Days Qty: 21 0RF acetaminophen [Tylenol Extra Strength] 500 mg tablet 500 mg PO Q6H PRN (Reason: fever or pain) Qty: 14 0RF naproxen 500 mg tablet 500 mg PO BID PRN (Reason: pain) 10 Days Qty: 20 0RF enalapril maleate 20 mg tablet 20 mg PO DAILY (DME) FreeStyle Lite Strips Strip See Rx Instructions .ROUTE .MEDSUPPLY Qty: 10 Rx Instructions: As directed (DME) lancets [FreeStyle Lancets] 28 gauge misc See Rx Instructions .ROUTE .MEDSUPPLY Qty: 100 Rx Instructions: As directed metformin 500 mg tablet 1,000 mg PO BID Jardiance 10 mg tablet 10 mg PO QAM spironolactone 25 mg tablet 25 mg PO DAILY
[2023-11-02 08:07] VITALS: RESP 20
[2023-11-02 08:09] VITALS: O2SAT 97
--- NOTE | 2023-11-02 08:09 | PC.NURSE ---
Pt reports sob, cough, cp, congestion, fever, body aches, and left eye drainage since Thursday. Respirations even and unlabored. JOLANTA
--- OUTSIDE RECORDS SUMMARY | 2023-11-02 08:11 | XMS_ITS | Continuity of Care Document ---
Author Name Unknown Organization [facility] Address [address] [place] [id number]- Care Team Providers Care Bilingual Recruiter Name Role Phone Seema KEMP, Alana Primary Care Physician [phone] Encounter [facility] Date(s): 09/22/23 - 10/22/23 [facility] [address] [place] [id number]- Attending Physician: Rodrick Robins Admitting Physician: Rodrick Robins Referring Physician: Rodrick Robins Allergies, Adverse Reactions, Alerts No Known Allergies Medications Durable Medical Equipment Maintenance, 12/25/22 14:54:00 EDT, Supply Start Date: 12/25/22 Status: Ordered enalapril 20 mg oral tablet 0 Refills, Maintenance, 12/22/18 11:19:26 EDT Start Date: 12/22/18 Status: Ordered FreeStyle Dontae 2 [place] FreeStyle Dontae 2 [place], See Instructions, # 1 each, Refills 0, Tot. Refills 0, Maintenance, for testing glucose levels; E11.65; ([facility]: [address]-75), 07/27/23 12:17:00 EDT, Supply, 160, cm, 12/25/22 14:39:00 EDT, Height Start Date: 07/27/23 Status: Ordered FreeStyle Dontae 2 Sensor kit FreeStyle Dontae 2 Sensor kit, See Instructions, # 2 kit, 1 Refills, Maintenance, USE DIRECTED. CHANGE EVERY 14 DAYS, 08/14/23 7:49:00 EDT, 160, cm, 08/13/23 11:07:00 EDT, Height Start Date: 08/14/23 Status: Ordered FreeStyle Dontae 2 Sensors See Instructions, # 6 each, Refills 3, Tot. Refills 3, Maintenance, Use one sensor every 14 days, 09/22/23 16:19:00 EST, 90 day supply, Supply, 160, cm, 09/22/23 14:48:00 EST, Height Start Date: 09/22/23 Status: Ordered FreeStyle Lite Strips FreeStyle Lite Strips, 0 Refills, Maintenance, 07/27/23 12:12:00 EDT Start Date: 07/27/23 Status: Ordered hydrochlorothiazide 25 mg oral tablet 25 mg, 1, tablet, By Mouth, Daily, # 30 tablet, Refills 5, Tot. Refills 5, Maintenance, 01/22/17 15:56:56, Route to Pharmacy Electronically, [id number], [facility]/pharmacy #[id number] Start Date: 01/22/17 Status: Ordered Insulin Lispro Protamine-Insulin Lispro Mix75/25 KwikPen subcutaneous suspension See Instructions, INJECT 90 UNITS SUBCUTANEOUSLY BEFORE BREAKFAST AND 90 UNITS BEFORE SUPPER, # 75 mL, 5 Refills, Maintenance, 08/16/23 22:21:00 EST, [facility], 160, cm, 08/13/2311:07:00 EDT, Height [...] tablet, 5 Refills, Maintenance, 08/16/23 22:20:00 EST, [facility], 160, cm, 08/13/23 11:07:00 EDT, Height Start Date: 08/16/23 Status: Ordered Pen [place], 29 G x 12.7 mm BD Ultra Fine See Instructions, # 100 each, Refills 11, Tot. Refills 11, Maintenance, 2 X A DAY INJECTIONS, 09/22/23 16:19:00 EST, e11.65, Compound, 160, cm, 09/22/23 14:48:00 EST, Height Start Date: 09/22/23 Stop Date: 09/16/24 Status: Ordered perphenazine 4 mg oral tablet [...] Maintenance, 07/09/17 15:16:21, Route to Pharmacy Electronically, [id number], [facility]/pharmacy #[id number] Start Date: 07/09/17 Stop Date: 11/06/17 Status: Ordered Trulicity Pen 0.75 mg/0.5 mL subcutaneous solution = 0.75 mg, Subcutaneous Infusion, Every week, # 2 mL, 6 Refills, Maintenance, 08/13/23 11:32:00 EDT, [facility], 160, cm, 08/13/23 11:07:00 EDT, [...] Team Personnel Name: Sheryl Lyons RN Position: S AMB Nurse Member Role: Primary Care Nurse Name: Bess Boykin RN Position: [facility] ED RN W/OE and Tasks Member Role: Primary Care Nurse Care Team Related Persons Name: JAYESH BOOKER Address: home [address] [place] [id number] Name: NEHEMIAS AL Address: home [address] [place] [address] [place] [id number]
[2023-11-02 08:15] LABS: COVID-19 Test Negative (Negative); IDNOW Serial# 152EDE1D
[2023-11-02 08:18] LABS: IDNOW Serial# 9DB6401D; Influenza A Negative (Negative); Influenza B2 Negative (Negative)
[2023-11-02] MEDS: Erythromycin Base 0.5% Oph Oin 1 GM TUBE 1 CM EYE-LEFT (09:18)
== END 2023-11-02 09:24 | disposition home or self-care (01) ==
PROVIDERS: Emergency Provider Emergency Medicine
DX: J20.9 Acute bronchitis, unspecified (principal); H10.32 Unspecified acute conjunctivitis, left eye; Z11.52 Encounter for screening for COVID-19
CPT/HCPCS: 87502; 87635; 99283; 99284

== ENCOUNTER 2024-01-04 15:34 | Outpatient (REF) | payer MEDICAID, SELFPAY ==
--- NOTE | ~2024-01-04 | XR_ITS ---
EXAMINATION: XR CHEST CLINICAL INFORMATION: Cough x2 weeks COMPARISON: Chest radiograph from 07/22/2023 TECHNIQUE: 2 views of the chest were obtained. FINDINGS: No focal consolidation. No pneumothorax. Trachea is midline. Cardiac mediastinal silhouette is not enlarged. No large pleural effusion. Osseous structures are intact. Soft tissues are unremarkable XR/XR chest 2V IMPRESSION: No acute cardiopulmonary process.
== END 2024-01-04 15:35 | disposition home or self-care (01) ==
LOC: HO.HHCX 15:34
PROVIDERS: Visit Provider Nurse Practitioner Primary Care
DX: R05.1 Acute cough (principal)
CPT/HCPCS: 71046

== ENCOUNTER 2024-12-16 09:50 | Outpatient (REF) | payer MEDICAID, SELFPAY ==
--- OUTSIDE RECORDS SUMMARY | 2024-12-16 10:46 | XMS_ITS | Clinical Summary ---
Author Organization [facility] Address [address] [place] [id number] Care Team Providers Care Fitness Coach Name Role Phone Vanessa Bird EVS ATTENDANT-C Primary Care Provider Unavailable Medications clonazePAM (KlonoPIN) 1 MG tablet 07/02/2021 Active enalapril (VASOTEC) 20 MG tablet 07/02/2021 Active haloperidol (HALDOL) 1 MG tablet 04/22/2021 Active hydroCHLOROthiaz karlene 25 MG tablet 06/07/2021 Ac tive HumaLOG MIX 75/25 KWIKPEN (75-25) 100 UNIT/ML inj pen 06/03/2021 Act mckay lamoTRIgine (LaMICtal) 150 MG tablet Take 150 mg by mouth 1 (one) time each day Active clonazePAM (KlonoPIN) 1 MG tablet Take 1 mg by mouth 2 (two) times a day Active omeprazole (PriLOSEC) [address] capsule Take 20 mg by mouth 1 (one) time each day Do not crush or chew. Active escitalopram (LEXAPRO) 10 MG tablet Take 10 mg by mouth 1 (one) time each day Active Active Problems Problem Noted Date Diagnosed Date Proteinuria 07/29/2021 Hyperlipidemia 07/29/2021 Type 2 diabetes mellitus without complication Essential (primary) hypertension 07/29/2021 Social History Tobacco Use Types Packs/Day Years Used Date Smoking Tobacco: Former Cigarettes Smokeless Tobacco: Never Alcohol Use Standard Drinks/Week Comments Not Currently 0 (1 standard drink = 0.6 oz pur e alcohol) Comments Unknown Sex and Gender Information Value Date Recorded Sex Assigned at Not on file Legal Sex Female 11:15 AM EDT Gender Identity Not on file Sexual Orientation Not on file Plan of Treatment Health Maintenance Due Date Last Done Comments Hepatitis B Vaccine (1 of 3 - 19+ 3-dose series) 2013 Diabetes: Hemoglobin A1C 07/29/2021 Diabetes: Ophthalmology Exam 07/29/2021 Diabetes: Pedal Pulse Checked 07/29/2021 Diabetes: Sensory Foot Exam 07/29/2021 Diabetes: Visual Foot Exam 07/29/2021 Influenza Vaccine (#1) 2024 Pneumococcal Vaccine: Pediat rics (0 to 5 Years) and At-Risk Patients (6 to 64 Years) Aged Out No longer eligible b ased on patient's age to complete this topic Insurance [place] Care Teams Fitness Coach Relationship Specialty Start Date End Date Vanessa Bird FNP-C PCP - General Nurse Practitioner 05/20/21
[2024-12-16 14:19] LABS: MANUAL DIFF FLAG NO
[2024-12-16 14:22] LABS: Basophils Percent Auto 0.4 % (0-2); Eosinophils Absolute Auto 0.1 X10*3/uL (0.0-0.4); Eosinophils Percent Auto 1.6 % (0-4); Hematocrit 40.3 % (37.0-47.0); Hemoglobin 13.1 g/dl (12.0-16.0); Imm Gran Abs Auto 0.03 X10*3/uL (0.00-0.03); Imm Gran Pct Auto 0.4 % (0.0-0.4); Lymphocytes Absolute Auto 1.5 X10*3/uL (1.2-4.9); Lymphocytes Percent Auto 18.6 % (20-40); Mean Corpuscular HGB Conc 32.5 g/dl (31.0-35.0); Mean Corpuscular Hemoglobin 27.2 pg (27.0-33.0); Mean Corpuscular Volume 83.6 fL (80.0-98.0); Mean Platelet Volume 10.3 fL (9.4-12.3); Monocytes Absolute Auto 0.5 X10*3/uL (0.1-1.2); Platelet Count 428 X10*3/uL (160-400); Red Blood Count 4.82 X10*6/uL (4.20-5.50); Red Cell Distribution Width 12.8 % (11.0-16.0); White Blood Count 8.2 X10*3/uL (4.8-10.8)
[2024-12-16 15:02] LABS: Alanine Aminotransferase 23 U/L (0-31); Anion Gap 11 (12-20); Aspartate Amino Transferase 22 U/L (5-31); Bilirubin Total 0.2 mg/dL (0.0-1.0); Blood Urea Nitrogen 16 mg/dL (9-16); Calcium 9.9 mg/dL (8.4-10.2); Carbon Dioxide 29 mmol/L (22-29); Chloride 104 mmol/L (96-108); Cholesterol 203 mg/dL (<200); Estimated Glomerular Filt Rate > 60; Glucose Random 131 mg/dL (60-115); HDL Cholesterol 56 mg/dL (>40); LDL Cholesterol Calculated 132 mg/dL (<100); Potassium 3.6 mmol/L (3.3-5.1); Sodium 140 mmol/L (135-145); Total Protein 7.9 g/dL (6.5-8.0); Triglycerides 79 mg/dL (<150)
[2024-12-16 15:10] LABS: TSH reflex Free T4 1.84 uIU/mL (0.32-4.0)
[2024-12-16 15:14] LABS: Creatinine Urine 173.18 mg/dL; Microalbum/Creatinine Ratio Ur 288.7 ug/mg cr (<30); Microalbumin Urine > 500.0 mg/L
[2024-12-16 15:51] LABS: Alkaline Phosphatase 61 U/L (39-117)
[2024-12-16 18:42] LABS: CT PCR NOT DETECTED (Not Detect.); NG PCR NOT DETECTED (Not Detect.)
[2024-12-17 08:39] LABS: HBS Num1 29.85 mIU/mL (0-7.99); HBc Num1 0.15 S/CO (0.00-0.79); HBsAGNum1 0.38 S/CO (0.00-0.99); HIV AB/AG Nonreactive (Nonreactive); HIV Num 1 0.05 S/CO (0.00-0.99); Hepatitis B Core Antibody Nonreactive (Nonreactive); Hepatitis B Surface Antigen Negative (Negative); ~Hepatitis B Surface Antibody REACTIVE (Nonreactive)
[2024-12-18 18:58] LABS: RPR Rapid Plasma Reagin NON-REACTIVE (NON-REACTIVE)
[2024-12-19 12:13] LABS: HCV Log PCR <1.18 NOT DETECTED Log IU/mL (NOT DETECTED); HepC Viral Load <15 NOT DETECTED IU/mL (NOT DETECTED)
== END 2024-12-16 09:51 | disposition home or self-care (01) ==
LOC: HO.CHCLDS 09:50
PROVIDERS: Visit Provider Registered Nurse
DX: Z00.00 Encounter for general adult medical examination without abnormal findings (principal)
CPT/HCPCS: 36415; 80053; 80061; 82043; 82570; 84443; 85025; 86592; 86704; 86706; 87340; 87389; 87491; 87522; 87591

== ENCOUNTER 2025-06-09 11:58 | Outpatient (REF) | payer MEDICAID, SELFPAY ==
--- OUTSIDE RECORDS SUMMARY | 2025-06-09 08:30 | XMS_ITS | Encounter Summary ---
Author Organization [employer] Address [address] [facility] 7 [place] [address] Care Team Providers Care Organic Lab Worker Name Role Phone Lety Black Primary Care Provider [phone] Gr[facility] Nixon Unavailable Unavailable Reason for Referral * Consultation (Routine) - Pending Review Specialty Diagnoses / Procedures Referred By Darinel kennedy Referred To Contact Physical Therapy Diagnoses Chronic bilateral low back pain with sciatica, sciatica laterality unspecified Lety Black FNP [address] [place] [address] Phone: tel: fax: [facility] Referral ID Status Reason Start Date Expiration Date Visits Requested Visits Authorized [id number] Pending Review Specialty Services Required 06/09/2025 06/09/2026 1 1 Encounter Details Date Type Department Care Team (Late st Contact Info) Description 06/09/2025 8:30 AM EDT Office Visit [facility] [address] [place] [address] Lety Black FNP [address] [place] [address] Healthcare maintenance (Primary Dx); Type 2 diabetes mellitus without complication, with long-term current use of insulin ([facility]/HCC); Essential (primary) hypertension; Chronic bilateral low back pain with sciatica, sciatica laterality unspecified; Right foot pain Social History Tobacco Use Types Packs/Day Years Used Date Smoking Tobacco: Never Smokeless Tobacco: Never Depression Answer Date Recorded Patient Health Questionnaire-9 Score 5 12/18/2024 Patient Health Questionnaire-9 Score 5 12/18/2024 Last PHQ-9: Questionnaire Data Not on file 0 12/18/2024 Housing Stability Answer Date Recorded What is your housing situation today? I have virgilio barber 12/07/[address] you li ve. Do you have problems with any of the following? None of the above 12/07/2024 Food Insecurity Answer Date Recorded Within the past 12 months, y ou worried that your food would run out before you got money to buy more: Never True 12/07/2024 Within the past 12 months,th e food you bought just didn't last and you didn't have enough money to get more: Never True Transportation Answer Date Recorded In the past 12 months, has l ack of transportation kept you from medical appts, meetings, work or from getting things needed for daily living? No 12/07/2024 Utilities Answer Date Recorded In the past 12 months, has t he electric, gas, oil or water company threatened to shut off services in your home? No 12/07/2024 Depression Answer Date Recorded Patient Health Questionnaire-2 Score 1 12/18/2024 Internet Access Answer Date Recorded Internet Access Q1 Yes 12/07/2024 Internet Access Q2 Not on file 12/07/2024 Comments No Sex and Gender Information Value Date Recorded Sex Assigned at Female 08/11/2022 10:17 AM EDT Legal Sex Female 10:17 AM EDT Gender Identity Female 08/11/2022 10:17 AM EDT Sexual Orientation Lesbian or Gutierrez 01/04/2024 12 :48 PM EDT documented as of this encounter Last Filed Vital Signs Vital Sign Reading Time Taken Comments Blood Pressure 128/92 06/09/2025 8:54 AM EDT Pulse 76 06/09/2025 8:54 AM EDT Temperature 36.8 C (98.2 F) 06/09/2025 8:54 AM EDT Respiratory Rate 20 06/09/2025 8:54 AM EDT Oxygen Saturation 98% 06/09/2025 8:54 AM EDT Inhaled Oxygen Concentration - - Weight 161 kg (356 lb) 06/09/2025 8:54 AM EDT Height 157.5 cm (5' 2 ) 06/09/2025 8:54 AM EDT Body Mass Index 65.11 06/09/2025 8:54 AM EDT documented in this encounter Plan of Treatment Scheduled Orders Name Type Priority Associated Diagnoses Orde r Schedule Lipid Panel, Standard Lab Routine Type 2 diabetes mellitus without complication, with long-term current use of insulin ([facility]) Expected: 06/09/2025 (Approximate), Expires: 06/09/2026 Albumin, Random Urine W/Creatinine Lab Routine Type 2 diabetes mellitus without complication, with long-term current use of insulin (CMS/[facility]) Expected: 06/09/2025 (Approximate), Expires: 06/09/2026 Chlamydia/N. Gonorrhoeae RNA, TMA, Urogenitial Microbiology Routine Healthcare maintenance Expected: 06/09/2025, Expires: 06/09/2026 Hepatitis C Viral RNA, Quantitative, Real-Time PCR Lab Routine Healthcare maintenance Expected: 06/09/2025 (Approximate), Expires: 06/09/2026 RPR (Monitor) with Reflex to Titer Lab Routine Healthcare maintenance Expected: 06/09/2025 (Approximate), Expires: 06/09/2026 HIV-1/2 Antigen and Antibodies, Fourth Generation, with Reflexes Lab Routine Healthcare maintenance Expected: 06/09/2025 (Approximate), Expires: 06/09/2026 Chlamydia/N. Gonorrhoeae RNA, TMA, Throat Microbiology Routine Healthcare maintenance Ordered: 06/09/2025 Scheduled Referrals Name Type Priority Associated Diagnoses Orde r Schedule Referral to Physical Therapy Outpatient Referral Routine Chronic bilateral low back pain with sciatica, sciatica laterality unspecified Expected: 06/09/2025 (Approximate), Expires: 06/09/2026 documented as of this encounter Procedures Procedure Name Priority Date/Time Associated Diagnosis Comments POCT GLYCATED HEMOGLOBIN, TOTAL Routine 06/09/2025 8:57 AM EDT Type 2 diabetes mellitus without complication, with long-term current use of insulin ([facility]) POCT GLUCOSE Routine 06/09/2025 8:57 AM EDT Type 2 diabetes mellitus without complication, with long-term current use of insulin ([facility]) documented in this encounter Results * (ABNORMAL) POCT HGB A1C (06/09/2025 8:57 AM EDT) Hemoglobin A1C 7.0(A) 4.0 - 5.7 % QC Media Lot # [id number] Lot# Expiration Date Blood 06/09/2025 8:57 AM EDT Lety GERMAIN POINT OF CARE TEST ENTER/EDIT ORDERABLES Final Result * POCT Glucose (06/09/2025 8:57 AM EDT) Glucose Blood, POC 122 60 - 200 mg/dL QC Media Lot # [id number] Lot# Expiration Date Blood Capillary blood specimen / Unknown 06/09/2025 8:57 AM EDT Lety GERMAIN POINT OF CARE TEST ENTER/EDIT ORDERABLES Final Result documented in this encounter Visit Diagnoses Diagnosis Healthcare maintenance- Primary Type 2 diabetes mellitus without complication, with long-term current use of insulin ([facility]) Essential (primary) hypertension Unspecified essential hypertension Chronic bilateral low back pain with sciatica, sciatica laterality unspecified Right foot pain Pain in soft tissues of limb documented in this encounter Additional Health Concerns Assessment Noted Time PHQ-9 Depression Total Score: 5 12/19/19 25 8:46 PM EDT documented as of this encounter Care Teams Organic Lab Worker Relationship Specialty Start Date End Date Lety Black FNP [address] [place] [address] PCP - General Family Medicine 06/05/22 Grupo Nixon FNP [address] [place] [address] Nurse Practitioner Family Medicine 09/14/23 documented as of this encounter
--- OUTSIDE RECORDS SUMMARY | 2025-06-09 12:50 | XMS_ITS | Encounter Summary ---
Author Organization [employer] Address [address] [facility] [address] [place] [address] Care Team Providers Care Ways Operator Name Role Phone Lety Black Primary Care Provider [phone] Grupo Nixon Unavailable Unavailable Reason for Visit * Reason Comments Med Refill Encounter Details Date Type Department Care Team (Late st Contact Info) Description 03/11/2024 Refill [facility] [address] [place] [address] Grupo Nixon FNP Bipolar affective disorder, current episode mixed, current episode severity unspecified (CMS/HCC) Social History Tobacco Use Types Packs/Day Years Used Date Smoking Tobacco: Never Smokeless Tobacco: Never Depression Answer Date Recorded Patient Health Questionnaire-9 Score 12 11/23/2023 Patient Health Questionnaire-9 Score 12 11/23/2023 Last PHQ-9: Questionnaire Data Not on file 0 11/23/2023 Housing Stability Answer Date Recorded What is your housing situation today? I have virgilio barber 07/30/[address] you li ve. Do you have problems with any of the following? None of the above 07/30/2023 Food Insecurity Answer Date Recorded Within the past 12 months, y ou worried that your food would run out before you got money to buy more: Never True 07/30/2023 Within the past 12 months,th e food you bought just didn't last and you didn't have enough money to get more: Never True Transportation Answer Date Recorded In the past 12 months, has l ack of transportation kept you from medical appts, meetings, work or from getting things needed for daily living? No 07/30/2023 Utilities Answer Date Recorded In the past 12 months, has t he electric, gas, oil or water company threatened to shut off services in your home? Yes 07/19/2023 Depression Answer Date Recorded Patient Health Questionnaire-2 Score 2 11/23/2023 Comments Unknown Sex and Gender Information Value Date Recorded Sex Assigned at Female 08/11/2022 10:17 AM EDT Legal Sex Female 10:17 AM EDT Gender Identity Female 08/11/2022 10:17 AM EDT Sexual Orientation Lesbian or Gutierrez 01/04/2024 12 :48 PM EDT documented as of this encounter Plan of Treatment Not on file documented as of this encounter Visit Diagnoses Diagnosis Bipolar affective disorder, current episode mixed, current episode severity unspecified (CMS/HCC) documented in this encounter Additional Health Concerns Assessment Noted Time PHQ-9 Depression Total Score: 12 024 3:32 PM EST documented as of this encounter Care Teams Ways Operator Relationship Specialty Start Date End Date Lety Black FNP [address] [place] [address] PCP - General Family Medicine 06/05/22 Grupo Nixon FNP [address] [place] [address] Nurse Practitioner Family Medicine 09/14/23 documented as of this encounter
--- OUTSIDE RECORDS SUMMARY | 2025-06-09 12:50 | XMS_ITS | Encounter Summary ---
Author Organization [employer] Address [address] [place] [address] Care Team Providers Care Radiation Engineer Name Role Phone [place] JESSA Primary Care Provider [employer] Unavailable Unavailable Encounter Details Date Type Department Care Team (Late st Contact Info) Description 11/03/2022 Orders Only [facility] [address] [place] [address] Tammy Beyer LPN Social History Tobacco Use Types Packs/Day Years Used Date Smoking Tobacco: Never Assessed Comments Unknown Sex and Gender Information Value Date Recorded Sex Assigned at Female 08/11/2022 10:17 AM EDT Legal Sex Female 10:17 AM EDT Gender Identity Female 08/11/2022 10:17 AM EDT Sexual Orientation Lesbian or Gutierrez 01/04/2024 12 :48 PM EDT documented as of this encounter Plan of Treatment Not on file documented as of this encounter Procedures Procedure Name Priority Date/Time Associated Diagnosis Comments HCG, QL, URINE Routine 07/22/2023 8:22 AM EDT URINALYSIS, COMPLETE, WITH REFLEX TO CULTURE Routine 02/22/2023 3:05 PM EDT HCG, QL, URINE Routine 02/22/2023 3:05 PM EDT URINALYSIS WITH REFLEX MICROSCOPIC Routine 02/22/2023 3:05 PM EDT GLUCOSE, WHOLE BLOOD Routine 02/22/2023 2:43 PM EDT CBC WITH AUTO DIFFERENTIAL Routine 02/22/2023 12:31 PM EDT HCG, TOTAL, QN Routine 02/22/2023 12:31 PM EDT MAGNESIUM Routine 02/22/2023 12:31 PM EDT LIPASE Routine 02/22/2023 12:31 PM EDT COMPREHENSIVE METABOLIC PANEL Routine 02/22/2023 12:31 PM EDT URINALYSIS, COMPLETE, WITH REFLEX TO CULTURE Routine 11/24/2022 9:56 AM EST CBC WITH AUTO DIFFERENTIAL Routine 11/24/2022 9:50 AM EST LIPASE Routine 11/24/2022 9:50 AM EST HEPATIC FUNCTION PANEL Routine 9:50 AM EST COMPREHENSIVE METABOLIC PANEL Routine 11/24/2022 9:50 AM EST documented in this encounter Results * HCG, Qualitative, Urine (07/22/2023 8:22 AM EDT) Urine NEGATIVE NEGATIVE [facility] Comment:This test was develo ped to detect early . Falsenegative results may occur after the 5th - 7th week ofpregnancy when using this test method. If clinicallyindicated, consider a serum hCG. 07/22/2023 8:22 AM EDT 07/22/2023 8:29 AM EDT us [facility] External Provider LAB URI NE ORDERABLES Final Result [facility] [address] [place] [address] [phone] * (ABNORMAL) Urinalysis, Complete, with Reflex to Culture (02/22/2023 3:05 PM EDT) Color Urine Yellow [facility] Appearance Urine Cloudy [facility] PH 5.5 5.0 - 9.0 [facility] Glucose Urine UA >=1000(A) Negative mg/dL [facility] Urine Blood Trace(A) Negative [facility] Specific [place] - Urine >=1.030(H) 1.005 - 1.025 [facility] Urine Protein 100 (2+)(A) Neg-Trace mg/dL [facility] Urine Ketones Negative Negative mg/dL [facility] Nitrite Urine Negative Negative [facility] Leukocyte Esterase Urine Negative Negative [facility] RBC Urine 0-2 0 - 2 /HPF [facility] Urine WBC 0-5 0 - 5 /HPF [facility] Urine Squamous Epithelial Cell 0-2 0 - 2 /HPF [facility] Urine Bacteria None Seen None Seen [facility] Hyaline Casts, Urine 0-2 0 - 2 /LPF [facility] 02/22/2023 3:05 PM EDT 02/22/2023 3:11 PM EDT Narrative [facility] - 02/22/2023 3:23 PM EDT [id number], Clean Catch us [facility] External Provider LAB URI NE ORDERABLES Final Result [facility] [address] [place] [address] [phone] * HCG, Qualitative, Urine (02/22/2023 3:05 PM EDT) Urine NEGATIVE NEGATIVE [facility] Comment:This test was develo ped to detect early . Falsenegative results may occur after the 5th - 7th week ofpregnancy when using this test method. If clinicallyindicated, consider a serum hCG. 02/22/2023 3:05 PM EDT 02/22/2023 3:11 PM EDT [facility] External Provider LAB URI NE ORDERABLES Final Result Performing Organization Address [facility] de Phone Number [facility] [address] [place] [address] [phone] * (ABNORMAL) Urinalysis with reflex microscopic (02/22/2023 3:05 PM EDT) Color Urine Yellow [facility] Appearance Urine Cloudy [facility] PH 5.5 5.0 - 9.0 [facility] Glucose Urine UA >=1000(A) Negative mg/dL [facility] Urine Blood Trace(A) Negative [facility] Specific [place] - Urine >=1.030(H) 1.005 - 1.025 [facility] Urine Protein 100 (2+)(A) Neg-Trace mg/dL [facility] Urine Ketones Negative Negative mg/dL [facility] Nitrite Urine Negative Negative [facility] Leukocyte Esterase Urine Negative Negative [facility] 02/22/2023 3:05 PM EDT 02/22/2023 3:11 PM EDT Narrative [facility] - 02/22/2023 3:18 PM EDT Urine, Catheterized [facility] External Provider LAB URI NE ORDERABLES Final Result Performing Organization Address [facility] Co de Phone Number [facility] [address] [place] [address] [phone] * (ABNORMAL) GLUCOSE, WHOLE BLOOD (02/22/2023 2:43 PM EDT) Glucose, Whole Blood 275(H) 60 - 115 mg/dL [facility] Comment:METER #: [id number] 02/22/2023 2:43 PM EDT 02/22/2023 2:53 PM EDT [facility] External Provider LAB BLO OD ORDERABLES Final Result Performing Organization Address [facility] Co de Phone Number [facility] [address] [place] [phone] * HCG, Total, Quantitative (02/22/2023 12:31 PM EDT) HCG Quantitative <2 mIU/mL [facility] Comment:Weeks post LMP Appro ximate hCG(Last Menstrual Period) Range (mIU/ml)3 - 4 weeks 9 - 1304 - 5 weeks 75 - 2,6005 - 6 weeks 850 - 20,8006 - 7 weeks 4000 - 100,2007 - 12 weeks 11,500 - 289,26487 - 16 weeks 18,300 - 137,73227 - 29 weeks (2nd trimester) 1,400 - 53,65680 - 41 weeks (3rd trimester) 940 - 60,000The [place] B- hCG assay is used for the early detection ofpregnancy; it cannot be used to diagnose any conditionunrelated to . If a B-hCG level is not supportedby the clinical evidence, results should be confirmed by analternative method (qualitative urine hCG, for example). 02/22/2023 12:3 1 PM EDT 02/22/2023 12:34 PM EDT [facility] External Provider LAB BLO OD ORDERABLES Final Result Performing Organization Address [facility] Co de Phone Number [facility] [address] [place] [address] [phone] * Lipase (02/22/2023 12:31 PM EDT) Lipase 22 8 - 78 U/L [facility] 02/22/2023 12:3 1 PM EDT 02/22/2023 12:34 PM EDT [facility] External Provider LAB BLO OD ORDERABLES Final Result Performing Organization Address [facility] Co de Phone Number [facility] [address] [place] [address] [phone] * (ABNORMAL) Magnesium (02/22/2023 12:31 PM EDT) Magnesium 1.4(LL) 1.6 - 2.6 mg/dL [facility] Comment:Critical value for M AG: Results called to and read angela:IVISCARLOTTA Person calling: KARMA Date: 02/22/23 Time: 1301 02/22/2023 12:3 1 PM EDT 02/22/2023 12:34 PM EDT [facility] External Provider LAB BLO OD ORDERABLES Final Result Performing Organization Address [facility] Co de Phone Number [facility] [address] [place] [address] [phone] * (ABNORMAL) Comprehensive Metabolic Panel (02/22/2023 12:31 PM EDT) Sodium 136 135 - 145 mmol/L [facility] Potassium 3.7 3.3 - 5.1 mmol/L [facility] Chloride 101 96 - 108 mmol/L [facility] Carbon Dioxide 23 22 - 29 mmol/L [facility] Anion Gap 16 12 - 20 [facility] Urea Nitrogen (BUN) 11 9 - 16 mg/dL [facility] Creatinine, Serum 0.81 0.5 - 1.4 mg/dL [facility] Creatinine Clr Calc Pharmacy 159.4 [facility] Comment:Provided height and weight: 160.02 cm,165.561 kg.eGFR (calculated from the MDRD study equation) and eCrCl(calculated from the Cockcroft-Gault equation) are based ondifferent parameters and may not yield comparable results.If eCrCl result is absurd, please check patient'sheight/weight. Estimated Glomerular Filt Rate >60 [facility] Comment:NOTE: For -Am erican individuals, multiply the result by 1.210.Chronic Kidney Disease: Estimated GFR < 60 mL/min/1.86l0Swipqf Kidney Disease: Estimated GFR < 15 mL/min/1.73m2 Glucose 342(H) 60 - 115 mg/dL [facility] Calcium 9.0 8.4 - 10.2 mg/dL [facility] Bilirubin, Total 0.3 0.0 - 1.0 mg/dL [facility] Aspartate Amino Transferase 14 5 - 31 U/L [facility] Alanine Aminotransferase 27 0 - 31 U/L [facility] Total Protein 6.8 6.5 - 8.0 g/dL [facility] Albumin Level 3.9 3.5 - 5.0 g/dL [facility] Alkaline Phosphatase 59 39 - 117 U/L [facility] 02/22/2023 12:3 1 PM EDT 02/22/2023 12:34 PM EDT us [facility] External Provider LAB BLO OD ORDERABLES Final Result [facility] [address] [place] [phone] * (ABNORMAL) CBC auto differential (02/22/2023 12:31 PM EDT) White Blood Count 8.0 4.8 - 10.8 X10*3/uL [facility] Red Blood Count 4.54 4.20 - 5.50 X10*6/uL [facility] Hemoglobin 12.1 12.0 - 16.0 g/dl [facility] Hematocrit 37.0 37.0 - 47.0 % [facility] Mean Corpuscular Volume 81.5 80.0 - 98.0 fL [facility] Mean Corpuscular Hemoglobin 26.7(L) 27.0 - 33.0 pg [facility] Mean Corpuscular HGB Conc 32.7 31.0 - 35.0 g/dl [facility] Red Cell Distribution Width 12.4 11.0 - 16.0 % [facility] Platelet Count 360 160 - 400 X10*3/uL [facility] Mean Platelet Volume 9.1(L) 9.4 - 12.3 fL [facility] Neutrophils Percent Auto 77.4(H) 45 - 73 % [facility] Imm Gran Pct Auto 0.5(H) 0.0 - 0.4 % [facility] Lymphocytes Percent Auto 16.5(L) 20 - 40 % [facility] Monocytes Percent Auto 5.2 2 - 11 % [facility] Eosinophils Percent Auto 0.0 0 - 4 % [facility] Basophils Percent Auto 0.4 0 - 2 % [facility] NRBC Pct Auto 0.0 0.0 - 0.2 /100WBC [facility] Neutrophils Absolute Auto 6.2 2.0 - 8.3 x10*3/uL [facility] Imm Gran Abs Auto 0.04(H) 0.00 - 0.03 X10*3/uL [facility] Lymphocytes Absolute Auto 1.3 1.2 - 4.9 X10*3/uL [facility] Monocytes Absolute Auto 0.4 0.1 - 1.2 X10*3/uL [facility] Eosinophils Absolute Auto 0.0 0.0 - 0.4 X10*3/uL [facility] Basophils Absolute Auto 0.0 0.0 - 0.2 X10*3/uL [facility] NRBC Abs Auto 0.000 0.0 - 0.012 X10*3/uL [facility] 02/22/2023 12:3 1 PM EDT 02/22/2023 12:34 PM EDT us [facility] External Provider LAB BLO OD ORDERABLES Final Result [facility] [address] [place] [address] [phone] * (ABNORMAL) Urinalysis, Complete, with Reflex to Culture (11/24/2022 9:56 AM EST) Color Urine Yellow [facility] Appearance Urine Clear [facility] PH 6.0 5.0 - 9.0 [facility] Glucose Urine UA Negative Negative mg/dL [facility] Urine Blood Negative Negative [facility] Specific [place] - Urine 1.020 1.005 - 1.025 [facility] Urine Protein 30 (1+)(A) Neg-Trace mg/dL [facility] Urine Ketones Negative Negative mg/dL [facility] Nitrite Urine Negative Negative [facility] Leukocyte Esterase Urine Negative Negative [facility] RBC Urine 0-2 0 - 2 /HPF [facility] Urine WBC 0-5 0 - 5 /HPF [facility] Urine Squamous Epithelial Cell 0-2 0 - 2 /HPF [facility] Urine Bacteria None Seen None Seen [facility] Hyaline Casts, Urine 0-2 0 - 2 /LPF [facility] 11/24/2022 9:56 AM EST 11/24/2022 10:00 AM EST Narrative [facility] - 11/24/2022 10:12 AM EST [id number], Clean Catch [facility] External Provider LAB URI NE ORDERABLES Final Result Performing Organization Address [facility]/ZIP Co de Phone Number [facility] [address] [place] [phone] * Lipase (11/24/2022 9:50 AM EST) Lipase 56 8 - 78 U/L [facility] 11/24/2022 9:50 AM EST 11/24/2022 9:53 AM EST [facility] External Provider LAB BLO OD ORDERABLES Final Result Performing Organization Address [facility] Co de Phone Number [facility] [address] [place] [address] [phone] * Hepatic Function Panel (11/24/2022 9:50 AM EST) Bilirubin, Direct <0.2 0.0 - 0.5 mg/dL [facility] 11/24/2022 9:50 AM EST 11/24/2022 9:53 AM EST us [facility] External Provider LAB BLO OD ORDERABLES Final Result [facility] [address] [place] [address] [phone] * (ABNORMAL) Comprehensive Metabolic Panel (11/24/2022 9:50 AM EST) Sodium 140 135 - 145 mmol/L [facility] Potassium 3.7 3.3 - 5.1 mmol/L [facility] Chloride 104 96 - 108 mmol/L [facility] Carbon Dioxide 27 22 - 29 mmol/L [facility] Anion Gap 13 12 - 20 [facility] Urea Nitrogen (BUN) 14 9 - 16 mg/dL [facility] Creatinine, Serum 0.60 0.5 - 1.4 mg/dL [facility] Creatinine Clr Calc Pharmacy 207.6 [facility] Comment:Provided height and weight: 160.02 cm,156.9 kg.eGFR (calculated from the MDRD study equation) and eCrCl(calculated from the Cockcroft-Gault equation) are based ondifferent parameters and may not yield comparable results.If eCrCl result is absurd, please check patient'sheight/weight. Estimated Glomerular Filt Rate >60 [facility] Comment:NOTE: For -Am erican individuals, multiply the result by 1.210.Chronic Kidney Disease: Estimated GFR < 60 mL/min/1.60r2Oeehpo Kidney Disease: Estimated GFR < 15 mL/min/1.73m2 Glucose 142(H) 60 - 115 mg/dL [facility] Calcium 9.7 8.4 - 10.2 mg/dL [facility] Bilirubin, Total 0.3 0.0 - 1.0 mg/dL [facility] Aspartate Amino Transferase 19 5 - 31 U/L [facility] Alanine Aminotransferase 33(H) 0 - 31 U/L [facility] Total Protein 7.1 6.5 - 8.0 g/dL [facility] Albumin Level 4.3 3.5 - 5.0 g/dL [facility] Alkaline Phosphatase 59 39 - 117 U/L [facility] 11/24/2022 9:50 AM EST 11/24/2022 9:53 AM EST us [facility] External Provider LAB BLO OD ORDERABLES Final Result Performing Organization Address City/State/[facility] Co de Phone Number [facility] [address] [place] [phone] * (ABNORMAL) CBC auto differential (11/24/2022 9:50 AM EST) White Blood Count 10.5 4.8 - 10.8 X10*3/uL [facility] Red Blood Count 4.43 4.20 - 5.50 X10*6/uL [facility] Hemoglobin 11.8(L) 12.0 - 16.0 g/dl [facility] Hematocrit 36.3(L) 37.0 - 47.0 % [facility] Mean Corpuscular Volume 81.9 80.0 - 98.0 fL [facility] Mean Corpuscular Hemoglobin 26.6(L) 27.0 - 33.0 pg [facility] Mean Corpuscular HGB Conc 32.5 31.0 - 35.0 g/dl [facility] Red Cell Distribution Width 12.5 11.0 - 16.0 % [facility] Platelet Count 404(H) 160 - 400 X10*3/uL [facility] Mean Platelet Volume 9.6 9.4 - 12.3 fL [facility] Neutrophils Percent Auto 74.4(H) 45 - 73 % [facility] Imm Gran Pct Auto 0.4 0.0 - 0.4 % [facility] Lymphocytes Percent Auto 19.1(L) 20 - 40 % [facility] Monocytes Percent Auto 4.9 2 - 11 % [facility] Eosinophils Percent Auto 0.9 0 - 4 % [facility] Basophils Percent Auto 0.3 0 - 2 % [facility] NRBC Pct Auto 0.0 0.0 - 0.2 /100WBC [facility] Neutrophils Absolute Auto 7.8 2.0 - 8.3 x10*3/uL [facility] Imm Gran Abs Auto 0.04(H) 0.00 - 0.03 X10*3/uL [facility] Lymphocytes Absolute Auto 2.0 1.2 - 4.9 X10*3/uL [facility] Monocytes Absolute Auto 0.5 0.1 - 1.2 X10*3/uL [facility] Eosinophils Absolute Auto 0.1 0.0 - 0.4 X10*3/uL [facility] Basophils Absolute Auto 0.0 0.0 - 0.2 X10*3/uL [facility] NRBC Abs Auto 0.000 0.0 - 0.012 X10*3/uL [facility] 11/24/2022 9:50 AM EST 11/24/2022 9:53 AM EST us [facility] External Provider LAB BLO OD ORDERABLES Final Result Performing Organization Address City/State/[facility] Co de Phone Number [facility] [address] [place] [address] [phone] documented in this encounter Visit Diagnoses Not on filedocumented in this encounter Care Teams Radiation Engineer Relationship Specialty Start Date End Date Lety Black FNP [address] [place] [phone] PCP - General Family Medicine 06/05/22 Grupo Nixon FNP [address] [place] [address] Nurse Practitioner Family Medicine 09/14/23 documented as of this encounter
--- OUTSIDE RECORDS SUMMARY | 2025-06-09 12:51 | XMS_ITS | Encounter Summary ---
Author Organization [employer] Address [address] [place] [address] Care Team Providers Care Telesales Specialist Name Role Phone Lety Black Primary Care Provider [phone] Grupo Nixon Unavailable Unavailable Reason for Visit * Reason Comments Med Change Request Encounter Details Date Type Department Care Team ([facility] st Contact Info) Description 06/09/2025 Refill [facility] [address] [place] [address] Lety Black FNP [address] [place] [address] Social History Tobacco Use Types Packs/Day Years [...] PM EDT documented as of this encounter Miscellaneous Notes * Telephone Encounter - Tammy Beyer LPN - 06/09/2025 11:15 AM EDT Per pharmacy regarding FLONASE how many sprays and how many times a day? documented in this encounter Plan of Treatment Not on file documented as of this encounter Visit Diagnoses Not on filedocumented in this encounter Additional Health Concerns Assessment Noted Time PHQ-9 Depression Total Score: 5 12/19/19 25 8:46 PM EDT documented as of this encounter Care Teams Telesales Specialist Relationship Specialty Start Date End Date Lety Black FNP [address] [place] [address] PCP - General Family Medicine 06/05/22 Grupo Nixon FNP [address] [place] [address] Nurse Practitioner Family Medicine 09/14/23 documented as of this encounter
--- OUTSIDE RECORDS SUMMARY | 2025-06-09 12:51 | XMS_ITS | Clinical Summary ---
Author Organization [facility] Facility Address [address] [place] [phone] Care Team Providers Care Pet Training Instructor Name Role Phone Vanessa Bird BORING MACHINE SET UP OPERATOR JIG-C Primary Care Provider Unavailable Medications clonazePAM (KlonoPIN) [...] Visual Foot Exam 07/29/2021 Influenza Vaccine (#1) 2025 Pneumococcal Vaccine: Peds ( 0 to 5 Years) and At-Risk Patients (6 to 49 Years) Aged Out No longer eligible b ased on patient's age to complete this topic Insurance Medicaid [place] Medicaid [place] Care Teams Pet Training Instructor Relationship Specialty Start Date End Date Vanessa Bird FNP-C PCP - General Nurse Practitioner 05/20/21
--- OUTSIDE RECORDS SUMMARY | 2025-06-09 12:51 | XMS_ITS | Encounter Summary ---
Author Organization [employer] Address [address] [facility] [address] [place] [address] Care Team Providers Care Route Sales Representative Name Role Phone Lety Black Primary Care Provider [phone] [employer] Nixon Unavailable Unavailable Reason for Visit * Reason Comments Med Refill Encounter Details Date Type Department Care Team ([facility] st Contact Info) Description 06/01/2025 Refill [facility] [address] [place], [place] [id number] Lety Black FNP [address] [place] [address] Bipolar affective disorder, remission status unspecified (CMS/HCC) Social History Tobacco Use Types [...] Access Q2 Not on file 12/07/2024 Comments Unknown Sex and Gender Information Value Date Recorded Sex Assigned at Female 08/11/2022 10:17 AM EDT Legal Sex Female 10:17 AM EDT Gender Identity Female 08/11/2022 10:17 AM EDT Sexual Orientation Lesbian or Gutierrez 01/04/2024 12 :48 PM EDT documented as of this encounter Miscellaneous Notes * Telephone Encounter - JESSA Sandoval - 06/02/2025 9:42 AM EDT Alfred Rosen, I sent in the med refill for clonazepam, but you know if there is a status on when Catiria may be initiating care with a new psych prescriber? It looks like Christina made contact and help start the process on 04/07/2025. Thanks! documented in this encounter Plan of Treatment Not on file documented as of this encounter Visit Diagnoses Diagnosis Bipolar affective disorder, remission status unspecified (CMS/[facility]) documented in this encounter Additional Health Concerns Assessment Noted Time PHQ-9 Depression Total Score: 5 12/19/19 25 8:46 PM EDT documented as of this encounter Care Teams Route Sales Representative Relationship Specialty Start Date End Date Lety Black FNP [address] [place] [address] PCP - General Family Medicine 06/05/22 Grupo Nixon FNP [address] [place] [address] Nurse Practitioner Family Medicine 09/14/23 documented as of this encounter
--- OUTSIDE RECORDS SUMMARY | 2025-06-09 12:51 | XMS_ITS | Encounter Summary ---
Author Organization [employer] Address [address] [place] [address] Care Team Providers Care Ice Cream Vendor Name Role Phone DaleLety kothari JESSA Primary Care Provider [phone] Grupo Nixon Unavailable Unavailable Encounter Details Date Type Department Care Team (Latest Contact Info) Description 06/09/2025 Travel Social History Tobacco Use Types Packs/Day Years [...] documented as of this encounter Care Teams Ice Cream Vendor Relationship Specialty Start Date End Date Lety Black FNP [address] [place] [address] PCP - General Family Medicine 06/05/22 Grupo Nixon FNP [address] [place] [address] Nurse Practitioner Family Medicine 09/14/23 documented as of this encounter
--- OUTSIDE RECORDS SUMMARY | 2025-06-09 12:51 | XMS_ITS | Encounter Summary ---
Author Organization [employer] Address [address] [facility] [address] [place] [address] Care Team Providers Care Pedicab Driver Name Role Phone Lety Black Primary Care Provider [phone] Grupo Nixon Unavailable Unavailable Reason for Visit * Reason Comments Med Refill Encounter Details Date Type Department Care Team (Late st Contact Info) Description 03/05/2023 Refill [facility] [address] [place] [address] Grupo Nixon FNP Bipolar affective disorder, current episode mixed, current episode severity unspecified (CMS/[facility]) Social History Tobacco Use Types Packs/Day Years Used Date Smoking Tobacco: Never Assessed Depression Answer Date Recorded Patient Health Questionnaire-9 Score 5 01/06/2023 Depression Answer Date Recorded Patient Health Questionnaire-2 Score 1 01/06/2023 Comments Unknown Sex and Gender Information Value Date Recorded Sex Assigned at Female 08/11/2022 10:17 AM EDT Legal Sex Female 10:17 AM EDT Gender Identity Female 08/11/2022 10:17 AM EDT Sexual Orientation Lesbian or Gutierrez 01/04/2024 12 :48 PM EDT documented as of this encounter Miscellaneous Notes * Telephone Encounter - Catrina Ruiz RN - 03/05/2023 11:10 AM EDT Clonazepam refill request to [facility]. Medication isnt due until 03/15/23. Will send to Hanny Nixon on 03/12/23. documented in this encounter Plan of Treatment Not on file documented as of this encounter Visit Diagnoses Diagnosis Bipolar affective disorder, current episode mixed, current episode severity unspecified (CMS/HCC) documented in this encounter Additional Health Concerns Assessment Noted Time PHQ-9 Depression Total Score: 5 01/07/20 23 2:06 PM EDT documented as of this encounter Care Teams Pedicab Driver Relationship Specialty Start Date End Date Lety Black FNP [address] [place] [address] PCP - General Family Medicine 06/05/22 Grupo Nixon FNP [address] [place] [address] Nurse Practitioner Family Medicine 09/14/23 documented as of this encounter
--- OUTSIDE RECORDS SUMMARY | 2025-06-09 12:51 | XMS_ITS | Clinical Summary ---
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 Pentips 32G X 4 MM misc USE DIRECTED TWICE DAILY 100 each 11 023 Active Blood Glucose Monitoring Suppl (FreeStyle Moro Lite) w/Device kit USE TO TEST BLOOD SUGAR TWICE DAILY 022 Active Continuous Blood Gluc Sensor (FreeStyle Dontae 2 Sensor) misc USE DIRECTED. CHANGE EVERY 14 DAYS 023 Active FREESTYLE LITE test strip TEST BLOOD SUGAR TWICE DAILY 023 Active insulin lispro protamine-insul in lispro (HumaLOG Mix 75-25) (75-25) 100 UNIT/ML injection INJECT 90 UNITS SUBCUTANEOUSLY BEFORE BREAKFAST AND 90 UNITS BEFORE SUPPER 023 Active medroxyPROGESTE Riley (Provera) 10 MG tablet TAKE 1 TABLET BY MOUTH EVERY DAY NOW AND IF NO MENSES FOR PRIOR 2 MONTHS 022 Active metFORMIN XR (Glucophage-XR) 500 MG 24 hr tablet Take 1,000 mg by mouth with breakfast and with evening meal. 023 Active Trulicity 0.75 MG/0.5ML solution pen-injector INJECT ONE PEN (=0.75MG) SUBCUTANEOUSLY ONCE A WEEK DIRECTED 023 Active Blood Pressure kitIndications: Hypertension associated with diabetes (CMS/HCC) 1 kit in the morning. 1 kit 024 Active Spacer/Aero-Hol ding Chambers (AeroChamber MV) inhalerIndicati ons:Moderate persistent asthma with acute exacerbation Use as instructed with albuterol 1 each 024 Active Nebulizers miscIndications :Acute cough Use nebulizer as instructed 1 each 024 Active Respiratory Therapy Supplies (Nebulizer/Tubi ng/Mouthpiece) kitIndications: Acute cough To be used with Nebulizer 1 kit 024 Active albuterol 108 (90 Base) MCG/ACT inhalerIndicati ons:Wheezing Inhale 2 puffs every 6 (six) hours if needed for wheezing. 18 g 024 Active albuterol (2.5 MG/3ML) 0.083% nebulizer solutionIndicat ions:Wheezing INHALE 1 AMPULE USING A NEBULIZER EVERY 6 HOURS NEEDED FOR WHEEZING OR SHORTNESS OF BREATH 90 mL 5 024 Active empagliflozin (Jardiance) 10 MGIndications:T ype 2 diabetes mellitus treated with insulin (CMS/HCC) Take 1 tablet (10 mg) by mouth in the morning. 90 tablet 025 Active Ozempic, 0.25 or 0.5 MG/DOSE, 2 MG/3ML solution pen-injectorInd ications:Type 2 diabetes mellitus without complication, with long-term current use of insulin ([facility]/HCC) INJECT 0.5 MG SUBCUTANEOUSLY EVERY 7 DAYS IN THE ABDOMEN, THIGHS, OR UPPER ARM, ROTATE INJECTION SITES. 025 Active perphenazine 4 MG tabletIndicatio ns:Bipolar affective disorder, remission status unspecified (CMS/HCC) Take 3 tablets orally in the morning and 1 in the evening 120 tablet 1 025 Active clonazePAM (KlonoPIN) 1 MG tabletIndicatio ns:Bipolar affective disorder, remission status unspecified (CMS/HCC) TAKE 1 TABLET BY MOUTH TWICE DAILY IN THE MORNING AND AT BEDTIME NEEDED FOR ANXIETY 60 tablet 025 Active enalapril (Vasotec) 20 MG tabletIndicatio ns:Essential (primary) hypertension Take 1 tablet (20 mg) by mouth in the morning. 90 tablet 3 Active hydroCHLOROthia zide (HYDRODiuril) 25 MG tabletIndicatio ns:Essential (primary) hypertension Take 1 tablet (25 mg) by mouth in the morning. 90 tablet 3 Active atorvastatin (Lipitor) 10 MG tabletIndicatio ns:Type 2 diabetes mellitus without complication, with long-term current use of insulin (CMS/HCC) Take 1 tablet (10 mg) by mouth at bedtime. (Cholesterol) 90 tablet 1 Active escitalopram (Lexapro) 10 MG tablet Take 1 tablet (10 mg) by mouth Once per day. 30 tablet 1 025 2024 Active cyclobenzaprine (Flexeril) 10 MG tabletIndicatio ns:Right foot pain Take 1 tablet (10 mg) by mouth if needed in the morning, at noon, and at bedtime for muscle spasms. 30 tablet 1 025 2025 Active albuterol (Ventolin HFA) 108 (90 Base) MCG/ACT inhaler INHALE 2 PUFFS BY MOUTH EVERY 4 TO 6 HOURS NEEDED FOR SHORTNESS OF BREATH OR WHEEZING 18 g 1 Active fluticasone (Flonase) 50 MCG/ACT nasal spray SPRAY 1 SPRAY INTO EACH NOSTRIL TWICE A DAY. SHAKE GENTLY. BEFORE FIRST USE, PRIME PUMP. AFTER USE, CLEAN TIP AND REPLACE CAP. 48 g 3 Active ProAir HFA 108 (90 Base) MCG/ACT inhaler INHALE 2 PUFFS BY MOUTH EVERY 4 TO 6 HOURS NEEDED FOR SHORTNESS OF BREATH OR WHEEZING 022 2024 Discontinued(R eorder (will not trigger notification to Pharmacy)) fluticasone (Flonase) 50 MCG/ACT nasal spray SPRAY 1 SPRAY INTO EACH NOSTRIL TWICE A DAY 022 2024 Discontinued(R eorder (will not trigger notification to Pharmacy)) cyclobenzaprine (Flexeril) 10 MG tabletIndicatio ns:Right foot pain Take 1 tablet (10 mg) by mouth at bedtime for 10 days. 10 tablet 024 2024 Discontinued(R eorder (will not trigger notification to Pharmacy)) enalapril (Vasotec) 20 MG tabletIndicatio ns:Essential (primary) hypertension TAKE 1 TABLET BY MOUTH EVERY DAY IN THE MORNING 90 tablet 3 024 2024 Discontinued(R eorder (will not trigger notification to Pharmacy)) hydroCHLOROthia zide (HYDRODiuril) 25 MG tabletIndicatio ns:Essential (primary) hypertension TAKE 1 TABLET BY MOUTH EVERY DAY IN THE MORNING 90 tablet 3 024 2024 Discontinued(R eorder (will not trigger notification to Pharmacy)) atorvastatin (Lipitor) 10 MG tabletIndicatio ns:Type 2 diabetes mellitus without complication, with long-term current use of insulin (CMS/HCC) Take 1 tablet (10 mg) by mouth at bedtime. (Cholesterol) 90 tablet 1 025 2024 Discontinued(R eorder (will not trigger notification to Pharmacy)) clonazePAM (KlonoPIN) 1 MG tabletIndicatio ns:Bipolar affective disorder, remission status unspecified (CMS/HCC) Take 1 tablet (1 mg) by mouth if needed in the morning and at bedtime for anxiety. Do not start before March 28, 2025. 60 tablet 025 2024 Discontinued escitalopram (Lexapro) 10 MG tablet Take 1 tablet (10 mg) by mouth Once per day. 30 tablet 1 025 2024 Discontinued(R eorder (will not trigger notification to Pharmacy)) enalapril (Vasotec) 20 MG tabletIndicatio ns:Essential (primary) hypertension Take 1 tablet (20 mg) by mouth in the morning. 90 tablet 3 025 2024 Discontinued(R eorder (will not trigger notification to Pharmacy)) hydroCHLOROthia zide (HYDRODiuril) 25 MG tabletIndicatio ns:Essential (primary) hypertension Take 1 tablet (25 mg) by mouth in the morning. 90 tablet 3 025 2024 Discontinued(R eorder (will not trigger notification to Pharmacy)) fluticasone (Flonase) 50 MCG/ACT nasal spray Shake gently. Before first use, prime pump. After use, clean tip and replace cap. 16 g 11 025 2024 Discontinued(R eorder (will not trigger notification to Pharmacy)) ProAir HFA 108 (90 Base) MCG/ACT inhaler INHALE 2 PUFFS BY MOUTH EVERY 4 TO 6 HOURS NEEDED FOR SHORTNESS OF BREATH OR WHEEZING 18 g 1 025 2024 Discontinued Active Problems Problem Noted Date Diagnosed Date Mild intermittent asthma without complication Overview (12/18/2024): Continues with albuterol PRN Healthcare maintenance 12/16/2024 Overview (12/18/2024): Pap: due, encouraged to schedule PCOS (polycystic ovarian syndrome) 01/13/2023 Diabetic retinopathy 03/10/2022 Type 2 diabetes mellitus without complication Overview (12/18/2024): -Following with [facility] Continues with the following med regimen through Endo: Ozempic 0.25 subcutaneous weekly Metformin 1000mg BID Jardiance 10mg daily Humalog Mix 75-25 90 units BID (typically using once per day) CGM Sensor in place Lab Results Component Value Date HGBA1C 7.3 (A) 12/16/2024 HGBA1C 11.2 (A) 12/30/2023 HGBA1C 10.1 (H) 11/11/2021 Assessment & Plan (12/18/2024 8:50 PM EDT): - Congratulated on significant improvement in A1c - Continue with med management as well as lifestyle interventions such as goal exercise 150 mins/week, low carb diet rich in fiber Assessment & Plan (01/02/2024 2:27 PM EDT): Pt with hyperglycemia, 10 u of humalog administered in clinica, bs 365 after administration, encouraged hydration, sensor application, and pt verbalizes plan to call endocrine. Essential (primary) hypertension 07/29/2021 Overview (09/09/2023): -BP goal <130/80 mmHg Continues with the following med regimen: hydrochlorothiazide 25mg daily Enalapril 20mg daily Encourage lifestyle interventions ED precautions Assessment & Plan (12/18/2024 8:49 PM EDT): Elevated in office, follow up if home BP readings above goal Hyperlipidemia 07/29/2021 Bipolar disorder 07/21/2014 Overview (12/18/2024): - : therapist, [facility], weekly - Weekly check in with [facility] - Med management: previously through [facility] - clonazepam 1mg BID, perphenazine 4mg TID Assessment & Plan (12/18/2024 8:52 PM EDT): - No acute concerns, doing well on current regimen - Bridge of rx through PCP until established with psych prescriber - Scheduled for initial consult with Bryan Edmond APRN on 01/23/25 Assessment & Plan (04/25/2024 12:07 PM EDT): Patient's mother recently after being very ill for many years. Patient is sad and depressed, with intermittent SI (not currently). Has also run out of her medications. New Rx's sent today for Perphenazine 4 mg 3 tabs in am and 1 in evening, Clonazepam 1 mg BID. F/U with therapist as usual. Since this provider will be retiring, patient is now referred back to PCP for further medication management. Any issues or concerns call the health center. Terminating this case was very difficult as this provider has known the patient since she was a child, when I was her PCP. We discussed the feelings involved with that. All her questions were answere and I have wished her well. She agrees with the plan. Assessment & Plan (11/23/2023 4:00 PM EST): She is still generally doing well. Attending [employer] program. Has a new therapist whom she likes. On 09/24/2023 provider advised the pt that I would be retiring and suggested she speak with therapist about referral to agency psychiatrist. Meanwhile F/U with me in 2 months. Continue Perphenazine 4 mg 3 tabs in am and 1 in evening. Continue Clonazepam 1 mg BID. She agrees with the plan. Assessment & Plan (09/24/2023 3:30 PM EST): She is doing very well. Succeeding in school, will be starting Culinary program. Has a new therapist whom she likes. Today 09/24/2023 provider advised the pt that I would be retiring in approx 1/2 year, suggest she speak with therapist about referral to agency psychiatrist. Meanwhile F/U with me in 2 months. Continue Perphenazine 4 mg 3 tabs in am and 1 in evening. Continue Clonazepam 1 mg BID. Reminded not to take more than prescribed as she will run out too soon. Assessment & Plan (02/10/2023 3:24 PM EDT): She has been looking for more support but was not able to complete the partial hospitalization program. Plans to start another at [facility] on 02/13/2023. Do F/U with current therapist to be sure she does not lose that relationship. Increase now to Perphenazine 4 mg 3 tabs in am and 1 in evening. Continue Clonazepam 1 mg BID. Hopefully will continue without leg discomfort. F/U with me in 1 month. She agrees with the plan. Attention deficit hyperactivity disorder 014 Intellectual disability 07/21/2014 Obstructive sleep apnea syndrome 07/21/2014 Overview (12/16/2024): April 2024: Sleep study at [facility] (ordered by Shira Barahona [employer] PACKER). Diagnosed with ALON, severe. Recommendation for AutoCPAP 7-15 to be tried. If supoptimal response with CPAP, can try BiPAP 25/04. Anxiety 07/21/2012 Assessment & Plan (01/02/2024 2:27 PM EDT): Pt endorses anxiety interfering with ability to start trulicity, does feel supported from a mental health standpoint PTSD (post-traumatic stress disorder) 12/17/2010 Resolved Problems Problem Noted Date Diagnosed Date Resolved Date COPD exacerbation 12/30/2023 12/18/2024 Assessment & Plan (01/02/2024 2:28 PM EDT): Pt with increased cough, sputum production and sob. Consistent with uri asthma/copd exacerbation, given concurrently elevated blood sugars, will treat with high dose inhaled steroid, with close monitoring as I am concerned about hyperglycemia with steroid. WALK IN CLINIC and uC hours reviewed Advised rinsing mouth out after usage Right foot pain 12/30/2023 12/18/2024 Assessment & Plan (01/02/2024 2:29 PM EDT): Acute on chronic pain from standing, supportive morgan applied. Encouraged elevation, will order brace No s/s of gout or injury on exam today Msk relaxer renewed, Severe obesity 01/13/2023 12/16/2024 Bipolar affective disorder, current episode mixed 11/11/2022 12/18/2024 Assessment & Plan (01/06/2023 3:35 PM EDT): She has been looking for more support but was not able to complete the partial hospitalization program. Says she has been referred somewhere else. Continue current medications: Clonazepam 1 mg BID, Perphenazine 4 mg 3 tabs daily (do divide the doses). Hopefully will continue without leg discomfort. F/U with therapist as usual. F/U with me in 1 month. She agrees with the plan. Assessment & Plan (12/09/2022 2:36 PM EST): She c/o increased anxiety. Will not increase Clonazepam 1 mg BID. Instead increase to Perphenazine 4 mg 3 tabs daily (do divide the doses). Hopefully will continue without leg discomfort. F/U with therapist and school counselor as usual. F/U with me in 1 month. She agrees with the plan. Assessment & Plan (11/11/2022 2:26 PM EST): She is actually doing quite well, despite recent murder of family member and stressor of college courses. Will not get increased number of Clonazepam, so adhere to dosing instructions. Will continue Perphenazine 4 mg twice daily (do divide the doses). Hopefully will continue without leg discomfort. Continue Clonazepam 1 mg BID. F/U with therapist and school counselor as usual. F/U with me in 1 month. She agrees with the plan. Encounters * This document contains information received from the source organization and may not represent a complete record from that organization. Date Type Department Care Team Description 06/09/2025 8:30 AM EDT Office Visit [facility] [address] [place] [address] Lety Black FNP Healthcare maintenance (Primary Dx); Type 2 diabetes mellitus without complication, with long-term current use of insulin (CMS/HCC); Essential (primary) hypertension; Chronic bilateral low back pain with sciatica, sciatica laterality unspecified; Right foot pain 06/09/2025 Refill [facility] [address] [place] [address] Lety Black FNP 06/09/2025 Travel 06/08/2025 Telephone [facility] [address] [place] [address] Lety Black FNP Chart Prep 06/02/2025 Patient Outreach [facility] [address] [place] [id number] Lety Black FNP Pre-visit Planning ([facility] screening completed on 12/16/24) 06/01/2025 Refill [facility] [address] [place] [address] Lety Black FNP Bipolar affective disorder, remission status unspecified (CMS/HCC) 04/24/2025 Refill [facility] [address] [place] [address] Lety Black FNP Bipolar affective disorder, remission status unspecified (CMS/HCC); Anxiety 03/17/2025 Telephone [facility] [address] [place] [phone] Lety Black FNP No Show 03/16/2025 Refill [facility] [address] [place] [address] Supriya Calles RN Bipolar affective disorder, remission status unspecified (CMS/HCC) 03/16/2025 Telephone [facility] [address] [place] [address] Lety Black FNP 03/16/2025 Telephone [facility] [address] [place] [address] Lety Black FNP Chart Prep from Last 3 Months Immunizations Immunization Administration Dates Next Due HPV, Quadrivalent 06/24/2010,02/22/2010 Hep B, Adolescent or Pediatric 1994,1993 Hep B, adult 06/03/2022 Hib ([facility]) 01/28/1996, 5,1994,1993 IPV 04/08/1999, 5,1994,1993 Influenza injectable quadriv alent preservative free 09/09/2023,11/11/2021,12/20/2014 MMR 04/08/1999 Pneumococcal Conjugate PCV 20 09/09/2023 Tdap 02/12/2021,09/24/2020,08/09/2007 Social History Tobacco Use Types Packs/Day Years Used Date Smoking Tobacco: Never Smokeless Tobacco: Never Tobacco Cessation:Counseling Given: Not Answered Depression Answer Date Recorded Patient Health Questionnaire-9 [...] or Gutierrez 01/04/2024 12 :48 PM EDT Last Filed Vital Signs Vital Sign Reading [...] Mass Index 65.11 06/09/2025 8:54 AM EDT Plan of Treatment Health Maintenance Due Date Last Done Comments Diabetes: Foot Exam 2004 Eye Exam 2004 Family Planning (PISQ) 2009 HPV Vaccines (3 - 3-dose series) 09/16/2010 06/24/2010, 02/22/2010 Pap Smear 2015 COVID-19 Vaccine ( season) 2024 11/22/2021, 03/25/2021, 03/04/2021 Cervical Cancer Screening 2024 HPV/Cotest 2024 Influenza Vaccine (#1) 2025 , 11/11/2021, 12/20/2014 Diabetes: Hemoglobin A1C 09/09/2025 025, 12/16/2024, 12/30/2023, Additional history exists Alcohol/Substance Use Screening 12/16/2025 12/16/2024 Diabetes: Urine Protein Screening 12/16/2025 12/16/2024, 09/29/2023, 11/11/2021 Lipid Panel 12/16/2025 12/16/2024, 09/11, 11/11/2021 SDOH Screening 12/16/2025 12/16/2024 Depression Screening 12/18/2025 12/18/2024, 12/19/19 25 Disability Screening 06/09/2026 06/09/2025 Tobacco Screening 06/09/2026 06/09/2025 DTaP/Tdap/Td Vaccines (8 - Td or Tdap) 02/12/2031 02/12/2021, 09/24/2020, 08/09/2007, Additional history exists Zoster Vaccines (1 of 2) 2044 RSV Patients and Patients Aged 60 years or older (1 - 1-dose 75+ series) 2069 HIB Vaccines Completed 01/28/1996, 12/11, 1994, Additional history exists IPV Vaccines Completed 04/08/1999, 12/11, 1994, Additional history exists Hepatitis B Vaccines Completed 06/03/2022, 1994, 1994, Additional history exists Pneumococcal Vaccine: Pediatrics (0 to 5 Years) and At-Risk Patients (6 to 49) Years Completed 09/09/2023 HIV Screening Completed 12/16/2024, 11/11/2021 Hepatitis C Screening Completed 12/16/2024, 022 Hepatitis A Vaccines Aged Out No long er eligible based on patient's age to complete this topic Meningococcal B Vaccine Aged Out No l onger eligible based on patient's age to complete this topic Meningococcal Vaccine Aged Out No mai rene eligible based on patient's age to complete this topic RSV under 20 months Aged Out No longe r eligible based on patient's age to complete this topic Rotavirus Vaccines Aged Out No longer eligible based on patient's age to complete this topic Procedures Procedure Name Priority Date/Time Associated Diagnosis Comments POCT GLYCATED HEMOGLOBIN, TOTAL Routine 06/09/2025 8:57 AM EDT Type 2 diabetes mellitus without complication, with long-term current use of insulin ([facility]) POCT GLUCOSE Routine 06/09/2025 8:57 AM EDT Type 2 diabetes mellitus without complication, with long-term current use of insulin ([facility]) ALBUMIN, RANDOM URINE W/CREATININE Routine 12/16/2024 10:00 AM EST Healthcare maintenance HEPATITIS C VIRAL RNA, QUANTITATIVE, REAL-TIME PCR Routine 12/16/2024 9:52 AM EST Healthcare maintenance HIV 1/2 ANTIGEN/ANTIBODY, FOURTH GENERATION W/RFL Routine 12/16/2024 9:52 AM EST Healthcare maintenance LIPID PANEL, STANDARD Routine 12/16/2024 9:52 AM EST Healthcare maintenance from Last 3 Months or Most Recently Relevant to Health Maintenance Results * (ABNORMAL) POCT HGB A1C (06/09/2025 8:57 AM EDT) Hemoglobin A1C 7.0(A) 4.0 - 5.7 % QC Media Lot # [id number] Lot# Expiration Date Blood 06/09/2025 8:57 AM EDT Lety [employer] [facility] POINT OF CARE TEST ENTER/EDIT ORDERABLES Final Result * POCT Glucose (06/09/2025 8:57 AM EDT) Glucose Blood, POC 122 60 - 200 mg/dL QC Media Lot # [id number] Lot# Expiration Date Blood Capillary blood specimen / Unknown 06/09/2025 8:57 AM EDT Lety [employer] [facility] POINT OF CARE TEST ENTER/EDIT ORDERABLES Final Result * (ABNORMAL) Albumin, Random Urine W/Creatinine (12/16/2024 10:00 AM EST) Pathologist [facility] Creatinine, Urine 173.18 mg/dL [facility] Microalbumin Urine >500.0 mg/L [facility] Microalbum Creatinine Ratio Ur 288.7(H) <30 ug/mg cr [facility] Comment:Albumin/Creatinine R atio Reference Ranges: Normal: < 30 ug/mg creatinine Microalbuminuria: 30 - 300 ug/mg creatinineClinical Albuminuria: > 300 ug/mg creatinine Urine 12/16/2024 10:0 0 AM EST 12/16/2024 2:14 PM EST Lety Black [facility] LAB URINE ORDERABLES Final Res ult Performing Organization Address [facility] Co de Phone Number [facility] [address] [place] [address] [phone] * Hepatitis C Viral RNA, Quantitative, Real-Time PCR (12/16/2024 9:52 AM EST) [facility] Hepatitis C Viral Load <15 NOT DETECTED NOT DETECTED IU/mL [facility] HCV Log PCR <1.18 NOT DETECTED NOT DETECTED Log IU/mL [facility] Comment:For additional infor rolly, please refer [email or web address](This link is being provided for informational/educational purposes only.)THIS TEST WAS PERFORMED AT:[employer] [place] [phone] CONSTANTINO MD Blood 12/16/2024 9:52 AM EST 12/16/2024 2:13 PM EST Lety [employer] [facility] BLOOD ORDERABLES Final Res ult Performing Organization Address [facility] Co de Phone Number [facility] [address] [place] [address] [phone] * HIV-1/2 Antigen and Antibodies, Fourth Generation, with Reflexes (12/16/2024 9:52 AM EST) HIV AB/AG Nonreactive Nonreactive [facility] Comment:HIV-1 p24 Ag and/or HIV-1/HIV-2 Ab not detected.A test result that is nonreactive does not exclude thepossibility of exposure to or infection with HIV-1 and/orHIV-2. Nonreactive results in this assay for individualswith prior exposure to HIV-1 and/or HIV-2 may be due toantigen and antibody levels that are below the limit ofdetection of this assay.The [employer]haps[employer] HIV Ag/Ab Combo assay result andsupplemental assay results should be interpreted inconjunction with the patient's clinical presentation,history and other laboratory results. If the results areinconsistent with clinical evidence, additional testing issuggested to confirm the result. Blood Venous blood specimen / Unknown 12/16/2024 9:52 AM EST 12/16/2024 2:13 PM EST us Lety Black [facility] BLOOD ORDERABLES Final Res ult [facility] [address] [place] [phone] * (ABNORMAL) Lipid Panel, Standard (12/16/2024 9:52 AM EST) Triglycerides 79 <150 mg/dL [facility] Comment:Desirable Triglyceri de: less than 150 mg/dLBorderline High Triglyceride 150-199 mg/dLHigh Triglyceride: 200-499 mg/dLVery High Triglyceride: greater than or equal to 5OO mg/dL Cholesterol 203(H) <200 mg/dL [facility] Comment:Desirable Cholestero l: less than 200 mg/dLBorderline High Cholesterol: 200-239 mg/dLHigh Cholesterol: greater than 239 mg/dL LDL Cholesterol Calculated 132(H) <100 mg/dL [facility] Comment:Desirable LDL: less than 100 mg/dLNear Optimal/Above Optimal LDL: 110- 129 mg/dLBorderline High LDL: 130-159 mg/dLHigh LDL: 160-189 mg/dLVery High LDL: greater than or equal to 190 mg/dL HDL Cholesterol 56 >40 mg/dL [facility] Comment:Desirable HDL: great er than 40 mg/dL Note: This HDL assay may give artificially low results in patients with liver disease. 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
--- OUTSIDE RECORDS SUMMARY | 2025-06-09 12:51 | XMS_ITS | Encounter Summary ---
Author Organization [employer] Address [address] [facility] 7 [place] [address] Care Team Providers Care Logistics Account Manager Name Role Phone Lety Black Primary Care Provider [phone] Grupo Nixon Unavailable Unavailable Reason for Visit * Reason Comments Med Refill Encounter Details Date Type Department Care Team (Late st Contact Info) Description 08/19/2023 Refill [facility] [address] [place] [address] Lety Black FNP [address] [place] [address] Social History Tobacco Use Types Packs/Day Years Used Date Smoking Tobacco: Never Assessed Depression Answer Date Recorded Patient Health Questionnaire-9 Score 5 01/06/2023 Housing Stability Answer Date Recorded What is [...] documented as of this encounter Care Teams Logistics Account Manager Relationship Specialty Start Date End Date Lety Black FNP [address] [place] [address] PCP - General Family Medicine 06/05/22 Grupo Nixon FNP [address] [place] [address] Nurse Practitioner Family Medicine 09/14/23 documented as of this encounter
--- OUTSIDE RECORDS SUMMARY | 2025-06-09 12:51 | XMS_ITS | Encounter Summary ---
Author Organization [employer] Address [address] [facility] 7 [place] [address] Care Team Providers Care Car Repairer Pullman Name Role Phone Lety Black Primary Care Provider [phone] Grupo Nixon Unavailable Unavailable Reason for Visit * Reason Onset Date Comments Chart Prep 06/08/2025 Encounter Details Date Type Department Care Team ([facility] st Contact Info) Description 06/08/2025 Telephone [facility] CH[facility] MED & PEDS [address] [place], [place] [phone] Lety Black FNP [address] [place], [place] [phone] Chart Prep Social History Tobacco Use Types Packs/Day Years [...] encounter Miscellaneous Notes * Telephone Encounter - Emma Gilmore [place] - 06/08/2025 2:05 PM EDT Chart Prep Labs: done Images: not applicable Referrals: not applicable Vaccines due: Covid and HPV Screenings: pap smear, eye exam, foot exam, and LMP Overdue care gaps: A1c, Glucose, and Disability screen documented in this encounter Plan of Treatment Not on file documented as of this encounter Visit Diagnoses Not on filedocumented in this encounter Additional Health Concerns Assessment Noted Time PHQ-9 Depression Total Score: 5 12/19/19 25 8:46 PM EDT documented as of this encounter Care Teams Car Repairer Pullman Relationship Specialty Start Date End Date Lety Black FNP [address] [place] [address] PCP - General Family Medicine 06/05/22 Grupo Nxion FNP [address] [place] [address] Nurse Practitioner Family Medicine 09/14/23 documented as of this encounter
[2025-06-13 20:29] LABS: C. trachomatis RNA TMA NOT DETECTED (NOT DETECTED); N. gonorrhoeae RNA TMA NOT DETECTED (NOT DETECTED)
== END 2025-06-09 11:59 | disposition home or self-care (01) ==
LOC: HO.CHCLNP 11:58
PROVIDERS: Visit Provider Registered Nurse
DX: Z00.00 Encounter for general adult medical examination without abnormal findings (principal); Z11.3 Encounter for screening for infections with a predominantly sexual mode of transmission; Z11.8 Encounter for screening for other infectious and parasitic diseases
CPT/HCPCS: 87491; 87591

== ENCOUNTER 2025-07-07 17:45 | Emergency (ER) | payer MEDICAID, SELFPAY ==
--- NOTE | 2025-07-07 | ECG_ITS ---
Test Reason : SOB AND CHEST PAIN Blood Pressure : */* mmHG Vent. Rate : 78 BPM Atrial Rate : 78 BPM P-R Int : 160 ms QRS Dur : 82 ms QT Int : 378 ms P-R-T Axes : 43 17 5 degrees QTcB Int : 430 ms Normal sinus rhythm Normal ECG When compared with ECG of 28-Apr-2022 23:40, No significant change was found Referred By: Generic ED Physician Electronically Signed By: Alfredo Cha
--- NOTE | ~2025-07-07 | CT_ITS ---
CLINICAL HISTORY: headache CT head without contrast Comparison: None provided Findings: No intra-axial mass, midline shift, hydrocephalus, or acute hemorrhage. No significant atrophy-like change or white matter disease. 3.6 cm colloid cyst. Clear mastoid air cells. Ethmoid and sphenoid sinus disease. The orbits are within normal limits. No skull fracture. IMPRESSION: 3.6 cm colloid cyst Otherwise, no acute intracranial findings. This document has been electronically signed by: Padilla Reyes MD on 07/07/2025 22:24:17
[2025-07-07 17:56] VITALS: BP 159/72; PULSE 92; RESP 18; TEMP 37.2; O2SAT 98; BMI 66.0
--- NOTE | 2025-07-07 17:58 | ED.GENADULT ---
HPI - General Adult General Chief complaint: General Medical Stated complaint: Abdominal pain/Migraine Time Seen by Provider: 07/07/25 21:17 Source: patient and RN notes reviewed History of Present Illness HPI narrative: 30-year-old patient who has a history PTSD, PCOS, diabetes, bipolar, hypertension presents for evaluation of headache. Patient states that the headache began gradually approximately 4 or 5 days ago. Patient reports they have been under a lot of stress recently and feels as though related to this. Patient reports history of headaches in the past but not like this. No vision changes. No nausea or vomiting. There is some tightness to her neck and shoulders. No medications were taken for this. No fevers or chills. Otherwise feeling well. Initially at triage there was report of abdominal pain however that is denied at this time. Related Data Home Medications ?Medication ?Instructions ?Recorded ?Confirmed blood sugar diagnostic (FreeStyle #10 ea 07/14/20 07/14/20 Lite Strips) enalapril maleate 20 mg tablet 20 mg PO DAILY 07/14/20 04/28/22 lancets 28 gauge (FreeStyle #100 ea 07/14/20 07/14/20 Lancets) atorvastatin 10 mg tablet 10 mg PO BEDTIME 04/28/22 04/28/22 clonazepam 1 mg tablet 1 mg PO BID 04/28/22 04/28/22 hydrochlorothiazide 25 mg tablet 25 mg PO DAILY 04/28/22 04/28/22 hydroxyzine HCl 25 mg tablet 1 - 2 tab PO Q6H PRN anxiety 04/28/22 04/28/22 insulin lispro protamine-lispro 90 unit subcut BID 04/28/22 04/28/22 100 unit/mL (75-25) subcutaneous pen (Humalog Mix 75-25 KwikPen) perphenazine 2 mg tablet 2 mg PO BID 04/28/22 04/28/22 empagliflozin 10 mg tablet 10 mg PO QAM 07/10/22 (Jardiance) metformin 500 mg tablet 1,000 mg PO BID 07/10/22 spironolactone 25 mg tablet 25 mg PO DAILY 07/10/22 Previous Rx's ?Medication ?Instructions ?Recorded albuterol sulfate 90 mcg/actuation 2 puff inhalation Q4-6H PRN 09/08/21 aerosol inhaler shortness of breath or wheezing #8.5 grams ondansetron 4 mg disintegrating 4 mg PO Q6H PRN nausea and 12/20/21 tablet vomiting #10 tabs diclofenac sodium 1 % topical gel 2 g topical QID #100 grams 05/26/22 (Voltaren Arthritis Pain) albuterol sulfate 0.63 mg/3 mL 0.63 mg (3 mL) inhalation QID PRN 07/04/22 solution for nebulization shortness of breath or wheezing #75 mL albuterol sulfate 90 mcg/actuation 1 inh inhalation QID PRN shortness 07/04/22 aerosol inhaler of breath or wheezing #8.5 grams nebulizers (AeroEclipse II #1 ea 07/04/22 Nebulizer) prednisone 20 mg tablet 40 mg (2 x 20 mg) PO DAILY rash 5 07/04/22 days #10 tabs ibuprofen 600 mg tablet 600 mg PO Q6H PRN pain #30 tabs 02/22/23 ondansetron 4 mg disintegrating 4 mg PO Q8H PRN nausea and 02/22/23 tablet vomiting #14 tabs doxycycline hyclate 100 mg capsule 100 mg PO BID cough 7 days #14 caps 07/22/23 benzonatate 100 mg capsule 100 mg PO BID PRN cough 7 days #14 07/30/23 caps acetaminophen 500 mg tablet 500 mg PO Q6H PRN fever or pain 09/21/23 (Tylenol Extra Strength) #14 tabs naproxen 500 mg tablet 500 mg PO BID PRN pain 10 days #20 09/21/23 tabs erythromycin 5 mg/gram (0.5 %) eye 1 appl ophthalmic (eye) Q8H #3.5 11/02/23 ointment grams methocarbamol 750 mg tablet 750 mg PO TID PRN muscle spasm #20 07/07/25 tabs Allergies Allergy/AdvReac Type Severity Reaction Status Date / Time No Known Allergies Allergy Verified 07/07/25 17:58 Review of Systems Review of Systems: Yes all other systems are reviewed and are negative Constitutional: Constitutional: Denies body ache(s) ENT: Denies neck pain Cardiovascular: Cardiovascular: Denies Abdominal Distension Respiratory: Respiratory: Denies cough Musculoskeletal: Musculoskeletal: Denies back pain and Denies neck pain PMFSH Past Medical History Medical History Hypertension Depression Apnea, sleep PTSD (post-traumatic stress disorder) (12/17/10) PCOS (polycystic ovarian syndrome) Metabolic syndrome Dysphagia Diabetes mellitus type 2 in obese Bipolar disorder Cough Asthma Intentional perphenazine overdose Suicidal ideation COVID-19 High blood cholesterol Bipolar 2 disorder, major depressive episode Sleep apnea GERD (gastroesophageal reflux disease) Hyperlipidemia Hypertension Diabetes mellitus, type 2 Social History Social History Alcohol intake: current Alcohol intake frequency: holidays/special occasions only Patient Tobacco Use Status: Never used Tobacco Smoked in Last 30 Days: No Substance Use Type: Marijuana Advance Directives: No Advance Directives Information Provided: No Current occupational status: unemployed 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 No Brudzinski. There is moderate spasm to the trapezius muscles, left greater than right Resp Other: Lung sounds clear throughout Cardio Rate: regular rate Rhythm: regular rhythm GI Other: Abdomen is soft and nontender Course Course Course Narrative: RME, this is a rapid medical exam performed by Yoel Lo please refer to primary provider for complete H&P- 30-year-old female presents for evaluation of abdominal pain with the headaches. Plan for labs, urinalysis and viral swabs. Reevaluation(s) Reevaluation #1: 10:[address] results returned, no acute process. Of note there is a 3.6 cm colloid cyst noted on radiology report. This was reviewed with the patient. Patient was unaware of this previously. The patient will follow up with PCP as outpatient MRI may be indicated. The patient is in agreement with this. Discussed with Dr. Serra who also agrees with this plan. Labs are without any acute process. Urinalysis once again demonstrates proteinuria and glucosuria. Patient is aware of this and will continue to monitor glucose levels. Patient expresses understanding of all discharge instructions and has no further questions at this time. Some improvement after Robaxin, agreeable to prescription Medications Administered Discontinued Medications Generic Name Dose Route Start Last Admin Trade Name Tito PRN Reason Stop Dose Admin Methocarbamol 750 mg 07/07/25 21:27 07/07/25 21:35 Methocarbamol 750 Mg Tablet PO 07/07/25 21:28 750 mg ONCE ONE Administration Medical Decision Making Medical Decision Making [facility] Narrative: 30-year-old patient with headache, worse than previous. Check head CT. There are no focal deficits on exam. No nausea or vomiting. I have discussed with the patient options of migraine cocktail versus oral medication. Patient has refused IV medications and would like to trial Robaxin. Agreeable to head CT. No indication for infectious process such as meningitis. Differential Diagnosis Differential Diagnoses: The differential diagnosis associated with the presentation includes Migraine headache Tension headache Intracranial bleed Dehydration Admission/Observation Consideration of admission/observation: Escalation of care including admission/observation considered Lab Data [facility] Lab Attestation statement: I reviewed the patient's lab results. 07/07/25 18:39 07/07/25 18:39 Labs: Lab Results 07/07/25 Range/Units 18:39 WBC 11.3 H (4.8-10.8) X10*3/uL RBC 4.44 (4.20-5.50) X10*6/uL Hgb 12.0 (12.0-16.0) g/dl Hct 35.9 L (37.0-47.0) % MCV 80.9 (80.0-98.0) fL MCH 27.0 (27.0-33.0) pg MCHC 33.4 (31.0-35.0) g/dl RDW 12.8 (11.0-16.0) % Plt Count 366 (160-400) X10*3/uL MPV 9.7 (9.4-12.3) fL Immature Gran % (Auto) 0.4 (0.0-0.4) % Neut % (Auto) 78.4 H (45-73) % Lymph % (Auto) 16.3 L (20-40) % Towns % (Auto) 4.3 (2-11) % Eos % (Auto) 0.4 (0-4) % Baso % (Auto) 0.2 (0-2) % Lymph # (Auto) 1.8 (1.2-4.9) X10*3/uL Towns # (Auto) 0.5 (0.1-1.2) X10*3/uL Eos # (Auto) 0.1 (0.0-0.4) X10*3/uL Baso # (Auto) 0.0 (0.0-0.2) X10*3/uL Abs Immat Gran (auto) 0.04 H (0.00-0.03) X10*3/uL Absolute Neuts (auto) 8.9 H (2.0-8.3) x10*3/uL Absolute Nucleated RBC 0.000 (0.0-0.012) X10*3/uL Nucleated RBC % (auto) 0.0 (0.0-0.2) /100WBC Sodium 141 (135-145) mmol/L Potassium 3.6 (3.3-5.1) mmol/L Chloride 108 (96-108) mmol/L Carbon Dioxide 26 (22-29) mmol/L Anion Gap 11 L (12-20) BUN 10 (9-16) mg/dL Creatinine 0.56 (0.5-1.4) mg/dL Estim Creat Clear Calc 219.6 Estimated GFR > 60 Random Glucose 227 H (60-115) mg/dL Calcium 8.8 D (8.4-10.2) mg/dL Total Bilirubin 0.2 (0.0-1.0) mg/dL AST 24 (5-31) U/L ALT 25 (0-31) U/L Alkaline Phosphatase 53 (39-117) U/L Total Protein 6.9 (6.5-8.0) g/dL Albumin 3.9 (3.5-5.0) g/dL Lipase 22 (8-78) U/L Beta HCG, Quant < 2 mIU/mL Urine Color Yellow Urine Appearance Clear Urine pH 5.5 (5.0-9.0) Ur Specific Jackson >= 1.030 H (1.005-1.025) Urine Protein 300 (3+) H (Neg-Trace) mg/dL Urine Glucose (UA) >=1000 H (Negative) mg/dL Urine Ketones Negative (Negative) mg/dL Urine Blood Trace H (Negative) Urine Nitrite Negative (Negative) Ur Leukocyte Esterase Negative (Negative) Urine RBC 0-2 (0-2) /HPF Urine WBC 0-5 (0-5) /HPF Ur Squamous Epith Cells 0-2 (0-2) /HPF Urine Bacteria None Seen (None Seen) Hyaline Casts 0-2 (0-2) /LPF COVID-19 ([facility]) Negative (Negative) COVID-19 Clin Com See Note Influenza Type A (FAISAL) Negative (Negative) Influenza Type B (FAISAL) Negative (Negative) Influenza A & B Note See Note Discharge Plan Discharge Clinical Impression: Colloid cyst of brain Acute tension headache Qualifiers: Intractability: not intractable Qualified Code(s): G44.209 - Tension-type headache, unspecified, not intractable Patient Disposition: Home, Self-Care Instructions: Acute Headache (DC) Additional Instructions: Rest. Avoid strenuous activity. Robaxin as directed for pain, muscle spasms. Your CAT scan today showed an incidental finding called a ?colloid cyst in the brain. This will need to be further evaluated by your primary care provider. You may need additional imaging as an outpatient. Follow-up with your primary care provider. Call this week to schedule a follow-up appointment. Return to the emergency department if you have any worsening of symptoms, or any concerns. Get well soon! Prescriptions: New methocarbamol 750 mg tablet 750 mg PO TID PRN (Reason: muscle spasm) Qty: 20 0RF Discontinued cyclobenzaprine 10 mg tablet 10 mg PO TID PRN (Reason: muscle spasm) Qty: 14 0RF cyclobenzaprine 5 mg tablet 5 mg PO TID PRN (Reason: muscle spasm) 7 Days Qty: 21 0RF cyclobenzaprine 5 mg tablet 5 mg PO TID PRN (Reason: muscle spasm) 7 Days Qty: 21 0RF No Action clonazepam 1 mg Tablet 1 mg PO BID hydroxyzine HCl 25 mg tablet 1 - 2 tab PO Q6H PRN (Reason: anxiety) hydrochlorothiazide 25 mg Tablet 25 mg PO DAILY insulin lispro protamin-lispro [Humalog Mix 75-25 KwikPen] 100 unit/mL (75-25) Insulin Pen 90 unit SUBCUT BID perphenazine 2 mg Tablet 2 mg PO BID atorvastatin 10 mg Tablet 10 mg PO BEDTIME diclofenac sodium [Voltaren Arthritis Pain] 1 % gel 2 g topical QID Qty: 100 0RF Rx Instructions: apply to single elbow, wrist or hand; for hand includes palm/fingers/back of hand albuterol sulfate 90 mcg/actuation HFA aerosol inhaler 2 puff inhalation Q4-6H PRN (Reason: shortness of breath or wheezing) Qty: 8.5 0RF ondansetron 4 mg tablet,disintegrating 4 mg PO Q6H PRN (Reason: nausea and vomiting) Qty: 10 0RF (DME) nebulizers [AeroEclipse II Nebulizer] Misc See Rx Instructions .ROUTE .MEDSUPPLY Qty: 1 0RF Rx Instructions: As directed albuterol sulfate 0.63 mg/3 mL solution for nebulization 0.63 mg inhalation QID PRN (Reason: shortness of breath or wheezing) Qty: 75 0RF albuterol sulfate 90 mcg/actuation HFA aerosol inhaler 1 inh inhalation QID PRN (Reason: shortness of breath or wheezing) Qty: 8.5 0RF prednisone 20 mg tablet 40 mg PO DAILY 5 Days Qty: 10 0RF ondansetron 4 mg tablet,disintegrating 4 mg PO Q8H PRN (Reason: nausea and vomiting) Qty: 14 0RF ibuprofen 600 mg tablet 600 mg PO Q6H PRN (Reason: pain) Qty: 30 0RF erythromycin 5 mg/gram (0.5 %) ointment 1 appl ophthalmic (eye) Q8H Qty: 3.5 0RF doxycycline hyclate 100 mg capsule 100 mg PO BID 7 Days Qty: 14 0RF benzonatate 100 mg capsule 100 mg PO BID PRN (Reason: cough) 7 Days Qty: 14 0RF acetaminophen [Tylenol Extra Strength] 500 mg tablet 500 mg PO Q6H PRN (Reason: fever or pain) Qty: 14 0RF naproxen 500 mg tablet 500 mg PO BID PRN (Reason: pain) 10 Days Qty: 20 0RF enalapril maleate 20 mg tablet 20 mg PO DAILY (DME) FreeStyle Lite Strips Strip See Rx Instructions .ROUTE .MEDSUPPLY Qty: 10 Rx Instructions: As directed (DME) lancets [FreeStyle Lancets] 28 gauge misc See Rx Instructions .ROUTE .MEDSUPPLY Qty: 100 Rx Instructions: As directed metformin 500 mg tablet 1,000 mg PO BID Jardiance 10 mg tablet 10 mg PO QAM spironolactone 25 mg tablet 25 mg PO DAILY Print Language: Korean
[2025-07-07 18:46] LABS: MANUAL DIFF FLAG NO
[2025-07-07 18:52] LABS: Hematocrit 35.9 % (37.0-47.0); Hemoglobin 12.0 g/dl (12.0-16.0); Imm Gran Abs Auto 0.04 X10*3/uL (0.00-0.03); Imm Gran Pct Auto 0.4 % (0.0-0.4); Lymphocytes Absolute Auto 1.8 X10*3/uL (1.2-4.9); Mean Corpuscular HGB Conc 33.4 g/dl (31.0-35.0); Mean Corpuscular Hemoglobin 27.0 pg (27.0-33.0); Mean Corpuscular Volume 80.9 fL (80.0-98.0); NRBC Abs Auto 0.000 X10*3/uL (0.0-0.012); NRBC Pct Auto 0.0 /100WBC (0.0-0.2); Platelet Count 366 X10*3/uL (160-400); Red Blood Count 4.44 X10*6/uL (4.20-5.50); White Blood Count 11.3 X10*3/uL (4.8-10.8)
[2025-07-07 18:56] LABS: Appearance Urine Clear; Glucose Urine UA >=1000 mg/dL (Negative); PH 5.5 (5.0-9.0); Specific Gravity - Urine >= 1.030 (1.005-1.025); UMIC TRIGGER UACC YES
[2025-07-07 19:05] LABS: COVID-19 Test Negative (Negative); IDNOW Serial# 58CA691E; IDNOW Serial# 6674DD1D; Influenza B2 Negative (Negative)
[2025-07-07 19:20] LABS: Alanine Aminotransferase 25 U/L (0-31); Albumin Level 3.9 g/dL (3.5-5.0); Alkaline Phosphatase 53 U/L (39-117); Anion Gap 11 (12-20); Aspartate Amino Transferase 24 U/L (5-31); Blood Urea Nitrogen 10 mg/dL (9-16); Calcium 8.8 mg/dL (8.4-10.2); Carbon Dioxide 26 mmol/L (22-29); Chloride 108 mmol/L (96-108); Creatinine Clr Calc Pharmacy 219.6; Estimated Glomerular Filt Rate > 60; Lipase 22 U/L (8-78); Potassium 3.6 mmol/L (3.3-5.1); Sodium 141 mmol/L (135-145); Total Protein 6.9 g/dL (6.5-8.0)
--- OUTSIDE RECORDS SUMMARY | 2025-07-07 19:58 | XMS_ITS | Encounter Summary ---
Author Organization [employer] Address [address] [facility] [address] [place] [address] Care Team Providers Care County Court Judge Name Role Phone Lety Black Primary Care Provider Grupo Nixon Unavailable Unavailable Reason for Visit * Reason Comments Med Refill Encounter Details Date Type Department Care Team ([facility] st Contact Info) Description 07/03/2025 Refill [facility] CH[facility] MED & PEDS [address] [place], [place] [phone] Lety Black FNP [address] [place], [place] [phone] Type 2 diabetes mellitus without complication, with long-term current use of insulin ([facility]) Social History Tobacco Use Types Packs/Day Years [...] as of this encounter Visit Diagnoses Diagnosis Type 2 diabetes mellitus without complication, with long-term current use of insulin ([facility]) documented in this encounter Additional Health Concerns Assessment Noted Time PHQ-9 Depression Total Score: 5 12/19/19 25 8:46 PM EDT documented as of this encounter Care Teams County Court Judge Relationship Specialty Start Date End Date Lety Black FNP [address] [place] [address] PCP - General Family Medicine 06/05/22 Grupo Nixon FNP [address] [place] [address] Nurse Practitioner Family Medicine 09/14/23 documented as of this encounter
--- OUTSIDE RECORDS SUMMARY | 2025-07-07 19:58 | XMS_ITS | Encounter Summary ---
Author Organization [employer] Address [address] [facility] 7t [place] [address] Care Team Providers Care Metal Engraver Name Role Phone Lety Black JESSA Primary Care Provider [phone] [employer] Nixon TIME SIGNAL WIRER Unavailable Unavailable Encounter Details Date Type Department Care Team (Late st Contact Info) Description 11/03/2022 Orders Only [facility] [address] [place] [address] Tammy Beyer LPN Social History Tobacco Use [...] (07/22/2023 8:22 AM EDT) Urine NEGATIVE NEGATIVE [facility] Comment:This test was develo ped to detect early . Falsenegative results may occur after the 5th - 7th week ofpregnancy when using this test method. If clinicallyindicated, consider a serum hCG. 07/22/2023 8:22 AM EDT 07/22/2023 8:29 AM EDT us [facility] External Provider LAB URI NE ORDERABLES Final Result [facility] [address] [place] [address] [phone] * (ABNORMAL) Urinalysis, Complete, with Reflex to Culture (02/22/2023 3:05 PM EDT) Color Urine Yellow [facility] Appearance Urine Cloudy [facility] PH 5.5 5.0 - 9.0 [facility] Glucose Urine UA >=1000(A) Negative mg/dL [facility] Urine Blood Trace(A) Negative [facility] Specific [place] - Urine >=1.030(H) 1.005 - 1.025 [facility] Urine Protein 100 (2+)(A) Neg-Trace mg/dL [facility] Urine Ketones Negative Negative mg/dL [facility] Nitrite Urine Negative Negative [facility] Leukocyte Esterase Urine Negative Negative [facility] RBC Urine 0-2 0 - 2 /HPF [facility] Urine WBC 0-5 0 - 5 /HPF [facility] Urine Squamous Epithelial Cell 0-2 0 - 2 /HPF [facility] Urine Bacteria None Seen None Seen [facility] Hyaline Casts, Urine 0-2 0 - 2 /LPF [facility] 02/22/2023 3:05 PM EDT 02/22/2023 3:11 PM EDT Narrative [facility] - 02/22/2023 3:23 PM EDT [id number], Clean Catch us [facility] External Provider LAB URI NE ORDERABLES Final Result [facility] [address] [place] [address] [phone] * HCG, Qualitative, Urine (02/22/2023 3:05 PM EDT) Urine NEGATIVE NEGATIVE [facility] Comment:This test was develo ped to detect early . Falsenegative results may occur after the 5th - 7th week ofpregnancy when using this test method. If clinicallyindicated, consider a serum hCG. 02/22/2023 3:05 PM EDT 02/22/2023 3:11 PM EDT [facility] External Provider LAB URI NE ORDERABLES Final Result Performing Organization Address [facility]/ZIP Co de Phone Number [facility] [address] [place] [address] [phone] * (ABNORMAL) Urinalysis with reflex microscopic (02/22/2023 3:05 PM EDT) Color Urine Yellow [facility] Appearance Urine Cloudy [facility] PH 5.5 5.0 - 9.0 [facility] Glucose Urine UA >=1000(A) Negative mg/dL [facility] Urine Blood Trace(A) Negative [facility] Specific [place] - Urine >=1.030(H) 1.005 - 1.025 [facility] Urine Protein 100 (2+)(A) Neg-Trace mg/dL [facility] Urine Ketones Negative Negative mg/dL [facility] Nitrite Urine Negative Negative [facility] Leukocyte Esterase Urine Negative Negative [facility] 02/22/2023 3:05 PM EDT 02/22/2023 3:11 PM EDT Narrative [facility] - 02/22/2023 3:18 PM EDT Urine, Catheterized [facility] External Provider LAB URI NE ORDERABLES Final Result Performing Organization Address [facility]/ZIP Co de Phone Number [facility] [address] [place] [address] [phone] * (ABNORMAL) GLUCOSE, WHOLE BLOOD (02/22/2023 2:43 PM EDT) Glucose, Whole Blood 275(H) 60 - 115 mg/dL [facility] Comment:METER #: [id number] 1 02/22/2023 2:43 PM EDT 02/22/2023 2:53 PM EDT [facility] External Provider LAB BLO OD ORDERABLES Final Result Performing Organization Address [facility]/ZIP Co de Phone Number [facility] [address] [place] [address] [phone] * HCG, Total, Quantitative (02/22/2023 12:31 PM EDT) HCG Quantitative <2 mIU/mL [facility] Comment:Weeks post LMP Appro ximate hCG(Last Menstrual Period) Range (mIU/ml)3 - 4 weeks 9 - 1304 - 5 weeks 75 - 2,6005 - 6 weeks 850 - 20,8006 - 7 weeks 4000 - 100,2007 - 12 weeks 11,500 - 289,79874 - 16 weeks 18,300 - 137,56315 - 29 weeks (2nd trimester) 1,400 - 53,14947 - 41 weeks (3rd trimester) 940 - 60,000The [place] B-hCG assay is used for the early detection ofpregnancy; it cannot be used to diagnose any conditionunrelated to . If a B-hCG level is not supportedby the clinical evidence, results should be confirmed by analternative method (qualitative urine hCG, for example). 02/22/2023 12:3 1 PM EDT 02/22/2023 12:34 PM EDT [facility] External Provider LAB BLO OD ORDERABLES Final Result Performing Organization Address City/[facility]/ZIP Co de Phone Number [facility] [address] [place] [address] [phone] * Lipase (02/22/2023 12:31 PM EDT) Lipase 22 8 - 78 U/L [facility] 02/22/2023 12:3 1 PM EDT 02/22/2023 12:34 PM EDT [facility] External Provider LAB BLO OD ORDERABLES Final Result Performing Organization Address [facility] Co de Phone Number [facility] [address] [place] [address] [phone] * (ABNORMAL) Magnesium (02/22/2023 12:31 PM EDT) Magnesium 1.4(LL) 1.6 - 2.6 mg/dL [facility] Comment:Critical value for M AG: Results called to and read ternay:FABIO Person calling: BRANDIKIR Date: 02/22/23 Time: 1301 02/22/2023 12:3 1 PM EDT 02/22/2023 12:34 PM EDT [facility] External Provider LAB BLO OD ORDERABLES Final Result Performing Organization Address [facility] Co de Phone Number [facility] [address] [place] [address] [phone] * (ABNORMAL) Comprehensive Metabolic Panel (02/22/2023 12:31 PM EDT) Sodium 136 135 - 145 mmol/L [facility] Potassium 3.7 3.3 - 5.1 mmol/L [facility] Chloride 101 96 - 108 mmol/L [facility] Carbon Dioxide 23 22 - 29 mmol/L [facility] Anion Gap 16 12 - 20 [facility] Urea Nitrogen (BUN) 11 9 - 16 mg/dL [facility] Creatinine, Serum 0.81 0.5 - 1.4 mg/dL [facility] Creatinine Clr Calc Pharmacy 159.4 [facility] Comment:Provided height and weight: 160.02 cm,165.561 kg.eGFR (calculated from the MDRD study equation) and eCrCl(calculated from the Cockcroft-Gault equation) are based ondifferent parameters and may not yield comparable results.If eCrCl result is absurd, please check patient'sheight/weight. Estimated Glomerular Filt Rate >60 [facility] Comment:NOTE: For -Am erican individuals, multiply the result by 1.210.Chronic Kidney Disease: Estimated GFR < 60 mL/min/1.61u7Bzeaed Kidney Disease: Estimated GFR < 15 mL/min/1.73m2 Glucose 342(H) 60 - 115 mg/dL [facility] Calcium 9.0 8.4 - 10.2 mg/dL [facility] Bilirubin, Total 0.3 0.0 - 1.0 mg/dL [facility] Aspartate Amino Transferase 14 5 - 31 U/L [facility] Alanine Aminotransferase 27 0 - 31 U/L [facility] Total Protein 6.8 6.5 - 8.0 g/dL [facility] Albumin Level 3.9 3.5 - 5.0 g/dL [facility] Alkaline Phosphatase 59 39 - 117 U/L [facility] 02/22/2023 12:3 1 PM EDT 02/22/2023 12:34 PM EDT us [facility] External Provider LAB BLO OD ORDERABLES Final Result [facility] [address] [place] [phone] * (ABNORMAL) CBC auto differential (02/22/2023 12:31 PM EDT) White Blood Count 8.0 4.8 - 10.8 X10*3/uL [facility] Red Blood Count 4.54 4.20 - 5.50 X10*6/uL [facility] Hemoglobin 12.1 12.0 - 16.0 g/dl [facility] Hematocrit 37.0 37.0 - 47.0 % [facility] Mean Corpuscular Volume 81.5 80.0 - 98.0 fL [facility] Mean Corpuscular Hemoglobin 26.7(L) 27.0 - 33.0 pg [facility] Mean Corpuscular HGB Conc 32.7 31.0 - 35.0 g/dl [facility] Red Cell Distribution Width 12.4 11.0 - 16.0 % [facility] Platelet Count 360 160 - 400 X10*3/uL [facility] Mean Platelet Volume 9.1(L) 9.4 - 12.3 fL [facility] Neutrophils Percent Auto 77.4(H) 45 - 73 % [facility] Imm Gran Pct Auto 0.5(H) 0.0 - 0.4 % [facility] Lymphocytes Percent Auto 16.5(L) 20 - 40 % [facility] Monocytes Percent Auto 5.2 2 - 11 % [facility] Eosinophils Percent Auto 0.0 0 - 4 % [facility] Basophils Percent Auto 0.4 0 - 2 % [facility] NRBC Pct Auto 0.0 0.0 - 0.2 /100WBC [facility] Neutrophils Absolute Auto 6.2 2.0 - 8.3 x10*3/uL [facility] Imm Gran Abs Auto 0.04(H) 0.00 - 0.03 X10*3/uL [facility] Lymphocytes Absolute Auto 1.3 1.2 - 4.9 X10*3/uL [facility] Monocytes Absolute Auto 0.4 0.1 - 1.2 X10*3/uL [facility] Eosinophils Absolute Auto 0.0 0.0 - 0.4 X10*3/uL [facility] Basophils Absolute Auto 0.0 0.0 - 0.2 X10*3/uL [facility] NRBC Abs Auto 0.000 0.0 - 0.012 X10*3/uL [facility] 02/22/2023 12:3 1 PM EDT 02/22/2023 12:34 PM EDT us [facility] External Provider LAB BLO OD ORDERABLES Final Result [facility] [address] [place] [address] [phone] * (ABNORMAL) Urinalysis, Complete, with Reflex to Culture (11/24/2022 9:56 AM EST) Color Urine Yellow [facility] Appearance Urine Clear [facility] PH 6.0 5.0 - 9.0 [facility] Glucose Urine UA Negative Negative mg/dL [facility] Urine Blood Negative Negative [facility] Specific [place] - Urine 1.020 1.005 - 1.025 [facility] Urine Protein 30 (1+)(A) Neg-Trace mg/dL [facility] Urine Ketones Negative Negative mg/dL [facility] Nitrite Urine Negative Negative [facility] Leukocyte Esterase Urine Negative Negative [facility] RBC Urine 0-2 0 - 2 /HPF [facility] Urine WBC 0-5 0 - 5 /HPF [facility] Urine Squamous Epithelial Cell 0-2 0 - 2 /HPF [facility] Urine Bacteria None Seen None Seen [facility] Hyaline Casts, Urine 0-2 0 - 2 /LPF [facility] 11/24/2022 9:56 AM EST 11/24/2022 10:00 AM EST Narrative [facility] - 11/24/2022 10:12 AM EST [id number], Clean Catch [facility] External Provider LAB URI NE ORDERABLES Final Result Performing Organization Address City/[facility]/ZIP Co de Phone Number [facility] [address] [place] [phone] * Lipase (11/24/2022 9:50 AM EST) Lipase 56 8 - 78 U/L [facility] 11/24/2022 9:50 AM EST 11/24/2022 9:53 AM EST [facility] External Provider LAB BLO OD ORDERABLES Final Result Performing Organization Address City/[facility]/ZIP Co de Phone Number [facility] [address] [place] [address] [phone] * Hepatic Function Panel (11/24/2022 9:50 AM EST) Bilirubin, Direct <0.2 0.0 - 0.5 mg/dL [facility] 11/24/2022 9:50 AM EST 11/24/2022 9:53 AM EST us [facility] External Provider LAB BLO OD ORDERABLES Final Result [facility] [address] [place] [address] [phone] * (ABNORMAL) Comprehensive Metabolic Panel (11/24/2022 9:50 AM EST) Sodium 140 135 - 145 mmol/L [facility] Potassium 3.7 3.3 - 5.1 mmol/L [facility] Chloride 104 96 - 108 mmol/L [facility] Carbon Dioxide 27 22 - 29 mmol/L [facility] Anion Gap 13 12 - 20 [facility] Urea Nitrogen (BUN) 14 9 - 16 mg/dL [facility] Creatinine, Serum 0.60 0.5 - 1.4 mg/dL [facility] Creatinine Clr Calc Pharmacy 207.6 [facility] Comment:Provided height and weight: 160.02 cm,156.9 kg.eGFR (calculated from the MDRD study equation) and eCrCl(calculated from the Cockcroft-Gault equation) are based ondifferent parameters and may not yield comparable results.If eCrCl result is absurd, please check patient'sheight/weight. Estimated Glomerular Filt Rate >60 [facility] Comment:NOTE: For -Am erican individuals, multiply the result by 1.210.Chronic Kidney Disease: Estimated GFR < 60 mL/min/1.65j2Mgbdxu Kidney Disease: Estimated GFR < 15 mL/min/1.73m2 Glucose 142(H) 60 - 115 mg/dL [facility] Calcium 9.7 8.4 - 10.2 mg/dL [facility] Bilirubin, Total 0.3 0.0 - 1.0 mg/dL [facility] Aspartate Amino Transferase 19 5 - 31 U/L [facility] Alanine Aminotransferase 33(H) 0 - 31 U/L [facility] Total Protein 7.1 6.5 - 8.0 g/dL [facility] Albumin Level 4.3 3.5 - 5.0 g/dL [facility] Alkaline Phosphatase 59 39 - 117 U/L [facility] 11/24/2022 9:50 AM EST 11/24/2022 9:53 AM EST us [facility] External Provider LAB BLO OD ORDERABLES Final Result Performing Organization Address City/State/[facility] Co de Phone Number [facility] [address] [place] [address] [phone] * (ABNORMAL) CBC auto differential (11/24/2022 9:50 AM EST) White Blood Count 10.5 4.8 - 10.8 X10*3/uL [facility] Red Blood Count 4.43 4.20 - 5.50 X10*6/uL [facility] Hemoglobin 11.8(L) 12.0 - 16.0 g/dl [facility] Hematocrit 36.3(L) 37.0 - 47.0 % [facility] Mean Corpuscular Volume 81.9 80.0 - 98.0 fL [facility] Mean Corpuscular Hemoglobin 26.6(L) 27.0 - 33.0 pg [facility] Mean Corpuscular HGB Conc 32.5 31.0 - 35.0 g/dl [facility] Red Cell Distribution Width 12.5 11.0 - 16.0 % [facility] Platelet Count 404(H) 160 - 400 X10*3/uL [facility] Mean Platelet Volume 9.6 9.4 - 12.3 fL [facility] Neutrophils Percent Auto 74.4(H) 45 - 73 % [facility] Imm Gran Pct Auto 0.4 0.0 - 0.4 % [facility] Lymphocytes Percent Auto 19.1(L) 20 - 40 % [facility] Monocytes Percent Auto 4.9 2 - 11 % [facility] Eosinophils Percent Auto 0.9 0 - 4 % [facility] Basophils Percent Auto 0.3 0 - 2 % [facility] NRBC Pct Auto 0.0 0.0 - 0.2 /100WBC [facility] Neutrophils Absolute Auto 7.8 2.0 - 8.3 x10*3/uL [facility] Imm Gran Abs Auto 0.04(H) 0.00 - 0.03 X10*3/uL [facility] Lymphocytes Absolute Auto 2.0 1.2 - 4.9 X10*3/uL [facility] Monocytes Absolute Auto 0.5 0.1 - 1.2 X10*3/uL [facility] Eosinophils Absolute Auto 0.1 0.0 - 0.4 X10*3/uL [facility] Basophils Absolute Auto 0.0 0.0 - 0.2 X10*3/uL [facility] NRBC Abs Auto 0.000 0.0 - 0.012 X10*3/uL [facility] 11/24/2022 9:50 AM EST 11/24/2022 9:53 AM EST us [facility] External Provider LAB BLO OD ORDERABLES Final Result Performing Organization Address City/State/[facility] Co de Phone Number [facility] [address] [place] [phone] documented in this encounter Visit Diagnoses Not on filedocumented in this encounter Care Teams Metal Engraver Relationship Specialty Start Date End Date Lety Black FNP [address] [place] [address] PCP - General Family Medicine 06/05/22 Grupo Nixon FNP [address] [place] [address] Nurse Practitioner Family Medicine 09/14/23 documented as of this encounter
--- OUTSIDE RECORDS SUMMARY | 2025-07-07 19:59 | XMS_ITS | Encounter Summary ---
Author Organization [employer] Address [address] [facility] [address]t [place] [address] Care Team Providers Care Keno Writer / Runner Name Role Phone Lety Black JESSA Primary Care Provider [phone] [employer] Nixon Unavailable Unavailable Reason for Visit * Reason Comments Med Refill Encounter Details Date Type Department Care Team (Late st Contact Info) Description 03/05/2023 Refill [facility] [address] [place] [address] Grupo Nixon FNP Bipolar affective disorder, current episode mixed, current episode severity unspecified (CMS/[facility]) Social History Tobacco Use Types Packs/Day Years [...] 11:10 AM EDT Clonazepam refill request to early. Medication isnt due until 03/15/23. Will send [...] documented as of this encounter Care Teams Keno Writer / Runner Relationship Specialty Start Date End Date Lety Black FNP [address] [place] [address] PCP - General Family Medicine 06/05/22 Grupo Nixon FNP [address] [place] [address] Nurse Practitioner Family Medicine 09/14/23 documented as of this encounter
--- OUTSIDE RECORDS SUMMARY | 2025-07-07 19:59 | XMS_ITS | Encounter Summary ---
Author Organization [employer] Address [address] [facility] [address] [place] [address] Care Team Providers Care Manager Sales Training Name Role Phone DaleLety kothari JESSA Primary Care Provider [phone] [employer] Nixon Unavailable Unavailable Reason for Visit * Reason Comments Med Refill Encounter Details Date Type Department Care Team (Late st Contact Info) Description 03/11/2024 Refill [facility] [address] [place] [address] Grupo Nixon FNP Bipolar affective disorder, current [...] documented as of this encounter Care Teams Manager Sales Training Relationship Specialty Start Date End Date Lety Black FNP [address] [place] [address] PCP - General Family Medicine 06/05/22 Grupo Nixon FNP [address] [place] [address] Nurse Practitioner Family Medicine 09/14/23 documented as of this encounter
--- OUTSIDE RECORDS SUMMARY | 2025-07-07 19:59 | XMS_ITS | Encounter Summary ---
Author Organization [employer] Address [address] [facility] [address] [place] [address] Care Team Providers Care Net Application Architect Name Role Phone Lety Black Primary Care Provider [employer] Unavailable Unavailable Reason for Visit * Reason Comments Med Refill Encounter Details Date Type Department Care Team (Late st Contact Info) Description 08/19/2023 Refill [facility] [address] [place] [address] Lety Black FNP [address] [place], [place] [phone] Social History Tobacco Use Types Packs/Day Years [...] documented as of this encounter Care Teams Net Application Architect Relationship Specialty Start Date End Date Lety Black FNP [address] [place] [address] PCP - General Family Medicine 06/05/22 Grupo Nixon FNP [address] [place] [address] Nurse Practitioner Family Medicine 09/14/23 documented as of this encounter
--- OUTSIDE RECORDS SUMMARY | 2025-07-07 19:59 | XMS_ITS | Encounter Summary ---
Author Organization [employer] Address [address] [facility] [address]t [place] [address] Care Team Providers Care Engineer Technician Name Role Phone Lety Black Primary Care Provider [employer] Unavailable Unavailable Encounter Details Date Type Department Care Team (Late st Contact Info) Description 07/03/2025 Results Follow-Up [facility] [address] [place], [place] [phone] Lety Black FNP [address] [place], [place] [phone] C.TRACHOMATIS/N. GONORRHOEAE DNA PROBE Social History Tobacco Use Types Packs/Day Years [...] documented as of this encounter Care Teams Engineer Technician Relationship Specialty Start Date End Date Lety Black FNP [address] [place] [address] PCP - General Family Medicine 06/05/22 Grupo Nixon FNP [address] [place] [address] Nurse Practitioner Family Medicine 09/14/23 documented as of this encounter
--- OUTSIDE RECORDS SUMMARY | 2025-07-07 19:59 | XMS_ITS | Encounter Summary ---
Author Organization [employer] Address [address] [facility] [address] [place] [address] Care Team Providers Care Optical Instrument Assembly Supervisor Name Role Phone Lety Black Primary Care Provider [phone] Grupo Nixon Unavailable Unavailable Reason for Visit * Reason Comments Med Change Request Encounter Details Date Type Department Care Team ([facility] st Contact Info) Description 06/09/2025 Refill [facility] [address] [place], [place] [phone] Lety Black FNP [address] [place], [place] [phone] Social History Tobacco Use Types Packs/Day Years [...] documented as of this encounter Care Teams Optical Instrument Assembly Supervisor Relationship Specialty Start Date End Date Lety Black FNP [address] [place] [address] PCP - General Family Medicine 06/05/22 Grupo Nixon FNP [address] [place] [address] Nurse Practitioner Family Medicine 09/14/23 documented as of this encounter
--- OUTSIDE RECORDS SUMMARY | 2025-07-07 19:59 | XMS_ITS | Encounter Summary ---
Author Organization [employer] Address [address] [place] [address] Care Team Providers Care Jeep Driver Name Role Phone Lety Black Primary Care Provider [phone] Grupo Nixon Unavailable Unavailable Reason for Visit * Reason Comments Med Refill Encounter Details Date Type Department Care Team ([facility] st Contact Info) Description 06/01/2025 Refill [facility] [address], [place] [phone] Lety Black FNP [address], [place] [phone] Bipolar affective disorder, remission status unspecified (CMS/FORMERLY [facility]) Social History Tobacco Use Types Packs/Day Years Used Date Smoking Tobacco: Never Smokeless Tobacco: Never Depression Answer Date Recorded Patient Health Questionnaire-9 Score 5 12/18/2024 Patient Health Questionnaire-9 Score 5 12/18/2024 Last PHQ-9: Questionnaire Data Not on file 0 12/18/2024 Housing Stability Answer Date Recorded What is your housing situation today? I have virgilio sunil 12/07/[address] you li [...] if there is a status on when [facility] may be initiating care with a new psych prescriber? It looks like Christina made contact and help start the process on 04/07/2025. Thanks! documented in this encounter Plan of Treatment Not on file documented as of this encounter Visit Diagnoses Diagnosis Bipolar affective disorder, remission status unspecified (CMS/HCC) documented in this encounter Additional Health Concerns Assessment Noted Time PHQ-9 Depression Total Score: 5 12/19/19 25 8:46 PM EDT documented as of this encounter Care Teams Jeep Driver Relationship Specialty Start Date End Date Lety Black FNP [address] [place] [address] PCP - General Family Medicine 06/05/22 Grupo Nixon FNP [address] [place] [address] Nurse Practitioner Family Medicine 09/14/23 documented as of this encounter
--- OUTSIDE RECORDS SUMMARY | 2025-07-07 19:59 | XMS_ITS | Clinical Summary ---
Author Organization [employer] Address [address] [facility] [facility] [address] [place] [address] Care Team Providers Care Physician Assistant Certified Name Role Phone Lety Black [employer] Primary Care Provider [phone] Grupo Nixon [employer] Unavailable Unavailable Allergies No known active allergies Medications * This document contains information received from the source organization and may not represent a complete record from that organization. Pentips 32G X 4 MM misc USE DIRECTED TWICE DAILY 100 each 11 023 Active Blood Glucose Monitoring Suppl (FreeStyle [place] Lite) w/Device kit USE TO TEST BLOOD [...] in the morning. 90 tablet 025 Active perphenazine 4 MG tabletIndicatio ns:Bipolar [...] in the morning. 90 tablet 3 025 Active hydroCHLOROthia zide (HYDRODiuril) 25 MG tabletIndicatio ns:Essential (primary) hypertension Take 1 tablet (25 mg) by mouth in the morning. 90 tablet 3 08/29/2 025 Active atorvastatin (Lipitor) 10 MG tabletIndicatio ns:Type 2 diabetes mellitus without complication, with long-term current use of insulin (CMS/HCC) Take 1 tablet (10 mg) by mouth at bedtime. (Cholesterol) 90 tablet 1 Active escitalopram (Lexapro) 10 MG tabletIndicatio ns:Bipolar affective disorder, remission status unspecified (CMS/HCC) Take 1 tablet (10 mg) by mouth Once per day. 30 tablet 1 025 2024 Active cyclobenzaprine (Flexeril) 10 MG tabletIndicatio ns:Chronic bilateral low back pain with sciatica, sciatica laterality unspecified Take 1 tablet (10 mg) by mouth [...] AND REPLACE CAP. 48 g 3 Active Mounjaro 2.5 MG/0.5ML solution auto-injectorIn dications:Type 2 diabetes mellitus without complication, with long-term current use of insulin ([facility]) INJECT ONE PEN (=2.5MG) SUBCUTANEOUSLY ONCE A WEEK DIRECTED Active ProAir HFA 108 (90 Base) MCG/ACT inhaler INHALE 2 PUFFS BY MOUTH EVERY 4 TO 6 HOURS NEEDED FOR SHORTNESS OF BREATH OR WHEEZING 2024 Discontinued(R eorder (will not trigger notification [...] eorder (will not trigger notification to Pharmacy)) Ozempic, 0.25 or 0.5 MG/DOSE, 2 MG/3ML solution pen-injectorInd ications:Type 2 diabetes mellitus without complication, with long-term current use of insulin (CMS/HCC) INJECT 0.5 MG SUBCUTANEOUSLY EVERY 7 DAYS IN THE ABDOMEN, THIGHS, OR UPPER ARM, ROTATE INJECTION SITES. 025 2024 Discontinued(D uplicate order (will not trigger notification to Pharmacy)) atorvastatin (Lipitor) 10 MG tabletIndicatio ns:Type 2 diabetes mellitus without complication, with long-term current use of insulin (CMS/HCC) Take 1 tablet (10 mg) by mouth at bedtime. (Cholesterol) 90 tablet 1 025 2024 Discontinued(R eorder (will not trigger notification to Pharmacy)) escitalopram (Lexapro) 10 MG tablet Take 1 [...] Overview (12/18/2024): Pap: due, encouraged to schedule Assessment & Plan (06/13/2025 1:18 PM EDT): Asymptomatic STI testing ordered, including throat culture for CT/GC PCOS (polycystic ovarian syndrome) 01/13/2023 Diabetic retinopathy 03/10/2022 Type 2 diabetes mellitus without complication Overview (06/13/2025): -Following with [facility] Continues with the following med regimen through Endo: Mounjaro 2.5mg subcutaneous weekly Metformin 1000mg BID Jardiance 10mg daily Humalog Mix 75-25 90 units BID (typically using once per day) CGM Sensor in place Lab Results Component Value Date HGBA1C 7.0 (A) 06/09/2025 HGBA1C 7.3 (A) 12/16/2024 HGBA1C 11.2 (A) 12/30/2023 HGBA1C 10.1 (H) 11/11/2021 Assessment & Plan (06/13/2025 1:18 PM EDT): - Congratulated on significant improvement in A1c - Continue with med management as well as lifestyle interventions such as goal exercise 150 mins/week, low carb diet rich in fiber Assessment & Plan (12/18/2024 8:50 PM EDT): [...] lifestyle interventions ED precautions Assessment & Plan (06/13/2025 1:17 PM EDT): Diastolic slightly elevated in office, follow up if home BP readings above goal Assessment & Plan (12/18/2024 8:49 PM EDT): Elevated in office, follow up if home BP readings above goal Hyperlipidemia 07/29/2021 Bipolar disorder 07/21/2014 Overview (06/13/2025): - BH: therapist, Mya [facility] psych[facility], weekly - Weekly check in with [facility] Assessment & Plan (06/13/2025 1:19 PM EDT): - Med management: previously through [employer] [employer] [facility]NA[facility] - clonazepam 1mg BID, perphenazine 4mg TID - Lexapro 10mg daily added by Psych YA Brown - Reports stable on current regimen. Has upcoming appt 06/29/25 to establish with new psych prescriber through [facility]. PCP to bridge med rx until then. Assessment & Plan (12/18/2024 8:52 PM EDT): [...] She is still generally doing well. Attending [email or web address] college program. Has a new therapist whom she [...] well. Succeeding in school, will be starting [employer] program. Has a new therapist whom she [...] program. Plans to start another at [facility] on 02/13/2023. Do F/U with current therapist [...] Overview (12/16/2024): April 2024: Sleep study at [facility] (ordered by Shira Barahona NP). Diagnosed with ALON, severe. Recommendation for AutoCPAP [...] organization. Date Type Department Care Team Description 07/07/2025 Orders Only GENERIC EXTERNAL DATA DEPARTMENT Provider, Generic External Data 07/03/2025 Results Follow-Up [facility] [address] [place] [address] Lety Black FNP C.TRACHOMATIS/N. GONORRHOEAE DNA PROBE 07/03/2025 Refill [facility] [address] [place] [address] Lety Black FNP Type 2 diabetes mellitus without complication, with long-term current use of insulin ([facility]) 06/09/2025 8:30 AM EDT Office Visit [facility] [address] [place] [address] Lety Black FNP Chronic bilateral low back pain with sciatica, sciatica laterality unspecified (Primary Dx); Type 2 diabetes mellitus without complication, with long-term current use of insulin (CMS/HCC); Healthcare maintenance; Essential (primary) hypertension; Bipolar affective disorder, remission status unspecified (CMS/HCC) 06/09/2025 Orders Only [facility] [address] [place] [address] Lety Black FNP 06/09/2025 Refill [facility] [address] [place] [address] Lety Black FNP 06/09/2025 Travel 06/08/2025 Telephone [facility] [address] [place] [address] Lety Black FNP Chart Prep 06/02/[address] [facility] [address] [place] [address] Lety Black FNP Pre-visit Planning (SDAR screening completed on 12/16/24) 06/01/2025 Refill [facility] [address] [place] [address] Lety Black FNP Bipolar affective disorder, remission status unspecified ([facility]/HCC) 04/24/2025 Refill [facility] [address] [place] [address] Lety Black FNP Bipolar affective disorder, remission status unspecified ([facility]/HCC); Anxiety from Last 3 Months Immunizations Immunization Administration Dates Next Due HPV, Quadrivalent 06/24/2010,02/22/2010 Hep B, Adolescent or Pediatric 1994,1993 Hep B, adult 06/03/2022 Hib ([facility]) 01/28/1996,199 5,1994,1993 IPV 04/08/1999,199 5,1994,1993 Influenza injectable quadriv alent preservative free [...] series) 09/16/2010 06/24/2010, 02/22/2010 Pap Smear 2015 Cervical Cancer Screening 2024 HPV/Cotest 2024 COVID-19 Vaccine ( season) 2025 11/22/2021, 03/25/2021, 03/04/2021 Influenza Vaccine (#1) 2025 , 11/11/2021, 12/20/2014 [...] Name Priority Date/Time Associated Diagnosis Comments HCG, TOTAL, QN Routine 07/07/2025 6:39 PM EDT LIPASE Routine 07/07/2025 6:39 PM EDT COMPREHENSIVE METABOLIC PANEL Routine 07/07/2025 6:39 PM EDT COVID-19 ID NOW (MOSHER) Routine 07/07/2025 6:39 PM EDT URINALYSIS, COMPLETE, WITH REFLEX TO CULTURE Routine 07/07/2025 6:39 PM EDT CBC WITH AUTO DIFFERENTIAL Routine 07/07/2025 6:39 PM EDT INFLUENZA A B2 ID NOW (MOSHER) Routine 07/07/2025 6:39 PM EDT C.TRACHOMATIS/N. GONORRHOEAE DNA PROBE Routine 06/09/2025 9:23 AM EDT POCT GLYCATED HEMOGLOBIN, TOTAL Routine 06/09/2025 8:57 AM EDT Type 2 diabetes mellitus without complication, with long-term current use of insulin ([facility]) POCT GLUCOSE Routine 06/09/2025 8:57 AM EDT Type 2 diabetes mellitus without complication, with long-term current use of insulin ([facility]) ALBUMIN, RANDOM URINE W/CREATININE Routine 12/16/2024 10:00 AM EST Healthcare maintenance HEPATITIS C VIRAL RNA, QUANTITATIVE, REAL-TIME PCR Routine 12/16/2024 9:52 AM EST Healthcare maintenance HIV 1/2 ANTIGEN/ANTIBODY, FOURTH GENERATION W/RFL Routine 12/16/2024 9:52 AM EST Healthcare maintenance LIPID PANEL, STANDARD Routine 12/16/2024 9:52 AM EST Healthcare maintenance from Last 3 Months or Most Recently Relevant to Health Maintenance Results * Influenza A B2 ID NOW (Mosher) (07/07/2025 6:39 PM EDT) IDNOW SERIAL# [id number] [facility] Influenza A Negative Negative [facility] Influenza B2 Negative Negative [facility] Influenza A B2 Note See Note [facility] Comment:The Mosher ID NOW In fluenza A B2 test is used for thequalitative detection of influenza A and B from patientswith signs and symptoms of respiratory infection.Negative results do not preclude influenza virus infectionand should not be used as the sole basis for diagnosis,treatment or other patient management decisions.There is a risk of false negative results due to thepresence of variants in the viral targets of the assay, lowlevels of virus in the specimen and co- infection withRespiratory Syncytial Virus. 07/07/2025 6:39 PM EDT 07/07/2025 6:45 PM EDT us Generic External Data Provider LAB MICROBIOLOGY - GENERAL ORDERABLES Final Result Performing Organization Address [facility] Co de Phone Number [facility] [address] [place] [phone] * COVID-19 ID NOW (MOSHER) (07/07/2025 6:39 PM EDT) IDNOW SERIAL# [id number] [facility] COVID-19 TEST Negative Negative [facility] COVID-19 NOTE See Note [facility] Comment: Results are for the identification of SARS-CoV2 RNA. TheSARS-CoV2 RNA is generally detectable in respiratory samplesduring the acute phase of infection. Positive results areindicative of the presence of SARS-CoV-2 RNA; clinicalcorrelation with patient history and other diagnosticinformation is necessary to determine patient infectionstatus. Positive results do not rule out bacterial infectionor co- infection with other viruses.Testing facilities within the [facility] and [facility] are required to report all positive results tothe appropriate public health authorities.Negative results should be treated as presumptive and, ifinconsistent with clinical signs and symptoms or necessaryfor patient management, should be tested with differentauthorized or cleared molecular tests. Negative results donot preclude SARS-CoV2 RNA infection and should not be usedas the sole basis for patient management decisions. Negativeresults should be considered in the context of a patient'srecent exposures, history and the presence of clinical signsand symptoms consistent with COVID-19.This test has been authorized by the FDA under an EmergencyUse Authorization (EUA) for use by authorized laboratories.Testing performed on the Mosher ID NOW utilizing NAAT. 07/07/2025 6:39 PM EDT 07/07/2025 6:45 PM EDT us Generic External Data Provider LAB MOLECULAR LILIANA GNOSTICS ORDERABLES Final Result Performing Organization Address City/[facility]/ZIP Co de Phone Number [facility] [address] [place] [phone] * (ABNORMAL) Urinalysis, Complete, with Reflex to Culture (07/07/2025 6:39 PM EDT) Color Urine Yellow [facility] Appearance Urine Clear [facility] PH 5.5 5.0 - 9.0 [facility] Glucose Urine UA >=1000(A) Negative mg/dL [facility] Urine Blood Trace(A) Negative [facility] Specific [place] - Urine >=1.030(H) 1.005 - 1.025 [facility] Urine Protein 300 (3+)(A) Neg-Trace mg/dL [facility] Urine Ketones Negative Negative mg/dL [facility] Nitrite Urine Negative Negative [facility] Leukocyte Esterase Urine Negative Negative [facility] RBC Urine 0-2 0 - 2 /HPF [facility] Urine WBC 0-5 0 - 5 /HPF [facility] Urine Squamous Epithelial Cell 0-2 0 - 2 /HPF [facility] Urine Bacteria None Seen None Seen [facility] Hyaline Casts, Urine 0-2 0 - 2 /LPF [facility] 07/07/2025 6:39 PM EDT 07/07/2025 6:44 PM EDT Narrative [facility] - 07/07/2025 7:02 PM EDT Urine, Clean Catch us Generic External Data Provider LAB URINE ORDERAB LES Final Result [facility] [address] [place] [address] [phone] * (ABNORMAL) CBC auto differential (07/07/2025 6:39 PM EDT) White Blood Count 11.3(H) 4.8 - 10.8 X10*3/uL [facility] Red Blood Count 4.44 4.20 - 5.50 X10*6/uL [facility] Hemoglobin 12.0 12.0 - 16.0 g/dl [facility] Hematocrit 35.9(L) 37.0 - 47.0 % [facility] Mean Corpuscular Volume 80.9 80.0 - 98.0 fL [facility] Mean Corpuscular Hemoglobin 27.0 27.0 - 33.0 pg [facility] Mean Corpuscular HGB Conc 33.4 31.0 - 35.0 g/dl [facility] Red Cell Distribution Width 12.8 11.0 - 16.0 % [facility] Platelet Count 366 160 - 400 X10*3/uL [facility] Mean Platelet Volume 9.7 9.4 - 12.3 fL [facility] Neutrophils Percent Auto 78.4(H) 45 - 73 % [facility] Imm Gran Pct Auto 0.4 0.0 - 0.4 % [facility] Lymphocytes Percent Auto 16.3(L) 20 - 40 % [facility] Monocytes Percent Auto 4.3 2 - 11 % [facility] Eosinophils Percent Auto 0.4 0 - 4 % [facility] Basophils Percent Auto 0.2 0 - 2 % [facility] NRBC Pct Auto 0.0 0.0 - 0.2 /100WBC [facility] Neutrophils Absolute Auto 8.9(H) 2.0 - 8.3 x10*3/uL [facility] Imm Gran Abs Auto 0.04(H) 0.00 - 0.03 X10*3/uL [facility] Lymphocytes Absolute Auto 1.8 1.2 - 4.9 X10*3/uL [facility] Monocytes Absolute Auto 0.5 0.1 - 1.2 X10*3/uL [facility] Eosinophils Absolute Auto 0.1 0.0 - 0.4 X10*3/uL [facility] Basophils Absolute Auto 0.0 0.0 - 0.2 X10*3/uL [facility] NRBC Abs Auto 0.000 0.0 - 0.012 X10*3/uL [facility] 07/07/2025 6:39 PM EDT 07/07/2025 6:44 PM EDT us Generic External Data Provider LAB BLOOD ORDERAB LES Final Result Performing Organization Address City/[facility] Co de Phone Number [facility] [address] [place] [phone] * hCG, Total, Quantitative (07/07/2025 6:39 PM EDT) HCG Quantitative <2 mIU/mL [facility] Comment:Weeks post LMP Appro ximate hCG(Last Menstrual Period) Range (mIU/ml)3 - 4 weeks 9 - 1304 - 5 weeks 75 - 2,6005 - 6 weeks 850 - 20,8006 - 7 weeks 4000 - 100,2007 - 12 weeks 11,500 - 289,18517 - 16 weeks 18,300 - 137,78557 - 29 weeks (2nd trimester) 1,400 - 53,83278 - 41 weeks (3rd trimester) 940 - 60,000The Mosher B- hCG assay is used for the early detection ofpregnancy; it cannot be used to diagnose any conditionunrelated to . If a B-hCG level is not supportedby the clinical evidence, results should be confirmed by analternative method (qualitative urine hCG, for example). 07/07/2025 6:39 PM EDT 07/07/2025 6:44 PM EDT us Generic External Data Provider LAB BLOOD ORDERAB LES Final Result Performing Organization Address [facility] Co de Phone Number [facility] [address] [place] [address] [phone] * Lipase (07/07/2025 6:39 PM EDT) Lipase 22 8 - 78 U/L [facility] 07/07/2025 6:39 PM EDT 07/07/2025 6:44 PM EDT us Generic External Data Provider LAB BLOOD ORDERAB LES Final Result [facility] [address] [place] [address] [phone] * (ABNORMAL) Comprehensive Metabolic Panel (07/07/2025 6:39 PM EDT) Sodium 141 135 - 145 mmol/L [facility] Potassium 3.6 3.3 - 5.1 mmol/L [facility] Chloride 108 96 - 108 mmol/L [facility] Carbon Dioxide 26 22 - 29 mmol/L [facility] Anion Gap 11(L) 12 - 20 [facility] Urea Nitrogen (BUN) 10 9 - 16 mg/dL [facility] Creatinine, Serum 0.56 0.5 - 1.4 mg/dL [facility] Creatinine Clr Calc Pharmacy 219.6 [facility] Comment:Provided height and weight: 157.48 cm,163.747 kg.eGFR (calculated from the MDRD study equation) and eCrCl(calculated from the Cockcroft-Gault equation) are based ondifferent parameters and may not yield comparable results.If eCrCl result is absurd, please check patient'sheight/weight. Estimated Glomerular Filt Rate >60 [facility] Comment:Chronic Kidney Disea se: Estimated GFR < 60 mL/min/1.50q3Ztlepl Kidney Disease: Estimated GFR < 15 mL/min/1.73m2 Glucose 227(H) 60 - 115 mg/dL [facility] Calcium 8.8 8.4 - 10.2 mg/dL [facility] Bilirubin, Total 0.2 0.0 - 1.0 mg/dL [facility] Aspartate Amino Transferase 24 5 - 31 U/L [facility] Alanine Aminotransferase 25 0 - 31 U/L [facility] Total Protein 6.9 6.5 - 8.0 g/dL [facility] Albumin Level 3.9 3.5 - 5.0 g/dL [facility] Alkaline Phosphatase 53 39 - 117 U/L [facility] 07/07/2025 6:39 PM EDT 07/07/2025 6:44 PM EDT Generic External Data Provider LAB BLOOD ORDERAB LES Final Result Performing Organization Address City/[facility]/ZIP Co de Phone Number [facility] [address] [place] [phone] * C.TRACHOMATIS/N. GONORRHOEAE DNA PROBE (06/09/2025 9:23 AM EDT) CTNG Ref Lab NOT DETECTED NOT DETECTED [facility] NG Ref Lab NOT DETECTED NOT DETECTED [facility] 06/09/2025 9:23 AM EDT 06/09/2025 3:02 PM EDT Lety POWELLP LAB MICROBIOLOGY - GENERAL ORD ERABLES Final Result Performing Organization Address [facility]/[place] Co de Phone Number [facility] [address] [place] [phone] * (ABNORMAL) POCT HGB A1C (06/09/2025 8:57 AM EDT) Hemoglobin A1C 7.0(A) 4.0 - 5.7 % QC Media Lot # [id number] Lot# Expiration Date Blood 06/09/2025 8:57 AM EDT Lety Daletaye [employer]EDBACK POINT OF CARE TEST ENTER/EDIT ORDERABLES Final Result * POCT Glucose (06/09/2025 8:57 AM EDT) Glucose Blood, POC 122 60 - 200 mg/dL QC Media Lot # [id number] Lot# Expiration Date Blood Capillary blood specimen / Unknown 06/09/2025 8:57 AM EDT Lety Black [employer]EDBACK POINT OF CARE TEST ENTER/EDIT ORDERABLES Final Result * (ABNORMAL) Albumin, Random Urine W/Creatinine (12/16/2024 10:00 AM EST) Creatinine, Urine 173.18 mg/dL [facility] Microalbumin Urine >500.0 mg/L [facility] Microalbum Creatinine Ratio Ur 288.7(H) <30 ug/mg cr [facility] Comment:Albumin/Creatinine R atio Reference Ranges: Normal: < 30 ug/mg creatinine Microalbuminuria: 30 - 300 ug/mg creatinineClinical Albuminuria: > 300 ug/mg creatinine Urine 12/16/2024 10:0 0 AM EST 12/16/2024 2:14 PM EST Lety Black [facility] URINE ORDERABLES Final Res ult Performing Organization Address [facility] Co de Phone Number [facility] [address] [place] [phone] * Hepatitis C Viral RNA, Quantitative, Real-Time PCR (12/16/2024 9:52 AM EST) Hepatitis C Viral Load <15 NOT DETECTED NOT DETECTED IU/mL [facility] HCV Log PCR <1.18 NOT DETECTED NOT DETECTED Log IU/mL [facility] Comment:For additional infor rolly, please refer [email or web address](This link is being provided for informational/educational purposes only.)THIS TEST WAS PERFORMED AT:[facility] [place] [id number] CONSTANTINO MD Blood 12/16/2024 9:52 AM EST 12/16/2024 2:13 PM EST Lety Black [facility] LAB BLOOD ORDERABLES Final Res ult Performing Organization Address [facility] Co de Phone Number [facility] [address] [place] [phone] * HIV-1/2 Antigen and Antibodies, Fourth Generation, with Reflexes (12/16/2024 9:52 AM EST) HIV AB/AG Nonreactive Nonreactive [facility] Comment:HIV-1 p24 Ag and/or HIV-1/HIV-2 Ab not detected.A test result that is nonreactive does not exclude thepossibility of exposure to or infection with HIV-1 and/orHIV-2. Nonreactive results in this assay for individualswith prior exposure to HIV-1 and/or HIV-2 may be due toantigen and antibody levels that are below the limit ofdetection of this assay.The nubelo HIV Ag/Ab Combo assay result andsupplemental assay results should be interpreted inconjunction with the patient's clinical presentation,history and other laboratory results. If the results areinconsistent with clinical evidence, additional testing issuggested to confirm the result. Blood Venous blood specimen / Unknown 12/16/2024 9:52 AM EST 12/16/2024 2:13 PM EST us Lety Black [facility] LAB BLOOD ORDERABLES Final Res ult [facility] [address] [place] [address] [phone] * (ABNORMAL) Lipid Panel, Standard (12/16/2024 9:52 AM EST) Triglycerides 79 <150 mg/dL [facility] Comment:Desirable Triglyceri de: less than 150 mg/dLBorderline High Triglyceride 150-199 mg/dLHigh Triglyceride: 200-499 mg/dLVery High Triglyceride: greater than or equal to 5OO mg/dL Cholesterol 203(H) <200 mg/dL [facility] Comment:Desirable Cholestero l: less than 200 mg/dLBorderline High Cholesterol: 200-239 mg/dLHigh Cholesterol: greater than 239 mg/dL LDL Cholesterol Calculated 132(H) <100 mg/dL [facility] Comment:Desirable LDL: less than 100 mg/dLNear Optimal/Above Optimal LDL: 110- 129 mg/dLBorderline High LDL: 130-159 mg/dLHigh LDL: 160-189 mg/dLVery High LDL: greater than or equal to 190 mg/dL HDL Cholesterol 56 >40 mg/dL [facility] Comment:Desirable HDL: great er than 40 mg/dL Note: This HDL assay may give artificially low results in patients with liver disease. Blood Venous blood specimen / Unknown 12/16/2024 9:52 AM EST 12/16/2024 2:13 PM EST us Lety Black [employer] LAB BLOOD ORDERABLES Final Res ult [facility] [address] [place] [phone] from Last 3 Months or Most Recently Relevant to Health Maintenance Insurance [facility] C3 Care Teams Physician Assistant Certified Relationship Specialty Start Date End Date Lety Black FNP [address] [place] [phone] PCP - General Family Medicine 06/05/22 Grupo Nixon FNP [address] [place] [phone] Nurse Practitioner Family Medicine 09/14/23
--- OUTSIDE RECORDS SUMMARY | 2025-07-07 19:59 | XMS_ITS | Clinical Summary ---
Author Organization [facility] Facility Address [address] [place] [id number] Care Team Providers Care Lacemaker Name Role Phone Vanessa Bird AUDIO VISUAL DIRECTOR-C Primary Care Provider Unavailable Medications clonazePAM (KlonoPIN) [...] [place] Care Teams Lacemaker Relationship Specialty Start Date End Date Vanessa Bird FNP-C PCP - General Nurse Practitioner 05/20/21
--- OUTSIDE RECORDS SUMMARY | 2025-07-07 19:59 | XMS_ITS | Encounter Summary ---
Author Organization [employer] Address [address] [facility] [address] [place] [address] Care Team Providers Care Clam Picker Name Role Phone Lety Black JESSA Primary Care Provider [phone] Grupo Nixon SENIOR SALES DIRECTOR Unavailable Unavailable Encounter Details Date Type Department Care Team (Late st Contact Info) Description 07/07/2025 Orders Only GENERIC EXTERNAL DATA DEPARTMENT Provider, Generic External Data Social History Tobacco Use Types Packs/Day Years [...] Procedure Name Priority Date/Time Associated Diagnosis Comments INFLUENZA A B2 ID NOW ([facility]) Routine 07/07/2025 6:39 PM EDT COVID-19 ID NOW ([facility]) Routine 07/07/2025 6:39 PM EDT URINALYSIS, COMPLETE, WITH REFLEX TO CULTURE Routine 07/07/2025 6:39 PM EDT CBC WITH AUTO DIFFERENTIAL Routine 07/07/2025 6:39 PM EDT HCG, TOTAL, QN Routine 07/07/2025 6:39 PM EDT LIPASE Routine 07/07/2025 6:39 PM EDT COMPREHENSIVE METABOLIC PANEL Routine 07/07/2025 6:39 PM EDT documented in this encounter Results * hCG, Total, Quantitative (07/07/2025 6:39 PM EDT) HCG Quantitative <2 mIU/mL [facility] Comment:Weeks post LMP Appro ximate hCG(Last Menstrual Period) Range (mIU/ml)3 - 4 weeks 9 - 1304 - 5 weeks 75 - 2,6005 - 6 weeks 850 - 20,8006 - 7 weeks 4000 - 100,2007 - 12 weeks 11,500 - 289,71495 - 16 weeks 18,300 - 137,29406 - 29 weeks (2nd trimester) 1,400 - 53,79013 - 41 weeks (3rd trimester) 940 - [...] ORDERAB LES Final Result Performing Organization Address City/[facility]/ZIP Co de Phone Number [facility] [address] [place] [phone] * Lipase (07/07/2025 6:39 PM EDT) Pathologist [facility] Lipase 22 8 - 78 U/L [facility] 07/07/2025 6:39 PM EDT 07/07/2025 6:44 PM EDT Generic External Data Provider LAB BLOOD ORDERAB LES Final Result Performing Organization Address [facility]/ZIP Co de Phone Number [facility] [address] [place] [phone] * (ABNORMAL) Comprehensive Metabolic Panel (07/07/2025 6:39 PM EDT) Sodium 141 135 - 145 mmol/L [facility] Potassium 3.6 3.3 - 5.1 mmol/L [facility] Chloride 108 96 - 108 mmol/L [facility] Carbon Dioxide 26 22 - 29 mmol/L [facility] Anion Gap 11(L) 12 - 20 [facility] Urea Nitrogen (BUN) 10 9 - 16 mg/dL [facility] Creatinine, Serum 0.56 0.5 - 1.4 mg/dL [facility] Creatinine Clr Calc Pharmacy 219.6 [facility] Comment:Provided height and weight: 157.48 cm,163.747 kg.eGFR (calculated from the MDRD study equation) and eCrCl(calculated from the Cockcroft-Gault equation) are based ondifferent parameters and may not yield comparable results.If eCrCl result is absurd, please check patient'sheight/weight. Estimated Glomerular Filt Rate >60 [facility] Comment:Chronic Kidney Disea se: Estimated GFR < 60 mL/min/1.92b8Mvipio Kidney Disease: Estimated GFR < 15 mL/min/1.73m2 Glucose 227(H) 60 - 115 mg/dL [facility] Calcium 8.8 8.4 - 10.2 mg/dL [facility] Bilirubin, Total 0.2 0.0 - 1.0 mg/dL [facility] Aspartate Amino Transferase 24 5 - 31 U/L [facility] Alanine Aminotransferase 25 0 - 31 U/L [facility] Total Protein 6.9 6.5 - 8.0 g/dL [facility] Albumin Level 3.9 3.5 - 5.0 g/dL [facility] Alkaline Phosphatase 53 39 - 117 U/L [facility] 07/07/2025 6:39 PM EDT 07/07/2025 6:44 PM EDT us Generic External Data Provider LAB BLOOD ORDERAB LES Final Result [facility] [address] [place] [phone] * COVID-19 ID NOW (MOSHER) (07/07/2025 6:39 PM EDT) IDNOW SERIAL# [id number] [facility] COVID-19 TEST Negative Negative [facility] COVID-19 NOTE See Note [facility] Comment: Results are for the identification of SARS-CoV2 RNA. TheSARS-CoV2 RNA is generally detectable in respiratory samplesduring the acute phase of infection. Positive results areindicative of the presence of SARS-CoV-2 RNA; clinicalcorrelation with patient history and other diagnosticinformation is necessary to determine patient infectionstatus. Positive results do not rule out bacterial infectionor co- infection with other viruses.Testing facilities within the [place] and itsohiohealthritories are required to report all positive results [...] LAB MOLECULAR LILIANA [employer]NO[employer] ORDERABLES Final Result [facility] [address] [place] [phone] * Influenza A B2 ID NOW (Retidoc) (07/07/2025 6:39 PM EDT) IDNOW SERIAL# [id number] [facility] Influenza A Negative Negative [facility] Influenza B2 Negative Negative [facility] Influenza A B2 Note See Note [facility] Comment:The Mosher ID NOW In [...] 6:39 PM EDT 07/07/2025 6:45 PM EDT Generic External Data Provider LAB MICROBIOLOGY - GENERAL ORDERABLES Final Result Performing Organization Address [facility] Co de Phone Number [facility] [address] [place] [phone] * (ABNORMAL) Urinalysis, Complete, with Reflex to Culture (07/07/2025 6:39 PM EDT) Color Urine Yellow [facility] Appearance Urine Clear [facility] PH 5.5 5.0 - 9.0 [facility] Glucose Urine UA >=1000(A) Negative mg/dL [facility] Urine Blood Trace(A) Negative [facility] Specific [place] - Urine >=1.030(H) 1.005 - 1.025 [facility] Urine Protein 300 (3+)(A) Neg-Trace mg/dL [facility] Urine Ketones Negative Negative mg/dL [facility] Nitrite Urine Negative Negative [facility] Leukocyte Esterase Urine Negative Negative [facility] RBC Urine 0-2 0 - 2 /HPF [facility] Urine WBC 0-5 0 - 5 /HPF [facility] Urine Squamous Epithelial Cell 0-2 0 - 2 /HPF [facility] Urine Bacteria None Seen None Seen [facility] Hyaline Casts, Urine 0-2 0 - 2 /LPF [facility] 07/07/2025 6:39 PM EDT 07/07/2025 6:44 PM EDT Narrative [facility] - 07/07/2025 7:02 PM EDT Urine, Clean Catch Generic External Data Provider LAB URINE ORDERAB LES Final Result Performing Organization Address [facility] Co de Phone Number [facility] [address] [place] [phone] * (ABNORMAL) CBC auto differential (07/07/2025 6:39 PM EDT) White Blood Count 11.3(H) 4.8 - 10.8 X10*3/uL [facility] Red Blood Count 4.44 4.20 - 5.50 X10*6/uL [facility] Hemoglobin 12.0 12.0 - 16.0 g/dl [facility] Hematocrit 35.9(L) 37.0 - 47.0 % [facility] Mean Corpuscular Volume 80.9 80.0 - 98.0 fL [facility] Mean Corpuscular Hemoglobin 27.0 27.0 - 33.0 pg [facility] Mean Corpuscular HGB Conc 33.4 31.0 - 35.0 g/dl [facility] Red Cell Distribution Width 12.8 11.0 - 16.0 % [facility] Platelet Count 366 160 - 400 X10*3/uL [facility] Mean Platelet Volume 9.7 9.4 - 12.3 fL [facility] Neutrophils Percent Auto 78.4(H) 45 - 73 % [facility] Imm Gran Pct Auto 0.4 0.0 - 0.4 % [facility] Lymphocytes Percent Auto 16.3(L) 20 - 40 % [facility] Monocytes Percent Auto 4.3 2 - 11 % [facility] Eosinophils Percent Auto 0.4 0 - 4 % [facility] Basophils Percent Auto 0.2 0 - 2 % [facility] NRBC Pct Auto 0.0 0.0 - 0.2 /100WBC [facility] Neutrophils Absolute Auto 8.9(H) 2.0 - 8.3 x10*3/uL [facility] Imm Gran Abs Auto 0.04(H) 0.00 - 0.03 X10*3/uL [facility] Lymphocytes Absolute Auto 1.8 1.2 - 4.9 X10*3/uL [facility] Monocytes Absolute Auto 0.5 0.1 - 1.2 X10*3/uL [facility] Eosinophils Absolute Auto 0.1 0.0 - 0.4 X10*3/uL [facility] Basophils Absolute Auto 0.0 0.0 - 0.2 X10*3/uL [facility] NRBC Abs Auto 0.000 0.0 - 0.012 X10*3/uL [facility] 07/07/2025 6:39 PM EDT 07/07/2025 6:44 PM EDT us Generic External Data Provider LAB BLOOD ORDERAB LES Final Result [facility] [address] [place] [phone] documented in this encounter Visit Diagnoses Not on filedocumented in this encounter Additional Health Concerns Assessment Noted Time PHQ-9 Depression Total Score: 5 12/19/19 25 8:46 PM EDT documented as of this encounter Care Teams Clam Picker Relationship Specialty Start Date End Date Lety Black FNP [address] [place] [phone] PCP - General Family Medicine 06/05/22 Grupo Nixon FNP [address] [place] [address] Nurse Practitioner Family Medicine 09/14/23 documented as of this encounter
[2025-07-07 20:00] VITALS: BP 172/96; PULSE 83; RESP 20; TEMP 36.9; O2SAT 98
--- NOTE | 2025-07-07 20:11 | PC.NURSE ---
Assumed care of pt, presents with chest pain that radiates into the LUQ x 4 days, states pain is intermittent, endorses nausea, diarrhea, denies vomiting, and shortness of breath, pt also states that they have a headache, aaox4, pt resting comfortably in the bed currently, pending provider eval
[2025-07-07 22:45] VITALS: BP 134/67; PULSE 72; RESP 20; O2SAT 99
[2025-07-07 23:32] VITALS: BP 134/67; PULSE 72; RESP 20; TEMP 37; O2SAT 99
== END 2025-07-07 23:34 | disposition home or self-care (01) ==
PROVIDERS: Physician Assistant; Emergency Provider Emergency Medicine; PCP Registered Nurse
DX: G44.209 Tension-type headache, unspecified, not intractable (principal); J45.909 Unspecified asthma, uncomplicated; I10 Essential (primary) hypertension; E11.9 Type 2 diabetes mellitus without complications; Z79.899 Other long term (current) drug therapy
CPT/HCPCS: 70450; 80053; 81001; 83690; 84702; 85025; 87502; 87635; 93005; 99284

== ENCOUNTER → 2025-07-07 20:10 | Outpatient (BNV) | payer MEDICAID, SELFPAY | PROVIDERS: Emergency Provider Emergency Medicine; PCP Registered Nurse; Visit Provider Internal Medicine Cardiovascular Disease | DX: R06.02 Shortness of breath (principal); R07.9 Chest pain, unspecified | CPT/HCPCS: 93010 ==

== ENCOUNTER → 2025-07-07 21:27 | Outpatient (BNV) | payer MEDICAID, SELFPAY | PROVIDERS: Emergency Provider Emergency Medicine; PCP Registered Nurse; Visit Provider Student in an Organized Health Care Education/Training Program | DX: G93.0 Cerebral cysts (principal) | CPT/HCPCS: 70450 ==

== ENCOUNTER 2025-07-09 13:39 | Emergency (ER) | payer MEDICAID, SELFPAY ==
--- NOTE | 2025-07-09 | ECG_ITS ---
Test Reason : HEADACHE Blood Pressure : */* mmHG Vent. Rate : 81 BPM Atrial Rate : 81 BPM P-R Int : 166 ms QRS Dur : 90 ms QT Int : 374 ms P-R-T Axes : 43 13 10 degrees QTcB Int : 434 ms Normal sinus rhythm Normal ECG When compared with ECG of 07-Jul-2025 20:10, No significant change was found Referred By: Generic ED Physician Electronically Signed By: Alfredo Cha
--- NOTE | ~2025-07-09 | CT_ITS ---
CLINICAL HISTORY: worsening headache, vision changes, colloid cyst CT head without contrast CT angiography head and neck with contrast. 3D Postprocessing. COMPARISON: CT head dated 07/07/25 at 21:47 EDT FINDINGS: HEAD CT: No midline shift, hydrocephalus, or acute hemorrhage. Hyperdense lesion present at the foramen of Monro measuring 3 mm consistent with a colloid cyst. No hydrocephalus. No significant atrophy-like change or white matter disease. There is no sinus or mastoid fluid. The orbits are within normal limits. There is no acute fracture. HEAD AND NECK CTA: Aortic arch and cervical great vessels are patent. Intracranial arteries are patent. No aneurysm, dissection, hemodynamically significant stenoses, or occlusion. No abnormal intracranial enhancement. The visualized thyroid gland is unremarkable. No cervical mass or fluid collection. Visualized lung apices are clear. No acute fracture. IMPRESSION: 1. Patent head and neck CTA. 2. Small colloid cyst present at the foramina Blevins measuring 3 mm. No hydrocephalus. This document has been electronically signed by: Sg Damon MD on 07/09/2025 17:08:06
[2025-07-09 13:45] VITALS: BP 200/80; PULSE 89; O2SAT 95
[2025-07-09 13:47] VITALS: BP 186/97; PULSE 81; RESP 18; TEMP 37.3; O2SAT 96; BMI 63.9
[2025-07-09 14:02] LABS: MANUAL DIFF FLAG NO
[2025-07-09 14:08] LABS: Hematocrit 37.9 % (37.0-47.0); Hemoglobin 12.6 g/dl (12.0-16.0); Imm Gran Abs Auto 0.01 X10*3/uL (0.00-0.03); Imm Gran Pct Auto 0.2 % (0.0-0.4); Lymphocytes Absolute Auto 1.7 X10*3/uL (1.2-4.9); Mean Corpuscular HGB Conc 33.2 g/dl (31.0-35.0); Mean Corpuscular Hemoglobin 27.0 pg (27.0-33.0); Mean Corpuscular Volume 81.3 fL (80.0-98.0); NRBC Abs Auto 0.000 X10*3/uL (0.0-0.012); NRBC Pct Auto 0.0 /100WBC (0.0-0.2); Platelet Count 370 X10*3/uL (160-400); Red Blood Count 4.66 X10*6/uL (4.20-5.50); White Blood Count 6.2 X10*3/uL (4.8-10.8)
--- OUTSIDE RECORDS SUMMARY | 2025-07-09 14:11 | XMS_ITS | Clinical Summary ---
Author Organization [facility] Facility Address [address] [place] [phone] Care Team Providers Care Folder Seamer Automatic Name Role Phone Vanessa Bird CHART READER-C Primary Care Provider Unavailable Medications clonazePAM (KlonoPIN) [...] Insurance [place] Care Teams Folder Seamer Automatic Relationship Specialty Start Date End Date Vanessa Bird FNP-C PCP - General Nurse Practitioner 05/20/21
[2025-07-09 14:18] LABS: Anion Gap 11 (12-20); Blood Urea Nitrogen 9 mg/dL (9-16); Calcium 9.0 mg/dL (8.4-10.2); Carbon Dioxide 26 mmol/L (22-29); Chloride 106 mmol/L (96-108); Creatinine Clr Calc Pharmacy 230.9; Estimated Glomerular Filt Rate > 60; Potassium 3.4 mmol/L (3.3-5.1); Sodium 140 mmol/L (135-145)
--- NOTE | 2025-07-09 14:27 | ED_ITS ---
HPI - Headache General Chief Complaint: Headache Stated Complaint: SEVERE MIGRAINES,BLURRY VISION RT EYE PER EMS Time Seen by Provider: 07/09/25 14:14 Source: patient and RN notes reviewed Mode of arrival: ambulatory Limitations: no limitations History of Present Illness ED Provider: Irina Frost PA-C HPI Narrative: This is a 30 yo female with a PMH of hypertension, sleep apnea, PCOS, diabetes, and depression presents to the ED with constant right sided headache and nausea for the past week. 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 Since that visit, her headache and nausea have persisted, and as of yesterday she developed right eye blurriness. Denies complete loss of vision or loss of peripheral field of vision. She denies any trauma to her right eye. She does report she has a history of eye problems, that of which she previously had to see an road machine runner for and get injections in her eye for. She states that she has not followed up with her eye physician in a while. Patient denies vomiting, abdominal pain, diarrhea, dizziness, syncope, focal weakness or deficits, numbness, speech changes, or fever. Denies recent head trauma. No prior history of migraines or chronic headaches. No other complaints or concerns at this time. MD elicited complaint: headache Onset (ago): week(s) Onset description: gradually Location: right Severity: moderate Quality & Timing: aching Exacerbating factors: none Relieving factors: nothing Associated symptoms: none Treatments prior to arrival: none Related Data Home Medications ?Medication ?Instructions ?Recorded ?Confirmed blood sugar diagnostic (FreeStyle #10 ea 07/14/2012/29 Lite Strips) enalapril maleate 20 mg tablet 20 mg PO DAILY 07/14/20 04/28/22 lancets 28 gauge (FreeStyle #100 ea 07/14/20 07/14/20 Lancets) atorvastatin 10 mg tablet 10 mg PO BEDTIME 04/28/22 clonazepam 1 mg tablet 1 mg PO BID 04/28/22 2 hydrochlorothiazide 25 mg tablet 25 mg PO DAILY 04/28/22 hydroxyzine HCl 25 mg tablet 1 - 2 tab PO Q6H PRN anxi ety 04/28/22 04/28/22 insulin lispro protamine-lispro 90 unit subcut BID 04/28/22 100 unit/mL (75-25) subcutaneous pen (Humalog Mix 75-25 KwikPen) perphenazine 2 mg tablet 2 mg PO BID 04/28/22 2 empagliflozin 10 mg tablet 10 mg PO QAM 07/10/22 (Jardiance) metformin 500 mg tablet 1,000 mg PO BID 07/10/22 spironolactone 25 mg tablet 25 mg PO DAILY 07/10/22 Previous Rx's ?Medication ?Instructions ?Recorded albuterol sulfate 90 mcg/actuation 2 puff inhalation Q 4-6H PRN 09/08/21 aerosol inhaler shortness of breath or wheez ing #8.5 grams ondansetron 4 mg disintegrating 4 mg PO Q6H PRN nausea and 12/20/21 tablet vomiting #10 tabs diclofenac sodium 1 % topical gel 2 g topical QID #100 grams 05/26/22 (Voltaren Arthritis Pain) albuterol sulfate 0.63 mg/3 mL 0.63 mg (3 mL) inhalati on QID PRN 07/04/22 solution for nebulization shortness of breath or wheez ing #75 mL albuterol sulfate 90 mcg/actuation 1 inh inhalation QI D PRN shortness 07/04/22 aerosol inhaler of breath or wheezing #8.5 g steffi nebulizers (AeroEclipse II #1 ea 07/04/22 Nebulizer) prednisone 20 mg tablet 40 mg (2 x 20 mg) PO DAILY r [place] 5 07/04/22 days #10 tabs ibuprofen 600 mg tablet 600 mg PO Q6H PRN pain #30 t abs 02/22/23 ondansetron 4 mg disintegrating 4 mg PO Q8H PRN nausea and 02/22/23 tablet vomiting #14 tabs doxycycline hyclate 100 mg capsule 100 mg PO BID cough 7 days #14 caps 07/22/23 benzonatate 100 mg capsule 100 mg PO BID PRN cough 7 d ays #14 07/30/23 caps acetaminophen 500 mg tablet 500 mg PO Q6H PRN fever or pain 09/21/23 (Tylenol Extra Strength) #14 tabs naproxen 500 mg tablet 500 mg PO BID PRN pain 10 da ys #20 09/21/23 tabs erythromycin 5 mg/gram (0.5 %) eye 1 appl ophthalmic ( eye) Q8H #3.5 11/02/23 ointment grams methocarbamol 750 mg tablet 750 mg PO TID PRN muscle s pasm #20 07/07/25 tabs Allergies Allergy/AdvReac Type Severity Reaction Status Date / Time No Known Allergies Allergy Verified 07/09/25 13:50 Review of Systems 2 Review of Systems: Constitutional : No Fever, No Chills ENT/Mouth : No sore throat, No Rhinorrhea Eyes: No Eye Pain, No Swelling, No Redness Cardiovascular : No Chest Pain, No SOB Respiratory : No Cough, No Sputum Gastrointestinal : No Nausea, No Vomiting, No Diarrhea, No abdominal Pain Genitourinary : No Dysuria, No Hematuria Musculoskeletal : No joint pain, No Myalgias, No Joint Swelling Skin : No Skin Lesions Neuro : No Weakness, No Numbness, +Headache All other systems reviewed and are negative Yes all other systems are reviewed and are negative Constitutional: Constitutional: Reports as per [facility] Past Medical History Attestation statement: The following information was validated with the patient. Medical History Hypertension Depression Apnea, sleep PTSD (post-traumatic stress disorder) (12/17/10) PCOS (polycystic ovarian syndrome) Metabolic syndrome Dysphagia Diabetes mellitus type 2 in obese Bipolar disorder Cough Asthma Intentional perphenazine overdose Suicidal ideation COVID-19 High blood cholesterol Bipolar 2 disorder, major depressive episode Sleep apnea GERD (gastroesophageal reflux disease) Hyperlipidemia Hypertension Diabetes mellitus, type 2 Social History Social History Alcohol intake: current Alcohol intake frequency: holidays/special occasions only Patient Tobacco Use Status: Never used Tobacco Substance Use Type: Marijuana Current occupational status: unemployed 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 General: appearance normal, both eyes and all related structures A lignment and Position: alignment normal Periorbital: periorbital findings normal Eyelids: Yes eyelids normal Conjunctivae: conjunctivae normal S clerae: sclerae normal Pupils: Equal, round and reactive pupils present E OM: EOMs intact bilaterally and No Nystagmus present Direct Ophthalmoscopy: n ormal light reflex and no photophobia Neck: Other: Mild ttp overlying the cervical paraspinous muscles Neck: Yes normal visual inspection, Yes full ROM, Yes no lymphadenopathy, Yes no meningeal signs and Yes trachea midline Skin: General skin exam: no rashes or lesions noted Lesions: no lesions Rashes: no rashes Trauma: no lacerations or abrasions Wounds: no wounds Neuro: General: patient oriented x3, no meningeal signs, no focal motor deficits and CN's II-XI intact bilaterally Cranial nerves: Yes CN's II-XII intact bilaterally, Yes Equal, round and reactive pupils present and No Nystagmus present Cognition (Neuro): normal cognition Gait exam (Neuro): N ormal gait present Motor exam (neuro): 5/5 motor strength present throughout Coordination: [id number] test normal Pupils: Normal pupillary reactivity/response: bilateral Psych: Appearance: grossly normal Medications Administered Discontinued Medications Generic Name Dose Route Start Last Admin Trade Name Freq PRN Reason Stop Dose Admin Diphenhydramine HCl 12.5 mg 07/09/25 14:43 07/09/25 15:02 Diphenhydramine Hcl 50 Mg/Ml Vial IVPUSH 07/09/25 14:44 12.5 mg ONCE ONE Administration Fluorescein Sodium 1 strip 07/09/25 17:55 07/09/25 18:06 Fluorescein Sodium Strip EYE-RIGHT 07/09/25 17:56 1 strip ONCE ONE Administration Acetaminophen 1,000 mg in 100 mls @ 400 mls/hr 07/09/25 14:42 07/09/25 15:20 Ofirmev IV 07/09/25 14:56 Infused ONCE ONE Infusion Sodium Chloride 1,000 mls @ 999 mls/hr 07/09/25 14:43 07/09/25 16:54 Ns IVCONT 07/09/25 15:43 Infused .Q1H1M ONE Infusion Iohexol 100 ml 07/09/25 15:36 07/09/25 15:36 Iohexol 350 Mg/Ml 100 Ml Infus..Btl IV 07/09/25 15:37 70 ml ONCE ONE Administration Ketorolac Tromethamine 15 mg 07/09/25 17:54 07/09/25 18:06 Ketorolac Tromethamine 15 Mg/Ml Vial IVPUSH 07/09/25 17:55 15 mg ONCE ONE Administration Metoclopramide HCl 10 mg 07/09/25 14:43 07/09/25 15:02 Metoclopramide Hcl 10 Mg/2 Ml Vial IVPUSH 07/09/25 14:44 10 mg ONCE ONE Administration Tetracaine HCl 1 drop 07/09/25 17:55 07/09/25 18:06 Tetracaine Hcl/Pf 0.5% Oph Keren 4 Ml Drops EYE-RIGHT 07/09/25 17:56 1 drop ONCE ONE Administration Medical Decision Making Medical Decision Making MDM Narrative: This is a 30 yo female with a PMH of hypertension, sleep apnea, PCOS, diabetes, and depression presents to the ED with constant headache and nausea for the past week. 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 On arrival, blood pressure elevated at 186/97, likely secondary to pain. She expresses concerns as she was told she had a cyst in her brain but was not given any other details other than to follow up with PCP. She reports that she has not taken any medications prior to her arrival. Reporting two days of blurred vision. NIH stroke scale 0. She is neurologically intact with no focal findings. DDX including tension headache, cluster headache, migraine headache. Less likely SAH, ICH, CVA. CT head w/o contrast completed two days ago revealing colloid cyst. Given blurred vision, will obtain CTA to rule out any other etiology. Will also obtain labs to rule out any electrolyte derangement, eye examination to rule out any evidence of corneal abrasion/FB, also will check pressures. Blurred vision is on the right eye which is where her headache is - likely related to migraine like process. >>CTA revealing Small colloid cyst present at the foramina Blevins measuring 3 mm. No hydrocephalus. Discussed with my attending physician, this is unlikely the cause of blurred vision. Visual acuity performed revealing decreased vision in the right eye. Pt reporting that she has a history of this and previously had to see an eye physician for this - unsure of her diagnosis. No evidence of corneal abrasion, FB, or laceration noted on her examination. She has full EOMI, pupils are reactive. She received IV fluids, tylenol, toradol, reglan and benadryl. She is feeling much better. Discussed overall workup with patient. I stressed the importance of following up with her eye physician as soon as possible given history of blurred vision and possible return of these symptoms. Bedside ocular ultrasound performed, images reviewed by my attending physician, Dr. Whiteside, no evidence of retinal detachment on images. Given overall workup today, her symptoms are likely secondary to migraine headache. She is very eager for discharge. I stressed the importance of following up with her eye physician, given neurology referral for colloid cyst, and following up with PCP. She understands and agrees with this plan. Pt stable for d.c. 07/10/2025 1045 - Called patient to follow up to see how she was feeling. Still reporting headaches, but reporting vision has been improving. She had attempted to call the neurologist this morning but needs a referral from her PCP. Advised to contact eye physician today as well. She understands, advised if symptoms get worse to return with any concerning symptoms. She understands and agrees with this plan. Differential Diagnosis Differential Diagnoses: The differential diagnosis associated with the presentation includes See above Lab Data MDM Lab Attestation statement: I reviewed the patient's lab results. No leukocytosis, stable H&H, Chemistry with no significant electrolyte derangements. 07/09/25 13:53 07/09/25 13:53 Labs: Lab Results 07/09/25 07/09/25 Range/Units 13:53 13:59 WBC 6.2 (4.8-10.8) X10*3/uL RBC 4.66 (4.20-5.50) X10*6/uL Hgb 12.6 (12.0-16.0) g/dl Hct 37.9 (37.0-47.0) % MCV 81.3 (80.0-98.0) fL MCH 27.0 (27.0-33.0) pg MCHC 33.2 (31.0-35.0) g/dl RDW 12.9 (11.0-16.0) % Plt Count 370 (160-400) X10*3/uL MPV 9.5 (9.4-12.3) fL Immature Gran % (Auto) 0.2 (0.0-0.4) % Neut % (Auto) 63.5 (45-73) % Lymph % (Auto) 27.9 (20-40) % [place]ter[place] % (Auto) 7.0 (2-11) % Eos % (Auto) 1.1 (0-4) % Baso % (Auto) 0.3 (0-2) % Lymph # (Auto) 1.7 (1.2-4.9) X10*3/uL [place] # (Auto) 0.4 (0.1-1.2) X10*3/uL Eos # (Auto) 0.1 (0.0-0.4) X10*3/uL Baso # (Auto) 0.0 (0.0-0.2) X10*3/uL Abs Immat Gran (auto) 0.01 (0.00-0.03) X10*3/uL Absolute Neuts (auto) 3.9 (2.0-8.3) x10*3/uL Absolute Nucleated RBC 0.000 (0.0-0.012) X10*3/uL Nucleated RBC % (auto) 0.0 (0.0-0.2) /100WBC ESR 28 H (0-20) MM/HR Sodium 140 (135-145) mmol/L Potassium 3.4 (3.3-5.1) mmol/L Chloride 106 (96-108) mmol/L Carbon Dioxide 26 (22-29) mmol/L Anion Gap 11 L (12-20) BUN 9 (9-16) mg/dL Creatinine 0.54 (0.5-1.4) mg/dL Estim Creat Clear Calc 230.9 Estimated GFR > 60 Random Glucose 142 H (60-115) mg/dL Calcium 9.0 (8.4-10.2) mg/dL Total Bilirubin 0.4 (0.0-1.0) mg/dL Direct Bilirubin 0.1 (0.0-0.5) mg/dL AST 25 (5-31) U/L ALT 25 (0-31) U/L Alkaline Phosphatase 57 (39-117) U/L Troponin I High Sens < 2.7 (<3.5-17.0) ng/L C-Reactive Protein 0.46 (< or = 0.50) mg/dL Total Protein 7.1 (6.5-8.0) g/dL Albumin 4.0 (3.5-5.0) g/dL Radiology Impression Discussion of test interpretation with radiology: I have reviewed the radiologist's reading. Radiologist Impression: : 1995 CLINICAL HISTORY: worsening headache, vision changes, colloid cyst CT head without contrast CT angiography head and neck with contrast. 3D Postprocessing. COMPARISON: CT head dated 07/07/25 at 21:47 EDT FINDINGS: HEAD CT: No midline shift, hydrocephalus, or acute hemorrhage. Hyperdense lesion present at the foramen of Monro measuring 3 mm consistent with a colloid cyst. No hydrocephalus. No significant atrophy-like change or white matter disease. There is no sinus or mastoid fluid. The orbits are within normal limits. There is no acute fracture. HEAD AND NECK CTA: Aortic arch and cervical great vessels are patent. Intracranial arteries are patent. No aneurysm, dissection, hemodynamically significant stenoses, or occlusion. No abnormal intracranial enhancement. The visualized thyroid gland is unremarkable. No cervical mass or fluid collection. Visualized lung apices are clear. No acute fracture. IMPRESSION: 1. Patent head and neck CTA. 2. Small colloid cyst present at the foramina Blevins measuring 3 mm. No hydrocephalus. This document has been electronically signed by: Sg Damon MD on 07/09/2025 17:08:06 Discharge Plan Discharge Clinical Impression: Headache Patient Disposition: Home, Self-Care Instructions: Acute Headache (ED) Additional Instructions: You were seen in the emergency department due to headaches and blurred vision. Your exam today was reassuring. You do have a small colloid cyst present at the foramina Blevins measuring 3 mm. No hydrocephalus. I want you to follow-up with neurology. Please call tomorrow to make an appointment. May also follow-up with your primary care physician. Please follow up with your eye doctor as soon as possible. If any new or worsening symptoms occur including but not limited to worsening headache, dizziness, worsening vision changes, please seek emergent care. I also want you to follow-up with your road machine runner. Prescriptions: No Action clonazepam 1 mg Tablet 1 mg PO BID hydroxyzine HCl 25 mg tablet 1 - 2 tab PO Q6H PRN (Reason: anxiety) hydrochlorothiazide 25 mg Tablet 25 mg PO DAILY insulin lispro protamin-lispro [Humalog Mix 75-25 KwikPen] 100 unit/mL (75-25) Insulin Pen 90 unit SUBCUT BID perphenazine 2 mg Tablet 2 mg PO BID atorvastatin 10 mg Tablet 10 mg PO BEDTIME diclofenac sodium [Voltaren Arthritis Pain] 1 % gel 2 g topical QID Qty: 100 0RF Rx Instructions: apply to single elbow, wrist or hand; for hand includes palm/fingers/back of hand albuterol sulfate 90 mcg/actuation HFA aerosol inhaler 2 puff inhalation Q4-6H PRN (Reason: shortness of breath or wheezing) Qty: 8.5 0RF ondansetron 4 mg tablet,disintegrating 4 mg PO Q6H PRN (Reason: nausea and vomiting) Qty: 10 0RF (DME) nebulizers [AeroEclipse II Nebulizer] Misc See Rx Instructions .ROUTE .MEDSUPPLY Qty: 1 0RF Rx Instructions: As directed albuterol sulfate 0.63 mg/3 mL solution for nebulization 0.63 mg inhalation QID PRN (Reason: shortness of breath or wheezing) Qty: 75 0RF albuterol sulfate 90 mcg/actuation HFA aerosol inhaler 1 inh inhalation QID PRN (Reason: shortness of breath or wheezing) Qty: 8.5 0RF prednisone 20 mg tablet 40 mg PO DAILY 5 Days Qty: 10 0RF ondansetron 4 mg tablet,disintegrating 4 mg PO Q8H PRN (Reason: nausea and vomiting) Qty: 14 0RF ibuprofen 600 mg tablet 600 mg PO Q6H PRN (Reason: pain) Qty: 30 0RF erythromycin 5 mg/gram (0.5 %) ointment 1 appl ophthalmic (eye) Q8H Qty: 3.5 0RF doxycycline hyclate 100 mg capsule 100 mg PO BID 7 Days Qty: 14 0RF benzonatate 100 mg capsule 100 mg PO BID PRN (Reason: cough) 7 Days Qty: 14 0RF acetaminophen [Tylenol Extra Strength] 500 mg tablet 500 mg PO Q6H PRN (Reason: fever or pain) Qty: 14 0RF naproxen 500 mg tablet 500 mg PO BID PRN (Reason: pain) 10 Days Qty: 20 0RF methocarbamol 750 mg tablet 750 mg PO TID PRN (Reason: muscle spasm) Qty: 20 0RF enalapril maleate 20 mg tablet 20 mg PO DAILY (DME) FreeStyle Lite Strips Strip See Rx Instructions .ROUTE .MEDSUPPLY Qty: 10 Rx Instructions: As directed (DME) lancets [FreeStyle Lancets] 28 gauge misc See Rx Instructions .ROUTE .MEDSUPPLY Qty: 100 Rx Instructions: As directed metformin 500 mg tablet 1,000 mg PO BID Jardiance 10 mg tablet 10 mg PO QAM spironolactone 25 mg tablet 25 mg PO DAILY Referrals: Brad Polk MD [Physician, Neurology] Interventions: ED Discharge Assessment Last Done: 07/09/25 19:30 Discharge Date/Time: 07/09/25 19:43 Print Language: Georgian
[2025-07-09 14:28] LABS: Troponin-I High Sensitivity < 2.7 ng/L (<3.5-17.0)
[2025-07-09] MEDS: iohexoL 350 MG/ML 100 ML INFUS..BTL IV (15:36)
[2025-07-09 17:05] LABS: Alanine Aminotransferase 25 U/L (0-31); Albumin Level 4.0 g/dL (3.5-5.0); Alkaline Phosphatase 57 U/L (39-117); Aspartate Amino Transferase 25 U/L (5-31); Total Protein 7.1 g/dL (6.5-8.0)
[2025-07-09 17:49] VITALS: BP 130/56; PULSE 77; RESP 16; TEMP 36.6; O2SAT 98
[2025-07-09] MEDS: Tetracaine HCl/PF 0.5% Oph Sol 4 ML DROPS 1 DROP EYE-RIGHT (18:06)
[2025-07-09] MEDS: Fluorescein Sodium STRIP 1 STRIP EYE-RIGHT (18:06)
[2025-07-09 19:30] VITALS: BP 130/56; PULSE 77; RESP 16; TEMP 36.6; O2SAT 98
--- NOTE | 2025-07-09 19:41 | MHC.EDTECH ---
visual acuity done at this time. pt states unable to see in right eye and reports some pain when moving eye.
== END 2025-07-09 19:43 | disposition home or self-care (01) ==
PROVIDERS: Physician Assistant Medical; Emergency Provider Emergency Medicine Emergency Medical Services; PCP Registered Nurse
DX: G43.909 Migraine, unspecified, not intractable, without status migrainosus (principal); R11.0 Nausea; H53.8 Other visual disturbances; E11.9 Type 2 diabetes mellitus without complications; Z79.4 Long term (current) use of insulin; Z79.899 Other long term (current) drug therapy
CPT/HCPCS: 36415; 70496; 70498; 80048; 80076; 84484; 85025; 85652; 86140; 93005; 96361; 96365; 96375; 99284; 99285; J0131; J1200; J1885; J2765; Q9967

== ENCOUNTER → 2025-07-09 14:09 | Outpatient (BNV) | payer MEDICAID, SELFPAY | PROVIDERS: Emergency Provider Emergency Medicine Emergency Medical Services; PCP Registered Nurse; Visit Provider Internal Medicine Cardiovascular Disease | DX: R51.9 Headache, unspecified (principal) | CPT/HCPCS: 93010 ==

== ENCOUNTER → 2025-07-09 15:03 | Outpatient (BNV) | payer MEDICAID, SELFPAY | PROVIDERS: Emergency Provider Emergency Medicine Emergency Medical Services; PCP Registered Nurse; Visit Provider Radiology Diagnostic Radiology | DX: G93.0 Cerebral cysts (principal); R51.9 Headache, unspecified | CPT/HCPCS: 70496; 70498 ==

== ENCOUNTER 2025-07-14 16:11 | Outpatient (REF) | payer MEDICAID, SELFPAY ==
--- OUTSIDE RECORDS SUMMARY | 2025-07-14 15:15 | XMS_ITS | Encounter Summary ---
Author Organization [employer] Address [address] [facility] [address] [place] [address] Care Team Providers Care Discount Clerk Name Role Phone Lety Black Primary Care Provider [phone] Grupo Nixon Unavailable Unavailable Reason for Referral * Consultation (Routine) - Pending Review Specialty Diagnoses / Procedures Referred By Darinel kennedy Referred To Contact Neurology Diagnoses Colloid cyst of brain (CMS/HCC) (HCC) Aching headache Lety Black FNP [address] [place] [address] Phone: tel: fax: [facility] Referral ID Status Reason Start Date Expiration Date Visits Requested Visits Authorized [id number] Pending Review Specialty Services Required 07/14/2025 07/14/2026 1 1 Encounter Details Date Type Department Care Team ([facility] st Contact Info) Description 07/14/2025 3:15 PM EDT Office Visit [facility] [address] [place], [place] [phone] Lety Black FNP [address] [place], [place] [phone] Colloid cyst of brain (CMS/HCC) (HCC) (Primary Dx); Encounter for immunization; Aching headache Social History Tobacco Use Types Packs/Day Years [...] Sign Reading Time Taken Comments Blood Pressure 180/90 07/14/2025 3:09 PM EDT Pulse 84 07/14/2025 3:09 PM EDT Temperature 36.2 C (97.2 F) 07/14/2025 3:09 PM EDT Respiratory Rate 20 07/14/2025 3:09 PM EDT Oxygen Saturation 98% 07/14/2025 3:09 PM EDT Inhaled Oxygen Concentration - - Weight 163 kg (359 lb 9.6 oz) 07/14/2025 3:09 PM EDT Height 159 cm (5' 2.6 ) 07/14/2025 3:09 PM EDT Body Mass Index 64.52 07/14/2025 3:09 PM EDT documented in this encounter Plan of Treatment Upcoming Encounters Date Type Department Care Team (Late st Contact Info) Description 08/02/2025 2:30 PM EDT Procedure Visit [facility] [address] [place] [address] Kimberley Mckeon CNM [address] [place] [address] 09/15/2025 10:00 AM EST Office Visit [facility] [address] [place], [place] [phone] Lety Black FNP [address] [place], [place] [phone] Scheduled Referrals Name Type Priority Associated Diagnoses Orde r Schedule Referral to Neurology Outpatient Referral Routine Colloid cyst of brain (CMS/[facility]) (HCC) Aching headache Expected: 07/14/2025 (Approximate), Expires: 07/14/2026 documented as of this encounter Visit Diagnoses Diagnosis Colloid cyst of brain (CMS/HCC) (HCC)- Primary Encounter for immunization Aching headache Headache documented in this encounter Additional Health Concerns Assessment Noted Time PHQ-9 Depression Total Score: 5 12/19/19 25 8:46 PM EDT documented as of this encounter Care Teams Discount Clerk Relationship Specialty Start Date End Date Lety Black FNP [address] [place] [phone] PCP - General Family Medicine 06/05/22 Grupo Nixon FNP [address] [place] [id number] Nurse Practitioner Family Medicine 09/14/23 documented as of this encounter
--- OUTSIDE RECORDS SUMMARY | 2025-07-14 16:13 | XMS_ITS | Encounter Summary ---
Author Organization [employer] Address [address] [facility] [address] [place] [address] Care Team Providers Care Plant Maintenance Supervisor Name Role Phone Lety Black Primary Care Provider [phone] Grupo Nixon Unavailable Unavailable Reason for Visit * Reason Comments Med Change Request Encounter Details Date Type Department Care Team ([facility] st Contact Info) Description 06/09/2025 Refill [facility] [address] [place], [place] [phone] Lety Black FNP [address] [place], [place] [phone] Social History Tobacco Use Types Packs/Day Years [...] Description 08/02/2025 2:30 PM EDT Procedure Visit [facility] [address] [place] [address] Kimberley Mckeon CNM [address] [place] [address] 09/15/2025 10:00 AM EST Office Visit [facility] [address] [place], [place] [phone] Lety Black FNP [address] [place] [address] documented as of this encounter Visit Diagnoses Not on filedocumented in this encounter Additional Health Concerns Assessment Noted Time PHQ-9 Depression Total Score: 5 12/19/19 25 8:46 PM EDT documented as of this encounter Care Teams Plant Maintenance Supervisor Relationship Specialty Start Date End Date Lety Black FNP [address] [place] [address] PCP - General Family Medicine 06/05/22 Grupo Nixon FNP [address] [place] [address] Nurse Practitioner Family Medicine 09/14/23 documented as of this encounter
--- OUTSIDE RECORDS SUMMARY | 2025-07-14 16:13 | XMS_ITS | Clinical Summary ---
Author Organization [employer] Address [address] [place] [address] Care Team Providers Care Boat Hop Name Role Phone Lety Black EGG CANDLER Primary Care Provider [phone] Grupo Nixon EGG CANDLER Unavailable Unavailable Allergies No known active allergies Medications * This document contains information received from the source organization and may not represent a complete record from that organization. Pentips 32G X 4 MM misc USE DIRECTED TWICE DAILY 100 each 11 01/10/20 23 Active Blood Glucose Monitoring Suppl (FreeStyle [place] Lite) w/Device kit USE TO TEST BLOOD SUGAR TWICE DAILY 07/16/20 22 Active Continuous Blood Gluc Sensor (FreeStyle Dontae 2 Sensor) misc USE DIRECTED. CHANGE EVERY 14 DAYS 12/16/19 23 Active FREESTYLE LITE test strip TEST BLOOD SUGAR TWICE DAILY 12/16/19 23 Active insulin lispro protamine-insuli n lispro (HumaLOG Mix 75-25) (75-25) 100 UNIT/ML injection INJECT 90 UNITS SUBCUTANEOUSLY BEFORE BREAKFAST AND 90 UNITS BEFORE SUPPER 11/11/19 23 Active medroxyPROGESTER one (Provera) 10 MG tablet TAKE 1 TABLET BY MOUTH EVERY DAY NOW AND IF NO MENSES FOR PRIOR 2 MONTHS 08/14/20 22 Active metFORMIN XR (Glucophage-XR) 500 MG 24 hr tablet Take 1,000 mg by mouth with breakfast and with evening meal. 12/16/19 23 Active Trulicity 0.75 MG/0.5ML solution pen-injector INJECT ONE PEN (=0.75MG) SUBCUTANEOUSLY ONCE A WEEK DIRECTED 08/13/20 23 Active Blood Pressure kitIndications:H ypertension associated with diabetes (HCC) 1 kit in the morning. 1 kit 01/04/20 24 Active Spacer/Aero-Hold ing Chambers (AeroChamber MV) inhalerIndicatio ns:Moderate persistent asthma with acute exacerbation Use as instructed with albuterol 1 each 01/04/20 24 Active Nebulizers miscIndications: Acute cough Use nebulizer as instructed 1 each 01/04/20 24 Active Respiratory Therapy Supplies (Nebulizer/Tubin g/Mouthpiece) kitIndications:A cute cough To be used with Nebulizer 1 kit 01/04/20 24 Active albuterol 108 (90 Base) MCG/ACT inhalerIndicatio ns:Wheezing Inhale 2 puffs every 6 (six) hours if needed for wheezing. 18 g 01/04/20 24 Active albuterol (2.5 MG/3ML) 0.083% nebulizer solutionIndicati ons:Wheezing INHALE 1 AMPULE USING A NEBULIZER EVERY 6 HOURS NEEDED FOR WHEEZING OR SHORTNESS OF BREATH 90 mL 5 02/19/20 24 Active empagliflozin (Jardiance) 10 MGIndications:Ty pe 2 diabetes mellitus treated with insulin ([facility]) Take 1 tablet (10 mg) by mouth in the morning. 90 tablet 11/17/19 25 Active perphenazine 4 MG tabletIndication s:Bipolar affective disorder, remission status unspecified (CMS/HCC) ([facility]) Take 3 tablets orally in the morning and 1 in the evening 120 tablet 1 02/22/20 25 Active clonazePAM (KlonoPIN) 1 MG tabletIndication s:Bipolar affective disorder, remission status unspecified (CMS/HCC) ([facility]) TAKE 1 TABLET BY MOUTH TWICE DAILY IN THE MORNING AND AT BEDTIME NEEDED FOR ANXIETY 60 tablet 06/02/20 25 Active enalapril (Vasotec) 20 MG tabletIndication s:Essential (primary) hypertension Take 1 tablet (20 mg) by mouth in the morning. 90 tablet 3 06/09/20 25 Active hydroCHLOROthiaz karlene (HYDRODiuril) 25 MG tabletIndication s:Essential (primary) hypertension Take 1 tablet (25 mg) by mouth in the morning. 90 tablet 3 06/09/20 25 Active atorvastatin (Lipitor) 10 MG tabletIndication s:Type 2 diabetes mellitus without complication, with long-term current use of insulin (HCC) Take 1 tablet (10 mg) by mouth at bedtime. (Cholesterol) 90 tablet 1 06/09/20 25 Active escitalopram (Lexapro) 10 MG tabletIndication s:Bipolar affective disorder, remission status unspecified (CMS/HCC) (HCC) Take 1 tablet (10 mg) by mouth Once per day. 30 tablet 1 06/09/20 25 025 Active cyclobenzaprine (Flexeril) 10 MG tabletIndication s:Chronic bilateral low back pain with sciatica, sciatica laterality unspecified Take 1 tablet (10 mg) by mouth if needed in the morning, at noon, and at bedtime for muscle spasms. 30 tablet 1 06/09/20 25 026 Active albuterol (Ventolin HFA) 108 (90 Base) MCG/ACT inhaler INHALE 2 PUFFS BY MOUTH EVERY 4 TO 6 HOURS NEEDED FOR SHORTNESS OF BREATH OR WHEEZING 18 g 1 06/09/20 25 Active fluticasone (Flonase) 50 MCG/ACT nasal spray SPRAY 1 SPRAY INTO EACH NOSTRIL TWICE A DAY. SHAKE GENTLY. BEFORE FIRST USE, PRIME PUMP. AFTER USE, CLEAN TIP AND REPLACE CAP. 48 g 3 06/09/20 25 Active Mounjaro 2.5 MG/0.5ML solution auto-injectorInd ications:Type 2 diabetes mellitus without complication, with long-term current use of insulin ([facility]) INJECT ONE PEN (=2.5MG) SUBCUTANEOUSLY ONCE A WEEK DIRECTED 05/19/20 25 Active Rimegepant Sulfate (Nurtec) 75 MG tablet dispersible Take 1 tablet (75 mg) by mouth if needed each day (migraines). 30 tablet 1 07/14/20 25 Active SUMAtriptan (Imitrex) 25 MG tablet Take 1 tablet (25 mg) by mouth 1 (one) time if needed for migraine for up to 1 dose. May repeat dose once in 2 hours if no relief. Do not exceed 2 doses in 24 hours. 9 tablet 07/14/20 25 025 Discontin ued(Thera py completed ) Active Problems Problem Noted Date Diagnosed Date Mild intermittent asthma without complication Overview (12/18/2024): Continues with albuterol PRN Healthcare maintenance 12/16/2024 Overview (12/18/2024): Pap: due, encouraged to schedule Assessment & Plan (06/13/2025 1:18 PM EDT): Asymptomatic STI testing ordered, including throat culture for CT/GC PCOS (polycystic ovarian syndrome) 01/13/2023 Diabetic retinopathy 03/10/2022 Type 2 diabetes mellitus without complication Overview (06/13/2025): -Following with [facility] Continues with the following med regimen [...] 07/29/2021 Bipolar disorder 07/21/2014 Overview (06/13/2025): - : therapist, My[facility] psychotherapy, weekly - Weekly check in with [facility] Assessment & Plan (06/13/2025 1:19 PM EDT): - Med management: previously through [facility] - clonazepam 1mg BID, perphenazine 4mg TID - Lexapro 10mg daily 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 [...] She is still generally doing well. Attending [employer] program. Has a new therapist whom she [...] well. Succeeding in school, will be starting [employer] program. Has a new therapist whom she [...] hospitalization program. Plans to start another at [facility] on 02/13/2023. Do F/U with current therapist [...] Overview (12/16/2024): April 2024: Sleep study at [facility] (ordered by Harper Kinne REVIEW SCHEDULING COORDINATOR). Diagnosed with ALON, severe. Recommendation for AutoCPAP 7-15 to be tried. If supoptimal response with CPAP, can try BiPAP 25/04. Anxiety 07/21/2012 Assessment & Plan (01/02/2024 2:27 PM EDT): Pt endorses anxiety interfering with ability to start trulicity, does feel supported from a mental health standpoint PTSD (post-traumatic stress disorder) 12/17/2010 Resolved Problems Problem Noted Date Diagnosed Date Resolved Date COPD exacerbation ([facility]) 12/30/2023 12/18/2024 Assessment & Plan (01/02/2024 2:28 [...] exam today Msk relaxer renewed, Severe obesity ([facility]) 01/13/202304/2025 Bipolar affective disorder, current episode mixed ([facility]) 11/11/2022 12/18/2024 Assessment & Plan (01/06/2023 3:35 [...] organization. 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 GONORRHOEAE DNA PROBE 07/03/2025 Refill [facility] [address] [place] [address] Lety Black FNP Type 2 diabetes mellitus without complication, with long-term current use of insulin (CMS/HCC) 06/09/2025 8:30 AM EDT Office Visit [facility] [address] [place] [address] Lety Black FNP Chronic bilateral low back pain with sciatica, sciatica laterality unspecified (Primary Dx); Type 2 diabetes mellitus without complication, with long-term current use of insulin ([facility]); Healthcare maintenance; Essential (primary) hypertension; Bipolar affective disorder, remission status unspecified ([facility]) 06/09/2025 Orders Only [facility] [address] [place] [address] Lety Black FNP 06/09/2025 Refill [facility] [address] [place] [address] Lety Black FNP 06/09/2025 Travel 06/08/2025 Telephone [facility] [address] [place] [address] Lety Black FNP Chart Prep 06/02/2025 Patient Outreach [facility] [address] [place], [place] [phone] Lety Balck FNP Pre-visit Planning ([facility] screening completed on 12/16/24) 06/01/2025 Refill [facility] [address] [place], [place] [phone] Lety Black FNP Bipolar affective disorder, remission status unspecified ([facility]/HCC) 04/24/2025 Refill [facility] [address] [place] [address] Lety Black FNP Bipolar affective disorder, remission status unspecified ([facility]); Anxiety from Last 3 Months Immunizations Immunization Administration Dates Next Due HPV, Quadrivalent 06/24/2010,02/22/2010 Hep B, Adolescent or Pediatric 1994,1993 Hep B, adult 06/03/2022 Hib ([facility]) 01/28/1996,199 5,1994,1993 IPV 04/08/1999,199 5,1994,1993 Influenza injectable quadriv alent preservative free 09/09/2023,11/11/2021,12/20/2014 Influenza, seasonal, injecta ble, preservative free 07/14/2025 MMR 04/08/1999 Pneumococcal Conjugate PCV 20 09/09/2023 [...] Mass Index 64.52 07/14/2025 3:09 PM EDT Plan of Treatment Upcoming Encounters Date Type Department Care Team (Late st Contact Info) Description 08/02/2025 2:30 PM EDT Procedure Visit [facility] [address] [place], [place] [phone] Kimberley Mckeon, ALEXISM [address] [place] [address] 09/15/2025 10:00 AM EST Office Visit [facility] [address] [place], [place] [phone] Lety Black, EGG CANDLER [address] [place], [place] [phone] Health Maintenance Due Date Last Done Comments Diabetes: Foot Exam 2004 Eye Exam 2004 Family Planning (PISQ) 2009 HPV Vaccines (3 - 3-dose series) 09/16/2010 06/24/2010, 02/22/2010 Pap Smear 2015 Cervical Cancer Screening 2024 HPV/Cotest 2024 COVID-19 Vaccine ( season) 2025 11/22/2021, 03/25/2021, 03/04/2021 Diabetes: Hemoglobin A1C 09/09/2025 025, 12/16/2024, 12/30/2023, [...] 11/11/2021 Hepatitis C Screening Completed 12/16/2024, 022 Influenza Vaccine Completed 07/14/2025, , 11/11/2021, Additional history exists Hepatitis A Vaccines Aged Out No long [...] Procedure Name Priority Date/Time Associated Diagnosis Comments CTA HEAD NECK W AND WO CONTRAST Routine 07/09/2025 5:08 PM EDT SED RATE BY MODIFIED WESTERGREN Routine 07/09/2025 1:59 PM EDT HIGH SENSITIVITY TROPONIN I Routine 07/09/2025 1:53 PM EDT BASIC METABOLIC PANEL Routine 07/09/2025 1:53 PM EDT CBC WITH AUTO DIFFERENTIAL Routine 07/09/2025 1:[address] HEAD WO CONTRAST Routine 07/07/2025 1 0:24 PM EDT HCG, TOTAL, QN Routine 07/07/2025 6:39 PM EDT LIPASE Routine 07/07/2025 6:39 PM EDT COMPREHENSIVE METABOLIC PANEL Routine 07/07/2025 6:39 PM EDT COVID-19 ID NOW ([facility]) Routine 07/07/2025 6:39 PM EDT URINALYSIS, COMPLETE, [...] complication, with long-term current use of insulin ([facility]/HCC) POCT GLUCOSE Routine 06/09/2025 8:57 AM EDT Type 2 diabetes mellitus without complication, with long-term current use of insulin (CMS/HCC) ALBUMIN, RANDOM URINE W/CREATININE Routine 12/16/2024 10:00 AM EST Healthcare maintenance HEPATITIS C VIRAL RNA, QUANTITATIVE, REAL-TIME PCR Routine 12/16/2024 9:52 AM EST Healthcare maintenance HIV 1/2 ANTIGEN/ANTIBODY, FOURTH GENERATION W/RFL Routine 12/16/2024 9:52 AM EST Healthcare maintenance LIPID PANEL, STANDARD Routine 12/16/2024 9:52 AM EST Healthcare maintenance from Last 3 Months or Most Recently Relevant to Health Maintenance Results * CTA Head Neck w/ and w/o Contrast (07/09/2025 5:08 PM EDT) Anatomical Region Laterality Modality Head, Neck Computed Tomogra phy 07/09/2025 5:08 PM EDT Narrative 07/09/2025 5:08 PM EDT [place] [address] CT Scan Report Signed Patient: Marium Ravi MR#: [id number] : 1995 Acct:[id number] Age/Sex: 30 / F ADM Date: 07/09/25 Loc: .ED Attending Dr: Ordering Physician: Irina Frost Date of Service: 07/09/25 Procedure(s): CT angio head neck Accession Number(s): [id number] cc: Lety Black EGG CANDLER; Irina Frost Report Number: [id number]: Total DLP = 1492.00 mGy-cm Reason for Exam: worsening headache, vision changes, colloid cyst CLINICAL HISTORY: worsening headache, vision changes, colloid cyst CT head without contrast CT angiography head and neck with contrast. 3D Postprocessing. COMPARISON: CT head dated 07/07/25 at 21:47 EDT FINDINGS: HEAD CT: No midline shift, hydrocephalus, or acute hemorrhage. Hyperdense lesion present at the foramen of Monro measuring 3 mm consistent with a colloid cyst. No hydrocephalus. No significant atrophy-like change or white matter disease. There is no sinus or mastoid fluid. The orbits are within normal limits. There is no acute fracture. HEAD AND NECK CTA: Aortic arch and cervical great vessels are patent. Intracranial arteries are patent. No aneurysm, dissection, hemodynamically significant stenoses, or occlusion. No abnormal intracranial enhancement. The visualized thyroid gland is unremarkable. No cervical mass or fluid collection. Visualized lung apices are clear. No acute fracture. IMPRESSION: 1. Patent head and neck CTA. 2. Small colloid cyst present at the foramina Blevins measuring 3 mm. No hydrocephalus. This document has been electronically signed by: Sg Damon MD on 07/09/2025 17:08:06 Dictated By: Sg Damon MD Signed By: <Electronically signed by Sg Damon MD in OV> 07/09/251707 DD/ 07 TD/TT: 07/09/251707 Eviscerator: Procedure Note Donotuseinterpreter, Image - 07/09/[address] [place] [address] [address] Scan Report Signed Patient: Marium Ravi MMR#: [id number] : 1995Acct:[id number] Age/Sex: 30 / FADM Date: 07/09/25 Loc: HO.ED Attending Dr: Ordering Physician: Irina Frost Date of Service: 07/09/25 Procedure(s): CT angio head neck Accession Number(s): [id number] cc: Lety Black EGG CANDLER; Irina Frost Report Number: [id number]: Total DLP = 1492.00 mGy-cm Reason for Exam: worsening headache, vision changes, colloid cyst CLINICAL HISTORY: worsening headache, vision changes, colloid cyst CT head without contrast CT angiography head and neck with contrast. 3D Postprocessing. COMPARISON: CT head dated 07/07/25 at 21:47 EDT FINDINGS: HEAD CT: No midline shift, hydrocephalus, or acute hemorrhage. Hyperdense lesion present at the foramen of Monro measuring 3 mm consistent with a colloid cyst. No hydrocephalus. No significant atrophy-like change or white matter disease. There is no sinus or mastoid fluid. The orbits are within normal limits. There is no acute fracture. HEAD AND NECK CTA: Aortic arch and cervical great vessels are patent. Intracranial arteries are patent. No aneurysm, dissection, hemodynamically significant stenoses, or occlusion. No abnormal intracranial enhancement. The visualized thyroid gland is unremarkable. No cervical mass or fluid collection. Visualized lung apices are clear. No acute fracture. IMPRESSION: 1. Patent head and neck CTA. 2. Small colloid cyst present at the foramina Blevins measuring 3 mm. No hydrocephalus. This document has been electronically signed by: Sg Damon MD on 07/09/2025 17:08:06 Dictated By: Sg Damon MD Signed By: <Electronically signed by Sg Damon MD in OV> 07/09/251707 DD/ 07 TD/TT: 07/09/251707 Eviscerator: [facility] External Provider IMG CT PROCEDURES Edited Result - Final * (ABNORMAL) Sed Rate by Modified Josie (07/09/2025 1:59 PM EDT) Erythrocyte Sedimentation Rate 28(H) 0 - 20 MM/HR [facility] Comment:Patients with polycy themia and many hemoglobin abnormalitiesmay have depressed sed rates whereas patients with anemiamay have elevated sed rates. 07/09/2025 1:59 PM EDT 07/09/2025 4:53 PM EDT Generic External Data Provider LAB BLOOD ORDERAB LES Final Result [facility] [address] [place] [phone] * High Sensitivity Troponin I (07/09/2025 1:53 PM EDT) TROPONIN I HIGH SENSITIVITY <2.7 <3.5 - 17.0 ng/L [facility] Comment:The [facility] high sens itivity Troponin-I results should beused in conjunction with other diagnostic information suchas ECG, clinical observations and information, and patientsymptoms to aid in the diagnosis of WI. 07/09/2025 1:53 PM EDT 07/09/2025 1:59 PM EDT us Generic External Data Provider LAB BLOOD ORDERAB LES Final Result [facility] [address] [place], [place] [phone] * CBC auto differential (07/09/2025 1:53 PM EDT) Only the most recent of2 resultswithin the time period is included. White Blood Count 6.2 4.8 - 10.8 X10*3/uL [facility] Red Blood Count 4.66 4.20 - 5.50 X10*6/uL [facility] Hemoglobin 12.6 12.0 - 16.0 g/dl [facility] Hematocrit 37.9 37.0 - 47.0 % [facility] Mean Corpuscular Volume 81.3 80.0 - 98.0 fL [facility] Mean Corpuscular Hemoglobin 27.0 27.0 - 33.0 pg [facility] Mean Corpuscular HGB Conc 33.2 31.0 - 35.0 g/dl [facility] Red Cell Distribution Width 12.9 11.0 - 16.0 % [facility] Platelet Count 370 160 - 400 X10*3/uL [facility] Mean Platelet Volume 9.5 9.4 - 12.3 fL [facility] Neutrophils Percent Auto 63.5 45 - 73 % [facility] Imm Gran Pct Auto 0.2 0.0 - 0.4 % [facility] Lymphocytes Percent Auto 27.9 20 - 40 % [facility] Monocytes Percent Auto 7.0 2 - 11 % [facility] Eosinophils Percent Auto 1.1 0 - 4 % [facility] Basophils Percent Auto 0.3 0 - 2 % [facility] NRBC Pct Auto 0.0 0.0 - 0.2 /100WBC [facility] Neutrophils Absolute Auto 3.9 2.0 - 8.3 x10*3/uL [facility] Imm Gran Abs Auto 0.01 0.00 - 0.03 X10*3/uL [facility] Lymphocytes Absolute Auto 1.7 1.2 - 4.9 X10*3/uL [facility] Monocytes Absolute Auto 0.4 0.1 - 1.2 X10*3/uL [facility] Eosinophils Absolute Auto 0.1 0.0 - 0.4 X10*3/uL [facility] Basophils Absolute Auto 0.0 0.0 - 0.2 X10*3/uL [facility] NRBC Abs Auto 0.000 0.0 - 0.012 X10*3/uL [facility] 07/09/2025 1:53 PM EDT 07/09/2025 1:59 PM EDT us Generic External Data Provider LAB BLOOD ORDERAB LES Final Result [facility] [address] [place] [phone] * (ABNORMAL) Basic Metabolic Panel (07/09/2025 1:53 PM EDT) Sodium 140 135 - 145 mmol/L [facility] Potassium 3.4 3.3 - 5.1 mmol/L [facility] Chloride 106 96 - 108 mmol/L [facility] Carbon Dioxide 26 22 - 29 mmol/L [facility] Anion Gap 11(L) 12 - 20 [facility] Urea Nitrogen (BUN) 9 9 - 16 mg/dL [facility] Creatinine, Serum 0.54 0.5 - 1.4 mg/dL [facility] Creatinine Clr Calc Pharmacy 230.9 [facility] Comment:Provided height and weight: 160.02 cm,163.747 kg.eGFR (calculated from the MDRD study equation) and eCrCl(calculated from the Cockcroft-Gault equation) are based ondifferent parameters and may not yield comparable results.If eCrCl result is absurd, please check patient'sheight/weight. Estimated Glomerular Filt Rate >60 [facility] Comment:Chronic Kidney Disea se: Estimated GFR < 60 mL/min/1.56c1Lqlbym Kidney Disease: Estimated GFR < 15 mL/min/1.73m2 Glucose 142(H) 60 - 115 mg/dL [facility] Calcium 9.0 8.4 - 10.2 mg/dL [facility] 07/09/2025 1:53 PM EDT 07/09/2025 1:59 PM EDT us Generic External Data Provider LAB BLOOD ORDERAB LES Final Result Performing Organization Address City/State/[facility] Co de Phone Number [facility] [address] [place] [phone] * CT Head w/o Contrast (07/07/2025 10:24 PM EDT) Anatomical Region Laterality Modality Head, Neck Computed Tomogra phy 07/07/2025 10:2 4 PM EDT Narrative 07/07/2025 10:25 PM EDT [address] [address] [address] Scan Report Signed Patient: Marium Ravi MR#: [id number] : 1995 Acct:[id number] Age/Sex: 30 / F ADM Date: 07/07/25 Loc: HO.ED Attending Dr: Ordering Physician: Pedro Benitez Date of Service: 07/07/25 Procedure(s): CT head/brain wo IV con Accession Number(s): [id number] cc: Lety Black EGG CANDLER; Pedro Benitez Report Number: [id number]: Total DLP = 765.00 mGy-cm Reason for Exam: headache CLINICAL HISTORY: headache CT head without contrast Comparison: None provided Findings: No intra-axial mass, midline shift, hydrocephalus, or acute hemorrhage. No significant atrophy-like change or white matter disease. 3.6 cm colloid cyst. Clear mastoid air cells. Ethmoid and sphenoid sinus disease. The orbits are within normal limits. No skull fracture. IMPRESSION: 3.6 cm colloid cyst Otherwise, no acute intracranial findings. This document has been electronically signed by: Padilla Reyes MD on 07/07/2025 22:24:17 Dictated By: Padilla Reyes MD Signed By: <Electronically signed by Padilla Reyes MD in OV> 07/07/252224 DD/ 23 TD/TT: 07/07/252223 Eviscerator: Procedure Note Donotanditer, Image - 07/07/[address] [address] [address] Scan Report Signed Patient: Marium Ravi MMR#: [id number] : 1995Acct:[id number] Age/Sex: M Date: 07/07/25 Loc: HO.ED Attending Dr: Ordering Physician: Pedro Benitez Date of Service: 07/07/25 Procedure(s): CT head/brain wo IV con Accession Number(s): [id number] cc: Lety Black EGG CANDLER; Pedro Benitez Report Number: [id number]: Total DLP = 765.00 mGy-cm Reason for Exam: headache CLINICAL HISTORY: headache CT head without contrast Comparison: None provided Findings: No intra-axial mass, midline shift, hydrocephalus, or acute hemorrhage. No significant atrophy-like change or white matter disease. 3.6 cm colloid cyst. Clear mastoid air cells. Ethmoid and sphenoid sinus disease. The orbits are within normal limits. No skull fracture. IMPRESSION: 3.6 cm colloid cyst Otherwise, no acute intracranial findings. This document has been electronically signed by: Padilla Reyes MD on 07/07/2025 22:24:17 Dictated By: Padilla Reyes MD Signed By: <Electronically signed by Padilla Reyes MD in OV> 07/07/252224 DD/ 23 TD/TT: 07/07/252223 Eviscerator: [facility] External Provider IMG CT PROCEDURES Edited Result - Final * Influenza A B2 ID NOW ([facility]) (07/07/2025 6:39 PM EDT) IDNOW SERIAL# [id number] [facility] Influenza A Negative Negative [facility] Influenza B2 Negative Negative [facility] Influenza A B2 Note See Note [facility] Comment:The [facility] ID NOW In fluenza [...] LAB MICROBIOLOGY - GENERAL ORDERABLES Final Result [facility] [address] [place] [phone] * COVID-19 ID NOW ([facility]) (07/07/2025 6:39 PM EDT) IDNOW SERIAL# [id number] [facility] COVID-19 TEST Negative Negative [facility] COVID-19 NOTE See Note [facility] Comment: Results are for the identification of SARS-CoV2 RNA. TheSARS-CoV2 RNA is generally detectable in respiratory samplesduring the acute phase of infection. Positive results areindicative of the presence of SARS-CoV-2 RNA; clinicalcorrelation with patient history and other diagnosticinformation is necessary to determine patient infectionstatus. Positive results do not rule out bacterial infectionor co- infection with other viruses.Testing facilities within the [facility] and itsterritories are required to report all positive results [...] use by authorized laboratories.Testing performed on the Venyo ID NOW utilizing NAAT. 07/07/2025 6:39 PM EDT 07/07/2025 6:45 PM EDT us Generic External Data Provider LAB MOLECULAR LILIANA [employer] ORDERABLES Final Result [facility] [address] [place] [address] [phone] * (ABNORMAL) Urinalysis, Complete, with Reflex to Culture (07/07/2025 6:39 PM EDT) Color Urine Yellow [facility] Appearance Urine Clear [facility] PH 5.5 5.0 - 9.0 [facility] Glucose Urine UA >=1000(A) Negative mg/dL [facility] Urine Blood Trace(A) Negative [facility] Specific [place] - Urine >=1.030(H) 1.005 - 1.025 [facility] Urine Protein 300 (3+)(A) Neg-Trace mg/dL [facility] Urine Ketones Negative Negative mg/dL [facility] Nitrite Urine Negative Negative [facility] Leukocyte Esterase Urine Negative Negative [facility] RBC Urine 0-2 0 - 2 /HPF [facility] Urine WBC 0-5 0 - 5 /HPF [facility] Urine Squamous Epithelial Cell 0-2 0 - 2 /HPF [facility] Urine Bacteria None Seen None Seen [facility] Hyaline Casts, Urine 0-2 0 - 2 /LPF [facility] 07/07/2025 6:39 PM EDT 07/07/2025 6:44 PM EDT Narrative [facility] - 07/07/2025 7:02 PM EDT Urine, Clean Catch us Generic External Data Provider LAB URINE ORDERAB LES Final Result Performing Organization Address City/[facility]/ZIP Co de Phone Number [facility] [address] [place] [phone] * hCG, Total, Quantitative (07/07/2025 6:39 PM EDT) HCG Quantitative <2 mIU/mL [facility] Comment:Weeks post LMP Appro ximate hCG(Last Menstrual Period) Range (mIU/ml)3 - 4 weeks 9 - 1304 - 5 weeks 75 - 2,6005 - 6 weeks 850 - 20,8006 - 7 weeks 4000 - 100,2007 - 12 weeks 11,500 - 289,95006 - 16 weeks 18,300 - 137,02700 - 29 weeks (2nd trimester) 1,400 - 53,11358 - 41 weeks (3rd trimester) 940 - [...] ORDERAB LES Final Result Performing Organization Address [facility]/ZIP Co de Phone Number [facility] [address] [place] [phone] * Lipase (07/07/2025 6:39 PM EDT) Lipase 22 8 - 78 U/L [facility] 07/07/2025 6:39 PM EDT 07/07/2025 6:44 PM EDT Generic External Data Provider LAB BLOOD ORDERAB LES Final Result Performing Organization Address City/[facility]/ZIP Co de Phone Number [facility] [address] [place] [phone] * (ABNORMAL) Comprehensive Metabolic Panel (07/07/2025 6:39 PM EDT) Sodium 141 135 - 145 mmol/L [facility] Potassium 3.6 3.3 - 5.1 mmol/L [facility] Chloride 108 96 - 108 mmol/L [facility] Carbon Dioxide 26 22 - 29 mmol/L [facility] Anion Gap 11(L) 12 - 20 [facility] Urea Nitrogen (BUN) 10 9 - 16 mg/dL [facility] Creatinine, Serum 0.56 0.5 - 1.4 mg/dL [facility] Creatinine Clr Calc Pharmacy 219.6 [facility] Comment:Provided height and weight: 157.48 cm,163.747 kg.eGFR (calculated from the MDRD study equation) and eCrCl(calculated from the Cockcroft-Gault equation) are based ondifferent parameters and may not yield comparable results.If eCrCl result is absurd, please check patient'sheight/weight. Estimated Glomerular Filt Rate >60 [facility] Comment:Chronic Kidney Disea se: Estimated GFR < 60 mL/min/1.13t3Zfdbvr Kidney Disease: Estimated GFR < 15 mL/min/1.73m2 Glucose 227(H) 60 - 115 mg/dL [facility] Calcium 8.8 8.4 - 10.2 mg/dL [facility] Bilirubin, Total 0.2 0.0 - 1.0 mg/dL [facility] Aspartate Amino Transferase 24 5 - 31 U/L [facility] Alanine Aminotransferase 25 0 - 31 U/L [facility] Total Protein 6.9 6.5 - 8.0 g/dL [facility] Albumin Level 3.9 3.5 - 5.0 g/dL [facility] Alkaline Phosphatase 53 39 - 117 U/L [facility] 07/07/2025 6:39 PM EDT 07/07/2025 6:44 PM EDT Generic External Data Provider LAB BLOOD ORDERAB LES Final Result Performing Organization Address City/[facility]/ZIP Co de Phone Number [facility] [address] [place] [phone] * C.TRACHOMATIS/N. GONORRHOEAE DNA PROBE (06/09/2025 9:23 AM EDT) CTNG Ref Lab NOT DETECTED NOT DETECTED [facility] NG Ref Lab NOT DETECTED NOT DETECTED [facility] 06/09/2025 9:23 AM EDT 06/09/2025 3:02 PM EDT Lety Black [facility] MICROBIOLOGY - GENERAL ORD ERABLES Final Result Performing Organization Address [facility] Co de Phone Number [facility] [address] [place] [phone] * (ABNORMAL) POCT HGB A1C (06/09/2025 8:57 AM EDT) Pathologist [facility] Hemoglobin A1C 7.0(A) 4.0 - 5.7 % QC Media Lot # [id number] Lot# Expiration Date Blood 06/09/2025 8:57 AM EDT Letysudha Black [facility] POINT OF CARE TEST ENTER/EDIT ORDERABLES Final Result * POCT Glucose (06/09/2025 8:57 AM EDT) Pathologist [facility] Glucose Blood, POC 122 60 - 200 mg/dL QC Media Lot # [id number] Lot# Expiration Date Blood Capillary blood specimen / Unknown 06/09/2025 8:57 AM EDT Letysudha Black [facility] POINT OF CARE TEST ENTER/EDIT ORDERABLES Final Result * (ABNORMAL) Albumin, Random Urine W/Creatinine (12/16/2024 10:00 AM EST) Creatinine, Urine 173.18 mg/dL [facility] Microalbumin Urine >500.0 mg/L [facility] Microalbum Creatinine Ratio Ur 288.7(H) <30 ug/mg cr [facility] Comment:Albumin/Creatinine R atio Reference Ranges: Normal: < 30 ug/mg creatinine Microalbuminuria: 30 - 300 ug/mg creatinineClinical Albuminuria: > 300 ug/mg creatinine Urine 12/16/2024 10:0 0 AM EST 12/16/2024 2:14 PM EST Lety Black [facility] URINE ORDERABLES Final Res ult Performing Organization Address [facility] Co de Phone Number [facility] [address] [place] [address] [phone] * Hepatitis C Viral RNA, Quantitative, Real-Time PCR (12/16/2024 9:52 AM EST) Hepatitis C Viral Load <15 NOT DETECTED NOT DETECTED IU/mL [facility] HCV Log PCR <1.18 NOT DETECTED NOT DETECTED Log IU/mL [facility] Comment:For additional infor rolly, please refer tohttp://education.myhub/faq/IRU62d0(This link is being provided for informational/educational purposes only.)THIS TEST WAS PERFORMED AT:[employer] [place] [phone] CONSTANTINO MD Blood 12/16/2024 9:52 AM EST 12/16/2024 2:13 PM EST Ltey Black [facility] BLOOD ORDERABLES Final Res ult Performing Organization Address [facility] Co de Phone Number [facility] [address] [place] [address] [phone] * HIV-1/2 Antigen and Antibodies, Fourth Generation, with Reflexes (12/16/2024 9:52 AM EST) HIV AB/AG Nonreactive Nonreactive [facility] Comment:HIV-1 p24 Ag and/or HIV-1/HIV-2 Ab not detected.A test result that is nonreactive does not exclude thepossibility of exposure to or infection with HIV-1 and/orHIV-2. Nonreactive results in this assay for individualswith prior exposure to HIV-1 and/or HIV-2 may be due toantigen and antibody levels that are below the limit ofdetection of this assay.The [employer] HIV Ag/Ab Combo assay result andsupplemental assay results should be interpreted inconjunction with the patient's clinical presentation,history and other laboratory results. If the results areinconsistent with clinical evidence, additional testing issuggested to confirm the result. Blood Venous blood specimen / Unknown 12/16/2024 9:52 AM EST 12/16/2024 2:13 PM EST us Lety Black [facility] BLOOD ORDERABLES Final Res ult [facility] [address] [place] [phone] * (ABNORMAL) Lipid Panel, Standard (12/16/2024 9:52 AM EST) Triglycerides 79 <150 mg/dL [facility] Comment:Desirable Triglyceri de: less than 150 mg/dLBorderline High Triglyceride 150-199 mg/dLHigh Triglyceride: 200-499 mg/dLVery High Triglyceride: greater than or equal to 5OO mg/dL Cholesterol 203(H) <200 mg/dL [facility] Comment:Desirable Cholestero l: less than 200 mg/dLBorderline High Cholesterol: 200-239 mg/dLHigh Cholesterol: greater than 239 mg/dL LDL Cholesterol Calculated 132(H) <100 mg/dL [facility] Comment:Desirable LDL: less than 100 mg/dLNear Optimal/Above Optimal LDL: 110- 129 mg/dLBorderline High LDL: 130-159 mg/dLHigh LDL: 160-189 mg/dLVery High LDL: greater than or equal to 190 mg/dL HDL Cholesterol 56 >40 mg/dL [facility] Comment:Desirable HDL: great er than 40 mg/dL Note: This HDL assay may give artificially low results in patients with liver disease. Blood Venous blood specimen / Unknown 12/16/2024 9:52 AM EST 12/16/2024 2:13 PM EST us Lety Black [facility] BLOOD ORDERABLES Final Res ult [facility] [address] [place] [phone] from Last 3 Months or Most Recently Relevant to Health Maintenance [facility] Care Teams Boat Hop Relationship Specialty Start Date End Date Lety Black FNP [address] [place] [address] PCP - General Family Medicine 06/05/22 Grupo Nixon FNP [address] [place] [address] Nurse Practitioner Family Medicine 09/14/23
--- OUTSIDE RECORDS SUMMARY | 2025-07-14 16:13 | XMS_ITS | Encounter Summary ---
Author Organization [employer] Address [address] [place] [address] Care Team Providers Care Protective Signal Installer Helper Name Role Phone Lety Black JESSA Primary Care Provider [phone] Grupo Nixon PATIENT CARE SPECIALIST Unavailable Unavailable Encounter Details Date Type Department Care Team (Latest Contact Info) Description 07/14/2025 Travel Social History Tobacco Use Types Packs/Day [...] as of this encounter Plan of Treatment Upcoming Encounters Date Type Department Care Team (Late st Contact Info) Description 08/02/2025 2:30 PM EDT Procedure Visit [facility] [address] [place] [address] Kimberley Mckeon CNM [address] [place] [address] 09/15/2025 10:00 AM EST Office Visit [facility] [address] [place] [address] Lety Black FNP [address] [place] [address] documented as of this encounter Visit Diagnoses Not on filedocumented in this encounter Additional Health Concerns Assessment Noted Time PHQ-9 Depression Total Score: 5 12/19/19 25 8:46 PM EDT documented as of this encounter Care Teams Protective Signal Installer Helper Relationship Specialty Start Date End Date Lety Black FNP [address] [place] [phone] PCP - General Family Medicine 06/05/22 Grupo Nixon FNP [address] [place] [phone] Nurse Practitioner Family Medicine 09/14/23 documented as of this encounter
--- OUTSIDE RECORDS SUMMARY | 2025-07-14 16:13 | XMS_ITS | Encounter Summary ---
Author Organization [employer] Address [address] [facility] 7[address] [place] [address] Care Team Providers Care Fruit Dryer Name Role Phone Lety Black Primary Care Provider [phone] Grupo Nixon Unavailable Unavailable Encounter Details Date Type Department Care Team (Late Contact Info) Description 11/03/2022 Orders Only [facility] [address] [place] [address] Tammy Beyer LPN Social History Tobacco Use [...] Encounters Date Type Department Care Team (Late Contact Info) Description 08/02/2025 2:30 PM EDT Procedure Visit [facility] [address] [place] [address] Kimberley Mckeon CNM [address] [place] [address] 09/15/2025 10:00 AM EST Office Visit [facility] [address] [place] [address] Lety Black FNP [address] [place] [address] documented as of this encounter Procedures Procedure [...] (07/22/2023 8:22 AM EDT) Urine NEGATIVE NEGATIVE [facility] Comment:This test was develo ped to detect early . Falsenegative results may occur after the 5th - 7th week ofpregnancy when using this test method. If clinicallyindicated, consider a serum hCG. 07/22/2023 8:22 AM EDT 07/22/2023 8:29 AM EDT us [facility] External Provider LAB URI NE ORDERABLES Final Result [facility] [address] [place] [phone] * (ABNORMAL) Urinalysis, Complete, with Reflex to Culture (02/22/2023 3:05 PM EDT) Color Urine Yellow [facility] Appearance Urine Cloudy [facility] PH 5.5 5.0 - 9.0 [facility] Glucose Urine UA >=1000(A) Negative mg/dL [facility] Urine Blood Trace(A) Negative [facility] Specific [place] - Urine >=1.030(H) 1.005 - 1.025 [facility] Urine Protein 100 (2+)(A) Neg-Trace mg/dL [facility] Urine Ketones Negative Negative mg/dL [facility] Nitrite Urine Negative Negative [facility] Leukocyte Esterase Urine Negative Negative [facility] RBC Urine 0-2 0 - 2 /HPF [facility] Urine WBC 0-5 0 - 5 /HPF [facility] Urine Squamous Epithelial Cell 0-2 0 - 2 /HPF [facility] Urine Bacteria None Seen None Seen [facility] Hyaline Casts, Urine 0-2 0 - 2 /LPF [facility] 02/22/2023 3:05 PM EDT 02/22/2023 3:11 PM EDT Narrative [facility] - 02/22/2023 3:23 PM EDT [id number], Clean Catch [facility] External Provider LAB URI NE ORDERABLES Final Result Performing Organization Address [facility] de Phone Number [facility] [address] [place] [phone] * HCG, Qualitative, Urine (02/22/2023 3:05 PM EDT) Urine NEGATIVE NEGATIVE [facility] Comment:This test was develo ped to detect early . Falsenegative results may occur after the 5th - 7th week ofpregnancy when using this test method. If clinicallyindicated, consider a serum hCG. 02/22/2023 3:05 PM EDT 02/22/2023 3:11 PM EDT [facility] External Provider LAB URI NE ORDERABLES Final Result Performing Organization Address [facility] de Phone Number [facility] [address] [place] [phone] * (ABNORMAL) Urinalysis with reflex microscopic (02/22/2023 3:05 PM EDT) Color Urine Yellow [facility] Appearance Urine Cloudy [facility] PH 5.5 5.0 - 9.0 [facility] Glucose Urine UA >=1000(A) Negative mg/dL [facility] Urine Blood Trace(A) Negative [facility] Specific [place] - Urine >=1.030(H) 1.005 - 1.025 [facility] Urine Protein 100 (2+)(A) Neg-Trace mg/dL [facility] Urine Ketones Negative Negative mg/dL [facility] Nitrite Urine Negative Negative [facility] Leukocyte Esterase Urine Negative Negative [facility] 02/22/2023 3:05 PM EDT 02/22/2023 3:11 PM EDT Narrative [facility] - 02/22/2023 3:18 PM EDT Urine, Catheterized [facility] External Provider LAB URI NE ORDERABLES Final Result Performing Organization Address [facility] Co de Phone Number [facility] [address] [place] [phone] * (ABNORMAL) GLUCOSE, WHOLE BLOOD (02/22/2023 2:43 PM EDT) Glucose, Whole Blood 275(H) 60 - 115 mg/dL [facility] Comment:METER #: [id number] 1 02/22/2023 2:43 PM EDT 02/22/2023 2:53 PM EDT [facility] External Provider LAB BLO OD ORDERABLES Final Result Performing Organization Address [facility] Phone Number [facility] [address] [place] [phone] * HCG, Total, Quantitative (02/22/2023 12:31 PM EDT) HCG Quantitative <2 mIU/mL [facility] Comment:Weeks post LMP Appr oximate hCG(Last Menstrual Period) Range (mIU/ml)3 - 4 weeks 9 - 1304 - 5 weeks 75 - 2,6005 - 6 weeks 850 - 20,8006 - 7 weeks 4000 - 100,2007 - 12 weeks 11,500 - 289,88030 - 16 weeks 18,300 - 137,62216 - 29 weeks (2nd trimester) 1,400 - 53,77681 - 41 weeks (3rd trimester) 940 - 60,000The [place] B- hCG assay is used for the early detection ofpregnancy; it cannot be used to diagnose any conditionunrelated to . If a B-hCG level is not supportedby the clinical evidence, results should be confirmed by analternative method (qualitative urine hCG, for example). 02/22/2023 12:3 1 PM EDT 02/22/2023 12:34 PM EDT [facility] External Provider LAB BLO OD ORDERABLES Final Result Performing Organization Address [facility]/ZIP Co de Phone Number [facility] [address] [place] [address] [phone] * Lipase (02/22/2023 12:31 PM EDT) Lipase 22 8 - 78 U/L [facility] 02/22/2023 12:3 1 PM EDT 02/22/2023 12:34 PM EDT [facility] External Provider LAB BLO OD ORDERABLES Final Result Performing Organization Address [facility] de Phone Number [facility] [address] [place] [address] [phone] * (ABNORMAL) Magnesium (02/22/2023 12:31 PM EDT) Pathologist [facility] Magnesium 1.4(LL) 1.6 - 2.6 mg/dL [facility] Comment:Critical value for M AG: Results called to and read Mihaela Person calling: KARMA Date: 02/22/23 Time: 1301 02/22/2023 12:3 1 PM EDT 02/22/2023 12:34 PM EDT [facility] External Provider LAB BLO OD ORDERABLES Final Result Performing Organization Address [facility] Co de Phone Number [facility] [address] [place] [address] [phone] * (ABNORMAL) Comprehensive Metabolic Panel (02/22/2023 12:31 PM EDT) Sodium 136 135 - 145 mmol/L [facility] Potassium 3.7 3.3 - 5.1 mmol/L [facility] Chloride 101 96 - 108 mmol/L [facility] Carbon Dioxide 23 22 - 29 mmol/L [facility] Anion Gap 16 12 - 20 [facility] Urea Nitrogen (BUN) 11 9 - 16 mg/dL [facility] Creatinine, Serum 0.81 0.5 - 1.4 mg/dL [facility] Creatinine Clr Calc Pharmacy 159.4 [facility] Comment:Provided height and weight: 160.02 cm,165.561 kg.eGFR (calculated from the MDRD study equation) and eCrCl(calculated from the Cockcroft-Gault equation) are based ondifferent parameters and may not yield comparable results.If eCrCl result is absurd, please check patient'sheight/weight. Estimated Glomerular Filt Rate >60 [facility] Comment:NOTE: For -Am erican individuals, multiply the result by 1.210.Chronic Kidney Disease: Estimated GFR < 60 mL/min/1.08w9Tppnwd Kidney Disease: Estimated GFR < 15 mL/min/1.73m2 Glucose 342(H) 60 - 115 mg/dL [facility] Calcium 9.0 8.4 - 10.2 mg/dL [facility] Bilirubin, Total 0.3 0.0 - 1.0 mg/dL [facility] Aspartate Amino Transferase 14 5 - 31 U/L [facility] Alanine Aminotransferase 27 0 - 31 U/L [facility] Total Protein 6.8 6.5 - 8.0 g/dL [facility] Albumin Level 3.9 3.5 - 5.0 g/dL [facility] Alkaline Phosphatase 59 39 - 117 U/L [facility] 02/22/2023 12:3 1 PM EDT 02/22/2023 12:34 PM EDT us [facility] External Provider LAB BLO OD ORDERABLES Final Result [facility] [address] [place] [address] [phone] * (ABNORMAL) CBC auto differential (02/22/2023 12:31 PM EDT) White Blood Count 8.0 4.8 - 10.8 X10*3/uL [facility] Red Blood Count 4.54 4.20 - 5.50 X10*6/uL [facility] Hemoglobin 12.1 12.0 - 16.0 g/dl [facility] Hematocrit 37.0 37.0 - 47.0 % [facility] Mean Corpuscular Volume 81.5 80.0 - 98.0 fL [facility] Mean Corpuscular Hemoglobin 26.7(L) 27.0 - 33.0 pg [facility] Mean Corpuscular HGB Conc 32.7 31.0 - 35.0 g/dl [facility] Red Cell Distribution Width 12.4 11.0 - 16.0 % [facility] Platelet Count 360 160 - 400 X10*3/uL [facility] Mean Platelet Volume 9.1(L) 9.4 - 12.3 fL [facility] Neutrophils Percent Auto 77.4(H) 45 - 73 % [facility] Imm Gran Pct Auto 0.5(H) 0.0 - 0.4 % [facility] Lymphocytes Percent Auto 16.5(L) 20 - 40 % [facility] Monocytes Percent Auto 5.2 2 - 11 % [facility] Eosinophils Percent Auto 0.0 0 - 4 % [facility] Basophils Percent Auto 0.4 0 - 2 % [facility] NRBC Pct Auto 0.0 0.0 - 0.2 /100WBC [facility] Neutrophils Absolute Auto 6.2 2.0 - 8.3 x10*3/uL [facility] Imm Gran Abs Auto 0.04(H) 0.00 - 0.03 X10*3/uL [facility] Lymphocytes Absolute Auto 1.3 1.2 - 4.9 X10*3/uL [facility] Monocytes Absolute Auto 0.4 0.1 - 1.2 X10*3/uL [facility] Eosinophils Absolute Auto 0.0 0.0 - 0.4 X10*3/uL [facility] Basophils Absolute Auto 0.0 0.0 - 0.2 X10*3/uL [facility] NRBC Abs Auto 0.000 0.0 - 0.012 X10*3/uL [facility] 02/22/2023 12:3 1 PM EDT 02/22/2023 12:34 PM EDT [facility] External Provider LAB BLO OD ORDERABLES Final Result Performing Organization Address [facility]/ZIP Co de Phone Number [facility] [address] [place] [address] [phone] * (ABNORMAL) Urinalysis, Complete, with Reflex to Culture (11/24/2022 9:56 AM EST) Color Urine Yellow [facility] Appearance Urine Clear [facility] PH 6.0 5.0 - 9.0 [facility] Glucose Urine UA Negative Negative mg/dL [facility] Urine Blood Negative Negative [facility] Specific [place] - Urine 1.020 1.005 - 1.025 [facility] Urine Protein 30 (1+)(A) Neg-Trace mg/dL [facility] Urine Ketones Negative Negative mg/dL [facility] Nitrite Urine Negative Negative [facility] Leukocyte Esterase Urine Negative Negative [facility] RBC Urine 0-2 0 - 2 /HPF [facility] Urine WBC 0-5 0 - 5 /HPF [facility] Urine Squamous Epithelial Cell 0-2 0 - 2 /HPF [facility] Urine Bacteria None Seen None Seen [facility] Hyaline Casts, Urine 0-2 0 - 2 /LPF [facility] 11/24/2022 9:56 AM EST 11/24/2022 10:00 AM EST Narrative [facility] - 11/24/2022 10:12 AM EST [id number], Clean Catch [facility] External Provider LAB URI NE ORDERABLES Final Result Performing Organization Address City/[facility]/ZIP Co de Phone Number [facility] [address] [place] [address] [phone] * Lipase (11/24/2022 9:50 AM EST) Lipase 56 8 - 78 U/L [facility] 11/24/2022 9:50 AM EST 11/24/2022 9:53 AM EST [facility] External Provider LAB BLO OD ORDERABLES Final Result Performing Organization Address [facility] Co de Phone Number [facility] [address] [place] [address] [phone] * Hepatic Function Panel (11/24/2022 9:50 AM EST) Pathologist [facility] Bilirubin, Direct <0.2 0.0 - 0.5 mg/dL [facility] 11/24/2022 9:50 AM EST 11/24/2022 9:53 AM EST [facility] External Provider LAB BLO OD ORDERABLES Final Result Performing Organization Address [facility] Co de Phone Number [facility] [address] [place] [phone] * (ABNORMAL) Comprehensive Metabolic Panel (11/24/2022 9:50 AM EST) Pathologist [facility] Sodium 140 135 - 145 mmol/L [facility] Potassium 3.7 3.3 - 5.1 mmol/L [facility] Chloride 104 96 - 108 mmol/L [facility] Carbon Dioxide 27 22 - 29 mmol/L [facility] Anion Gap 13 12 - 20 [facility] Urea Nitrogen (BUN) 14 9 - 16 mg/dL [facility] Creatinine, Serum 0.60 0.5 - 1.4 mg/dL [facility] Creatinine Clr Calc Pharmacy 207.6 [facility] Comment:Provided height and weight: 160.02 cm,156.9 kg.eGFR (calculated from the MDRD study equation) and eCrCl(calculated from the Cockcroft-Gault equation) are based ondifferent parameters and may not yield comparable results.If eCrCl result is absurd, please check patient'sheight/weight. Estimated Glomerular Filt Rate >60 [facility] Comment:NOTE: For -Am erican individuals, multiply the result by 1.210.Chronic Kidney Disease: Estimated GFR < 60 mL/min/1.36e0Yaurom Kidney Disease: Estimated GFR < 15 mL/min/1.73m2 Glucose 142(H) 60 - 115 mg/dL [facility] Calcium 9.7 8.4 - 10.2 mg/dL [facility] Bilirubin, Total 0.3 0.0 - 1.0 mg/dL [facility] Aspartate Amino Transferase 19 5 - 31 U/L [facility] Alanine Aminotransferase 33(H) 0 - 31 U/L [facility] Total Protein 7.1 6.5 - 8.0 g/dL [facility] Albumin Level 4.3 3.5 - 5.0 g/dL [facility] Alkaline Phosphatase 59 39 - 117 U/L [facility] 11/24/2022 9:50 AM EST 11/24/2022 9:53 AM EST us [facility] External Provider LAB BLO OD ORDERABLES Final Result [facility] [address] [place] [address] [phone] * (ABNORMAL) CBC auto differential (11/24/2022 9:50 AM EST) White Blood Count 10.5 4.8 - 10.8 X10*3/uL [facility] Red Blood Count 4.43 4.20 - 5.50 X10*6/uL [facility] Hemoglobin 11.8(L) 12.0 - 16.0 g/dl [facility] Hematocrit 36.3(L) 37.0 - 47.0 % [facility] Mean Corpuscular Volume 81.9 80.0 - 98.0 fL [facility] Mean Corpuscular Hemoglobin 26.6(L) 27.0 - 33.0 pg [facility] Mean Corpuscular HGB Conc 32.5 31.0 - 35.0 g/dl [facility] Red Cell Distribution Width 12.5 11.0 - 16.0 % [facility] Platelet Count 404(H) 160 - 400 X10*3/uL [facility] Mean Platelet Volume 9.6 9.4 - 12.3 fL [facility] Neutrophils Percent Auto 74.4(H) 45 - 73 % [facility] Imm Gran Pct Auto 0.4 0.0 - 0.4 % [facility] Lymphocytes Percent Auto 19.1(L) 20 - 40 % [facility] Monocytes Percent Auto 4.9 2 - 11 % [facility] Eosinophils Percent Auto 0.9 0 - 4 % [facility] Basophils Percent Auto 0.3 0 - 2 % [facility] NRBC Pct Auto 0.0 0.0 - 0.2 /100WBC [facility] Neutrophils Absolute Auto 7.8 2.0 - 8.3 x10*3/uL [facility] Imm Gran Abs Auto 0.04(H) 0.00 - 0.03 X10*3/uL [facility] Lymphocytes Absolute Auto 2.0 1.2 - 4.9 X10*3/uL [facility] Monocytes Absolute Auto 0.5 0.1 - 1.2 X10*3/uL [facility] Eosinophils Absolute Auto 0.1 0.0 - 0.4 X10*3/uL [facility] Basophils Absolute Auto 0.0 0.0 - 0.2 X10*3/uL [facility] NRBC Abs Auto 0.000 0.0 - 0.012 X10*3/uL [facility] 11/24/2022 9:50 AM EST 11/24/2022 9:53 AM EST us [facility] External Provider LAB BLO OD ORDERABLES Final Result [facility] [address] [place] [address] [phone] documented in this encounter Visit Diagnoses Not on filedocumented in this encounter Care Teams Fruit Dryer Relationship Specialty Start Date End Date Lety Black FNP [address] [place] [address] PCP - General Family Medicine 06/05/22 Grupo Nixon FNP [address] [place] [address] Nurse Practitioner Family Medicine 09/14/23 documented as of this encounter
--- OUTSIDE RECORDS SUMMARY | 2025-07-14 16:13 | XMS_ITS | Encounter Summary ---
Author Organization [employer] Address [address] [facility] [address] [place] [address] Care Team Providers Care Booster Operator Name Role Phone Lety Black Primary Care Provider [phone] Grupo Nixon Unavailable Unavailable Reason for Visit * Reason Onset Date Comments ER Follow-up 07/12/2025 Encounter Details Date Type Department Care Team (Late st Contact Info) Description 07/12/2025 Telephone [facility] [address] [place], [place] [phone] Lety Black FNP [address] [place], [place] [phone] ER Follow-up Social History Tobacco Use Types Packs/Day Years [...] encounter Miscellaneous Notes * Telephone Encounter - Arcelia Felix RN - 07/12/2025 10:18 AM EDT Triage call Pt was seen in [facility] ED 07/07/25 (report is on the chart) Pt was seen for abdominal pain and headache. 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 Pt was prescribed robaxin, rest and avoid strenuous exercise. Call to Pt reports continues with headache which Pt describes as migraine headache. Pt is going to obtain some excedrin today to see if that helps. 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 Pt is advised to do stretching exercise of neck home care given. Pt is also advised to apply ice to forehead while resting in dark room for about 20 min to see if this affects this headache and Pt agrees. Pt is drinking adequate amount of liquids. ASK apt 07/14/15 @ 315pm with PCP in [place] [facility]. Pt agrees with this disposition. Insurance is verified as active prior to booking. Protocol Used: Headache (Adult) Protocol-Based Disposition: See in Office or Video Visit within 3 Days Video visit not offered Positive Triage Question: * Mild - Moderate headache present > 3 days (72 hours) * All higher-acuity triage questions were negative Care Advice Discussed: * Pain Medicines * Cold Pack for Headache * Reasons To Call Back - Severe headache lasts over 2 hours after pain medicine - Headache lasts over 72 hours - Stiff neck occurs (can't touch chin to chest) - You become worse * Telephone Encounter - Zheng Garcia - 07/12/2025 9:32 AM EDT Patient calling to report ED visit on : Date: 07/07 Hospital: [facility] Seen for: headache , Symptomatic Yes *if yes message should go to Triage Patient advised will forward to team nurse for follow up documented in this encounter Plan of Treatment Upcoming Encounters Date Type Department Care Team (Late st Contact Info) Description 08/02/2025 2:30 PM EDT Procedure Visit [facility] [address] [place] [address] Kimberley Mckeon CNM [address] [place] [address] 09/15/2025 10:00 AM EST Office Visit [facility] [address] [place] [phone] Lety Black FNP [address] [place] [address] documented as of this encounter Visit Diagnoses Not on filedocumented in this encounter Additional Health Concerns Assessment Noted Time PHQ-9 Depression Total Score: 5 12/19/19 25 8:46 PM EDT documented as of this encounter Care Teams Booster Operator Relationship Specialty Start Date End Date Lety Black FNP [address] [place] [phone] PCP - General Family Medicine 06/05/22 Grupo Nixon FNP [address] [place] [phone] Nurse Practitioner Family Medicine 09/14/23 documented as of this encounter
--- OUTSIDE RECORDS SUMMARY | 2025-07-14 16:13 | XMS_ITS | Encounter Summary ---
Author Organization [employer] Address [address] [facility] 7[address] [place] [address] Care Team Providers Care Bark Skinner Name Role Phone Lety Black Primary Care Provider [phone] Grupo Nixon Unavailable Unavailable Reason for Visit * Reason Comments Med Refill Encounter Details Date Type Department Care Team ([facility] st Contact Info) Description 07/03/2025 Refill [facility] MED & PEDS [address] [place], [place] [phone] Lety Black FNP [address] [place], [place] [phone] Type 2 diabetes mellitus without complication, with long-term current use of insulin ([facility]) Social History Tobacco Use Types [...] Description 08/02/2025 2:30 PM EDT Procedure Visit [facility] MEDICINE [address] [place] [address] Kimberley Mckeon CNM [address] [place] [address] 09/15/2025 10:00 AM EST Office Visit [facility] MED [facility] PEDS [address] [place] [address] Lety Black FNP [address] [place] [address] documented as of this encounter Visit Diagnoses Diagnosis Type 2 diabetes mellitus without complication, with long-term current use of insulin (HCC) documented in this encounter Additional Health Concerns Assessment Noted Time PHQ-9 Depression Total Score: 5 12/19/19 25 8:46 PM EDT documented as of this encounter Care Teams Bark Skinner Relationship Specialty Start Date End Date Lety Black FNP [address] [place] [phone] PCP - General Family Medicine 06/05/22 Grupo Nixon FNP [address] [place] [address] Nurse Practitioner Family Medicine 09/14/23 documented as of this encounter
--- OUTSIDE RECORDS SUMMARY | 2025-07-14 16:13 | XMS_ITS | Encounter Summary ---
Author Organization [employer] Address [address] [facility] [address] [place] [address] Care Team Providers Care Physical Therapist Aide Name Role Phone Lety Black JESSA Primary Care Provider [phone] [employer] Nixon FOOD EQUIPMENT SERVICE TECHNICIAN Unavailable Unavailable Encounter Details Date Type Department Care Team (Late st Contact Info) Description 07/09/2025 Orders Only GENERIC EXTERNAL DATA DEPARTMENT [...] is your housing situation today? I have virgiilo barber 12/07/[address] you [...] Description 08/02/2025 2:30 PM EDT Procedure Visit [facility] [address] [place] [address] Kimberley Mckeon, CNM [address] [place] [address] 09/15/2025 10:00 AM EST Office Visit [facility] [address] [place], [place] [phone] Lety Black, FOOD EQUIPMENT SERVICE TECHNICIAN [address] [place], [place] [phone] documented as of this encounter Procedures Procedure Name Priority Date/Time Associated Diagnosis Comments CTA HEAD NECK W AND WO CONTRAST Routine 07/09/2025 5:08 PM EDT SED RATE BY MODIFIED WESTERGREN Routine 07/09/2025 1:59 PM EDT HIGH SENSITIVITY TROPONIN I Routine 07/09/2025 1:53 PM EDT CBC WITH AUTO DIFFERENTIAL Routine 07/09/2025 1:53 PM EDT BASIC METABOLIC PANEL Routine 07/09/2025 1:53 PM EDT documented in this encounter Results * CTA Head Neck w/ and w/o Contrast (07/09/2025 5:08 PM EDT) Anatomical Region Laterality Modality Head, Neck Computed Tomogra phy 07/09/2025 5:08 PM EDT Narrative 07/09/2025 5:08 PM EDT [address] [address] [address] Scan Report Signed Patient: Marium Ravi MR#: [id number] : 1995 Acct:[id number] Age/Sex: 30 / F ADM Date: 07/09/25 Loc: HO.ED Attending Dr: Ordering Physician: Irina Frost Date of Service: 07/09/25 Procedure(s): CT angio head neck Accession Number(s): [id number] cc: Lety Black FOOD EQUIPMENT SERVICE TECHNICIAN; Irina Frost Report Number: [id number]: Total DLP = 1492.00 mGy-cm Reason for [...] signed by Sg Damon MD in OV> 07/09/25 1708 DD/ 07 TD/TT: 07/09/251707 Principal Electrical Engineer: Procedure Note Donotuseinterpreter, Image - 07/09/[address] [address] [address] Scan Report Signed Patient: Marium Ravi MMR#: [id number] : 1995Acct:[id number] Age/Sex: 30 / FADM Date: 07/09/25 Loc: HO.ED Attending Dr: Ordering Physician: Irina Frost Date of Service: 07/09/25 Procedure(s): CT angio head neck Accession Number(s): [id number] cc: Lety Black; Irina Frost Report Number: [id number]: Total DLP = 1492.00 mGy-cm Reason for [...] in OV> 07/09/251707 DD/ 07 TD/TT: 07/09/251707 Principal Electrical Engineer: [employer] External Provider IMG CT PROCEDURES Edited Result - Final * (ABNORMAL) Sed Rate by Modified Josie (07/09/2025 1:59 PM EDT) [facility] Erythrocyte Sedimentation Rate 28(H) 0 - 20 MM/HR [facility] Comment:Patients with polycy themia and many hemoglobin abnormalitiesmay have depressed sed rates whereas patients with anemiamay have elevated sed rates. 07/09/2025 1:59 PM EDT 07/09/2025 4:53 PM EDT Generic External Data Provider LAB BLOOD ORDERAB LES Final Result Performing Organization Address [facility] Co de Phone Number [facility] [address] [place] [phone] * High Sensitivity Troponin I (07/09/2025 1:53 PM EDT) [facility] TROPONIN I HIGH SENSITIVITY <2.7 <3.5 - 17.0 ng/L [facility] Comment:The [place] high sens itivity Troponin-I results should beused in conjunction with other diagnostic information suchas ECG, clinical observations and information, and patientsymptoms to aid in the diagnosis of NC. 07/09/2025 1:53 PM EDT 07/09/2025 1:59 PM EDT Generic External Data Provider LAB BLOOD ORDERAB LES Final Result Performing Organization Address [facility] Co de Phone Number [facility] [address] [place] [phone] [phone] * (ABNORMAL) Basic Metabolic Panel (07/09/2025 1:53 PM EDT) [facility] Sodium 140 135 - 145 mmol/L [facility] Potassium 3.4 3.3 - 5.1 mmol/L [facility] Chloride 106 96 - 108 mmol/L [facility] Carbon Dioxide 26 22 - 29 mmol/L [facility] Anion Gap 11(L) 12 - 20 [facility] Urea Nitrogen (BUN) 9 9 - 16 mg/dL [facility] Creatinine, Serum 0.54 0.5 - 1.4 mg/dL [facility] Creatinine Clr Calc Pharmacy 230.9 [facility] Comment:Provided height and weight: 160.02 cm,163.747 kg.eGFR (calculated from the MDRD study equation) and eCrCl(calculated from the Cockcroft-Gault equation) are based ondifferent parameters and may not yield comparable results.If eCrCl result is absurd, please check patient'sheight/weight. Estimated Glomerular Filt Rate >60 [facility] Comment:Chronic Kidney Disea se: Estimated GFR < 60 mL/min/1.15m6Ufrntc Kidney Disease: Estimated GFR < 15 mL/min/1.73m2 Glucose 142(H) 60 - 115 mg/dL [facility] Calcium 9.0 8.4 - 10.2 mg/dL [facility] 07/09/2025 1:53 PM EDT 07/09/2025 1:59 PM EDT us Generic External Data Provider LAB BLOOD ORDERAB LES Final Result [facility] [address] [place], [place] [phone] * CBC auto differential (07/09/2025 1:53 PM EDT) White Blood Count 6.2 4.8 - 10.8 X10*3/uL [facility] Red Blood Count 4.66 4.20 - 5.50 X10*6/uL [facility] Hemoglobin 12.6 12.0 - 16.0 g/dl [facility] Hematocrit 37.9 37.0 - 47.0 % [facility] Mean Corpuscular Volume 81.3 80.0 - 98.0 fL [facility] Mean Corpuscular Hemoglobin 27.0 27.0 - 33.0 pg [facility] Mean Corpuscular HGB Conc 33.2 31.0 - 35.0 g/dl [facility] Red Cell Distribution Width 12.9 11.0 - 16.0 % [facility] Platelet Count 370 160 - 400 X10*3/uL [facility] Mean Platelet Volume 9.5 9.4 - 12.3 fL [facility] Neutrophils Percent Auto 63.5 45 - 73 % [facility] Imm Gran Pct Auto 0.2 0.0 - 0.4 % [facility] Lymphocytes Percent Auto 27.9 20 - 40 % [facility] Monocytes Percent Auto 7.0 2 - 11 % [facility] Eosinophils Percent Auto 1.1 0 - 4 % [facility] Basophils Percent Auto 0.3 0 - 2 % [facility] NRBC Pct Auto 0.0 0.0 - 0.2 /100WBC [facility] Neutrophils Absolute Auto 3.9 2.0 - 8.3 x10*3/uL [facility] Imm Gran Abs Auto 0.01 0.00 - 0.03 X10*3/uL [facility] Lymphocytes Absolute Auto 1.7 1.2 - 4.9 X10*3/uL [facility] Monocytes Absolute Auto 0.4 0.1 - 1.2 X10*3/uL [facility] Eosinophils Absolute Auto 0.1 0.0 - 0.4 X10*3/uL [facility] Basophils Absolute Auto 0.0 0.0 - 0.2 X10*3/uL [facility] NRBC Abs Auto 0.000 0.0 - 0.012 X10*3/uL [facility] 07/09/2025 1:53 PM EDT 07/09/2025 1:59 PM EDT us Generic External Data Provider LAB BLOOD ORDERAB LES Final Result [facility] [address] [place] [phone] [phone] documented in this encounter Visit Diagnoses Not on filedocumented in this encounter Additional Health Concerns Assessment Noted Time PHQ-9 Depression Total Score: 5 12/19/19 25 8:46 PM EDT documented as of this encounter Care Teams Physical Therapist Aide Relationship Specialty Start Date End Date Lety Black FNP [address] [place] [address] PCP - General Family Medicine 06/05/22 Grupo Nixon FNP [address] [place] [address] Nurse Practitioner Family Medicine 09/14/23 documented as of this encounter
--- OUTSIDE RECORDS SUMMARY | 2025-07-14 16:14 | XMS_ITS | Clinical Summary ---
Author Organization [facility] Address [address] [place] [address] Care Team Providers Care Senior Net Developer Name Role Phone Vanessa Bird CERTIFIED EXECUTIVE CHEF-C Primary Care Provider Unavailable Medications clonazePAM (KlonoPIN) [...] Insurance Medicaid [place] Care Teams Senior Net Developer Relationship Specialty Start Date End Date Vanessa Bird FNP-C PCP - General Nurse Practitioner 05/20/21
--- OUTSIDE RECORDS SUMMARY | 2025-07-14 16:14 | XMS_ITS | Encounter Summary ---
Author Organization [employer] Address [address] [facility] 7t [place] [address] Care Team Providers Care Radio Antenna Installer Name Role Phone Lety Black Primary Care Provider [phone] [employer] Nixon Unavailable Unavailable Reason for Visit * Reason Comments Med Refill Encounter Details Date Type Department Care Team ([facility] st Contact Info) Description 06/01/2025 Refill [facility] [address] [place], [place] [phone] Lety Black FNP [address] [place], [place] [phone] Bipolar affective disorder, remission status unspecified (CMS/[facility]) Social History Tobacco Use Types Packs/Day Years [...] Description 08/02/2025 2:30 PM EDT Procedure Visit [facility] [address] [place] [address] Kimberley Mckeon CNM [address] [place] [address] 09/15/2025 10:00 AM EST Office Visit [facility] [address] [place], [place] [phone] Lety Black FNP [address] [place] [address] documented as of this encounter Visit Diagnoses Diagnosis Bipolar affective disorder, remission status unspecified (CMS/HCC) ([facility]) documented in this encounter Additional Health Concerns Assessment Noted Time PHQ-9 Depression Total Score: 5 12/19/19 25 8:46 PM EDT documented as of this encounter Care Teams Radio Antenna Installer Relationship Specialty Start Date End Date Lety Black FNP [address] [place] [address] PCP - General Family Medicine 06/05/22 Grupo Nixon FNP [address] [place] [address] Nurse Practitioner Family Medicine 09/14/23 documented as of this encounter
--- OUTSIDE RECORDS SUMMARY | 2025-07-14 16:14 | XMS_ITS | Encounter Summary ---
Author Organization [employer] Address [address] [facility] 7t [place] [address] Care Team Providers Care Egg Buyer Name Role Phone Lety Black Primary Care Provider [phone] Grupo Nixon Unavailable Unavailable Reason for Visit * Reason Comments Med Refill Encounter Details Date Type Department Care Team (Late st Contact Info) Description 08/19/2023 Refill [facility] [address] [place] [address] Lety Black FNP [address] [place], [place] [phone] Social History Tobacco Use Types Packs/Day Years [...] Description 08/02/2025 2:30 PM EDT Procedure Visit [facility] [address] [place] [address] Kimberley Mckeon CNM [address] [place] [address] 09/15/2025 10:00 AM EST Office Visit [facility] [address] [place] [address] Lety Black FNP [address] [place] [address] documented as of this encounter Visit Diagnoses Not on filedocumented in this encounter Additional Health Concerns Assessment Noted Time PHQ-9 Depression Total Score: 5 01/07/20 23 2:06 PM EDT documented as of this encounter Care Teams Egg Buyer Relationship Specialty Start Date End Date Lety Black FNP [address] [place] [phone] PCP - General Family Medicine 06/05/22 Grupo Nixon FNP [address] [place] [address] Nurse Practitioner Family Medicine 09/14/23 documented as of this encounter
--- OUTSIDE RECORDS SUMMARY | 2025-07-14 16:14 | XMS_ITS | Encounter Summary ---
Author Organization [employer] Address [address] [facility] 7t [place] [address] Care Team Providers Care Sanitation Inspector Name Role Phone Lety Black JESSA Primary Care Provider [phone] [employer] Nixon Unavailable Unavailable Reason for Visit * Reason Comments Med Refill Encounter Details Date Type Department Care Team (Late st Contact Info) Description 03/05/2023 Refill [facility] [address] [place] [address] Grupo Nixon FNP Bipolar affective disorder, current episode mixed, current episode severity unspecified (CMS/[facility]) Social History Tobacco Use Types Packs/Day Years [...] Description 08/02/2025 2:30 PM EDT Procedure Visit [facility] [address] [place] [address] Kimberley Mckeon CNM [address] [place] [address] 09/15/2025 10:00 AM EST Office Visit [facility] [address] [place] [address] Lety Black FNP [address] [place] [address] documented as of this encounter Visit Diagnoses Diagnosis Bipolar affective disorder, current episode mixed, current episode severity unspecified (CMS/HCC) (HCC) documented in this encounter Additional Health Concerns Assessment Noted Time PHQ-9 Depression Total Score: 5 01/07/20 23 2:06 PM EDT documented as of this encounter Care Teams Sanitation Inspector Relationship Specialty Start Date End Date Lety Black FNP [address] [place] [address] PCP - General Family Medicine 06/05/22 Grupo Nixon FNP [address] [place] [address] Nurse Practitioner Family Medicine 09/14/23 documented as of this encounter
--- OUTSIDE RECORDS SUMMARY | 2025-07-14 16:14 | XMS_ITS | Encounter Summary ---
Author Organization [employer] Address [address] [facility] 7[address] [place] [address] Care Team Providers Care Complaint Analyst Name Role Phone Lety Black Primary Care Provider [phone] Grupo Nixon Unavailable Unavailable Encounter Details Date Type Department Care Team (Late st Contact Info) Description 07/03/2025 Results Follow-Up [facility] [address] [place], [place] [phone] Lety Black FNP [address] [place], [place] [phone] C.TRACHOMATIS/N. GONORRHOEAE DNA PROBE Social History Tobacco [...] Description 08/02/2025 2:30 PM EDT Procedure Visit [facility] [address] [place] [address] Kimberley Mckeon CNM [address] [place] [address] 09/15/2025 10:00 AM EST Office Visit [facility] [address] [place] [address] Lety Black FNP [address] [place] [address] documented as of this encounter Visit Diagnoses Not on filedocumented in this encounter Additional Health Concerns Assessment Noted Time PHQ-9 Depression Total Score: 5 12/19/19 25 8:46 PM EDT documented as of this encounter Care Teams Complaint Analyst Relationship Specialty Start Date End Date Lety Black FNP [address] [place] [address] PCP - General Family Medicine 06/05/22 Grupo Nixon FNP [address] [place] [address] Nurse Practitioner Family Medicine 09/14/23 documented as of this encounter
--- OUTSIDE RECORDS SUMMARY | 2025-07-14 16:14 | XMS_ITS | Encounter Summary ---
Author Organization [employer] Address [address] [facility] [address] [place] [address] Care Team Providers Care Patient Resource Coordinator Name Role Phone DaleLety kothari JESSA Primary Care Provider [phone] Grupo Nixon Unavailable Unavailable Reason for Visit * Reason Comments Med Refill Encounter Details Date Type Department Care Team (Late st Contact Info) Description 03/11/2024 Refill [facility] [address] [place] [address] Grupo Nixon FNP Bipolar affective disorder, current [...] Description 08/02/2025 2:30 PM EDT Procedure Visit [facility] [address] [place] [address] Kimberley Mckeon CNM [address] [place] [address] 09/15/2025 10:00 AM EST Office Visit [facility] [address] [place], [place] [phone] Lety Black FNP [address] [place] [address] documented as of this encounter Visit Diagnoses Diagnosis Bipolar affective disorder, current episode mixed, current episode severity unspecified (CMS/HCC) (HCC) documented in this encounter Additional Health Concerns Assessment Noted Time PHQ-9 Depression Total Score: 12 024 3:32 PM EST documented as of this encounter Care Teams Patient Resource Coordinator Relationship Specialty Start Date End Date Lety Black FNP [address] [place] [address] PCP - General Family Medicine 06/05/22 Grupo Nixon FNP [address] [place] [address] Nurse Practitioner Family Medicine 09/14/23 documented as of this encounter
[2025-07-14 18:19] LABS: Cholesterol 197 mg/dL (<200); HDL Cholesterol 57 mg/dL (>40); Triglycerides 115 mg/dL (<150)
[2025-07-14 19:54] LABS: Microalbum/Creatinine Ratio Ur 2033.9 ug/mg cr (<30)
[2025-07-15 04:10] LABS: HIV Num 1 0.06 S/CO (0.00-0.99)
[2025-07-17 22:04] LABS: HCV Log PCR <1.18 NOT DETECTED Log IU/mL (NOT DETECTED); HepC Viral Load <15 NOT DETECTED IU/mL (NOT DETECTED)
== END 2025-07-14 16:12 | disposition home or self-care (01) ==
LOC: HO.CHCLDS 16:11
PROVIDERS: Visit Provider Registered Nurse
DX: Z00.00 Encounter for general adult medical examination without abnormal findings (principal); Z11.59 Encounter for screening for other viral diseases; Z11.4 Encounter for screening for human immunodeficiency virus [HIV]; E11.9 Type 2 diabetes mellitus without complications; Z79.4 Long term (current) use of insulin
CPT/HCPCS: 36415; 80061; 82043; 82570; 86592; 87389; 87522

== ENCOUNTER 2025-07-19 17:17 | Emergency (ER) | payer MEDICAID, SELFPAY ==
[2025-07-19 17:43] VITALS: BP 172/69; PULSE 93; RESP 18; TEMP 37.1; O2SAT 98; BMI 65.2
--- NOTE | 2025-07-19 17:45 | ED_ITS ---
HPI - General Adult General Chief complaint: Ear Problems Stated complaint: jaw and throat pain, migraine Related Data Home Medications ?Medication ?Instructions ?Recorded ?Confirmed blood sugar diagnostic (FreeStyle #10 ea 07/14/2012/29 Lite Strips) enalapril maleate 20 mg tablet 20 mg PO DAILY 07/14/20 04/28/22 lancets 28 gauge (FreeStyle #100 ea 07/14/20 07/14/20 Lancets) atorvastatin 10 mg tablet 10 mg PO BEDTIME 04/28/22 clonazepam 1 mg tablet 1 mg PO BID 04/28/22 2 hydrochlorothiazide 25 mg tablet 25 mg PO DAILY 04/28/22 hydroxyzine HCl 25 mg tablet 1 - 2 tab PO Q6H PRN anxi ety 04/28/22 04/28/22 insulin lispro protamine-lispro 90 unit subcut BID 04/28/22 100 unit/mL (75-25) subcutaneous pen (Humalog Mix 75-25 KwikPen) perphenazine 2 mg tablet 2 mg PO BID 04/28/22 2 empagliflozin 10 mg tablet 10 mg PO QAM 07/10/22 (Jardiance) metformin 500 mg tablet 1,000 mg PO BID 07/10/22 spironolactone 25 mg tablet 25 mg PO DAILY 07/10/22 Previous Rx's ?Medication ?Instructions ?Recorded albuterol sulfate 90 mcg/actuation 2 puff inhalation Q 4-6H PRN 09/08/21 aerosol inhaler shortness of breath or wheez ing #8.5 grams ondansetron 4 mg disintegrating 4 mg PO Q6H PRN nausea and 12/20/21 tablet vomiting #10 tabs diclofenac sodium 1 % topical gel 2 g topical QID #100 grams 05/26/22 (Voltaren Arthritis Pain) albuterol sulfate 0.63 mg/3 mL 0.63 mg (3 mL) inhalati on QID PRN 07/04/22 solution for nebulization shortness of breath or wheez ing #75 mL albuterol sulfate 90 mcg/actuation 1 inh inhalation QI D PRN shortness 07/04/22 aerosol inhaler of breath or wheezing #8.5 g steffi nebulizers (AeroEclipse II #1 ea 07/04/22 Nebulizer) prednisone 20 mg tablet 40 mg (2 x 20 mg) PO DAILY r [place] 5 07/04/22 days #10 tabs ibuprofen 600 mg tablet 600 mg PO Q6H PRN pain #30 t abs 02/22/23 ondansetron 4 mg disintegrating 4 mg PO Q8H PRN nausea and 02/22/23 tablet vomiting #14 tabs doxycycline hyclate 100 mg capsule 100 mg PO BID cough 7 days #14 caps 07/22/23 benzonatate 100 mg capsule 100 mg PO BID PRN cough 7 d ays #14 07/30/23 caps acetaminophen 500 mg tablet 500 mg PO Q6H PRN fever or pain 09/21/23 (Tylenol Extra Strength) #14 tabs naproxen 500 mg tablet 500 mg PO BID PRN pain 10 da ys #20 09/21/23 tabs erythromycin 5 mg/gram (0.5 %) eye 1 appl ophthalmic ( eye) Q8H #3.5 11/02/23 ointment grams methocarbamol 750 mg tablet 750 mg PO TID PRN muscle s pasm #20 07/07/25 tabs Allergies Allergy/AdvReac Type Severity Reaction Status Date / Time No Known Allergies Allergy Verified 07/19/25 17:44 [facility] Past Medical History Medical History Hypertension Depression Apnea, sleep PTSD (post-traumatic stress disorder) (12/17/10) PCOS (polycystic ovarian syndrome) Metabolic syndrome Dysphagia Diabetes mellitus type 2 in obese Bipolar disorder Cough Asthma Intentional perphenazine overdose Suicidal ideation COVID-19 High blood cholesterol Bipolar 2 disorder, major depressive episode Sleep apnea GERD (gastroesophageal reflux disease) Hyperlipidemia Hypertension Diabetes mellitus, type 2 Social History Social History Alcohol intake: current Alcohol intake frequency: holidays/special occasions only Patient Tobacco Use Status: Never used Tobacco Substance Use Type: Marijuana Advance Directives: No Advance Directives Information Provided: No Current occupational status: unemployed 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 Patient is a 30-year-old with history of hypertension, depression, sleep apnea, PTSD, PCOS, metabolic syndrome, T2 dm, bipolar disorder, ADHD presenting to the emergency department with complaint of right ear pain, sores inside mouth and left-sided submandibular pain for the past week. Right EAC with cerumen impaction, unable to visualize TM. Two with this ulcers noted to oral mucosa of lower lip. Mild submandibular lymphadenopathy on left side. Plan: Patient will need cerumen removal to visualize TM in right ear. Patient left the emergency department before myself or any of the other clinicians could review or explain physical exam findings, test results, need or lack there of for additional testing, treatment options, or a treatment plan. Medical Decision Making Lab Data Labs: Lab Results 07/19/25 Range/Units 18:01 COVID-19 ([facility]) Negative (Negative) COVID-19 Clin Com See Note Influenza Type A ([facility]ISAL) Negative (Negative) Influenza Type B (FAISAL) Negative (Negative) Influenza A & B Note See Note Discharge Plan Discharge Clinical Impression: Ear pain, right Patient Disposition: Left W/O Completing Treatment Prescriptions: No Action clonazepam 1 mg Tablet 1 mg PO BID hydroxyzine HCl 25 mg tablet 1 - 2 tab PO Q6H PRN (Reason: anxiety) hydrochlorothiazide 25 mg Tablet 25 mg PO DAILY insulin lispro protamin-lispro [Humalog Mix 75-25 KwikPen] 100 unit/mL (75-25) Insulin Pen 90 unit SUBCUT BID perphenazine 2 mg Tablet 2 mg PO BID atorvastatin 10 mg Tablet 10 mg PO BEDTIME diclofenac sodium [Voltaren Arthritis Pain] 1 % gel 2 g topical QID Qty: 100 0RF Rx Instructions: apply to single elbow, wrist or hand; for hand includes palm/fingers/back of hand albuterol sulfate 90 mcg/actuation HFA aerosol inhaler 2 puff inhalation Q4-6H PRN (Reason: shortness of breath or wheezing) Qty: 8.5 0RF ondansetron 4 mg tablet,disintegrating 4 mg PO Q6H PRN (Reason: nausea and vomiting) Qty: 10 0RF (DME) nebulizers [AeroEclipse II Nebulizer] [facility] See Rx Instructions .ROUTE .MEDSUPPLY Qty: 1 0RF Rx Instructions: As directed albuterol sulfate 0.63 mg/3 mL solution for nebulization 0.63 mg inhalation QID PRN (Reason: shortness of breath or wheezing) Qty: 75 0RF albuterol sulfate 90 mcg/actuation HFA aerosol inhaler 1 inh inhalation QID PRN (Reason: shortness of breath or wheezing) Qty: 8.5 0RF prednisone 20 mg tablet 40 mg PO DAILY 5 Days Qty: 10 0RF ondansetron 4 mg tablet,disintegrating 4 mg PO Q8H PRN (Reason: nausea and vomiting) Qty: 14 0RF ibuprofen 600 mg tablet 600 mg PO Q6H PRN (Reason: pain) Qty: 30 0RF erythromycin 5 mg/gram (0.5 %) ointment 1 appl ophthalmic (eye) Q8H Qty: 3.5 0RF doxycycline hyclate 100 mg capsule 100 mg PO BID 7 Days Qty: 14 0RF benzonatate 100 mg capsule 100 mg PO BID PRN (Reason: cough) 7 Days Qty: 14 0RF acetaminophen [Tylenol Extra Strength] 500 mg tablet 500 mg PO Q6H PRN (Reason: fever or pain) Qty: 14 0RF naproxen 500 mg tablet 500 mg PO BID PRN (Reason: pain) 10 Days Qty: 20 0RF methocarbamol 750 mg tablet 750 mg PO TID PRN (Reason: muscle spasm) Qty: 20 0RF enalapril maleate 20 mg tablet 20 mg PO DAILY (DME) FreeStyle Lite Strips Strip See Rx Instructions .ROUTE .MEDSUPPLY Qty: 10 Rx Instructions: As directed (DME) lancets [FreeStyle Lancets] 28 gauge [facility] See Rx Instructions .ROUTE .MEDSUPPLY Qty: 100 Rx Instructions: As directed metformin 500 mg tablet 1,000 mg PO BID Jardiance 10 mg tablet 10 mg PO QAM spironolactone 25 mg tablet 25 mg PO DAILY Discharge Date/Time: 07/19/25 20:54
[2025-07-19 18:26] LABS: IDNOW Serial# 08D9AD1C; Influenza B2 Negative (Negative)
[2025-07-19 18:28] LABS: COVID-19 Test Negative (Negative); IDNOW Serial# 6674DD1D
--- NOTE | 2025-07-19 20:53 | PC.NURSE ---
called patient from waiting room and no answer. registration informed t/w that patient left.
== END 2025-07-19 20:54 | disposition left against medical advice (07) ==
PROVIDERS: Registered Nurse Emergency; Emergency Provider Emergency Medicine
DX: H92.01 Otalgia, right ear (principal); G43.909 Migraine, unspecified, not intractable, without status migrainosus; E11.9 Type 2 diabetes mellitus without complications; Z11.52 Encounter for screening for COVID-19; Z79.4 Long term (current) use of insulin
CPT/HCPCS: 87502; 87635; 99281; 99283

== ENCOUNTER 2025-09-13 17:07 | Emergency (ER) | payer MEDICAID, SELFPAY | END 2025-09-13 18:56 | disposition left against medical advice (07) | PROVIDERS: Emergency Provider Emergency Medicine | DX: R51.9 Headache, unspecified (principal); Z53.21 Procedure and treatment not carried out due to patient leaving prior to being seen by health care provider ==

== ENCOUNTER 2025-09-14 13:49 | Emergency (ER) | payer MEDICAID, SELFPAY ==
--- NOTE | ~2025-09-14 | XR_ITS ---
EXAMINATION: XR CHEST CLINICAL INFORMATION: Coughing. Pnuemonia? COMPARISON: January 04, 2024 TECHNIQUE: Frontal view of the chest was obtained. FINDINGS: No significant abnormality is noted involving the heart, lungs, mediastinum, bony thorax or soft tissues. XR/XR chest 1V IMPRESSION: No acute disease Electronically signed by: Mj Sunshine MD 09/14/2025 02:50 PM [facility]
--- NOTE | ~2025-09-14 | CT_ITS ---
CLINICAL HISTORY: headache, previous colloid cyst CT Head Without Contrast: Comparison: 07/07/2025. 07/09/2025 Findings: Cortical sulci are symmetric Basal ganglia are unremarkable No shift in midline structures No intraparenchymal bleeding or abnormal extra axial blood fluid collections Normal pituitary size Posterior fossa and cerebellar pontine angles are normal. Internal auditory canals are unremarkable. Clear paranasal sinuses. 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
[2025-09-14 14:24] VITALS: BP 94/57; PULSE 102; RESP 18; TEMP 36.1; O2SAT 98; BMI 65.0
--- NOTE | 2025-09-14 14:30 | ED.GENADULT ---
HPI - General Adult General Chief complaint: General Medical Stated complaint: Headache Time Seen by Provider: 09/14/25 16:43 Source: patient, RN notes reviewed and old records reviewed Mode of arrival: ambulatory Limitations: no limitations History of Present Illness ED Provider: Teresita HPI narrative: Patient is a 30 year old female with a pmhx of asthma, HTN, depression, PTSD, PCOS, type II diabetes, and bipolar presenting today with migraines and shortness of breath. Pt states they have had migraines since June and was told they have a 3 mm cyst. Migraines have been continuous causing nausea and dizziness, pt reports the migraines have getting worse. Today, she was able to make an appointment with neurology for 10/19/25. Additionally, pt is complaining of 4-5 days of shortness of breath, cough, pleuritic chest pain, and chills. Stating it feels like bronchitis . Pt has asthma, but has not required the use of her inhaler. Pt denies fever, sore throat, congestion. Related Data Home Medications ?Medication ?Instructions ?Recorded ?Confirmed blood sugar diagnostic (FreeStyle #10 ea 07/14/20 07/14/20 Lite Strips) enalapril maleate 20 mg tablet 20 mg PO DAILY 07/14/20 04/28/22 lancets 28 gauge (FreeStyle #100 ea 07/14/20 07/14/20 Lancets) atorvastatin 10 mg tablet 10 mg PO BEDTIME 04/28/22 04/28/22 clonazepam 1 mg tablet 1 mg PO BID 04/28/22 04/28/22 hydrochlorothiazide 25 mg tablet 25 mg PO DAILY 04/28/22 04/28/22 hydroxyzine HCl 25 mg tablet 1 - 2 tab PO Q6H PRN anxiety 04/28/22 04/28/22 insulin lispro protamine-lispro 90 unit subcut BID 04/28/22 04/28/22 100 unit/mL (75-25) subcutaneous pen (Humalog Mix 75-25 KwikPen) perphenazine 2 mg tablet 2 mg PO BID 04/28/22 04/28/22 empagliflozin 10 mg tablet 10 mg PO QAM 07/10/22 (Jardiance) metformin 500 mg tablet 1,000 mg PO BID 07/10/22 spironolactone 25 mg tablet 25 mg PO DAILY 07/10/22 Previous Rx's ?Medication ?Instructions ?Recorded albuterol sulfate 90 mcg/actuation 2 puff inhalation Q4-6H PRN 09/08/21 aerosol inhaler shortness of breath or wheezing #8.5 grams ondansetron 4 mg disintegrating 4 mg PO Q6H PRN nausea and 12/20/21 tablet vomiting #10 tabs diclofenac sodium 1 % topical gel 2 g topical QID #100 grams 05/26/22 (Voltaren Arthritis Pain) albuterol sulfate 0.63 mg/3 mL 0.63 mg (3 mL) inhalation QID PRN 07/04/22 solution for nebulization shortness of breath or wheezing #75 mL albuterol sulfate 90 mcg/actuation 1 inh inhalation QID PRN shortness 07/04/22 aerosol inhaler of breath or wheezing #8.5 grams nebulizers (AeroEclipse II #1 ea 07/04/22 Nebulizer) prednisone 20 mg tablet 40 mg (2 x 20 mg) PO DAILY rash 5 07/04/22 days #10 tabs ibuprofen 600 mg tablet 600 mg PO Q6H PRN pain #30 tabs 02/22/23 ondansetron 4 mg disintegrating 4 mg PO Q8H PRN nausea and 02/22/23 tablet vomiting #14 tabs doxycycline hyclate 100 mg capsule 100 mg PO BID cough 7 days #14 caps 07/22/23 benzonatate 100 mg capsule 100 mg PO BID PRN cough 7 days #14 07/30/23 caps acetaminophen 500 mg tablet 500 mg PO Q6H PRN fever or pain 09/21/23 (Tylenol Extra Strength) #14 tabs naproxen 500 mg tablet 500 mg PO BID PRN pain 10 days #20 09/21/23 tabs erythromycin 5 mg/gram (0.5 %) eye 1 appl ophthalmic (eye) Q8H #3.5 11/02/23 ointment grams methocarbamol 750 mg tablet 750 mg PO TID PRN muscle spasm #20 07/07/25 tabs amoxicillin 875 mg-potassium 1 tab PO Q12H #14 tabs 09/14/25 clavulanate 125 mg tablet Allergies Allergy/AdvReac Type Severity Reaction Status Date / Time No Known Allergies Allergy Verified 09/14/25 14:27 Review of Systems Constitutional: Constitutional: Reports chills, Denies fatigue, Denies fever(s) and Reports headache(s) ENT: Reports dizziness, Reports headache(s), Denies nasal congestion and Denies sore throat Cardiovascular: Cardiovascular: Reports dyspnea Respiratory: Respiratory: Reports cough, Reports pain on inspiration and Reports dyspnea Gastrointestinal: Gastrointestinal: Reports nausea Genitourinary: Genitourinary: Denies dysuria Neurologic: Reports dizziness and Reports headache(s) Endocrine: Endocrine: Denies fatigue PMFSH Past Medical History Medical History Hypertension Depression Apnea, sleep PTSD (post-traumatic stress disorder) (12/17/10) PCOS (polycystic ovarian syndrome) Metabolic syndrome Dysphagia Diabetes mellitus type 2 in obese Bipolar disorder Cough Asthma Intentional perphenazine overdose Suicidal ideation COVID-19 High blood cholesterol Bipolar 2 disorder, major depressive episode Sleep apnea GERD (gastroesophageal reflux disease) Hyperlipidemia Hypertension Diabetes mellitus, type 2 Social History Social History Alcohol intake: current Alcohol intake frequency: holidays/special occasions only Patient Tobacco Use Status: Never used Tobacco Smoked in Last 30 Days: No Use of substances other than those prescribed or required for medical reasons: No Substance Use Type: Marijuana Advance Directives: No Advance Directives Information Provided: No Patient : No Current occupational status: unemployed 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 Physical Exam ED Vital Signs: Vital Signs - 24 hr 09/14/25 14:24 09/14/25 17:57 09/14/25 20:06 Temperature 97 F 98.0 F Pulse Rate 102 H 82 82 Respiratory Rate 18 18 18 Blood Pressure 94/57 L 154/62 H 154/62 H Pulse Oximetry 98 98 98 Oxygen Delivery Method Room Air Room Air Room Air BMI result Body Mass Index 65.0 Const General: healthy appearing, comfortable, no acute distress, alert and awake Nutritional Appearance: well nourished Orientation/consciousness: patient oriented x3 HENMT Head: Yes normocephalic and Yes atraumatic Mouth: oropharynx normal Throat: Yes posterior oropharynx normal Eyes Eyelids: Yes eyelids normal Conjunctivae: conjunctivae normal Sclerae: sclerae normal Corneas: corneas normal Neck Neck: Yes full ROM Resp Effort & Inspection: normal respiratory effort, able to speak in complete sentences, no audible wheezes and not labored Auscultation: clear to auscultation bilaterally Cardio Rate: regular rate Rhythm: regular rhythm Skin General skin exam: no rashes or lesions noted and elasticity normal Neuro General: patient oriented x3 Cognition (Neuro): normal cognition Extrem Other: Moving all extremities well without any obvious deformities Course Course Course Narrative: RME: 30-year-old female history of PCOS presents to ED for migraine exacerbation 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 No evidence of hydrocephalus. The patient is safe to be discharged to follow up with her outpatient providers. We will cover her with Augmentin for strep pharyngitis. Time: 19:44 Medications Administered Discontinued Medications Generic Name Dose Route Start Last Admin Trade Name Freq PRN Reason Stop Dose Admin Amoxicillin/Clavulanate Potassium 875 mg 09/14/25 19:43 09/14/25 19:50 Amoxicillin/Potassium Clav 875 Mg Tablet PO 09/14/25 19:44 875 mg ONCE ONE Administration Medical Decision Making Medical Decision Making [facility] Narrative: 30-year-old female with a past medical history as above presents for evaluation of continued headache for the last 3 months. She also complains of fevers, chills in his sore throat. The patient is found to be positive for strep pharyngitis. She is nontoxic appearing, infectious quite well appearing. She has no neuro deficits on exam, NIH stroke score of 0. Her labs are without any significant abnormalities. She is not . She is requesting a CT scan of the brain to evaluate the colloid cyst that she had recently had. The patient's seems somewhat frustrated with her neurology appointment being in October. I do not think that it is inappropriate to order a CT scan of the brain to evaluate for hydrocephalus the patient does not have any ataxia or difficulty ambulating. A CT scan was ordered which ultimately shows an unchanged colloid cyst. We will treat the strep pharyngitis with Augmentin and she will be discharged Differential Diagnosis Differential Diagnoses: The differential diagnosis associated with the presentation includes Strep Flu/Covid Asthma exacerbation Vertigo Lab Data [facility] Lab Attestation statement: I reviewed the patient's lab results. 09/14/25 15:00 09/14/25 15:00 Labs: Lab Results 09/14/25 09/14/25 Range/Units 15:00 17:54 WBC 8.7 (4.8-10.8) X10*3/uL RBC 4.73 (4.20-5.50) X10*6/uL Hgb 12.9 (12.0-16.0) g/dl Hct 38.6 (37.0-47.0) % MCV 81.6 (80.0-98.0) fL MCH 27.3 (27.0-33.0) pg MCHC 33.4 (31.0-35.0) g/dl RDW 12.8 (11.0-16.0) % Plt Count 390 (160-400) X10*3/uL MPV 9.4 (9.4-12.3) fL Immature Gran % (Auto) 0.3 (0.0-0.4) % Neut % (Auto) 67.1 (45-73) % Lymph % (Auto) 25.0 (20-40) % Callahan % (Auto) 6.4 (2-11) % Eos % (Auto) 0.7 (0-4) % Baso % (Auto) 0.5 (0-2) % Lymph # (Auto) 2.2 (1.2-4.9) X10*3/uL Callahan # (Auto) 0.6 (0.1-1.2) X10*3/uL Eos # (Auto) 0.1 (0.0-0.4) X10*3/uL Baso # (Auto) 0.0 (0.0-0.2) X10*3/uL Abs Immat Gran (auto) 0.03 (0.00-0.03) X10*3/uL Absolute Neuts (auto) 5.8 (2.0-8.3) x10*3/uL Absolute Nucleated RBC 0.000 (0.0-0.012) X10*3/uL Nucleated RBC % (auto) 0.0 (0.0-0.2) /100WBC Sodium 140 (135-145) mmol/L Potassium 3.4 (3.3-5.1) mmol/L Chloride 104 (96-108) mmol/L Carbon Dioxide 27 (22-29) mmol/L Anion Gap 12 (12-20) BUN 16 (9-16) mg/dL Creatinine 0.68 (0.5-1.4) mg/dL Estim Creat Clear Calc 178.9 Estimated GFR > 60 POC Glucose 88 (60-115) mg/dL Random Glucose 164 H (60-115) mg/dL Calcium 9.5 (8.4-10.2) mg/dL Total Bilirubin 0.3 (0.0-1.0) mg/dL AST 23 (5-31) U/L ALT 29 (0-31) U/L Alkaline Phosphatase 52 (39-117) U/L Total Protein 7.2 (6.5-8.0) g/dL Albumin 4.3 (3.5-5.0) g/dL Beta HCG, Quant < 2 mIU/mL Influenza Type A (PCR) NEGATIVE (Negative) Influenza Type B (PCR) NEGATIVE (Negative) RSV RNA Qual (PCR) NEGATIVE (Negative) SARS-CoV-2 RNA (RT-PCR) NEGATIVE (Negative) S. pyogenes GrpA FAISAL Positive A (Negative) Discharge Plan Discharge Clinical Impression: Headache, Strep throat Patient Disposition: Home, Self-Care Instructions: Strep Throat (ED) Additional Instructions: Your CT scan shows that the cyst in your brain has not changed in size. You did test positive for strep throat. Take the antibiotic twice daily for 1 week Follow up with your primary doctor as well as your neurologist. Return for new or worsening symptoms Prescriptions: New amoxicillin-pot clavulanate 875-125 mg tablet 1 tab PO Q12H Qty: 14 0RF No Action clonazepam 1 mg Tablet 1 mg PO BID hydroxyzine HCl 25 mg tablet 1 - 2 tab PO Q6H PRN (Reason: anxiety) hydrochlorothiazide 25 mg Tablet 25 mg PO DAILY insulin lispro protamin-lispro [Humalog Mix 75-25 KwikPen] 100 unit/mL (75-25) Insulin Pen 90 unit SUBCUT BID perphenazine 2 mg Tablet 2 mg PO BID atorvastatin 10 mg Tablet 10 mg PO BEDTIME diclofenac sodium [Voltaren Arthritis Pain] 1 % gel 2 g topical QID Qty: 100 0RF Rx Instructions: apply to single elbow, wrist or hand; for hand includes palm/fingers/back of hand albuterol sulfate 90 mcg/actuation HFA aerosol inhaler 2 puff inhalation Q4-6H PRN (Reason: shortness of breath or wheezing) Qty: 8.5 0RF ondansetron 4 mg tablet,disintegrating 4 mg PO Q6H PRN (Reason: nausea and vomiting) Qty: 10 0RF (DME) nebulizers [AeroEclipse II Nebulizer] Misc See Rx Instructions .ROUTE .MEDSUPPLY Qty: 1 0RF Rx Instructions: As directed albuterol sulfate 0.63 mg/3 mL solution for nebulization 0.63 mg inhalation QID PRN (Reason: shortness of breath or wheezing) Qty: 75 0RF albuterol sulfate 90 mcg/actuation HFA aerosol inhaler 1 inh inhalation QID PRN (Reason: shortness of breath or wheezing) Qty: 8.5 0RF prednisone 20 mg tablet 40 mg PO DAILY 5 Days Qty: 10 0RF ondansetron 4 mg tablet,disintegrating 4 mg PO Q8H PRN (Reason: nausea and vomiting) Qty: 14 0RF ibuprofen 600 mg tablet 600 mg PO Q6H PRN (Reason: pain) Qty: 30 0RF erythromycin 5 mg/gram (0.5 %) ointment 1 appl ophthalmic (eye) Q8H Qty: 3.5 0RF doxycycline hyclate 100 mg capsule 100 mg PO BID 7 Days Qty: 14 0RF benzonatate 100 mg capsule 100 mg PO BID PRN (Reason: cough) 7 Days Qty: 14 0RF acetaminophen [Tylenol Extra Strength] 500 mg tablet 500 mg PO Q6H PRN (Reason: fever or pain) Qty: 14 0RF naproxen 500 mg tablet 500 mg PO BID PRN (Reason: pain) 10 Days Qty: 20 0RF methocarbamol 750 mg tablet 750 mg PO TID PRN (Reason: muscle spasm) Qty: 20 0RF enalapril maleate 20 mg tablet 20 mg PO DAILY (DME) FreeStyle Lite Strips Strip See Rx Instructions .ROUTE .MEDSUPPLY Qty: 10 Rx Instructions: As directed (DME) lancets [FreeStyle Lancets] 28 gauge misc See Rx Instructions .ROUTE .MEDSUPPLY Qty: 100 Rx Instructions: As directed metformin 500 mg tablet 1,000 mg PO BID Jardiance 10 mg tablet 10 mg PO QAM spironolactone 25 mg tablet 25 mg PO DAILY Interventions: ED Discharge Assessment Last Done: 09/14/25 20:06 Discharge Date/Time: 09/14/25 20:07 Print Language: French
[2025-09-14 15:06] LABS: MANUAL DIFF FLAG NO
[2025-09-14 15:07] LABS: Hematocrit 38.6 % (37.0-47.0); Hemoglobin 12.9 g/dl (12.0-16.0); Imm Gran Abs Auto 0.03 X10*3/uL (0.00-0.03); Imm Gran Pct Auto 0.3 % (0.0-0.4); Lymphocytes Absolute Auto 2.2 X10*3/uL (1.2-4.9); Mean Corpuscular HGB Conc 33.4 g/dl (31.0-35.0); Mean Corpuscular Hemoglobin 27.3 pg (27.0-33.0); Mean Corpuscular Volume 81.6 fL (80.0-98.0); NRBC Abs Auto 0.000 X10*3/uL (0.0-0.012); NRBC Pct Auto 0.0 /100WBC (0.0-0.2); Platelet Count 390 X10*3/uL (160-400); Red Blood Count 4.73 X10*6/uL (4.20-5.50); White Blood Count 8.7 X10*3/uL (4.8-10.8)
[2025-09-14 15:26] LABS: IDNOW Serial# 08D9AD1C; Strep A Nucleic Acid Positive (Negative)
[2025-09-14 15:30] LABS: Alanine Aminotransferase 29 U/L (0-31); Albumin Level 4.3 g/dL (3.5-5.0); Alkaline Phosphatase 52 U/L (39-117); Anion Gap 12 (12-20); Aspartate Amino Transferase 23 U/L (5-31); Blood Urea Nitrogen 16 mg/dL (9-16); Calcium 9.5 mg/dL (8.4-10.2); Carbon Dioxide 27 mmol/L (22-29); Chloride 104 mmol/L (96-108); Creatinine Clr Calc Pharmacy 178.9; Estimated Glomerular Filt Rate > 60; Potassium 3.4 mmol/L (3.3-5.1); Sodium 140 mmol/L (135-145); Total Protein 7.2 g/dL (6.5-8.0)
[2025-09-14 15:52] LABS: Resp Syncy Virus RNA Qual PCR NEGATIVE (Negative); SARS COV2 PCR INHOUSE NEGATIVE (Negative)
[2025-09-14 17:57] VITALS: BP 154/62; PULSE 82; RESP 18; O2SAT 98
[2025-09-14 17:57] LABS: Glucose, Whole Blood 88 mg/dL (60-115)
[2025-09-14 20:06] VITALS: BP 154/62; PULSE 82; RESP 18; TEMP 36.7; O2SAT 98
--- OUTSIDE RECORDS SUMMARY | 2025-09-14 22:14 | XMS_ITS | Encounter Summary ---
Author Organization [employer] Address [address] [place] [address] Care Team Providers Care Printing Roller Polisher Name Role Phone Lety Black Primary Care Provider [phone] [employer] Nixon Unavailable Unavailable Reason for Visit * Reason Comments Med Refill Encounter Details Date Type Department Care Team ([facility] st Contact Info) Description 07/03/2025 Refill [facility] [address] [place], [place] [id number] Lety Black FNP [address] [place], [place] [id number] Type 2 diabetes mellitus without complication, with long-term current use of insulin ([facility]) Social History Tobacco Use Types Packs/Day [...] Care Team (Late st Contact Info) Description 09/15/2025 10:00 AM EST Office Visit [facility] [address] [place] [address] Lety Black FNP [address] [place] [address] documented as of this encounter Visit Diagnoses Diagnosis Type 2 diabetes mellitus without complication, with long-term current use of insulin (HCC) documented in this encounter Additional Health Concerns Assessment Noted Time PHQ-9 Depression Total Score: 5 12/19/19 25 8:46 PM EDT documented as of this encounter Care Teams Printing Roller Polisher Relationship Specialty Start Date End Date Lety Black FNP [address] [place] [address] PCP - General Family Medicine 06/05/22 Grupo Nixon FNP [address] [place] [address] Nurse Practitioner Family Medicine 09/14/23 documented as of this encounter
--- OUTSIDE RECORDS SUMMARY | 2025-09-14 22:14 | XMS_ITS | Encounter Summary ---
Author Organization [employer] Address [address] [place] [address] Care Team Providers Care Medical Accountant Name Role Phone Lety Black JESSA Primary Care Provider [phone] Grupo Nixon Unavailable Unavailable Reason for Visit * Reason Comments Med Refill Encounter Details Date Type Department Care Team (Late st Contact Info) Description 03/05/2023 Refill [facility] [address] [place] [address] Grupo Nixon FNP Bipolar affective disorder, current episode mixed, current episode severity unspecified (CMS/[facility]) Social History Tobacco Use Types Packs/Day Years [...] Description 09/15/2025 10:00 AM EST Office Visit [facility] [address] [place] [address] Lety Black FNP [address] [place] [address] documented as of this encounter Visit Diagnoses Diagnosis Bipolar affective disorder, current episode mixed, current episode severity unspecified (CMS/HCC) (HCC) documented in this encounter Additional Health Concerns Assessment Noted Time PHQ-9 Depression Total Score: 5 01/07/20 23 2:06 PM EDT documented as of this encounter Care Teams Medical Accountant Relationship Specialty Start Date End Date Lety Black FNP [address] [place] [address] PCP - General Family Medicine 06/05/22 Grupo Nixon FNP [address] [place] [address] Nurse Practitioner Family Medicine 09/14/23 documented as of this encounter
--- OUTSIDE RECORDS SUMMARY | 2025-09-14 22:14 | XMS_ITS | Encounter Summary ---
Author Organization [employer] Address [address] [facility] 7t [place] [address] Care Team Providers Care Surg Tech Name Role Phone Lety Black Primary Care Provider [phone] Grupo Nixon Unavailable Unavailable Encounter Details Date Type Department Care Team (Late st Contact Info) Description 11/03/2022 Orders Only [facility] [address] [place] [address] Tammy Beyer LPN Social History Tobacco Use [...] Description 09/15/2025 10:00 AM EST Office Visit [facility] [address] [place], [place] [phone] Lety Black FNP [address] [place] [address] documented as of this encounter Procedures Procedure [...] (07/22/2023 8:22 AM EDT) Urine NEGATIVE NEGATIVE [facility] Comment:This test was develo ped to detect early . Falsenegative results may occur after the 5th - 7th week ofpregnancy when using this test method. If clinicallyindicated, consider a serum hCG. 07/22/2023 8:22 AM EDT 07/22/2023 8:29 AM EDT [facility] External Provider LAB URI NE ORDERABLES Final Result Performing Organization Address [facility]/ZIP Co de Phone Number [facility] [address] [place] [address] [phone] * (ABNORMAL) Urinalysis, Complete, with Reflex to Culture (02/22/2023 3:05 PM EDT) Color Urine Yellow [facility] Appearance Urine Cloudy [facility] PH 5.5 5.0 - 9.0 [facility] Glucose Urine UA >=1000(A) Negative mg/dL [facility] Urine Blood Trace(A) Negative [facility] Specific [place] - Urine >=1.030(H) 1.005 - 1.025 [facility] Urine Protein 100 (2+)(A) Neg-Trace mg/dL [facility] Urine Ketones Negative Negative mg/dL [facility] Nitrite Urine Negative Negative [facility] Leukocyte Esterase Urine Negative Negative [facility] RBC Urine 0-2 0 - 2 /HPF [facility] Urine WBC 0-5 0 - 5 /HPF [facility] Urine Squamous Epithelial Cell 0-2 0 - 2 /HPF [facility] Urine Bacteria None Seen None Seen [facility] Hyaline Casts, Urine 0-2 0 - 2 /LPF [facility] 02/22/2023 3:05 PM EDT 02/22/2023 3:11 PM EDT Narrative [facility] - 02/22/2023 3:23 PM EDT [id number], Clean Catch [facility] External Provider LAB URI NE ORDERABLES Final Result Performing Organization Address [facility]/ZIP Co de Phone Number [facility] [address] [place] [address] [phone] * HCG, Qualitative, Urine (02/22/2023 3:05 PM EDT) Urine NEGATIVE NEGATIVE [facility] Comment:This test was develo ped to detect early . Falsenegative results may occur after the 5th - 7th week ofpregnancy when using this test method. If clinicallyindicated, consider a serum hCG. 02/22/2023 3:05 PM EDT 02/22/2023 3:11 PM EDT [facility] External Provider LAB URI NE ORDERABLES Final Result Performing Organization Address [facility] Co de Phone Number [facility] [address] [place] [phone] * (ABNORMAL) Urinalysis with reflex microscopic (02/22/2023 3:05 PM EDT) Color Urine Yellow [facility] Appearance Urine Cloudy [facility] PH 5.5 5.0 - 9.0 [facility] Glucose Urine UA >=1000(A) Negative mg/dL [facility] Urine Blood Trace(A) Negative [facility] Specific [place] - Urine >=1.030(H) 1.005 - 1.025 [facility] Urine Protein 100 (2+)(A) Neg-Trace mg/dL [facility] Urine Ketones Negative Negative mg/dL [facility] Nitrite Urine Negative Negative [facility] Leukocyte Esterase Urine Negative Negative [facility] 02/22/2023 3:05 PM EDT 02/22/2023 3:11 PM EDT Narrative [facility] - 02/22/2023 3:18 PM EDT Urine, Catheterized [facility] External Provider LAB URI NE ORDERABLES Final Result Performing Organization Address [facility] Co de Phone Number [facility] [address] [place] [phone] * (ABNORMAL) GLUCOSE, WHOLE BLOOD (02/22/2023 2:43 PM EDT) Glucose, Whole Blood 275(H) 60 - 115 mg/dL [facility] Comment:METER #: [id number] 02/22/2023 2:43 PM EDT 02/22/2023 2:53 PM EDT [facility] External Provider LAB BLO OD ORDERABLES Final Result Performing Organization Address [facility]/ZIP Co de Phone Number [facility] [address] [place] [phone] * HCG, Total, Quantitative (02/22/2023 12:31 PM EDT) HCG Quantitative <2 mIU/mL [facility] Comment:Weeks post LMP Appro ximate hCG(Last Menstrual Period) Range (mIU/ml)3 - 4 weeks 9 - 1304 - 5 weeks 75 - 2,6005 - 6 weeks 850 - 20,8006 - 7 weeks 4000 - 100,2007 - 12 weeks 11,500 - 289,19736 - 16 weeks 18,300 - 137,22480 - 29 weeks (2nd trimester) 1,400 - 53,29003 - 41 weeks (3rd trimester) 940 - 60,000The [place] B- hCG assay is used for the early detection ofpregnancy; it cannot be used to diagnose any conditionunrelated to . If a B-hCG level is not supportedby the clinical evidence, results should be confirmed by analternative method (qualitative urine hCG, for example). 02/22/2023 12:3 1 PM EDT 02/22/2023 12:34 PM EDT [facility] External Provider LAB BLO OD ORDERABLES Final Result Performing Organization Address [facility]/ZIP Co de Phone Number [facility] [address] [place] [phone] * Lipase (02/22/2023 12:31 PM EDT) Pathologist [facility] Lipase 22 8 - 78 U/L [facility] 02/22/2023 12:3 1 PM EDT 02/22/2023 12:34 PM EDT [facility] External Provider LAB BLO OD ORDERABLES Final Result Performing Organization Address [facility] de Phone Number [facility] [address] [place] [address] [phone] * (ABNORMAL) Magnesium (02/22/2023 12:31 PM EDT) Pathologist [facility] Magnesium 1.4(LL) 1.6 - 2.6 mg/dL [facility] Comment:Critical value for M AG: Results called to and read angela:FABIO Person calling: KARMA Date: 02/22/23 Time: 1301 02/22/2023 12:3 1 PM EDT 02/22/2023 12:34 PM EDT [facility] External Provider LAB BLO OD ORDERABLES Final Result Performing Organization Address [facility] de Phone Number [facility] [address] [place] [phone] * (ABNORMAL) Comprehensive Metabolic Panel (02/22/2023 12:31 PM EDT) Pathologist [facility] Sodium 136 135 - 145 mmol/L [facility] Potassium 3.7 3.3 - 5.1 mmol/L [facility] Chloride 101 96 - 108 mmol/L [facility] Carbon Dioxide 23 22 - 29 mmol/L [facility] Anion Gap 16 12 - 20 [facility] Urea Nitrogen (BUN) 11 9 - 16 mg/dL [facility] Creatinine, Serum 0.81 0.5 - 1.4 mg/dL [facility] Creatinine Clr Calc Pharmacy 159.4 [facility] Comment:Provided height and weight: 160.02 cm,165.561 kg.eGFR (calculated from the MDRD study equation) and eCrCl(calculated from the Cockcroft-Gault equation) are based ondifferent parameters and may not yield comparable results.If eCrCl result is absurd, please check patient'sheight/weight. Estimated Glomerular Filt Rate >60 [facility] Comment:NOTE: For -Am erican individuals, multiply the result by 1.210.Chronic Kidney Disease: Estimated GFR < 60 mL/min/1.72t4Jgumci Kidney Disease: Estimated GFR < 15 mL/min/1.73m2 Glucose 342(H) 60 - 115 mg/dL [facility] Calcium 9.0 8.4 - 10.2 mg/dL [facility] Bilirubin, Total 0.3 0.0 - 1.0 mg/dL [facility] Aspartate Amino Transferase 14 5 - 31 U/L [facility] Alanine Aminotransferase 27 0 - 31 U/L [facility] Total Protein 6.8 6.5 - 8.0 g/dL [facility] Albumin Level 3.9 3.5 - 5.0 g/dL [facility] Alkaline Phosphatase 59 39 - 117 U/L [facility] 02/22/2023 12:3 1 PM EDT 02/22/2023 12:34 PM EDT [facility] External Provider LAB BLO OD ORDERABLES Final Result [facility] [address] [place] [phone] * (ABNORMAL) CBC auto differential (02/22/2023 12:31 PM EDT) White Blood Count 8.0 4.8 - 10.8 X10*3/uL [facility] Red Blood Count 4.54 4.20 - 5.50 X10*6/uL [facility] Hemoglobin 12.1 12.0 - 16.0 g/dl [facility] Hematocrit 37.0 37.0 - 47.0 % [facility] Mean Corpuscular Volume 81.5 80.0 - 98.0 fL [facility] Mean Corpuscular Hemoglobin 26.7(L) 27.0 - 33.0 pg [facility] Mean Corpuscular HGB Conc 32.7 31.0 - 35.0 g/dl [facility] Red Cell Distribution Width 12.4 11.0 - 16.0 % [facility] Platelet Count 360 160 - 400 X10*3/uL [facility] Mean Platelet Volume 9.1(L) 9.4 - 12.3 fL [facility] Neutrophils Percent Auto 77.4(H) 45 - 73 % [facility] Imm Gran Pct Auto 0.5(H) 0.0 - 0.4 % [facility] Lymphocytes Percent Auto 16.5(L) 20 - 40 % [facility] Monocytes Percent Auto 5.2 2 - 11 % [facility] Eosinophils Percent Auto 0.0 0 - 4 % [facility] Basophils Percent Auto 0.4 0 - 2 % [facility] NRBC Pct Auto 0.0 0.0 - 0.2 /100WBC [facility] Neutrophils Absolute Auto 6.2 2.0 - 8.3 x10*3/uL [facility] Imm Gran Abs Auto 0.04(H) 0.00 - 0.03 X10*3/uL [facility] Lymphocytes Absolute Auto 1.3 1.2 - 4.9 X10*3/uL [facility] Monocytes Absolute Auto 0.4 0.1 - 1.2 X10*3/uL [facility] Eosinophils Absolute Auto 0.0 0.0 - 0.4 X10*3/uL [facility] Basophils Absolute Auto 0.0 0.0 - 0.2 X10*3/uL [facility] NRBC Abs Auto 0.000 0.0 - 0.012 X10*3/uL [facility] 02/22/2023 12:3 1 PM EDT 02/22/2023 12:34 PM EDT [facility] External Provider LAB BLO OD ORDERABLES Final Result Performing Organization Address City/[facility]/ZIP Co de Phone Number [facility] [address] [place] [phone] * (ABNORMAL) Urinalysis, Complete, with Reflex to Culture (11/24/2022 9:56 AM EST) Color Urine Yellow [facility] Appearance Urine Clear [facility] PH 6.0 5.0 - 9.0 [facility] Glucose Urine UA Negative Negative mg/dL [facility] Urine Blood Negative Negative [facility] Specific [place] - Urine 1.020 1.005 - 1.025 [facility] Urine Protein 30 (1+)(A) Neg-Trace mg/dL [facility] Urine Ketones Negative Negative mg/dL [facility] Nitrite Urine Negative Negative [facility] Leukocyte Esterase Urine Negative Negative [facility] RBC Urine 0-2 0 - 2 /HPF [facility] Urine WBC 0-5 0 - 5 /HPF [facility] Urine Squamous Epithelial Cell 0-2 0 - 2 /HPF [facility] Urine Bacteria None Seen None Seen [facility] Hyaline Casts, Urine 0-2 0 - 2 /LPF [facility] 11/24/2022 9:56 AM EST 11/24/2022 10:00 AM EST Narrative [facility] - 11/24/2022 10:12 AM EST [id number], Clean Catch [facility] External Provider LAB URI NE ORDERABLES Final Result Performing Organization Address City/[facility]/ZIP Co de Phone Number [facility] [address] [place] [phone] * Lipase (11/24/2022 9:50 AM EST) Lipase 56 8 - 78 U/L [facility] 11/24/2022 9:50 AM EST 11/24/2022 9:53 AM EST [facility] External Provider LAB BLO OD ORDERABLES Final Result Performing Organization Address [facility] Co de Phone Number [facility] [address] [place] [address] [phone] * Hepatic Function Panel (11/24/2022 9:50 AM EST) Bilirubin, Direct <0.2 0.0 - 0.5 mg/dL [facility] 11/24/2022 9:50 AM EST 11/24/2022 9:53 AM EST [facility] External Provider LAB BLO OD ORDERABLES Final Result Performing Organization Address [facility] de Phone Number [facility] [address] [place] [phone] * (ABNORMAL) Comprehensive Metabolic Panel (11/24/2022 9:50 AM EST) Sodium 140 135 - 145 mmol/L [facility] Potassium 3.7 3.3 - 5.1 mmol/L [facility] Chloride 104 96 - 108 mmol/L [facility] Carbon Dioxide 27 22 - 29 mmol/L [facility] Anion Gap 13 12 - 20 [facility] Urea Nitrogen (BUN) 14 9 - 16 mg/dL [facility] Creatinine, Serum 0.60 0.5 - 1.4 mg/dL [facility] Creatinine Clr Calc Pharmacy 207.6 [facility] Comment:Provided height and weight: 160.02 cm,156.9 kg.eGFR (calculated from the MDRD study equation) and eCrCl(calculated from the Cockcroft-Gault equation) are based ondifferent parameters and may not yield comparable results.If eCrCl result is absurd, please check patient'sheight/weight. Estimated Glomerular Filt Rate >60 [facility] Comment:NOTE: For -Am erican individuals, multiply the result by 1.210.Chronic Kidney Disease: Estimated GFR < 60 mL/min/1.66o1Wcmqdz Kidney Disease: Estimated GFR < 15 mL/min/1.73m2 Glucose 142(H) 60 - 115 mg/dL [facility] Calcium 9.7 8.4 - 10.2 mg/dL [facility] Bilirubin, Total 0.3 0.0 - 1.0 mg/dL [facility] Aspartate Amino Transferase 19 5 - 31 U/L [facility] Alanine Aminotransferase 33(H) 0 - 31 U/L [facility] Total Protein 7.1 6.5 - 8.0 g/dL [facility] Albumin Level 4.3 3.5 - 5.0 g/dL [facility] Alkaline Phosphatase 59 39 - 117 U/L [facility] 11/24/2022 9:50 AM EST 11/24/2022 9:53 AM EST [facility] External Provider LAB BLO OD ORDERABLES Final Result [facility] [address] [place] [phone] * (ABNORMAL) CBC auto differential (11/24/2022 9:50 AM EST) White Blood Count 10.5 4.8 - 10.8 X10*3/uL [facility] Red Blood Count 4.43 4.20 - 5.50 X10*6/uL [facility] Hemoglobin 11.8(L) 12.0 - 16.0 g/dl [facility] Hematocrit 36.3(L) 37.0 - 47.0 % [facility] Mean Corpuscular Volume 81.9 80.0 - 98.0 fL [facility] Mean Corpuscular Hemoglobin 26.6(L) 27.0 - 33.0 pg [facility] Mean Corpuscular HGB Conc 32.5 31.0 - 35.0 g/dl [facility] Red Cell Distribution Width 12.5 11.0 - 16.0 % [facility] Platelet Count 404(H) 160 - 400 X10*3/uL [facility] Mean Platelet Volume 9.6 9.4 - 12.3 fL [facility] Neutrophils Percent Auto 74.4(H) 45 - 73 % [facility] Imm Gran Pct Auto 0.4 0.0 - 0.4 % [facility] Lymphocytes Percent Auto 19.1(L) 20 - 40 % [facility] Monocytes Percent Auto 4.9 2 - 11 % [facility] Eosinophils Percent Auto 0.9 0 - 4 % [facility] Basophils Percent Auto 0.3 0 - 2 % [facility] NRBC Pct Auto 0.0 0.0 - 0.2 /100WBC [facility] Neutrophils Absolute Auto 7.8 2.0 - 8.3 x10*3/uL [facility] Imm Gran Abs Auto 0.04(H) 0.00 - 0.03 X10*3/uL [facility] Lymphocytes Absolute Auto 2.0 1.2 - 4.9 X10*3/uL [facility] Monocytes Absolute Auto 0.5 0.1 - 1.2 X10*3/uL [facility] Eosinophils Absolute Auto 0.1 0.0 - 0.4 X10*3/uL [facility] Basophils Absolute Auto 0.0 0.0 - 0.2 X10*3/uL [facility] NRBC Abs Auto 0.000 0.0 - 0.012 X10*3/uL [facility] 11/24/2022 9:50 AM EST 11/24/2022 9:53 AM EST [facility] External Provider LAB BLO OD ORDERABLES Final Result [facility] [address] [place] [phone] documented in this encounter Visit Diagnoses Not on filedocumented in this encounter Care Teams Surg Tech Relationship Specialty Start Date End Date Lety Black FNP [address] [place] [address] PCP - General Family Medicine 06/05/22 Grupo Nixon FNP [address] [place] [address] Nurse Practitioner Family Medicine 09/14/23 documented as of this encounter
--- OUTSIDE RECORDS SUMMARY | 2025-09-14 22:14 | XMS_ITS | Encounter Summary ---
Author Organization [employer] Address [address] [facility] 7[address] [place] [address] Care Team Providers Care Retail Loan Officer Name Role Phone Lety Black Primary Care Provider [phone] Grupo Nixon Unavailable Unavailable Reason for Visit * Reason Comments Med Refill Encounter Details Date Type Department Care Team ([facility] st Contact Info) Description 06/01/2025 Refill [facility] & PEDS [address], [place] [phone] Lety Black FNP [address] [place], [place] [phone] Bipolar affective disorder, remission status unspecified (CMS/[facility]) Social History Tobacco Use Types [...] Description 09/15/2025 10:00 AM EST Office Visit [facility] [address] [place] [address] Lety Black FNP [address] [place] [address] documented as of this encounter Visit Diagnoses Diagnosis Bipolar affective disorder, remission status unspecified (CMS/HCC) (HCC) documented in this encounter Additional Health Concerns Assessment Noted Time PHQ-9 Depression Total Score: 5 12/19/19 25 8:46 PM EDT documented as of this encounter Care Teams Retail Loan Officer Relationship Specialty Start Date End Date Lety Black FNP [address] [place] [address] PCP - General Family Medicine 06/05/22 Grupo Nixon FNP [address] [place] [address] Nurse Practitioner Family Medicine 09/14/23 documented as of this encounter
--- OUTSIDE RECORDS SUMMARY | 2025-09-14 22:14 | XMS_ITS | Encounter Summary ---
Author Organization [employer] Address [address] [facility] [address] [place] [address] Care Team Providers Care Annealing Torch Operator Name Role Phone DaleLety kothari JESSA Primary Care Provider [phone] Grupo Nixon Unavailable Unavailable Reason for Visit * Reason Comments Med Refill Encounter Details Date Type Department Care Team (Late st Contact Info) Description 03/11/2024 Refill [facility] [address] [place] [address] Grupo Nixon FNP Bipolar affective disorder, current [...] Upcoming Encounters Date Type Department Care Team ([facility] st Contact Info) Description 09/15/2025 10:00 AM EST Office Visit [facility] MED [facility] [address] [place] [address] Lety Black FNP [address] [place] [address] documented as of this encounter Visit Diagnoses Diagnosis Bipolar affective disorder, current episode mixed, current episode severity unspecified (CMS/HCC) (HCC) documented in this encounter Additional Health Concerns Assessment Noted Time PHQ-9 Depression Total Score: 12 024 3:32 PM EST documented as of this encounter Care Teams Annealing Torch Operator Relationship Specialty Start Date End Date Lety Black FNP [address] [place] [address] PCP - General Family Medicine 06/05/22 Grupo Nixon FNP [address] [place] [address] Nurse Practitioner Family Medicine 09/14/23 documented as of this encounter
--- OUTSIDE RECORDS SUMMARY | 2025-09-14 22:14 | XMS_ITS | Clinical Summary ---
Author Organization [employer] Address [address] [place] [address] Care Team Providers Care Reimbursement Manager Name Role Phone Lety Black PASSENGER SCREENER Primary Care Provider [phone] Grupo Nixon PASSENGER SCREENER Unavailable Unavailable Allergies No known active allergies Medications * This document contains information received from the source organization and may not represent a complete record from that organization. Pentips 32G X 4 MM misc USE DIRECTED TWICE DAILY 100 each 11 01/10/20 23 Active Blood Glucose Monitoring Suppl (FreeStyle [place] Lite) w/Device kit USE TO TEST BLOOD [...] pe 2 diabetes mellitus treated with insulin ([facility]) Take 1 tablet (10 mg) by mouth in the morning. 90 tablet 11/17/19 25 Active perphenazine 4 MG tabletIndication s:Bipolar affective disorder, remission status unspecified (CMS/HCC) ([facility]) Take 3 tablets orally in the morning and 1 in the evening 120 tablet 1 02/22/20 25 Active clonazePAM (KlonoPIN) 1 MG tabletIndication s:Bipolar affective disorder, remission status unspecified (CMS/HCC) ([facility]) TAKE 1 TABLET BY MOUTH [...] complication, with long-term current use of insulin ([facility]) Take 1 tablet (10 mg) by mouth at bedtime. (Cholesterol) 90 tablet 1 06/09/20 25 Active escitalopram (Lexapro) 10 MG tabletIndication s:Bipolar affective disorder, remission status unspecified (CMS/[facility]) (HCC) Take 1 tablet (10 mg) by mouth Once per day. 30 tablet 1 06/09/20 25 Active cyclobenzaprine (Flexeril) 10 MG tabletIndication s:Chronic [...] complication, with long-term current use of insulin ([facility]) INJECT ONE PEN (=2.5MG) SUBCUTANEOUSLY ONCE A WEEK DIRECTED 05/19/20 25 Active Rimegepant Sulfate (Nurtec) 75 MG tablet dispersible Take 1 tablet (75 mg) by mouth if needed each day (migraines). 30 tablet 1 07/14/20 25 Active Blood Pressure kit Use to check blood pressure once daily (1 hour after taking medication for blood pressure) and if symptomatic 1 kit 07/18/20 25 Active Active Problems Problem Noted Date Diagnosed Date Colloid cyst of brain (CMS/HCC) 07/18/2025 Assessment & Plan (07/18/2025 7:51 PM EDT): - Colloid cyst identified on head CT scan with conflicting reports regarding size (3.6 cm on July 07, 2025, and 3 mm on July 09, 2025). Uncertainty regarding true size; potential for significant clinical impact if large. - Requested radiology department to have a radiologist review and compare both CT scans to clarify cyst size. Neurology referral initiated for further evaluation. - ED precautions reviewed Migraine without aura and wi thout status migrainosus, not intractable 07/18/2025 Assessment & Plan (07/18/2025 7:55 PM EDT): Differential includes migraine versus symptoms secondary to colloid cyst or hypertension vs other - Due to uncontrolled hypertension, neither NSAIDs or triptans are appropriate options. APAP has not provided sufficient relief. PA request for Nurtec sent to pharmacy. Advised rest in dark room. Also advised to follow up with [facility] regarding the previous visual symptoms. F/up precautions. Mild intermittent asthma without complication Overview (12/18/2024): Continues with albuterol PRN Healthcare maintenance 12/16/2024 Overview (12/18/2024): Pap: due, encouraged to schedule Assessment & Plan (06/13/2025 1:18 PM EDT): Asymptomatic STI testing ordered, including throat culture for CT/GC PCOS (polycystic ovarian syndrome) 01/13/2023 Diabetic retinopathy 03/10/2022 Type 2 diabetes mellitus without complication Overview (06/13/2025): -Following with [facility] Continues with the following med regimen [...] lifestyle interventions ED precautions Assessment & Plan (07/18/2025 7:48 PM EDT): Elevated upon initial and repeat readings in office today. Has not yet taken BP medications today. Offered clonidine dose in office for acute blood pressure reduction, pt declined due to not wanting to wait. However, will plan to take BP meds as soon as home and check home BP readings. Strict follow up precautions reviewed Assessment & Plan (06/13/2025 1:17 PM EDT): Diastolic slightly elevated in office, follow up if home BP readings above goal Assessment & Plan (12/18/2024 8:49 PM EDT): Elevated in office, follow up if home BP readings above goal Hyperlipidemia 07/29/2021 Bipolar disorder 07/21/2014 Overview (06/13/2025): - BH: therapist, Mya lindsey, weekly - Weekly check in with [facility] Assessment & Plan (06/13/2025 1:19 PM EDT): - Med management: previously through [facility] - clonazepam 1mg BID, perphenazine 4mg TID - Lexapro 10mg daily added by Psych [employer] Bryan Brown - Reports stable on current regimen. Has upcoming appt 06/29/25 to establish with new psych prescriber through [facility]. PCP to bridge med rx until then. [...] She is still generally doing well. Attending [employer] program. Has a new therapist whom she [...] well. Succeeding in school, will be starting [employer] program. Has a new therapist whom she [...] hospitalization program. Plans to start another at [facility] on 02/13/2023. Do F/U with current therapist [...] Overview (12/16/2024): April 2024: Sleep study at [facility] (ordered by Shira Barahona NP). Diagnosed [...] Date Diagnosed Date Resolved Date COPD exacerbation ([facility]) 12/30/2023 12/18/2024 Assessment & Plan [...] exam today Msk relaxer renewed, Severe obesity ([facility]) 01/13/202304/2025 Bipolar affective disorder, current episode mixed ([facility]) 11/11/2022 12/18/2024 Assessment & Plan [...] organization. Date Type Department Care Team Description 08/01/2025 Telephone [facility] [address] [place] [address] Kimberley Mckeon CNM 07/21/2025 Telephone [facility] [address] [place] [address] Lety Black FNP 07/20/2025 Results Follow-Up [facility] [address] [place] [address] Lety Black FNP POCT Glucose, POCT HGB A1C, Lipid Panel, Standard, Additional followed-up results: 4 07/14/2025 3:15 PM EDT Office Visit [facility] [address] [place] [address] Lety Black FNP Colloid cyst of brain (CMS/HCC) (HCC) (Primary Dx); Encounter for immunization; Migraine without aura and without status migrainosus, not intractable; Essential (primary) hypertension 07/14/2025 Travel 07/12/2025 Telephone [facility] [address] [place] [address] Lety Black FNP ER Follow-up 07/09/2025 Orders Only GENERIC EXTERNAL DATA DEPARTMENT Provider, Generic External Data 07/07/2025 Orders Only GENERIC EXTERNAL DATA DEPARTMENT Provider, Generic External Data 07/03/2025 Results Follow-Up [facility] [address] [place] [address] Lety Black FNP C.TRACHOMATIS/N. GONORRHOEAE DNA PROBE 07/03/2025 Refill [facility] [address] [place] [address] Lety Black FNP Type 2 diabetes mellitus without complication, with long-term current use of insulin (CMS/HCC) from Last 3 Months Immunizations Immunization Administration Dates Next Due HPV, Quadrivalent 06/24/2010,02/22/2010 Hep B, Adolescent or Pediatric 1994,1993 Hep B, adult 06/03/2022 Hib (HbOC) 01/28/1996, 5,1994,1993 IPV 04/08/1999, 5,1994,1993 Influenza injectable [...] EST Office Visit [facility] [address] [place] [address] Lety Black FNP [address] [place] [address] Health Maintenance Due Date Last Done Comments Diabetes: Foot Exam 2004 Eye Exam 2004 Family Planning (PISQ) 2009 HPV Vaccines (3 - 3-dose series) 09/16/2010 06/24/2010, 02/22/2010 Pap Smear 2015 Cervical Cancer Screening 2024 HPV/Cotest 2024 COVID-19 Vaccine ( season) 2025 11/22/2021, 03/25/2021, 03/04/2021 Diabetes: Hemoglobin A1C 09/09/2025 025, 12/16/2024, 12/30/2023, Additional history exists Alcohol/Substance Use Screening 12/16/2025 12/16/2024 SDOH Screening 12/16/2025 12/16/2024 Depression Screening 12/18/2025 12/18/2024, 12/19/19 Disability Screening 06/09/2026 06/09/2025 Tobacco Screening 06/09/2026 06/09/2025 Diabetes: Urine Protein Screening 07/14/2026 07/14/2025, 12/16/2024, 09/29/2023, Additional history exists Lipid Panel 07/14/2026 07/14/2025, 04/2025, 09/29/2023, Additional history exists DTaP/Tdap/Td Vaccines (8 - Td or Tdap) [...] 49) Years Completed 09/09/2023 HIV Screening Completed 07/14/2025, 0 04/2025, 11/11/2021 Hepatitis C Screening Completed 07/14/2025 , 12/16/2024, 11/11/2021 Influenza Vaccine Completed 07/14/2025, , 11/11/2021, Additional [...] Procedure Name Priority Date/Time Associated Diagnosis Comments HIV 1/2 ANTIGEN/ANTIBODY, FOURTH GENERATION W/RFL Routine 07/14/2025 4:14 PM EDT Healthcare maintenance RPR (MONITOR) W/REFL TITER Routine 07/14/2025 4:14 PM EDT Healthcare maintenance HEPATITIS C VIRAL RNA, QUANTITATIVE, REAL-TIME PCR Routine 07/14/2025 4:14 PM EDT Healthcare maintenance ALBUMIN, RANDOM URINE W/CREATININE Routine 07/14/2025 4:14 PM EDT Type 2 diabetes mellitus without complication, with long-term current use of insulin (HCC) LIPID PANEL, STANDARD Routine 07/14/2025 4:14 PM EDT Type 2 diabetes mellitus without complication, with long-term current use of insulin (HCC) CTA HEAD NECK W AND WO CONTRAST [...] NOW ([facility]) Routine 07/07/2025 6:39 PM EDT POCT GLYCATED HEMOGLOBIN, TOTAL Routine 06/09/2025 8:57 AM EDT Type 2 diabetes mellitus without complication, with long-term current use of insulin (CMS/HCC) from Last 3 Months or Most Recently Relevant to Health Maintenance Results * Hepatitis C Viral RNA, Quantitative, Real-Time PCR (07/14/2025 4:14 PM EDT) Hepatitis C Viral Load <15 NOT DETECTED NOT DETECTED IU/mL [facility] HCV Log PCR <1.18 NOT DETECTED NOT DETECTED Log IU/mL [facility] Comment:For additional infor rolly, please refer tohttp://education.DrEd Online Doctor/faq/YWC72r4(This link is being provided for informational/educational purposes only.)THIS TEST WAS PERFORMED AT:[employer] [place] [phone] CONSTANTINO MD Blood 07/14/2025 4:14 PM EDT 07/14/2025 6:02 PM EDT us Lety Black PASSENGER SCREENER LAB BLOOD ORDERABLES Final Res ult [facility] [address] [place], [place] [phone] * (ABNORMAL) Albumin, Random Urine W/Creatinine (07/14/2025 4:14 PM EDT) Creatinine, Urine 98.33 mg/dL [facility] Microalbumin Urine >2,000.0 mg/L H [facility] Microalbum Creatinine Ratio Ur 2,033.9(H ) <30 ug/mg cr [facility] Comment:Albumin/Creatinine R atio Reference Ranges: Normal: < 30 ug/mg creatinine Microalbuminuria: 30 - 300 ug/mg creatinineClinical Albuminuria: > 300 ug/mg creatinine Urine 07/14/2025 4:14 PM EDT 07/14/2025 6:52 PM EDT us Lety Black [facility] URINE ORDERABLES Final Res ult Performing Organization Address [facility] Co de Phone Number [facility] [address] [place] [address] [phone] * RPR (Monitor) with Reflex to??Titer (07/14/2025 4:14 PM EDT) RPR (Monitor) w/Refl Titer NON-REACTI VE NON-REACT JUAN CARLOS [facility] Comment:THIS TEST WAS PERFOR MED AT:[employer] [place] [phone] CONSTANTINO MD Rapid Plasma Reagin Ab Titer TNP [facility] Blood Venous blood specimen / Unknown 07/14/2025 4:14 PM EDT 07/14/2025 6:02 PM EDT Lety Black [facility] BLOOD ORDERABLES Final Res ult Performing Organization Address [facility] Co de Phone Number [facility] [address] [place] [address] [phone] * HIV-1/2 Antigen and Antibodies, Fourth Generation, with Reflexes (07/14/2025 4:14 PM EDT) HIV AB/AG Nonreactive Nonreactive [facility] Comment:HIV-1 p24 Ag and/or HIV-1/HIV-2 Ab not detected.A test result that is nonreactive does not exclude thepossibility of exposure to or infection with HIV-1 and/orHIV-2. Nonreactive results in this assay for individualswith prior exposure to HIV-1 and/or HIV-2 may be due toantigen and antibody levels that are below the limit ofdetection of this assay.The [facility] HIV Ag/Ab Combo assay result andsupplemental assay results should be interpreted inconjunction with the patient's clinical presentation,history and other laboratory results. If the results areinconsistent with clinical evidence, additional testing issuggested to confirm the result. Blood Venous blood specimen / Unknown 07/14/2025 4:14 PM EDT 07/14/2025 6:02 PM EDT Lety Black [facility] BLOOD ORDERABLES Final Res ult Performing Organization Address [facility] Co de Phone Number [facility] [address] [place] [phone] * (ABNORMAL) Lipid Panel, Standard (07/14/2025 4:14 PM EDT) Triglycerides 115 <150 mg/dL [facility] Comment:Desirable Triglyceri de: less than 150 mg/dLBorderline High Triglyceride 150-199 mg/dLHigh Triglyceride: 200-499 mg/dLVery High Triglyceride: greater than or equal to 5OO mg/dL Cholesterol 197 <200 mg/dL [facility] Comment:Desirable Cholestero l: less than 200 mg/dLBorderline High Cholesterol: 200-239 mg/dLHigh Cholesterol: greater than 239 mg/dL LDL Cholesterol Calculated 117(H) <100 mg/dL [facility] Comment:Desirable LDL: less than 100 mg/dLNear Optimal/Above Optimal LDL: 110- 129 mg/dLBorderline High LDL: 130-159 mg/dLHigh LDL: 160-189 mg/dLVery High LDL: greater than or equal to 190 mg/dL HDL Cholesterol 57 >40 mg/dL [facility] Comment:Desirable HDL: great er than 40 mg/dL Note: This HDL assay may give artificially low results in patients with liver disease. Blood Venous blood specimen / Unknown 07/14/2025 4:14 PM EDT 07/14/2025 6:02 PM EDT Lety Black PASSENGER SCREENER LAB BLOOD ORDERABLES Final Res ult Performing Organization Address [facility] Co de Phone Number [facility] [address] [place] [phone] * CTA Head Neck w/ and w/o Contrast (07/09/2025 5:08 PM EDT) Anatomical Region Laterality Modality Head, Neck Computed Tomogra phy 07/09/2025 5:08 PM EDT Narrative 07/09/2025 5:08 PM EDT [address] [address] [address] Scan Report Signed Patient: Marium Ravi MR#: [id number] : 1995 Acct:[id number] Age/Sex: 30 / F ADM Date: 07/09/25 Loc: HO.ED Attending Dr: Ordering Physician: Irina Frost Date of Service: 07/09/25 Procedure(s): CT angio head neck Accession Number(s): [id number] cc: Lety Black PASSENGER SCREENER; Irina Frost Report Number: [id number]: Total DLP = 1492.00 mGy-cm Reason for [...] in OV> 07/09/251707 DD/ 07 TD/TT: 07/09/251707 Material Stress Tester: Procedure Note Donotuseinterpreter, Image - 07/09/[address] [place] [address] [address] Scan Report Signed Patient: Marium Ravi [facility]#: [id number] : 1995Acct:[id number] Age/Sex: 30 / FADM Date: 07/09/25 Loc: HO.ED Attending Dr: Ordering Physician: Irina Frost Date of Service: 07/09/25 Procedure(s): CT angio head neck Accession Number(s): [id number] cc: Lety Black PASSENGER SCREENER; Irina rFost Report Number: [id number]: Total DLP = 1492.00 mGy-cm Reason for [...] in OV> 07/09/251707 DD/ 07 TD/TT: 07/09/251707 Material Stress Tester: [facility] External Provider IMG CT PROCEDURES Edited Result - Final * (ABNORMAL) Sed Rate by Modified Holliren (07/09/2025 1:59 PM EDT) [facility] Erythrocyte Sedimentation Rate 28(H) 0 - 20 MM/HR [facility] Comment:Patients with polycy themia and many hemoglobin abnormalitiesmay have depressed sed rates whereas patients with anemiamay have elevated sed rates. 07/09/2025 1:59 PM EDT 07/09/2025 4:53 PM EDT Generic External Data Provider LAB BLOOD ORDERAB LES Final Result Performing Organization Address [facility] Co de Phone Number [facility] [address] [place] [phone] * High Sensitivity Troponin I (07/09/2025 1:53 PM EDT) [facility] TROPONIN I HIGH SENSITIVITY <2.7 <3.5 - 17.0 ng/L [facility] Comment:The [facility] high sens itivity Troponin-I results should beused in conjunction with other diagnostic information suchas ECG, clinical observations and information, and patientsymptoms to aid in the diagnosis of [place]. 07/09/2025 1:53 PM EDT 07/09/2025 1:59 PM EDT Generic External Data Provider LAB BLOOD ORDERAB LES Final Result Performing Organization Address [facility] Co de Phone Number [facility] [address] [place] [phone] * CBC auto differential (07/09/2025 1:53 PM EDT) Only the most recent of2 resultswithin the time period is included. [facility] White Blood Count 6.2 4.8 - 10.8 X10*3/uL [facility] Red Blood Count 4.66 4.20 - 5.50 X10*6/uL [facility] Hemoglobin 12.6 12.0 - 16.0 g/dl [facility] Hematocrit 37.9 37.0 - 47.0 % [facility] Mean Corpuscular Volume 81.3 80.0 - 98.0 fL [facility] Mean Corpuscular Hemoglobin 27.0 27.0 - 33.0 pg [facility] Mean Corpuscular HGB Conc 33.2 31.0 - 35.0 g/dl [facility] Red Cell Distribution Width 12.9 11.0 - 16.0 % [facility] Platelet Count 370 160 - 400 X10*3/uL [facility] Mean Platelet Volume 9.5 9.4 - 12.3 fL [facility] Neutrophils Percent Auto 63.5 45 - 73 % [facility] Imm Gran Pct Auto 0.2 0.0 - 0.4 % [facility] Lymphocytes Percent Auto 27.9 20 - 40 % [facility] Monocytes Percent Auto 7.0 2 - 11 % [facility] Eosinophils Percent Auto 1.1 0 - 4 % [facility] Basophils Percent Auto 0.3 0 - 2 % [facility] NRBC Pct Auto 0.0 0.0 - 0.2 /100WBC [facility] Neutrophils Absolute Auto 3.9 2.0 - 8.3 x10*3/uL [facility] Imm Gran Abs Auto 0.01 0.00 - 0.03 X10*3/uL [facility] Lymphocytes Absolute Auto 1.7 1.2 - 4.9 X10*3/uL [facility] Monocytes Absolute Auto 0.4 0.1 - 1.2 X10*3/uL [facility] Eosinophils Absolute Auto 0.1 0.0 - 0.4 X10*3/uL [facility] Basophils Absolute Auto 0.0 0.0 - 0.2 X10*3/uL [facility] NRBC Abs Auto 0.000 0.0 - 0.012 X10*3/uL [facility] 07/09/2025 1:53 PM EDT 07/09/2025 1:59 PM EDT us Generic External Data Provider LAB BLOOD ORDERAB LES Final Result [facility] [address] [place], [place] [phone] * (ABNORMAL) Basic Metabolic Panel (07/09/2025 1:53 PM EDT) Sodium 140 135 - 145 mmol/L [facility] Potassium 3.4 3.3 - 5.1 mmol/L [facility] Chloride 106 96 - 108 mmol/L [facility] Carbon Dioxide 26 22 - 29 mmol/L [facility] Anion Gap 11(L) 12 - 20 [facility] Urea Nitrogen (BUN) 9 9 - 16 mg/dL [facility] Creatinine, Serum 0.54 0.5 - 1.4 mg/dL [facility] Creatinine Clr Calc Pharmacy 230.9 [facility] Comment:Provided height and weight: 160.02 cm,163.747 kg.eGFR (calculated from the MDRD study equation) and eCrCl(calculated from the Cockcroft-Gault equation) are based ondifferent parameters and may not yield comparable results.If eCrCl result is absurd, please check patient'sheight/weight. Estimated Glomerular Filt Rate >60 [facility] Comment:Chronic Kidney Disea se: Estimated GFR < 60 mL/min/1.44o4[place]qa Kidney Disease: Estimated GFR < 15 mL/min/1.73m2 Glucose 142(H) 60 - 115 mg/dL [facility] Calcium 9.0 8.4 - 10.2 mg/dL [facility] 07/09/2025 1:53 PM EDT 07/09/2025 1:59 PM EDT us Generic External Data Provider LAB BLOOD ORDERAB LES Final Result [facility] [address] [place] [phone] * CT Head w/o Contrast (07/07/2025 10:24 PM EDT) Anatomical Region Laterality Modality Head, Neck Computed Tomogra phy 07/07/2025 10:2 4 PM EDT Narrative 07/07/2025 10:25 PM EDT [address] [address] [address] Scan Report Signed with Addenda Patient: Marium Ravi MR#: [id number] : 1995 Acct:[id number] Age/Sex: 30 / F ADM Date: 07/07/25 Loc: HO.ED Attending Dr: Ordering Physician: Pedro Benitez Date of Service: 07/07/25 Procedure(s): CT head/brain wo IV con Accession Number(s): [id number] cc: Lety Black PASSENGER SCREENER; Pedro Benitez Report Number: [id number]: Total DLP = 765.00 mGy-cm Reason for Exam: headache ADDENDUM This document has been electronically signed by: Padilla Reyes MD on 07/07/2025 22:24:17 ADDENDUM: As noted on subsequent CT angiogram of the head and neck dated 07/09/2025, there is a colloid cyst in the foramen of Monro that measures 3.6 cm on this examination. No hydrocephalus or urgent findings. This document has been electronically signed by: Padilla Reyes MD on 07/17/2025 21:18:48 Addendum Dictated By: Padilla Reyes MD Addendum Signed By: <Electronically signed by Padilla Reyes MD in OV> 07/17/252119 Addendum Cosigned By: DD/ TD/TT: 07/17/2504/05/2118 CLINICAL HISTORY: headache CT head without contrast [...] in OV> 07/07/252224 DD/ 23 TD/TT: 07/07/252223 Material Stress Tester: Procedure Note Donotuseinterpreter, Image - 07/17/[address] [place] [address] [address] Scan Report Signed with Addenda Patient: Marium Ravi MMR#: [id number] : 1995Acct:[id number] Age/Sex: FADM Date: 07/07/25 Loc: HO.ED Attending Dr: Ordering Physician: Pedro Benitez Date of Service: 07/07/25 Procedure(s): CT head/brain wo IV con Accession Number(s): [id number] cc: Lety Black PASSENGER SCREENER; Pedro Benitez Report Number: [id number]: Total DLP = 765.00 mGy-cm Reason for Exam: headache ADDENDUM This document has been electronically signed by: Padilla Reyes MD on 07/07/2025 22:24:17 ADDENDUM: As noted on subsequent CT angiogram of the head and neck dated 07/09/2025, there is a colloid cyst in the foramen of Monro that measures 3.6 cm on this examination. No hydrocephalus or urgent findings. This document has been electronically signed by: Padilla Reyes MD on 07/17/2025 21:18:48 Addendum Dictated By: Padilla Reyes MD Addendum Signed By: <Electronically signed by Padilla Reyes MD in OV> 07/17/252119 Addendum Cosigned By: DD/ TD/TT: 07/17/2504/05/2118 CLINICAL HISTORY: headache CT head without contrast [...] in OV> 07/07/252224 DD/ 23 TD/TT: 07/07/252223 Material Stress Tester: [facility] External Provider IMG CT PROCEDURES Edited Result - Final * Influenza A B2 ID NOW (Mosher) (07/07/2025 6:39 PM EDT) IDNOW SERIAL# [id number] [facility] Influenza A Negative Negative [facility] Influenza B2 Negative Negative [facility] Influenza A B2 Note See Note [facility] Comment:The Mosher ID NOW In fluenza [...] LAB MICROBIOLOGY - GENERAL ORDERABLES Final Result [facility] [address] [place] [address] [phone] * COVID-19 ID NOW (MOSHER) (07/07/2025 6:39 PM EDT) Pathologist [facility] IDNOW SERIAL# [id number] [facility] COVID-19 TEST Negative Negative [facility] COVID-19 NOTE See Note [facility] Comment: Results are for the identification of SARS-CoV2 RNA. TheSARS-CoV2 RNA is generally detectable in respiratory samplesduring the acute phase of infection. Positive results areindicative of the presence of SARS-CoV-2 RNA; clinicalcorrelation with patient history and other diagnosticinformation is necessary to determine patient infectionstatus. Positive results do not rule out bacterial infectionor co- infection with other viruses.Testing facilities within the [facility] and [facility] are required to report all positive [...] LAB MOLECULAR LILIANA GNOSTICS ORDERABLES Final Result [facility] [address] [place] [phone] * (ABNORMAL) Urinalysis, Complete, with Reflex to Culture (07/07/2025 6:39 PM EDT) Color Urine Yellow [facility] Appearance Urine Clear [facility] PH 5.5 5.0 - 9.0 [facility] Glucose Urine UA >=1000(A) Negative mg/dL [facility] Urine Blood Trace(A) Negative [facility] Specific [place] - Urine >=1.030(H) 1.005 - 1.025 [facility] Urine Protein 300 (3+)(A) Neg-Trace mg/dL [facility] Urine Ketones Negative Negative mg/dL [facility] Nitrite Urine Negative Negative [facility] Leukocyte Esterase Urine Negative Negative [facility] RBC Urine 0-2 0 - 2 /HPF [facility] Urine WBC 0-5 0 - 5 /HPF [facility] Urine Squamous Epithelial Cell 0-2 0 - 2 /HPF [facility] Urine Bacteria None Seen None Seen [facility] Hyaline Casts, Urine 0-2 0 - 2 /LPF [facility] 07/07/2025 6:39 PM EDT 07/07/2025 6:44 PM EDT Narrative [facility] - 07/07/2025 7:02 PM EDT Urine, Clean Catch us Generic External Data Provider LAB URINE ORDERAB LES Final Result [facility] [address] [place] [address] [phone] * hCG, Total, Quantitative (07/07/2025 6:39 PM EDT) HCG Quantitative <2 mIU/mL [facility] Comment:Weeks post LMP Appro ximate hCG(Last Menstrual Period) Range (mIU/ml)3 - 4 weeks 9 - 1304 - 5 weeks 75 - 2,6005 - 6 weeks 850 - 20,8006 - 7 weeks 4000 - 100,2007 - 12 weeks 11,500 - 289,32315 - 16 weeks 18,300 - 137,64525 - 29 weeks (2nd trimester) 1,400 - 53,51296 - 41 weeks (3rd trimester) 940 - [...] Organization Address City/[facility]/ZIP Co de Phone Number [facility] [address] [place] [phone] * Lipase (07/07/2025 6:39 PM EDT) Lipase 22 8 - 78 U/L [facility] 07/07/2025 6:39 PM EDT 07/07/2025 6:44 PM EDT Generic External Data Provider LAB BLOOD ORDERAB LES Final Result Performing Organization Address [facility]/ZIP Co de Phone Number [facility] [address] [place] [phone] * (ABNORMAL) Comprehensive Metabolic Panel (07/07/2025 6:39 PM EDT) Sodium 141 135 - 145 mmol/L [facility] Potassium 3.6 3.3 - 5.1 mmol/L [facility] Chloride 108 96 - 108 mmol/L [facility] Carbon Dioxide 26 22 - 29 mmol/L [facility] Anion Gap 11(L) 12 - 20 [facility] Urea Nitrogen (BUN) 10 9 - 16 mg/dL [facility] Creatinine, Serum 0.56 0.5 - 1.4 mg/dL [facility] Creatinine Clr Calc Pharmacy 219.6 [facility] Comment:Provided height and weight: 157.48 cm,163.747 kg.eGFR (calculated from the MDRD study equation) and eCrCl(calculated from the Cockcroft-Gault equation) are based ondifferent parameters and may not yield comparable results.If eCrCl result is absurd, please check patient'sheight/weight. Estimated Glomerular Filt Rate >60 [facility] Comment:Chronic Kidney Disea se: Estimated GFR < 60 mL/min/1.63x0Akdyvf Kidney Disease: Estimated GFR < 15 mL/min/1.73m2 Glucose 227(H) 60 - 115 mg/dL [facility] Calcium 8.8 8.4 - 10.2 mg/dL [facility] Bilirubin, Total 0.2 0.0 - 1.0 mg/dL [facility] Aspartate Amino Transferase 24 5 - 31 U/L [facility] Alanine Aminotransferase 25 0 - 31 U/L [facility] Total Protein 6.9 6.5 - 8.0 g/dL [facility] Albumin Level 3.9 3.5 - 5.0 g/dL [facility] Alkaline Phosphatase 53 39 - 117 U/L [facility] 07/07/2025 6:39 PM EDT 07/07/2025 6:44 PM EDT us Generic External Data Provider LAB BLOOD ORDERAB LES Final Result Performing Organization Address City/State/[facility] Co de Phone Number [facility] [address] [place] [phone] * (ABNORMAL) POCT HGB A1C (06/09/2025 8:57 AM EDT) Hemoglobin A1C 7.0(A) 4.0 - 5.7 % QC Media Lot # [id number] Lot# Expiration Date Blood 06/09/2025 8:57 AM EDT us Lety Black PASSENGER SCREENER POINT OF CARE TEST ENTER/EDIT ORDERABLES Final Result from Last 3 Months or Most Recently Relevant to Health Maintenance Insurance [facility] C3 Care Teams Reimbursement Manager Relationship Specialty Start Date End Date Lety Black FNP [address] [place] [phone] PCP - General Family Medicine 06/05/22 Grupo Nixon FNP [address] [place] [address] Nurse Practitioner Family Medicine 09/14/23
--- OUTSIDE RECORDS SUMMARY | 2025-09-14 22:14 | XMS_ITS | Encounter Summary ---
Author Organization [employer] Address [address] [facility] [address] [place] [address] Care Team Providers Care Cover Marker Name Role Phone Lety Black Primary Care Provider [phone] Grupo Nixon Unavailable Unavailable Reason for Visit * Reason Comments Med Change Request Encounter Details Date Type Department Care Team ([facility] st Contact Info) Description 06/09/2025 Refill [facility] [address], [place] [phone] Lety Black FNP [address] [place], [place] [phone] Social History Tobacco Use Types Packs/Day Years [...] 10:00 AM EST Office Visit [facility] [address] [place] [address] Lety Black FNP [address] [place] [address] documented as of this encounter Visit Diagnoses Not on filedocumented in this encounter Additional Health Concerns Assessment Noted Time PHQ-9 Depression Total Score: 5 12/19/19 25 8:46 PM EDT documented as of this encounter Care Teams Cover Marker Relationship Specialty Start Date End Date Lety Black FNP [address] [place] [phone] PCP - General Family Medicine 06/05/22 Grupo Nixon FNP [address] [place] [address] Nurse Practitioner Family Medicine 09/14/23 documented as of this encounter
--- OUTSIDE RECORDS SUMMARY | 2025-09-14 22:15 | XMS_ITS | Encounter Summary ---
Author Organization [employer] Address [address] [facility] [address] [place] [address] Care Team Providers Care Whiteprinting Machine Operator Name Role Phone Lety Black Primary Care Provider [phone] [employer] Nixon Unavailable Unavailable Reason for Visit * Reason Comments Med Refill Encounter Details Date Type Department Care Team (Late st Contact Info) Description 08/19/2023 Refill [facility] [address] [place] [address] Lety Black FNP [address] [place], [place] [phone] Social History Tobacco Use Types Packs/Day Years [...] Description 09/15/2025 10:00 AM EST Office Visit [facility]ED[facility] [address] [place] [address] Lety Black FNP [address] [place] [address] documented as of this encounter Visit Diagnoses Not on filedocumented in this encounter Additional Health Concerns Assessment Noted Time PHQ-9 Depression Total Score: 5 01/07/20 23 2:06 PM EDT documented as of this encounter Care Teams Whiteprinting Machine Operator Relationship Specialty Start Date End Date Lety Black FNP [address] [place] [address] PCP - General Family Medicine 06/05/22 Grupo Nixon FNP [address] [place] [address] Nurse Practitioner Family Medicine 09/14/23 documented as of this encounter
== END 2025-09-14 20:07 | disposition home or self-care (01) ==
PROVIDERS: Physician Assistant; Emergency Provider Emergency Medicine
DX: J02.0 Streptococcal pharyngitis (principal); Q04.6 Congenital cerebral cysts; G43.909 Migraine, unspecified, not intractable, without status migrainosus; R06.02 Shortness of breath; J45.909 Unspecified asthma, uncomplicated; F43.10 Post-traumatic stress disorder, unspecified; E28.2 Polycystic ovarian syndrome; E11.9 Type 2 diabetes mellitus without complications; F31.9 Bipolar disorder, unspecified; R42 Dizziness and giddiness; R11.0 Nausea; I10 Essential (primary) hypertension; E88.810 Metabolic syndrome; E78.00 Pure hypercholesterolemia, unspecified; K21.9 Gastro-esophageal reflux disease without esophagitis; G47.30 Sleep apnea, unspecified; F12.90 Cannabis use, unspecified, uncomplicated; Z79.4 Long term (current) use of insulin; Z79.84 Long term (current) use of oral hypoglycemic drugs
CPT/HCPCS: 70450; 71045; 80053; 82947; 84702; 85025; 87637; 87651; 99284

== ENCOUNTER → 2025-09-14 14:31 | Outpatient (BNV) | payer MEDICAID, SELFPAY | PROVIDERS: Visit Provider Radiology Diagnostic Radiology | DX: G93.0 Cerebral cysts (principal); R05.9 Cough, unspecified | CPT/HCPCS: 70450; 71045 ==